=== PATIENT | female | born 1930 | race Caucasian/White ===

== ENCOUNTER 2016-06-15 14:28 | Emergency (ER) | payer MEDICARE, OTHER ==
[2016-06-15] MEDS ORDERED: HYDROcod/ACETAM 5/325 MG TABLET PO STA (14:43)
[2016-06-15] MEDS ORDERED: HYDROcod/ACETAM 5/325 MG TABLET ONE (15:03)
== END 2016-06-15 16:25 | disposition home or self-care (01) ==
DX: M23.91 Unspecified internal derangement of right knee (principal); Z86.718 Personal history of other venous thrombosis and embolism; I48.91 Unspecified atrial fibrillation; Z79.01 Long term (current) use of anticoagulants; I10 Essential (primary) hypertension
CPT/HCPCS: 73564; 99283; 99284; A9270

== ENCOUNTER 2016-06-16 | Outpatient (CLI) | payer MEDICARE, OTHER | END 2016-06-16 22:03 | disposition critical access hospital (66) | DX: R06.00 Dyspnea, unspecified (principal) | CPT/HCPCS: A0425; A0429 ==

== ENCOUNTER 2016-06-16 22:18 | Emergency (ER) | payer MEDICARE, OTHER ==
[2016-06-17] MEDS ORDERED: FUROSEMIDE 40 MG/4 ML VIAL IVP STA (00:42)
[2016-06-17] MEDS ORDERED: FUROSEMIDE 40 MG/4 ML VIAL ONE (00:49)
[2016-06-17] MEDS ORDERED: ALBUTEROL NEB 2.5 MG/3 ML INH STA (02:13)
[2016-06-17] MEDS ORDERED: ALBUTEROL NEB 2.5 MG/3 ML INH ONE (02:42)
[2016-06-17] MEDS ORDERED: ALBUTEROL 8 GM INHALER INH STA (03:32)
[2016-06-17] MEDS ORDERED: ALBUTEROL 8 GM INHALER INH ONE (03:42)
== END 2016-06-17 04:06 | disposition home or self-care (01) ==
DX: R06.00 Dyspnea, unspecified (principal); J43.9 Emphysema, unspecified; R91.1 Solitary pulmonary nodule; D64.9 Anemia, unspecified; I48.91 Unspecified atrial fibrillation; Z86.718 Personal history of other venous thrombosis and embolism; Z79.01 Long term (current) use of anticoagulants; I10 Essential (primary) hypertension; K21.9 Gastro-esophageal reflux disease without esophagitis; K44.9 Diaphragmatic hernia without obstruction or gangrene
CPT/HCPCS: 36415; 71010; 71250; 80048; 83540; 83880; 84466; 84484; 85025; 85379; 85610; 93005; 93010; 93971; 94640; 94664; 96374; 99284; A9270; J7613

== ENCOUNTER 2016-06-18 21:55 | Emergency (ER) | payer MEDICARE, OTHER ==
[2016-06-18] MEDS ORDERED: IPRATROPIUM/ALBUTEROL 3 ML NEB INH STA (22:30)
[2016-06-18] MEDS ORDERED: DEXAMETHASONE 10 MG/ML VIAL PO STA (22:30)
[2016-06-18] MEDS ORDERED: CEPHALEXIN 250 MG CAPSULE PO STA (22:32)
[2016-06-18] MEDS ORDERED: DEXAMETHASONE 10 MG/ML VIAL ONE (22:33)
[2016-06-18] MEDS ORDERED: CHERRY SYRUP 10 ML UDC PO ONE (22:33)
[2016-06-18] MEDS ORDERED: CEPHALEXIN 250 MG CAPSULE PO ONE (22:37)
[2016-06-18] MEDS ORDERED: IPRATROPIUM/ALBUTEROL 3 ML NEB INH ONE (23:07)
== END 2016-06-19 00:40 | disposition home or self-care (01) ==
DX: J44.9 Chronic obstructive pulmonary disease, unspecified (principal); I10 Essential (primary) hypertension; I48.91 Unspecified atrial fibrillation; Z86.718 Personal history of other venous thrombosis and embolism; Z79.01 Long term (current) use of anticoagulants
CPT/HCPCS: 36415; 84484; 85610; 93005; 94640; 99283; 99284; A9270; J7620

== ENCOUNTER 2016-07-01 11:38 | Outpatient (CLI) | payer MEDICARE, OTHER ==
[2016-07-01 12:14] LABS: BASOPHILS # (AUTO) 0.1 10^3/uL (0.0-0.1); BASOPHILS % (AUTO) 1.6 %; EOSINOPHILS % (AUTO) 0.7 %; HCT - HEMATOCRIT 35.4 % (37.0-47.0); HGB - HEMOGLOBIN 11.8 g/dL (12.0-16.0); LYMPHOCYTES % (AUTO) 15.7 %; MEAN CORPUSCULAR HEMOGLOBIN 28.6 pg (27.0-31.0); MEAN CORPUSCULAR HGB CONC 33.4 g/dL (32.0-36.0); MEAN CORPUSCULAR VOLUME 85.6 fL (81.0-99.0); MEAN PLATELET VOLUME 8.3 fL (7.9-10.8); MONOCYTES # (AUTO) 0.3 10^3/uL (0.0-1.0); MONOCYTES % (AUTO) 4.4 %; NEUTROPHILS # (AUTO) 4.9 10^3/uL (1.5-6.6); NEUTROPHILS % (AUTO) 77.6 %; RED BLOOD COUNT 4.14 10^6/uL (4.20-5.40); RED CELL DISTRIBUTION WIDTH 21.8 % (12.0-15.0); UNCORRECTED WHITE BLOOD COUNT 6.8 x10^3/uL; WHITE BLOOD COUNT 6.4 x10^3/uL (4.8-10.8)
[2016-07-01 12:36] LABS: CALCIUM 9.1 mg/dL (8.5-10.3); CREATININE 0.7 mg/dL (0.4-1.0); POTASSIUM 3.9 mmol/L (3.5-5.0)
[2016-07-01 12:47] LABS: PLATELET ESTIMATE, MANUAL NORMAL (130-450,000) (NORMAL); PLATELET MORPHOLOGY PLATELET CLUMPING (NORMAL)
[2016-07-01 12:48] LABS: WBC MORPHOLOGY (MULTIPLE) 1+ VACUOLATION (NORMAL)
[2016-07-01 13:02] LABS: THYROID STIMULATING HORMONE 1.33 uIU/mL (0.34-5.60)
== END 2016-07-01 11:39 | disposition home or self-care (01) ==
LOC: LAB 11:38
PROVIDERS: ATTEND Internal Medicine Cardiovascular Disease
DX: I48.91 Unspecified atrial fibrillation (principal)
CPT/HCPCS: 36415; 80048; 83540; 84439; 84443; 84466; 85025

== ENCOUNTER 2016-07-05 14:21 | Outpatient (CLI) | payer MEDICARE, OTHER | END 2016-07-05 14:22 | disposition home or self-care (01) | DX: I48.91 Unspecified atrial fibrillation (principal) ==

== ENCOUNTER 2016-07-09 08:29 | Emergency (ER) | payer MEDICARE, OTHER ==
[2016-07-09] MEDS ORDERED: MIDAZOLAM 2 MG/2 ML VIAL IVP STA (10:28)
[2016-07-09] MEDS ORDERED: PROPOFOL 200 MG/20 ML VIAL IVP STA (10:28)
[2016-07-09] MEDS ORDERED: MIDAZOLAM 2 MG/2 ML VIAL ONE (10:43)
[2016-07-09] MEDS ORDERED: PROPOFOL 200 MG/20 ML VIAL IVP ONE (10:43)
== END 2016-07-09 12:05 | disposition home or self-care (01) ==
DX: I48.91 Unspecified atrial fibrillation (principal); Z79.01 Long term (current) use of anticoagulants; I10 Essential (primary) hypertension; I25.2 Old myocardial infarction; Z86.718 Personal history of other venous thrombosis and embolism

== ENCOUNTER 2016-07-12 08:53 | Emergency (ER) | payer MEDICARE, OTHER ==
[2016-07-12] MEDS ORDERED: SODIUM CHLORIDE 0.9% 500 ML IV ONE (09:25)
[2016-07-12] MEDS ORDERED: METOPROLOL 5 MG/5 ML VIAL IVP STA ×2 (09:25→10:58)
[2016-07-12] MEDS ORDERED: METOPROLOL 5 MG/5 ML VIAL IVP ONE ×2 (09:32→11:06)
[2016-07-12] MEDS ORDERED: ENOXAPARIN 80 MG/0.8 ML SYRINGE SUBQ STA (10:58)
[2016-07-12] MEDS ORDERED: DIGOXIN 125 MCG TABLET PO STA (10:58)
[2016-07-12] MEDS ORDERED: NITROFURANTOIN MACRO 100 MG CAPSULE PO STA (11:02)
[2016-07-12] MEDS ORDERED: ENOXAPARIN 80 MG/0.8 ML SYRINGE SUBQ ONE (11:04)
[2016-07-12] MEDS ORDERED: NITROFURANTOIN MACRO 100 MG CAPSULE PO ONE (11:05)
[2016-07-12] MEDS ORDERED: METOCLOPRAMIDE 10 MG/2 ML VIAL IVP ONE (11:05)
== END 2016-07-12 12:41 | disposition home or self-care (01) ==
DX: I48.0 Paroxysmal atrial fibrillation (principal); Z79.01 Long term (current) use of anticoagulants; D68.8 Other specified coagulation defects; R94.31 Abnormal electrocardiogram [ECG] [EKG]; I10 Essential (primary) hypertension; E78.00 Pure hypercholesterolemia, unspecified; K21.9 Gastro-esophageal reflux disease without esophagitis; M19.90 Unspecified osteoarthritis, unspecified site; Z86.718 Personal history of other venous thrombosis and embolism; Z87.442 Personal history of urinary calculi; Z87.440 Personal history of urinary (tract) infections
CPT/HCPCS: 36415; 80048; 84484; 85025; 85610; 93005; 93010; 96361; 96372; 96374; 96376; 99284; A9270; J1650

== ENCOUNTER 2016-10-19 15:25 | Outpatient (CLI) | payer MEDICARE, OTHER ==
[2016-10-19 19:17] LABS: BASOPHILS % (AUTO) 0.8 %; EOSINOPHILS % (AUTO) 0.6 %; HCT - HEMATOCRIT 38.8 % (37.0-47.0); HGB - HEMOGLOBIN 12.9 g/dL (12.0-16.0); LYMPHOCYTES # (AUTO) 1.5 10^3/uL (1.5-3.5); LYMPHOCYTES % (AUTO) 23.8 %; MEAN CORPUSCULAR HEMOGLOBIN 30.4 pg (27.0-31.0); MEAN CORPUSCULAR HGB CONC 33.1 g/dL (32.0-36.0); MEAN CORPUSCULAR VOLUME 91.9 fL (81.0-99.0); MEAN PLATELET VOLUME 9.7 fL (7.9-10.8); MONOCYTES # (AUTO) 0.4 10^3/uL (0.0-1.0); MONOCYTES % (AUTO) 7.2 %; NEUTROPHILS # (AUTO) 4.1 10^3/uL (1.5-6.6); NEUTROPHILS % (AUTO) 67.6 %; RED BLOOD COUNT 4.23 10^6/uL (4.20-5.40); RED CELL DISTRIBUTION WIDTH 15.1 % (12.0-15.0); UNCORRECTED WHITE BLOOD COUNT 6.1 x10^3/uL; WHITE BLOOD COUNT 6.1 x10^3/uL (4.8-10.8)
[2016-10-19 19:46] LABS: ALBUMIN/GLOBULIN RATIO 1.2 (1.0-2.2); BILIRUBIN,TOTAL 0.7 mg/dL (0.2-1.0); CALCIUM 9.7 mg/dL (8.5-10.3); CREATININE 0.7 mg/dL (0.4-1.0); POTASSIUM 4.5 mmol/L (3.5-5.0); TOTAL PROTEIN 7.4 g/dL (6.7-8.2)
[2016-10-19 19:50] LABS: FERRITIN 11.8 ng/mL (11.0-306.8)
[2016-10-19 20:02] LABS: THYROID STIMULATING HORMONE 1.42 uIU/mL (0.34-5.60)
== END 2016-10-19 15:26 ==
LOC: LAB.WCP 15:25
PROVIDERS: ATTEND Family Medicine
DX: D64.9 Anemia, unspecified (principal); I48.91 Unspecified atrial fibrillation
CPT/HCPCS: 36415; 80053; 82607; 82728; 82746; 83010; 83540; 83615; 84443; 84466; 85025

== ENCOUNTER 2016-11-03 11:00 | Outpatient (CLI) | payer MEDICARE, OTHER | END 2016-11-03 11:01 | disposition home or self-care (01) | LOC: LAB.R 11:00 | PROVIDERS: ATTEND Physician Assistant Medical | DX: N39.0 Urinary tract infection, site not specified (principal) | CPT/HCPCS: 87086 ==

== ENCOUNTER 2016-11-07 09:14 | Emergency (ER) | payer MEDICARE, OTHER ==
[2016-11-07] MEDS ORDERED: SODIUM CHLORIDE 0.9% 1,000 ML IV ONE (09:29)
[2016-11-07] MEDS ORDERED: METOPROLOL 5 MG/5 ML VIAL IVP STA ×2 (09:29→10:27)
[2016-11-07] MEDS ORDERED: METOPROLOL 5 MG/5 ML VIAL IVP ONE ×2 (09:31→10:33)
--- NOTE | 2016-11-07 09:33 | ED Physician Documentation ---
History of Present Illness - Stated complaint Stated Complaint: RAPID HEART RATE - Chief complaint Chief Complaint: Cardiac - Additonal information Additional information: hx from pt 85 female long hx a fib last seen by me in Jun - had just been cardioverted 2 days prior and had not help NSR, also was subtherapeutic , d/w cardio and rec not trying to cardiovert again, rec dc sotalol and flecainide since not working and start dig and inc coumadin pt states that since that time she has continued to have a fib problems dig did not control her rate either, then she was on atenolol and not rate controlled and 2 weeks ago changed to metoprolol no other med changes does not know her last INR the rapid palpitations have been going on for months, also chest pressure for months - but last night were more symptomatic and she could sleep and she felt very cold no SOA no fever cough NVD no new leg swelling Review of Systems Constitutional: reports: Sweats. 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 : Chronic bladder infection, Kidney stones HEENT: None Psych: None Musculoskeletal: Osteoarthritis Derm: Herpes zoster - Past Surgical History Past Surgical History: Yes Ortho: Hip replacement /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: Dilation and currettage HEENT: Tracheostomy - Present Medications Home Medications: Ambulatory Orders Medication Instructions Recorded Confirmed Warfarin [Coumadin] 5 mg PO DAILY 10/13/12 11/07/16 Vitamin B Complex 1 each PO DAILY 04/28/16 11/07/16 Ferrous Sulfate [Iron] 325 mg PO DAILY 05/12/16 11/07/16 Ascorbic Acid [Vitamin C] 1,000 mg PO DAILY 07/09/16 11/07/16 raNITIdine [Zantac] 75 mg PO DAILY 07/09/16 11/07/16 Amoxicillin 500 mg PO DAILY 11/07/16 11/07/16 Metoprolol Succinate 50 mg PO DAILY #14 tab.er.24h 11/07/16 Metoprolol Succinate 100 mg PO DAILY 11/07/16 11/07/16 - Allergies Allergies/Adverse Reactions: Allergies Allergy/AdvReac Type Severity Reaction Status Date / Time BISHOP Inhibitors Allergy Unknown Unknown Verified 11/07/16 09:22 atropine Allergy Unknown Unknown Verified 11/07/16 09:22 clopidogrel bisulfate * Allergy Unknown Unknown Verified 11/07/16 09:22 [From Plavix] NSAIDS (Non-Steroidal Allergy Unknown Unknown Verified 11/07/16 09:22 Anti-Inflamma ciprofloxacin AdvReac Unknown Unknown Verified 11/07/16 09:22 esomeprazole magnesium * AdvReac Unknown Cramps Verified 11/07/16 09:22 [From Nexium] omeprazole [From Prilosec] AdvReac Unknown Cramps Verified 11/07/16 09:22 omeprazole magnesium * AdvReac Unknown Cramps Verified 11/07/16 09:22 [From Prilosec] Sulfa (Sulfonamide AdvReac Unknown Itching Verified 11/07/16 09:22 Antibiotics) - Social History Does the pt smoke?: No Smoking Status: Never smoker Does the pt drink ETOH?: No Does the pt have substance abuse?: No - Immunizations Immunizations are current?: Yes - POLST Patient has POLST: No PD ED PE NORMAL - Vitals Vital signs reviewed: Yes - Cardiac Cardiac: RRR - Respiratory Respiratory: No respiratory distress, Clear bilaterally - Abdomen Abdomen: Soft, Non tender - Derm Derm: Normal color - Extremities Extremities: Normal ROM s pain, No edema, No calf tenderness / cord - Neuro Neuro: Alert and oriented X 3 Results - Vitals Vitals: Vital Signs - 24 hr 11/07/16 11/07/16 11/07/16 09:18 09:36 09:37 Temperature 36.2 C L Heart Rate 127 H 104 H Respiratory 18 18 Rate Blood Pressure 151/118 H 132/88 H O2 Saturation 97 97 11/07/16 11/07/16 11/07/16 09:52 10:30 10:41 Temperature Heart Rate 106 H 107 H 109 H Respiratory 16 22 23 Rate Blood Pressure 123/81 H 109/84 H 119/88 H O2 Saturation 94 96 96 Oxygen O2 Source Room air - EKG (time done) 0932 Rate: Rate (enter#) Rhythm: Atrial fibrillation Ischemia: Non specific changes - Labs Labs: Laboratory Tests 11/07/16 11/07/16 11/07/16 09:32 09:32 09:32 WBC 4.9 RBC 4.13 L Hgb 12.8 Hct 37.6 MCV 91.0 MCH 30.9 MCHC 34.0 RDW 15.6 H Plt Count 200 MPV 9.0 Neut # 3.5 Lymph # 1.[address] # 0.3 Eos # 0.0 Baso # 0.1 Absolute Nucleated RBC 0.00 Nucleated RBCs 0.0 PT INR Sodium 140 Potassium 4.0 Chloride 106 Carbon Dioxide 25 Anion Gap 9.0 BUN 25 H Creatinine 0.6 Estimated GFR (MDRD) 95 Glucose 111 H Calcium 9.5 Troponin I < 0.04 11/07/16 09:32 WBC RBC Hgb Hct MCV MCH MCHC RDW Plt Count MPV Neut # Lymph # [place] # Eos # Baso # Absolute Nucleated RBC Nucleated RBCs PT 29.0 H INR 2.6 H Sodium Potassium Chloride Carbon Dioxide Anion Gap BUN Creatinine Estimated GFR (MDRD) Glucose Calcium Troponin I - Rads (name of study) CXR Radiology: See rad report (COPD borderline cardiomegaly, NACPD) PD MEDICAL DECISION MAKING - ED course ED course: rate controlled with IV lopressor EKG no acute ischemia trop neg and sx are subacute to chronic per pt doubt PE causing rapid a fib when pt is therapeutic on coumadin will inc BB dose and dc to fup cardio HR down, gave extra 25 succinate PO to follow her usual 100 succinate PO she takes every AM and will dc to inc daily dose to 150 with close fup Departure - Departure Disposition: 01 Home, Self Care Clinical Impression: Atrial fibrillation and flutter Condition: Good Instructions: Atrial Fibrillation Dc Follow-Up: Allyson Nolan MD [Emergency Provider] - Prescriptions: Metoprolol Succinate 50 mg PO DAILY #14 tab.er.24h Comments: Your EKG showed atrial fibrillation but not signs of a heart attack The blood tests were fine. Your INR is 2.6 Your are not anemic Your electrolytes were fine Your heart rate came down with IV metoprolol in the ER Try increasing your daily metoprolol from 100 mg daily to 150 mg daily (I wrote for 50 mg doses for you to take in addition to your 100s) Please follow up with your PMD Tuesday or Sabrina to get your heart rate and blood pressure rechecked
[2016-11-07 09:43] LABS: EOSINOPHILS % (AUTO) 0.9 %; MONOCYTES # (AUTO) 0.3 10^3/uL (0.0-1.0)
[2016-11-07 09:47] LABS: BASOPHILS # (AUTO) 0.1 10^3/uL (0.0-0.1); BASOPHILS % (AUTO) 1.1 %; HCT - HEMATOCRIT 37.6 % (37.0-47.0); HGB - HEMOGLOBIN 12.8 g/dL (12.0-16.0); LYMPHOCYTES % (AUTO) 21.4 %; MEAN CORPUSCULAR HEMOGLOBIN 30.9 pg (27.0-31.0); MONOCYTES % (AUTO) 5.7 %; NEUTROPHILS # (AUTO) 3.5 10^3/uL (1.5-6.6); NEUTROPHILS % (AUTO) 70.9 %; RED BLOOD COUNT 4.13 10^6/uL (4.20-5.40); RED CELL DISTRIBUTION WIDTH 15.6 % (12.0-15.0); UNCORRECTED WHITE BLOOD COUNT 4.9 x10^3/uL; WHITE BLOOD COUNT 4.9 x10^3/uL (4.8-10.8)
[2016-11-07 10:11] LABS: INR 2.6 (0.8-1.2)
[2016-11-07 10:17] LABS: CALCIUM 9.5 mg/dL (8.5-10.3); CREATININE 0.6 mg/dL (0.4-1.0)
--- NOTE | 2016-11-07 10:48 | XRAY Preliminary Report ---
Exam: XR Chest 1 View IMPRESSION: COPD, borderline to mild cardiomegaly; negative for acute cardiopulmonary process. [facility] SITE ID: [id number]
[2016-11-07 10:54] VITALS: BP 117/90
[2016-11-07] MEDS ORDERED: METOPROLOL SUCCINATE 25 MG TABLET PO STA (10:54)
--- NOTE | 2016-11-07 11:02 | XRAY Report ---
EXAM: CHEST RADIOGRAPHY EXAM DATE: 11/07/2016 09:50 AM. CLINICAL HISTORY: Chest pain. COMPARISON: 06/16/2016. TECHNIQUE: 1 view. FINDINGS: Lungs/Pleura: Bilateral mild to moderate emphysematous lungs without new focal opacities evident. No pleural effusion. No pneumothorax. Mediastinum: Mild cardiomegaly and small to moderate-sized hiatal hernia again noted, similar to the prior exam. Other: Degenerative changes in bilateral shoulders, greater on the right again noted. IMPRESSION: COPD, borderline to mild cardiomegaly; negative for acute cardiopulmonary process. [facility] Referring Provider Line: [phone] SITE ID: [id number]
== END 2016-11-07 11:10 | disposition home or self-care (01) ==
LOC: ED 09:14
DX: I48.91 Unspecified atrial fibrillation (principal); I48.92 Unspecified atrial flutter; I10 Essential (primary) hypertension; Z86.718 Personal history of other venous thrombosis and embolism; Z79.01 Long term (current) use of anticoagulants
CPT/HCPCS: 36415; 71010; 80048; 84484; 85025; 85610; 93005; 96374; 96376; 99284; A9270

== ENCOUNTER 2016-11-10 14:25 | Outpatient (CLI) | payer MEDICARE, OTHER ==
--- NOTE | 2016-11-11 08:32 | Ultrasound Report ---
BILATERAL CAROTID ARTERY ULTRASOUND: 11/10/2016 CLINICAL HISTORY: Dizziness. TECHNIQUE: Real-time sonographic vascular imaging was performed by the beauty operator apprentice through the carotid arteries utilizing both color-flow and Doppler spectral analysis. Multiple bilingual inside sales representative static images were saved for review. Vessel PSV cm/sec 2D Plaque Estimate % ICA/CCA PSV EDV cm/sec % Stenosis RCCA Prox 81 -- RCCA Dist 53 18 RECA 59 -- RT BULB 18 -- 0.33 5 TIP Prox 45 -- 0.84 19 TIP Mid 40 -- 0.75 17 TIP Dist 59 -- 1.11 14 RVA 38 RVA flow direction: Antegrade. Vessel PSV cm/sec 2D Plaque Estimate % ICA/CCA PSV EDV cm/sec % Stenosis LCCA Prox 47 -- LCCA Dist 52 13 LECA 75 -- LFT BULB 57 -- 1.09 15 LICA Prox 48 -- 0.92 16 LICA Mid 26 -- 0.50 10 LICA Dist 55 -- 1.05 24 LVA 38 LVA flow direction: Antegrade. Velocity criteria are extrapolated from diameter data as defined by the Society of Radiologists in Ultrasound Consensus Conference Radiology 2003; 229; 340-346. Degree of Stenosis % ICA PSV cm/sec Plaque Estimate % ICA/CCA RSV Ratio ICA EDV cm/sec Normal < 125 None < 2.0 < 40 <50 < 125 < 50 < 2.0 < 40 50-69 125 - 130 >/= 50 2.0 - 4.0 40 - 100 >/= 70 but less than near occlusion > 230 >/= 50 > 4.0 > 100 Near occlusion High, low, or undetectable Visible lumen Variable Variable Total occlusion Undetectable No detectable lumen Not applicable Not applicable FINDINGS: Right carotid artery demonstrates no significant plaque. Doppler values indicate no hemodynamically significant stenosis. Left carotid artery demonstrates only minor plaque at the left carotid artery bifurcation. Visually, there is no significant stenosis. Also by color Doppler examination, there is no hemodynamically significant stenosis. Both vertebral arteries are patent and of equal size. They show antegrade flow. IMPRESSION: 1. RIGHT CAROTID ARTERY DEMONSTRATES NO SIGNIFICANT PLAQUE. NO HEMODYNAMICALLY SIGNIFICANT STENOSIS IS NOTED. 2. LEFT CAROTID ARTERY DEMONSTRATES SOME MINOR PLAQUE. NO HEMODYNAMICALLY SIGNIFICANT STENOSIS IS NOTED. 3. VERTEBRAL ARTERIES BILATERALLY ARE OF EQUAL SIZE AND SHOW NORMAL ANTEGRADE FLOW. 4. PATIENT HAS AN IRREGULAR HEARTBEAT. THIS MAY BE A RESULT OF RESPIRATORY VARIATION OR OCCASIONAL ECTOPIC BEATS. RECOMMEND CLINICAL CORRELATION. [facility]
== END 2016-11-10 14:26 | disposition home or self-care (01) ==
LOC: DI 14:25
PROVIDERS: ATTEND Physician Assistant Medical
DX: R42 Dizziness and giddiness (principal); I49.9 Cardiac arrhythmia, unspecified
CPT/HCPCS: 93880

== ENCOUNTER 2016-11-16 10:08 | Outpatient (CLI) | payer MEDICARE, OTHER | END 2016-11-16 10:09 | disposition critical access hospital (66) | LOC: EMS 10:08 | PROVIDERS: ATTEND Surgery | DX: R07.9 Chest pain, unspecified (principal); R06.02 Shortness of breath; R42 Dizziness and giddiness | CPT/HCPCS: A0425; A0427 ==

== ENCOUNTER 2016-11-16 10:25 | Emergency (ER) | payer MEDICARE, OTHER ==
[2016-11-16] MEDS ORDERED: diltiaZEM INJ 5 MG/ML VIAL IVP STA (10:33)
[2016-11-16] MEDS ORDERED: diltiaZEM INJ 5 MG/ML VIAL ONE (10:42)
[2016-11-16 10:49] LABS: BASOPHILS % (AUTO) 1.1 %; EOSINOPHILS % (AUTO) 0.6 %; HCT - HEMATOCRIT 38.3 % (37.0-47.0); HGB - HEMOGLOBIN 13.1 g/dL (12.0-16.0); LYMPHOCYTES # (AUTO) 1.1 10^3/uL (1.5-3.5); LYMPHOCYTES % (AUTO) 24.7 %; MEAN CORPUSCULAR HEMOGLOBIN 31.2 pg (27.0-31.0); MEAN CORPUSCULAR HGB CONC 34.1 g/dL (32.0-36.0); MEAN CORPUSCULAR VOLUME 91.4 fL (81.0-99.0); MEAN PLATELET VOLUME 8.6 fL (7.9-10.8); MONOCYTES # (AUTO) 0.2 10^3/uL (0.0-1.0); MONOCYTES % (AUTO) 5.5 %; NEUTROPHILS % (AUTO) 68.1 %; NUCLEATED RED BLOOD CELLS AUTO 0.1 /100WBC; RED BLOOD COUNT 4.19 10^6/uL (4.20-5.40); RED CELL DISTRIBUTION WIDTH 15.2 % (12.0-15.0); UNCORRECTED WHITE BLOOD COUNT 4.5 x10^3/uL; WHITE BLOOD COUNT 4.5 x10^3/uL (4.8-10.8)
[2016-11-16 10:55] LABS: INR 3.4 (0.8-1.2); PT - PROTHROMBIN TIME 38.7 secs (9.9-12.6)
[2016-11-16 11:02] LABS: ALBUMIN/GLOBULIN RATIO 1.3 (1.0-2.2); CALCIUM 9.3 mg/dL (8.5-10.3); CREATININE 0.7 mg/dL (0.4-1.0); POTASSIUM 4.1 mmol/L (3.5-5.0); TOTAL PROTEIN 7.2 g/dL (6.7-8.2)
--- NOTE | 2016-11-16 11:59 | XRAY Preliminary Report ---
Exam: XR Chest 2 View PA/LAT IMPRESSION: Hiatal hernia and other chronic findings. No definite acute disease. [facility] SITE ID: [id number]
--- NOTE | 2016-11-16 12:01 | XRAY Report ---
EXAM: CHEST RADIOGRAPHY EXAM DATE: 11/16/2016 11:38 AM. CLINICAL HISTORY: Chest pain . COMPARISON: 06/16/2016. TECHNIQUE: 2 views. FINDINGS: Lungs/Pleura: Hyperexpanded with coarse lung markings typical of COPD. No definite localized infiltra te, consolidation, effusion, or pneumothorax. Mediastinum: Mild cardiomegaly, unchanged. Upper lobe vessels not distended. Small to moderate hiatal hernia. Other: Last year, degenerative changes, and other chronic findings. IMPRESSION: Hiatal hernia and other chronic findings. No definite acute disease. [facility] Referring Provider Line: [phone] SITE ID: [id number]
--- NOTE | 2016-11-16 12:29 | ED Physician Documentation ---
PD HPI CHEST PAIN - Stated complaint Stated Complaint: CP - Chief complaint Chief Complaint: Cardiac - History obtained from History obtained from: Patient, Family, EMS - History of Present Illness Timing - onset: Today Timing - onset during: Rest Timing - duration: Minutes Timing - details: Abrupt onset, Now resolved Quality: Pressure Location: Left chest Radiation: No: Jaw, Neck, Back, Abdominal, Left upper extremity, Right upper extremity Improved by: Rest Associated symptoms: No: Shortness of air, Diaphoresis, Nausea, Vomiting, Feeling faint / dizzy, General Weakness, Palpitations, Cough Similar symptoms before: Has not had sx before Recently seen: Clinic - Additional information Additional information: 85-year-old female on Coumadin with a history of atrial fibrillation has developed left anterior chest pain today that is resolved in the ambulance on the way to the hospital. She was noted to be in atrial fibrillation with a rate of 130 and her blood pressure was mildly elevated. She has been on amoxicillin for suppression of urinary tract infection as she does get frequent infections and she does not feel that she has symptoms today. Review of Systems Constitutional: denies: Fever Eyes: denies: Decreased vision Ears: denies: Ear pain Nose: denies: Congestion Throat: denies: Sore throat Cardiac: reports: Chest pain / pressure. 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 : Chronic bladder infection, Kidney stones HEENT: None Psych: None Musculoskeletal: Osteoarthritis Derm: Herpes zoster - Past Surgical History Past Surgical History: Yes Ortho: Hip replacement /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: Dilation and currettage HEENT: Tracheostomy - Present Medications Home Medications: Ambulatory Orders Medication Instructions Recorded Confirmed Warfarin [Coumadin] 5 mg PO DAILY 10/13/12 11/16/16 Vitamin B Complex 1 each PO DAILY 04/28/16 11/16/16 Ferrous Sulfate [Iron] 325 mg PO DAILY 05/12/16 11/16/16 Ascorbic Acid [Vitamin C] 1,000 mg PO DAILY 07/09/16 11/16/16 raNITIdine [Zantac] 75 mg PO DAILY 07/09/16 11/16/16 Amoxicillin 500 mg PO DAILY 11/07/16 11/16/16 Metoprolol Succinate 50 mg PO DAILY #14 tab.er.24h 11/07/16 11/16/16 Metoprolol Succinate 100 mg PO DAILY 11/07/16 11/16/16 Nitrofurantoin Monohyd/M-Cryst 11/16/16 [Macrobid 100 mg Capsule] - Allergies Allergies/Adverse Reactions: Allergies Allergy/AdvReac Type Severity Reaction Status Date / Time BISHOP Inhibitors Allergy Unknown Unknown Verified 11/07/16 09:22 atropine Allergy Unknown Unknown Verified 11/07/16 09:22 clopidogrel bisulfate * Allergy Unknown Unknown Verified 11/07/16 09:22 [From Plavix] NSAIDS (Non-Steroidal Allergy Unknown Unknown Verified 11/07/16 09:22 Anti-Inflamma ciprofloxacin AdvReac Unknown Unknown Verified 11/07/16 09:22 esomeprazole magnesium * AdvReac Unknown Cramps Verified 11/07/16 09:22 [From Nexium] omeprazole [From Prilosec] AdvReac Unknown Cramps Verified 11/07/16 09:22 omeprazole magnesium * AdvReac Unknown Cramps Verified 11/07/16 09:22 [From Prilosec] Sulfa (Sulfonamide AdvReac Unknown Itching Verified 11/07/16 09:22 Antibiotics) - Social History Does the pt smoke?: No Smoking Status: Never smoker Does the pt drink ETOH?: No Does the pt have substance abuse?: No - Immunizations Immunizations are current?: Yes - POLST Patient has POLST: No PD ED PE NORMAL - Vitals Vital signs reviewed: Yes (Tachycardic and hypertensive) - General General: Alert and oriented X 3, No acute distress, Well developed/nourished - HEENT HEENT: Atraumatic, PERRL, EOMI - Neck Neck: Supple, no meningeal sign - Cardiac Cardiac: No murmur, Other (There is a irregularly irregular and rapid) - Respiratory Respiratory: No respiratory distress, Clear bilaterally - Abdomen Abdomen: Soft, Non tender - Back Back: No CVA TTP, No spinal TTP - Derm Derm: Normal color, Warm and dry, No rash - Extremities Extremities: No deformity, No edema - Neuro Neuro: No motor deficit, No sensory deficit, Normal speech - Psych Psych: Normal mood, Normal affect Results - Vitals Vitals: Vital Signs - 24 hr 11/16/16 11/16/16 11/16/16 10:34 10:52 10:58 Temperature 36.1 C L Heart Rate 106 H 109 H 79 Respiratory 15 22 Rate Blood Pressure 153/101 H 136/91 H 114/53 L O2 Saturation 96 94 93 11/16/16 11/16/16 11/16/16 11:13 12:33 13:25 Temperature Heart Rate 63 68 87 Respiratory 23 20 Rate Blood Pressure 98/63 112/63 122/52 L O2 Saturation 92 93 96 Oxygen O2 Source Room air - EKG (time done) 1035 Rate: Rate (enter#) (116) Rhythm: Atrial fibrillation [place]: LAD Other comments: Other comments (Flat T's lateral) Compare to prior EKG: Unchanged from prior EKG (11-07-16) Computer interpretation: Agree with computer - Labs Labs: Laboratory Tests 11/16/16 11/16/16 11/16/16 10:40 10:40 10:40 WBC 4.5 L RBC 4.19 L Hgb 13.1 Hct 38.3 MCV 91.4 MCH 31.2 H MCHC 34.1 RDW 15.2 H Plt Count 183 MPV 8.6 Neut # 3.0 Lymph # 1.1 L [place] # 0.2 Eos # 0.0 Baso # 0.0 Absolute Nucleated RBC 0.00 Nucleated RBCs 0.1 PT 38.7 H INR 3.4 H Sodium 140 Potassium 4.1 Chloride 107 Carbon Dioxide 25 Anion Gap 8.0 BUN 18 Creatinine 0.7 Estimated GFR (MDRD) 80 L Glucose 147 H Calcium 9.3 Total Bilirubin 1.0 AST 26 ALT 24 Alkaline Phosphatase 44 Troponin I Total Protein 7.2 Albumin 4.0 Globulin 3.2 Albumin/Globulin Ratio 1.3 Lipase 16 L Urine Color Urine Clarity Urine pH Ur Specific [place] Urine Protein Urine Glucose (UA) Urine Ketones Urine Occult Blood Urine Nitrite Urine Bilirubin Urine Urobilinogen Ur Leukocyte Esterase Urine RBC Urine WBC Ur Squamous Epith Cells Urine Bacteria Ur Microscopic Review Urine Culture Comments 11/16/16 11/16/16 10:40 11:40 WBC RBC Hgb Hct MCV MCH MCHC RDW Plt Count MPV Neut # Lymph # [place] # Eos # Baso # Absolute Nucleated RBC Nucleated RBCs PT INR Sodium Potassium Chloride Carbon Dioxide Anion Gap BUN Creatinine Estimated GFR (MDRD) Glucose Calcium Total Bilirubin AST ALT Alkaline Phosphatase Troponin I < 0.04 Total Protein Albumin Globulin Albumin/Globulin Ratio Lipase Urine Color YELLOW Urine Clarity CLEAR Urine pH 7.0 Ur Specific [place] 1.010 Urine Protein NEGATIVE Urine Glucose (UA) NEGATIVE Urine Ketones NEGATIVE Urine Occult Blood NEGATIVE Urine Nitrite NEGATIVE Urine Bilirubin NEGATIVE Urine Urobilinogen 0.2 (NORMAL) Ur Leukocyte Esterase SMALL H Urine RBC 0-5 Urine WBC 4-5 Ur Squamous Epith Cells MOD Squamous H Urine Bacteria Few Ur Microscopic Review INDICATED Urine Culture Comments NOT INDICATED - Rads (name of study) 2 view chest Radiology: Prelim report reviewed (Impression: Hiatal hernia and other chronic findings. No definite acute disease.), EMP read indepedently, See rad report PD MEDICAL DECISION MAKING - ED course Complexity details: reviewed old records, reviewed results, re-evaluated patient , considered differential, d/w patient, d/w family ED course: 85-year-old female with history of atrial fibrillation arrives with rapid ventricular response at 130 with hypertension. She has resolved her chest pain and here in the emergency department she is administered 20 mg of diltiazem intravenously with a prompt reduction in her heart rate into the 70s.Remainder of her workup is unremarkable. Departure - Departure Disposition: 01 Home, Self Care Clinical Impression: Atypical chest pain, Atrial fibrillation with rapid ventricular response Condition: Stable Instructions: ED Afib Follow-Up: Jerry Lyle DO [Primary Care Provider] - Discharge Date/Time: 11/16/16 13:39
[2016-11-16 13:02] LABS: BILIRUBIN,URINE NEGATIVE (NEGATIVE)
[2016-11-16 13:06] LABS: UA w/ MICROSCOPIC CHARGE YES
[2016-11-16 13:11] LABS: UR CULTURE IF IND NOT INDICATED
[2016-11-16 13:26] VITALS: BP 122/52
== END 2016-11-16 13:39 | disposition home or self-care (01) ==
LOC: EDUNIT# → ED 10:25
DX: R07.89 Other chest pain (principal); I48.91 Unspecified atrial fibrillation; I10 Essential (primary) hypertension; K21.9 Gastro-esophageal reflux disease without esophagitis; Z79.01 Long term (current) use of anticoagulants; Z86.718 Personal history of other venous thrombosis and embolism
CPT/HCPCS: 36415; 71020; 80053; 81001; 81003; 83690; 84484; 85025; 85610; 87086; 93005; 96374; 99284; 99285

== ENCOUNTER 2016-11-22 20:14 | Emergency (ER) | payer MEDICARE, OTHER ==
[2016-11-22 21:08] LABS: BASOPHILS # (AUTO) 0.1 10^3/uL (0.0-0.1); BASOPHILS % (AUTO) 0.9 %; EOSINOPHILS % (AUTO) 0.9 %; HCT - HEMATOCRIT 36.8 % (37.0-47.0); HGB - HEMOGLOBIN 12.4 g/dL (12.0-16.0); LYMPHOCYTES # (AUTO) 1.2 10^3/uL (1.5-3.5); LYMPHOCYTES % (AUTO) 21.1 %; MEAN CORPUSCULAR HEMOGLOBIN 30.8 pg (27.0-31.0); MEAN CORPUSCULAR HGB CONC 33.8 g/dL (32.0-36.0); MEAN CORPUSCULAR VOLUME 91.2 fL (81.0-99.0); MEAN PLATELET VOLUME 8.8 fL (7.9-10.8); MONOCYTES # (AUTO) 0.4 10^3/uL (0.0-1.0); MONOCYTES % (AUTO) 6.7 %; NEUTROPHILS # (AUTO) 3.9 10^3/uL (1.5-6.6); NEUTROPHILS % (AUTO) 70.4 %; RED BLOOD COUNT 4.04 10^6/uL (4.20-5.40); RED CELL DISTRIBUTION WIDTH 15.2 % (12.0-15.0); UNCORRECTED WHITE BLOOD COUNT 5.6 x10^3/uL; WHITE BLOOD COUNT 5.6 x10^3/uL (4.8-10.8)
[2016-11-22 21:14] LABS: INR 1.2 (0.8-1.2); PT - PROTHROMBIN TIME 13.1 secs (9.9-12.6)
[2016-11-22 21:21] LABS: ALBUMIN/GLOBULIN RATIO 1.4 (1.0-2.2); BILIRUBIN,TOTAL 0.6 mg/dL (0.2-1.0); CREATININE 0.7 mg/dL (0.4-1.0); POTASSIUM 4.2 mmol/L (3.5-5.0); TOTAL PROTEIN 7.1 g/dL (6.7-8.2)
[2016-11-22 21:33] LABS: PARTIAL THROMBOPLASTIN TIME 23.5 secs (24.9-33.3)
--- NOTE | 2016-11-22 22:14 | ED Physician Documentation ---
PD HPI CHEST PAIN - Stated complaint Stated Complaint: CHEST PAIN - Chief complaint Chief Complaint: Cardiac - History obtained from History obtained from: Patient - History of Present Illness Timing - onset: Enter time (19:30), Today Timing - onset during: Rest (watching TV) Timing - duration: Minutes (45) Timing - details: Abrupt onset Pain level now: 0 Quality: Pain Location: Substernal Radiation: Left upper extremity, Right upper extremity Improved by: Nothing Worsened by: Other (no exacerbating factors) Associated symptoms: No: Shortness of air, Diaphoresis, Nausea, Vomiting, Feeling faint / dizzy, General Weakness, Palpitations Similar symptoms before: Has not had sx before Recently seen: Not recently seen Review of Systems Constitutional: denies: Fever, Chills, Sweats Cardiac: reports: Chest pain / pressure. 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 : Chronic bladder infection, Kidney stones HEENT: None Psych: None Musculoskeletal: Osteoarthritis Derm: Herpes zoster - Past Surgical History Past Surgical History: Yes Ortho: Hip replacement /[employer]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 [employer] 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: Dilation and currettage HEENT: Tracheostomy - Present Medications Home Medications: Ambulatory Orders Medication Instructions Recorded Confirmed Warfarin [Coumadin] 5 mg PO DAILY 10/13/12 11/22/16 Vitamin B Complex 1 each PO DAILY 04/28/16 11/22/16 Ferrous Sulfate [Iron] 325 mg PO DAILY 05/12/16 11/22/16 Ascorbic Acid [Vitamin C] 1,000 mg PO DAILY 07/09/16 11/22/16 Amoxicillin 500 mg PO DAILY 11/07/16 11/22/16 Metoprolol Succinate 50 mg PO TID 11/22/16 11/22/16 - Allergies Allergies/Adverse Reactions: Allergies Allergy/AdvReac Type Severity Reaction Status Date / Time BISHOP Inhibitors Allergy Unknown Unknown Verified 11/22/16 20:22 atropine Allergy Unknown Unknown Verified 11/22/16 20:22 clopidogrel bisulfate * Allergy Unknown Unknown Verified 11/22/16 20:22 [From Plavix] NSAIDS (Non-Steroidal Allergy Unknown Unknown Verified 11/22/16 20:22 Anti-Inflamma ciprofloxacin AdvReac Unknown Unknown Verified 11/22/16 20:22 esomeprazole magnesium * AdvReac Unknown Cramps Verified 11/22/16 20:22 [From Nexium] omeprazole [From Prilosec] AdvReac Unknown Cramps Verified 11/22/16 20:22 omeprazole magnesium * AdvReac Unknown Cramps Verified 11/22/16 20:22 [From Prilosec] Sulfa (Sulfonamide AdvReac Unknown Itching Verified 11/22/16 20:22 Antibiotics) aspirin AdvReac Unknown Verified 11/22/16 20:36 - Social History Does the pt smoke?: No Smoking Status: Never smoker Does the pt drink ETOH?: No Does the pt have substance abuse?: No - Immunizations Immunizations are current?: Yes - POLST Patient has POLST: No PD ED PE NORMAL - Vitals Vital signs reviewed: Yes - General General: Alert and oriented X 3, No acute distress, Well developed/nourished - Cardiac Cardiac: No murmur - Respiratory Respiratory: No respiratory distress, Clear bilaterally - Abdomen Abdomen: Soft, Non tender - Derm Derm: Normal color, Warm and dry - Extremities Extremities: No edema PD ED PE EXPANDED - Cardiac Cardiac: Irregularly irregular Results - Vitals Vitals: Vital Signs - 24 hr 11/22/16 11/22/16 11/22/16 20:15 20:44 21:07 Temperature 36.7 C Heart Rate 110 H 72 Respiratory 18 20 Rate Blood Pressure 151/108 H 150/72 H Blood Pressure 150/97 H [Left] O2 Saturation 99 100 11/22/16 11/22/16 11/22/16 23:05 23:06 23:10 Temperature Heart Rate 96 102 H 96 Respiratory 20 16 20 Rate Blood Pressure 131/89 H 127/79 118/85 H Blood Pressure [Left] O2 Saturation 98 97 99 Oxygen O2 Source Room air - EKG (time done) No standard instances Rate: Rate (enter#) (114), Tachy Rhythm: Atrial fibrillation [place]: LAD QRS: Normal Ischemia: Normal ST segments - Labs Labs: Laboratory Tests 11/22/16 11/22/16 11/22/16 20:44 20:44 20:44 WBC 5.6 RBC 4.04 L Hgb 12.4 Hct 36.8 L MCV 91.2 MCH 30.8 MCHC 33.8 RDW 15.2 H Plt Count 199 MPV 8.8 Neut # 3.9 Lymph # 1.2 L [place] # 0.4 Eos # 0.0 Baso # 0.1 Absolute Nucleated RBC 0.00 Nucleated RBCs 0.0 PT 13.1 H INR 1.2 APTT 23.5 L Sodium 139 Potassium 4.2 Chloride 107 Carbon Dioxide 25 Anion Gap 7.0 BUN 30 H Creatinine 0.7 Estimated GFR (MDRD) 80 L Glucose 131 H Calcium 10.0 Total Bilirubin 0.6 AST 44 H ALT 42 Alkaline Phosphatase 43 Troponin I Total Protein 7.1 Albumin 4.2 Globulin 2.9 Albumin/Globulin Ratio 1.4 Lipase 19 L 11/22/16 20:44 WBC RBC Hgb Hct MCV MCH MCHC RDW Plt Count MPV Neut # Lymph # O'Brien # Eos # Baso # Absolute Nucleated RBC Nucleated RBCs PT INR APTT Sodium Potassium Chloride Carbon Dioxide Anion Gap BUN Creatinine Estimated GFR (MDRD) Glucose Calcium Total Bilirubin AST ALT Alkaline Phosphatase Troponin I < 0.04 Total Protein Albumin Globulin Albumin/Globulin Ratio Lipase PD MEDICAL DECISION MAKING - ED course Complexity details: reviewed results, re-evaluated patient, considered differential, d/w patient ED course: atrial fibrillation is chronic. Patient was told to stop her coumadin last week due to high INR (in the 4 - 5 range). I instructed patient to resume her coumadin, as her level is too low tonight. Given 5mg lopressor IV with good rate control. Departure - Departure Disposition: 01 Home, Self Care Clinical Impression: Chest pain Atrial fibrillation Qualifiers: Atrial fibrillation type: chronic Qualified Code(s): I48.2 - Chronic atrial fibrillation Condition: Good Instructions: ED Afib, ED Chest Pain Atypical Unkn Cause Follow-Up: Jerry Lyle DO [Primary Care Provider] - (Call your doctor to arrange for next available appointment) Discharge Date/Time: 11/22/16 23:34
[2016-11-22] MEDS ORDERED: METOPROLOL 5 MG/5 ML VIAL IVP STA (22:47)
[2016-11-22] MEDS ORDERED: METOPROLOL 5 MG/5 ML VIAL IVP ONE (22:57)
[2016-11-22 23:15] VITALS: BP 118/85
== END 2016-11-22 23:34 | disposition home or self-care (01) ==
LOC: ED 20:14
DX: I48.2 Chronic atrial fibrillation (principal); R07.9 Chest pain, unspecified; Z79.01 Long term (current) use of anticoagulants; R94.31 Abnormal electrocardiogram [ECG] [EKG]; I10 Essential (primary) hypertension; E78.00 Pure hypercholesterolemia, unspecified; K21.9 Gastro-esophageal reflux disease without esophagitis; M19.90 Unspecified osteoarthritis, unspecified site; Z86.718 Personal history of other venous thrombosis and embolism; Z87.442 Personal history of urinary calculi
CPT/HCPCS: 36415; 80053; 83690; 84484; 85025; 85610; 85730; 93005; 96374; 99284

== ENCOUNTER 2016-12-19 05:50 | Outpatient (CLI) | payer MEDICARE, OTHER | END 2016-12-19 05:51 | disposition critical access hospital (66) | LOC: EMS 05:50 | PROVIDERS: ATTEND Surgery | DX: R20.2 Paresthesia of skin (principal); W18.30XA Fall on same level, unspecified, initial encounter; Y92.009 Unspecified place in unspecified non-institutional (private) residence as the place of occurrence of the external cause | CPT/HCPCS: A0425; A0429 ==

== ENCOUNTER 2016-12-19 06:07 | Emergency (ER) | payer MEDICARE, OTHER ==
--- NOTE | 2016-12-19 06:28 | ED Physician Documentation ---
PD HPI Fall - Stated complaint Stated Complaint: GLF - Chief complaint Chief Complaint: Neuro - History obtained from History obtained from: Patient - History of Present Illness Mechanism of injury: Slipped Fall distance: Standing position Where injury occurred: Home Timing - onset: How many minutes ago (30) Injury(ies) location: Right Upper Extremity Quality of pain: Other (tingling) Associated symptoms: Paresthesias. No: LOC, AMS, Amnesia, Seizures, Nasal drainage, Neck pain, Weakness, Dyspnea, Nausea / vomiting, Hematemesis Contributing factors: Anticoagulated Similar symptoms before: Has not had sx before Recently seen: Not recently seen - Additional information Additional information: Patient is an 86 year old female who is presenting to the emergency department for tingling in her arm after falling. patient states that she was getting out of bed when she tripped and fell forward landing on all fours on a carpeted floors. patient states that she developed tingling in her arm and 4th and 5th digits in her right arm. patient denied hitting her head and denied headache, dizziness, shortness of breath or any pain. Review of Systems Constitutional: denies: Fever, Myalgias Eyes: denies: Loss of vision, Decreased vision, Photophobia Ears: denies: Ear pain, Drainage/discharge Nose: denies: Epistaxis Cardiac: denies: Chest pain / pressure, Palpitations, Calf pain Respiratory: denies: Cough GI: denies: Nausea, Vomiting : denies: Dysuria, Frequency Musculoskeletal: denies: Neck pain, Back pain, Extremity pain, Joint pain Neurologic: reports: Numbness. denies: Syncope, Seizure, Confused, Altered mental status, Headache, Head injury Psychiatric: denies: Depressed, Suicidal Immunocompromised: denies: Immunocompromised PD PAST MEDICAL HISTORY - Past Medical History Cardiovascular: Hypertension, High cholesterol, Deep vein thrombosis, Atrial fibrillation Respiratory: Pneumonia Neuro: None Endocrine/Autoimmune: None GI: GERD, Hiatal hernia [employer] F[employer] SANDER: None : Chronic bladder infection, Kidney stones HEENT: None Psych: None Musculoskeletal: Osteoarthritis Derm: Herpes zoster - Past Surgical History Past Surgical History: Yes Ortho: Hip replacement /H[employer] FLOOR SANDER: Dilation and currettage HEENT: Tracheostomy - Present Medications Home Medications: Ambulatory Orders Medication Instructions Recorded Confirmed Warfarin [Coumadin] 5 mg PO DAILY 10/13/12 12/19/16 Vitamin B Complex 1 each PO DAILY 04/28/16 12/19/16 Ferrous Sulfate [Iron] 325 mg PO DAILY 05/12/16 12/19/16 Ascorbic Acid [Vitamin C] 1,000 mg PO DAILY 07/09/16 12/19/16 Amoxicillin 500 mg PO DAILY 11/07/16 12/19/16 Metoprolol Succinate 50 mg PO TID 11/22/16 12/19/16 - Allergies Allergies/Adverse Reactions: Allergies Allergy/AdvReac Type Severity Reaction Status Date / Time BISHOP Inhibitors Allergy Unknown Unknown Verified 12/19/16 06:13 atropine Allergy Unknown Unknown Verified 12/19/16 06:13 clopidogrel bisulfate * Allergy Unknown Unknown Verified 12/19/16 06:13 [From Plavix] NSAIDS (Non-Steroidal Allergy Unknown Unknown Verified 12/19/16 06:13 Anti-Inflamma ciprofloxacin AdvReac Unknown Unknown Verified 12/19/16 06:13 esomeprazole magnesium * AdvReac Unknown Cramps Verified 12/19/16 06:13 [From Nexium] omeprazole [From Prilosec] AdvReac Unknown Cramps Verified 12/19/16 06:13 omeprazole magnesium * AdvReac Unknown Cramps Verified 12/19/16 06:13 [From Prilosec] Sulfa (Sulfonamide AdvReac Unknown Itching Verified 12/19/16 06:13 Antibiotics) aspirin AdvReac Unknown Verified 12/19/16 06:13 - Social History Does the pt smoke?: No Smoking Status: Never smoker Does the pt drink ETOH?: No Does the pt have substance abuse?: No - Immunizations Immunizations are current?: Yes - POLST Patient has POLST: No PD ED PE NORMAL - Vitals Vital signs reviewed: Yes - General General: Alert and oriented X 3, No acute distress, Well developed/nourished - HEENT HEENT: Atraumatic, PERRL, Moist mucous membranes - Neck Neck: Supple, no meningeal sign - Cardiac Cardiac: RRR, No murmur, No rub - Respiratory Respiratory: No respiratory distress - Abdomen Abdomen: Soft, Non tender, Non distended - Derm Derm: Normal color, Warm and dry, Other (no ecchymosis, no lacerations no abrasions) - Extremities Extremities: No deformity, No tenderness to palpate, Normal ROM s pain, No calf tenderness / cord - Neuro Neuro: Alert and oriented X 3, No motor deficit, No sensory deficit, Other ( full muscle strength in flexion, extension and figure model) - Psych Psych: Normal mood, Normal affect Results - Vitals Vitals: Vital Signs - 24 hr 12/19/16 06:08 Temperature 36.8 C Heart Rate 61 Respiratory 15 Rate Blood Pressure 139/103 H O2 Saturation 96 Oxygen O2 Source Room air - Rads (name of study) shoulder x-ray Radiology: Final report received (no acute fracture or dislocation, degenerative changes present) PD MEDICAL DECISION MAKING - ED course Complexity details: reviewed old records, reviewed results, re-evaluated patient , considered differential, d/w patient, d/w family ED course: Patient was seen and examined at bedside. Patient had no external signs of head trauma or altered mental status. imaging was ordered of the right shoulder. when patient returned from imaging the results were reviewed. there was no acute fracture or dislocation. Patient required no further work up and was stable for discharge with outpatient follow up. Departure - Departure Disposition: 01 Home, Self Care Clinical Impression: Arm paresthesia, right Condition: Good Instructions: ED Paraesthesias Follow-Up: Jerry Lyle DO [Primary Care Provider] - Comments: Your diagnostics today were within normal limits. there was no fracture or dislocation. you can tylenol if needed for pain as well as ice. you should return to the emergency department for headaches, change in vision, nausea, vomiting, new worse or uncontrollable symptoms.
--- NOTE | 2016-12-19 07:00 | XRAY Preliminary Report ---
Exam: XR Shoulder 2 View RT IMPRESSION: 1. Osteopenia with possible fracture deformity of uncertain age in the proximal humerus. 2. Degenerative joint disease in the glenohumeral joint and acromioclavicular joint. [facility] SITE ID: [id number]
--- NOTE | 2016-12-19 07:03 | XRAY Report ---
EXAM: RIGHT SHOULDER RADIOGRAPHY EXAM DATE: 12/19/2016 06:47 AM. CLINICAL HISTORY: Fall, tingling in shoulder. COMPARISON: None. TECHNIQUE: 3 views. FINDINGS: Bones: Osteopenia. Possible fracture deformity of uncertain age in the proximal humerus. Joints: No dislocation seen. Degenerative changes in the glenohumeral joint and acromioclavicular sissy nt. Soft tissues: Interstitial prominence in the visualized portions of the right lung. IMPRESSION: 1. Osteopenia with possible fracture deformity of uncertain age in the proximal humerus. 2. Degenerative joint disease in the glenohumeral joint and acromioclavicular joint. [facility] Referring Provider Line: [phone] SITE ID: [id number]
--- NOTE | 2016-12-19 07:47 | ED Physician Documentation ---
ED Addendum - Addendum Addendum: 12/19/16 07:45 INR 3.8. Will skip next dose of warfarin. Otherwise asymptomatic at time of d/ c.
[2016-12-19 08:15] VITALS: BP 122/60
== END 2016-12-19 07:50 | disposition home or self-care (01) ==
LOC: EDBD → EDUNIT# → ED 06:07
DX: R20.9 Unspecified disturbances of skin sensation (principal); I10 Essential (primary) hypertension; I48.91 Unspecified atrial fibrillation; Z86.718 Personal history of other venous thrombosis and embolism; Z79.01 Long term (current) use of anticoagulants
CPT/HCPCS: 85610; 99283

== ENCOUNTER 2016-12-24 09:58 | Emergency (ER) | payer MEDICARE, OTHER ==
--- NOTE | 2016-12-24 11:01 | ED Physician Documentation ---
History of Present Illness - Stated complaint Stated Complaint: AFIB - Chief complaint Chief Complaint: General - History obtained from History obtained from: Patient, Family - History of Present Illness Timing: Prior to arrival - Additonal information Additional information: Patient is a 86-year-old female with history of atrial fibrillation on metoprolol extended release 50 mg a day she is also on Coumadin. She also is on chronic antibiotic prophylaxis for UTIs. She presents with a complaint of lightheadedness and palpitations for her. She says she is normally in atrial fibrillation but occasionally gets [id number] meaning the rate increases. When she has these episodes she feels heavy and weak all over her body. She complains of feeling lightheaded today and almost passing out. She denies any chest pain or chest pressure. There is no shortness of breath. She does not have any nausea, vomiting, constipation diarrhea or lower urinary symptoms. She has been compliant with her medications. Review of systems: For pertinent positive and negatives in the review of systems please see the history of present illness, otherwise all other systems have been reviewed and are negative. Dragon disclaimer: Parts of this medical record were created using voice recognition technology. Because of the inherent limitations of this system, occasional same sounding word substitutions do occur and persist despite proofreading. Please read the document for context. Review of Systems Ten Systems: 10 systems reviewed and negative Constitutional: denies: Fever, Chills, Myalgias Ears: denies: Loss of hearing Cardiac: reports: Palpitations. denies: Chest pain / pressure, Pedal edema, Calf pain Respiratory: denies: Dyspnea, Cough, Wheezing GI: denies: Abdominal Pain, Abdominal Swelling, Nausea, Vomiting : denies: Dysuria Neurologic: reports: Generalized weakness. 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 : Chronic bladder infection, Kidney stones HEENT: None Psych: None Musculoskeletal: Osteoarthritis Derm: Herpes zoster - Past Surgical History Past Surgical History: Yes Ortho: Hip replacement /SULKY DRIVER: Dilation and currettage HEENT: Tracheostomy - Present Medications Home Medications: Ambulatory Orders Medication Instructions Recorded Confirmed Warfarin [Coumadin] 5 mg PO DAILY 10/13/12 12/24/16 Vitamin B Complex 1 each PO DAILY 04/28/16 12/24/16 Ferrous Sulfate [Iron] 325 mg PO DAILY 05/12/16 12/24/16 Ascorbic Acid [Vitamin C] 1,000 mg PO DAILY 07/09/16 12/24/16 Amoxicillin 500 mg PO DAILY 11/07/16 12/24/16 Metoprolol Succinate 50 mg PO TID 11/22/16 12/24/16 - Allergies Allergies/Adverse Reactions: Allergies Allergy/AdvReac Type Severity Reaction Status Date / Time BISHOP Inhibitors Allergy Unknown Unknown Verified 12/19/16 06:13 atropine Allergy Unknown Unknown Verified 12/19/16 06:13 clopidogrel bisulfate * Allergy Unknown Unknown Verified 12/19/16 06:13 [From Plavix] NSAIDS (Non-Steroidal Allergy Unknown Unknown Verified 12/19/16 06:13 Anti-Inflamma ciprofloxacin AdvReac Unknown Unknown Verified 12/19/16 06:13 esomeprazole magnesium * AdvReac Unknown Cramps Verified 12/19/16 06:13 [From Nexium] omeprazole [From Prilosec] AdvReac Unknown Cramps Verified 12/19/16 06:13 omeprazole magnesium * AdvReac Unknown Cramps Verified 12/19/16 06:13 [From Prilosec] Sulfa (Sulfonamide AdvReac Unknown Itching Verified 12/19/16 06:13 Antibiotics) aspirin AdvReac Unknown Verified 12/19/16 06:13 - Social History Does the pt smoke?: No Smoking Status: Never smoker Does the pt drink ETOH?: No Does the pt have substance abuse?: No - Immunizations Immunizations are current?: Yes - POLST Patient has POLST: No PD ED PE NORMAL - Vitals Vital signs reviewed: Yes - General General: Alert and oriented X 3, No acute distress, Well developed/nourished - HEENT HEENT: Atraumatic, PERRL, EOMI - Neck Neck: No bony TTP - Cardiac Cardiac: Other (Irregularly irregular rhythm) - Back Back: No CVA TTP - Derm Derm: Normal color, Warm and dry - Extremities Extremities: No deformity, No tenderness to palpate, Normal ROM s pain, No edema - Neuro Neuro: Alert and oriented X 3, savings counselor 2-12 intact, No motor deficit, No sensory deficit - Psych Psych: Normal mood, Normal affect Results - Vitals Vitals: Vital Signs - 24 hr 12/24/16 12/24/16 10:01 13:25 Temperature 36.4 C L Heart Rate 124 H 106 H Respiratory 20 20 Rate Blood Pressure 123/87 H 135/60 H O2 Saturation 96 95 Oxygen O2 Source Room air - Labs Labs: Laboratory Tests 12/24/16 12/24/16 12/24/16 10:05 10:05 10:05 WBC 4.8 RBC 4.55 Hgb 13.9 Hct 41.6 MCV 91.5 MCH 30.5 MCHC 33.4 RDW 15.5 H Plt Count 203 MPV 9.2 Neut # 3.6 Lymph # 1.0 L [place] # 0.2 Eos # 0.0 Baso # 0.0 Absolute Nucleated RBC 0.00 Nucleated RBCs 0.1 PT 15.8 H INR 1.4 H Sodium 136 Potassium 4.0 Chloride 103 Carbon Dioxide 24 Anion Gap 9.0 BUN 18 Creatinine 0.8 Estimated GFR (MDRD) 68 L Glucose 206 H Calcium 9.5 Total Bilirubin 1.3 H AST 21 ALT 18 Alkaline Phosphatase 45 B-Natriuretic Peptide Total Protein 7.3 Albumin 3.9 Globulin 3.4 Albumin/Globulin Ratio 1.1 Lipase 20 L 12/24/16 10:05 WBC RBC Hgb Hct MCV MCH MCHC RDW Plt Count MPV Neut # Lymph # [place] # Eos # Baso # Absolute Nucleated RBC Nucleated RBCs PT INR Sodium Potassium Chloride Carbon Dioxide Anion Gap BUN Creatinine Estimated GFR (MDRD) Glucose Calcium Total Bilirubin AST ALT Alkaline Phosphatase B-Natriuretic Peptide 295 H Total Protein Albumin Globulin Albumin/Globulin Ratio Lipase PD MEDICAL DECISION MAKING - ED course Complexity details: reviewed old records, reviewed results, re-evaluated patient , considered differential, d/w patient ED course: Is a pleasant 86-year-old female with a history of paroxysmal atrial fibrillation. She is rate controlled on metoprolol and is on Coumadin. The patient presents with palpitations and a complaint of atrial fibrillation with rapid ventricular response. She is mildly elevated here in emergency department but has reached the maximal level of 124. During her stay in emergency department her pulse rate would vary between 80 and 110 for the most part. EKG on this patient demonstrates atrial fibrillation with a rate of 117 bpm the MO is not obtainable the QRS is 90 the QT is 360. There is no obvious ST-T wave changes. Chest x-ray shows cardiomegaly and there is a comment about possible pulmonary vascular congestion which I do not appreciate clinically and is not supported by significantly evidently BNP. Other routine labs are fine. The patient's INR was low at 1.4 and she was given a copy of this. She was high recently and is been on a Coumadin holiday and will restart her Coumadin. This patient is here fairly often for recurrent episodes of atrial fibrillation. For some reason they seem to bother her and perhaps make her anxious. She never anginal equivalent type symptoms. At this point in time she feels better and is ambulatory. She will be discharged home in improved condition at this time. Disposition: To home Clinical impression: 1. Atrial fibrillation rapid ventricular response resolved Departure - Departure Disposition: 01 Home, Self Care Clinical Impression: Atrial fibrillation by electrocardiogram, Atrial fibrillation and flutter Condition: Good Instructions: ED Paroxysmal Atrial Flutter Follow-Up: Jerry Lyle DO [Primary Care Provider] -
[2016-12-24 11:05] LABS: BASOPHILS % (AUTO) 0.7 %; EOSINOPHILS % (AUTO) 0.6 %; HCT - HEMATOCRIT 41.6 % (37.0-47.0); HGB - HEMOGLOBIN 13.9 g/dL (12.0-16.0); LYMPHOCYTES % (AUTO) 20.7 %; MEAN CORPUSCULAR HEMOGLOBIN 30.5 pg (27.0-31.0); MEAN CORPUSCULAR HGB CONC 33.4 g/dL (32.0-36.0); MEAN CORPUSCULAR VOLUME 91.5 fL (81.0-99.0); MEAN PLATELET VOLUME 9.2 fL (7.9-10.8); MONOCYTES # (AUTO) 0.2 10^3/uL (0.0-1.0); MONOCYTES % (AUTO) 3.8 %; NEUTROPHILS # (AUTO) 3.6 10^3/uL (1.5-6.6); NEUTROPHILS % (AUTO) 74.2 %; NUCLEATED RED BLOOD CELLS AUTO 0.1 /100WBC; RED BLOOD COUNT 4.55 10^6/uL (4.20-5.40); RED CELL DISTRIBUTION WIDTH 15.5 % (12.0-15.0); UNCORRECTED WHITE BLOOD COUNT 4.8 x10^3/uL; WHITE BLOOD COUNT 4.8 x10^3/uL (4.8-10.8)
[2016-12-24 11:12] LABS: INR 1.4 (0.8-1.2); PT - PROTHROMBIN TIME 15.8 secs (9.9-12.6)
[2016-12-24 11:19] LABS: ALBUMIN/GLOBULIN RATIO 1.1 (1.0-2.2); BILIRUBIN,TOTAL 1.3 mg/dL (0.2-1.0); CALCIUM 9.5 mg/dL (8.5-10.3); CREATININE 0.8 mg/dL (0.4-1.0); TOTAL PROTEIN 7.3 g/dL (6.7-8.2)
--- NOTE | 2016-12-24 11:46 | XRAY Preliminary Report ---
Exam: XR Chest 1 View IMPRESSION: 1. Cardiomegaly. 2. New vascular congestion. [facility] SITE ID: [id number]
--- NOTE | 2016-12-24 11:49 | XRAY Report ---
EXAM: CHEST RADIOGRAPHY EXAM DATE: 12/24/2016 11:23 AM. CLINICAL HISTORY: Weakness. Atrial fibrillation. COMPARISON: 11/16/2016. 06/17/2016. TECHNIQUE: 1 view. FINDINGS: Lungs/Pleura: There is new mild vascular congestion. No consolidation. No pneumothorax. Mediastinum: Cardiomegaly. Mild aortic tortuosity. Other: None. IMPRESSION: 1. Cardiomegaly. 2. New vascular congestion. [facility] Referring Provider Line: [phone] SITE ID: [id number]
[2016-12-24 14:27] VITALS: BP 126/78
[2016-12-24 14:35] LABS: BILIRUBIN,URINE NEGATIVE (NEGATIVE)
[2016-12-24 14:46] LABS: UA w/ MICROSCOPIC CHARGE YES
[2016-12-24 14:52] LABS: UR CULTURE IF IND NOT INDICATED; WBC,URINE 0-3 /HPF (0-5)
== END 2016-12-24 14:26 | disposition home or self-care (01) ==
LOC: ED 09:58
DX: I48.91 Unspecified atrial fibrillation (principal); I45.81 Long QT syndrome; I10 Essential (primary) hypertension; Z79.01 Long term (current) use of anticoagulants; Z86.718 Personal history of other venous thrombosis and embolism; Z96.649 Presence of unspecified artificial hip joint; Z93.0 Tracheostomy status; Z79.2 Long term (current) use of antibiotics
CPT/HCPCS: 36415; 71010; 80053; 81001; 81003; 83690; 83880; 85025; 85610; 87086; 93005; 99283; 99285

== ENCOUNTER 2017-01-13 09:57 | Emergency (ER) | payer MEDICARE, OTHER ==
[2017-01-13] MEDS ORDERED: diltiaZEM INJ 5 MG/ML VIAL IVP STA (10:33)
--- NOTE | 2017-01-13 10:36 | ED Physician Documentation ---
History of Present Illness - Stated complaint Stated Complaint: AFIB - Chief complaint Chief Complaint: Neuro - History obtained from History obtained from: Patient, Family - History of Present Illness Timing: Last night - Additonal information Additional information: 86-year-old female with a history of chronic atrial fibrillation with rate control issues has developed a rapid irregular heart rate and dyspnea. She has had this numerous times previously and has been on some metoprolol for rate control. She has been cutting her dose of the metoprolol as she believes it makes her feel quite ill. She has not been into see the [facility] and has an appointment in the middle of January.Last night she developed a headache she is on Coumadin and headache kept her up most of the night. This morning on awakening she did have some dyspnea and dizziness and she subsequently developed some right-sided numbness and weakness in both the upper and lower extremity and some word searching. This occurred approximately 1 hour prior to coming to the emergency department and is now resolved. Review of Systems Constitutional: reports: Fatigue. denies: Fever, Chills Eyes: denies: Decreased vision Ears: denies: Ear pain Nose: denies: Rhinorrhea / runny nose, Congestion Throat: denies: Sore throat Cardiac: reports: Palpitations. denies: Chest pain / pressure Respiratory: reports: Dyspnea. denies: Cough GI: denies: Abdominal Pain, Nausea, Vomiting : denies: Dysuria, Frequency Skin: denies: Rash Musculoskeletal: denies: Neck pain, Back pain, Extremity pain Neurologic: reports: Focal weakness, Numbness, Headache. denies: Generalized weakness, Head injury, LOC PD PAST MEDICAL HISTORY - Past Medical History Past Medical History: Yes Cardiovascular: Hypertension, High cholesterol, Deep vein thrombosis, Atrial fibrillation Respiratory: Pneumonia Neuro: None Endocrine/Autoimmune: None GI: GERD, Hiatal hernia SENIOR SPECIALIST: None : Chronic bladder infection, Kidney stones HEENT: None Psych: None Musculoskeletal: Osteoarthritis Derm: Herpes zoster - Past Surgical History Past Surgical History: Yes Ortho: Hip replacement /SENIOR SPECIALIST: Dilation and currettage HEENT: Tracheostomy - Present Medications Home Medications: Ambulatory Orders Medication Instructions Recorded Confirmed Warfarin [Coumadin] 5 mg PO DAILY 10/13/12 12/24/16 Vitamin B Complex 1 each PO DAILY 04/28/16 12/24/16 Ferrous Sulfate [Iron] 325 mg PO DAILY 05/12/16 12/24/16 Ascorbic Acid [Vitamin C] 1,000 mg PO DAILY 07/09/16 12/24/16 Amoxicillin 500 mg PO DAILY 11/07/16 12/24/16 Metoprolol Succinate 50 mg PO TID 11/22/16 12/24/16 diltiaZEM CD [Cardizem Cd] 180 mg PO DAILY #20 capsule 01/13/17 - Allergies Allergies/Adverse Reactions: Allergies Allergy/AdvReac Type Severity Reaction Status Date / Time BISHOP Inhibitors Allergy Unknown Unknown Verified 12/19/16 06:13 atropine Allergy Unknown Unknown Verified 12/19/16 06:13 clopidogrel bisulfate * Allergy Unknown Unknown Verified 12/19/16 06:13 [From Plavix] NSAIDS (Non-Steroidal Allergy Unknown Unknown Verified 12/19/16 06:13 Anti-Inflamma ciprofloxacin AdvReac Unknown Unknown Verified 12/19/16 06:13 esomeprazole magnesium * AdvReac Unknown Cramps Verified 12/19/16 06:13 [From Nexium] omeprazole [From Prilosec] AdvReac Unknown Cramps Verified 12/19/16 06:13 omeprazole magnesium * AdvReac Unknown Cramps Verified 12/19/16 06:13 [From Prilosec] Sulfa (Sulfonamide AdvReac Unknown Itching Verified 12/19/16 06:13 Antibiotics) aspirin AdvReac Unknown Verified 12/19/16 06:13 - Social History Does the pt smoke?: No Smoking Status: Never smoker Does the pt drink ETOH?: No Does the pt have substance abuse?: No - Immunizations Immunizations are current?: Yes - POLST Patient has POLST: No PD ED PE NORMAL - Vitals Vital signs reviewed: Yes (Tachycardic and hypertensive) - General General: No acute distress, Well developed/nourished - HEENT HEENT: Atraumatic, PERRL, EOMI - Neck Neck: Supple, no meningeal sign, No bony TTP - Cardiac Cardiac: No murmur, Other (Irregularly irregular rate and rhythm) - Respiratory Respiratory: No respiratory distress, Clear bilaterally - Abdomen Abdomen: Soft, Non tender - Back Back: No CVA TTP, No spinal TTP - Derm Derm: Normal color, Warm and dry, No rash - Extremities Extremities: No deformity, No edema - Neuro Neuro: Alert and oriented X 3, No motor deficit, No sensory deficit, Normal speech - Psych Psych: Normal mood, Normal affect Results - Vitals Vitals: Vital Signs - 24 hr 01/13/17 01/13/17 01/13/17 10:00 10:44 10:54 Temperature 36.2 C L Heart Rate 122 H 120 H 79 Respiratory 20 Rate Blood Pressure 145/86 H 121/55 L 96/45 L O2 Saturation 97 01/13/17 01/13/17 01/13/17 10:57 13:23 13:56 Temperature 36.3 C L Heart Rate 84 100 96 Respiratory 20 21 20 Rate Blood Pressure 108/62 124/82 H O2 Saturation 95 95 95 Oxygen O2 Source Room air - EKG (time done) 1008 Rate: Rate (enter#) (127) Rhythm: Atrial fibrillation [place]: LAD Ischemia: Non specific changes Compare to prior EKG: Unchanged from prior EKG (12-24-16) Computer interpretation: Agree with computer - Labs Labs: Laboratory Tests 01/13/17 01/13/17 01/13/17 10:02 10:02 10:02 WBC 5.8 RBC 4.56 Hgb 14.0 Hct 41.4 MCV 90.8 MCH 30.7 MCHC 33.7 RDW 15.4 H Plt Count 191 MPV 8.8 Neut # 3.9 Lymph # 1.5 [place] # 0.3 Eos # 0.0 Baso # 0.0 Absolute Nucleated RBC 0.00 Nucleated RBCs 0.1 PT 44.4 H INR 3.9 H Sodium 140 Potassium 4.5 Chloride 106 Carbon Dioxide 24 Anion Gap 10.0 BUN 23 H Creatinine 0.7 Estimated GFR (MDRD) 79 L Glucose 139 H Calcium 9.8 Total Bilirubin 0.8 AST 23 ALT 20 Alkaline Phosphatase 40 L Troponin I B-Natriuretic Peptide Total Protein 7.5 Albumin 4.0 Globulin 3.5 Albumin/Globulin Ratio 1.1 Lipase 21 L Urine Color Urine Clarity Urine pH Ur Specific [place] Urine Protein Urine Glucose (UA) Urine Ketones Urine Occult Blood Urine Nitrite Urine Bilirubin Urine Urobilinogen Ur Leukocyte Esterase Urine RBC Urine WBC Ur Squamous Epith Cells Urine Bacteria Ur Microscopic Review Urine Culture Comments 01/13/17 01/13/17 01/13/17 10:02 10:02 11:45 WBC RBC Hgb Hct MCV MCH MCHC RDW Plt Count MPV Neut # Lymph # [place] # Eos # Baso # Absolute Nucleated RBC Nucleated RBCs PT INR Sodium Potassium Chloride Carbon Dioxide Anion Gap BUN Creatinine Estimated GFR (MDRD) Glucose Calcium Total Bilirubin AST ALT Alkaline Phosphatase Troponin I < 0.04 B-Natriuretic Peptide 355 H Total Protein Albumin Globulin Albumin/Globulin Ratio Lipase Urine Color YELLOW Urine Clarity CLEAR Urine pH 6.0 Ur Specific [place] 1.015 Urine Protein NEGATIVE Urine Glucose (UA) NEGATIVE Urine Ketones NEGATIVE Urine Occult Blood TRACE-LYSE Urine Nitrite NEGATIVE Urine Bilirubin NEGATIVE Urine Urobilinogen 0.2 (NORMAL) Ur Leukocyte Esterase SMALL H Urine RBC 0-5 Urine WBC 6-10 H Ur Squamous Epith Cells MOD Squamous H Urine Bacteria Rare Ur Microscopic Review INDICATED Urine Culture Comments NOT INDICATED 01/13/17 13:23 WBC RBC Hgb Hct MCV MCH MCHC RDW Plt Count MPV Neut # Lymph # [place] # Eos # Baso # Absolute Nucleated RBC Nucleated RBCs PT INR Sodium Potassium Chloride Carbon Dioxide Anion Gap BUN Creatinine Estimated GFR (MDRD) Glucose Calcium Total Bilirubin AST ALT Alkaline Phosphatase Troponin I B-Natriuretic Peptide Total Protein Albumin Globulin Albumin/Globulin Ratio Lipase Urine Color YELLOW Urine Clarity CLEAR Urine pH 6.0 Ur Specific [place] 1.010 Urine Protein NEGATIVE Urine Glucose (UA) NEGATIVE Urine Ketones NEGATIVE Urine Occult Blood NEGATIVE Urine Nitrite NEGATIVE Urine Bilirubin NEGATIVE Urine Urobilinogen 0.2 (NORMAL) Ur Leukocyte Esterase NEGATIVE Urine RBC Urine WBC Ur Squamous Epith Cells Urine Bacteria Ur Microscopic Review NOT INDICATED Urine Culture Comments NOT INDICATED - Rads (name of study) CT head without Radiology: Prelim report reviewed (Impression: Generalized age-related chronic changes without evidence of acute intracranial abnormality.), EMP read indepedently, See rad report PD MEDICAL DECISION MAKING - ED course Complexity details: reviewed old records, reviewed results, re-evaluated patient , considered differential, d/w patient, d/w family ED course: 86-year-old female with history of chronic atrial fibrillation and on rate control is failing rate control with use of metoprolol. She feels the metoprolol is stabbing her energy and she is attempting to cut the dose of this. She is now taking a half of a pill twice per day and despite this she is having rapid rate. Here in the emergency department she is mildly dehydrated and she is administered saline as well as 20 mg of Cardizem IV. This reduces the patient's rate and she feels much improved. Her blood counts are normal her electrolytes are normal with the exception of a mildly elevated BUN consistent with her dehydration and her INR is 3.9. I suspect that the numbness that she is having in her upper extremity which is described on her by her as being in the distribution of the fourth and fifth finger and I see she has a chart describing this previously as well I do not think this is related to embolic phenomena. We discussed admission to the hospital for the atrial fibrillation with rapid ventricular response and urinary tract infection and the patient had a what appeared to be a potentially contaminated specimen demonstrating infection and repeated the specimen demonstrating no evidence of infection and with shared decision making the patient would like to go home. I was able to call and talk to Dr. Lee at the [facility] regarding an alternative agent for rate control and he recommends Cardizem CD 180. He recommends we continue her on the metoprolol and titrate that in the next 2 weeks. Departure - Departure Disposition: 01 Home, Self Care Clinical Impression: Atrial fibrillation with rapid ventricular response, Dehydration Condition: Stable Instructions: ED Dehydration, ED Afib Follow-Up: Jerry Lyle DO [Primary Care Provider] - Prescriptions: diltiaZEM CD [Cardizem Cd] 180 mg PO DAILY #20 capsule Comments: Today it appears that the rapid ventricular response that you were having with your atrial fibrillation was responsive to the Cardizem given. Start the Cardizem CD by mouth and follow-up with Dr. Lyle in the next week for tapering of your metoprolol.
[2017-01-13 10:44] LABS: BASOPHILS % (AUTO) 0.9 %; EOSINOPHILS % (AUTO) 0.8 %; HCT - HEMATOCRIT 41.4 % (37.0-47.0); LYMPHOCYTES # (AUTO) 1.5 10^3/uL (1.5-3.5); LYMPHOCYTES % (AUTO) 25.7 %; MEAN CORPUSCULAR HEMOGLOBIN 30.7 pg (27.0-31.0); MEAN CORPUSCULAR HGB CONC 33.7 g/dL (32.0-36.0); MEAN CORPUSCULAR VOLUME 90.8 fL (81.0-99.0); MEAN PLATELET VOLUME 8.8 fL (7.9-10.8); MONOCYTES # (AUTO) 0.3 10^3/uL (0.0-1.0); MONOCYTES % (AUTO) 5.6 %; NEUTROPHILS # (AUTO) 3.9 10^3/uL (1.5-6.6); NUCLEATED RED BLOOD CELLS AUTO 0.1 /100WBC; RED BLOOD COUNT 4.56 10^6/uL (4.20-5.40); RED CELL DISTRIBUTION WIDTH 15.4 % (12.0-15.0); UNCORRECTED WHITE BLOOD COUNT 5.8 x10^3/uL; WHITE BLOOD COUNT 5.8 x10^3/uL (4.8-10.8)
[2017-01-13] MEDS ORDERED: diltiaZEM INJ 5 MG/ML VIAL ONE (10:49)
[2017-01-13 10:51] LABS: INR 3.9 (0.8-1.2); PT - PROTHROMBIN TIME 44.4 secs (9.9-12.6)
[2017-01-13 11:03] LABS: ALBUMIN/GLOBULIN RATIO 1.1 (1.0-2.2); BILIRUBIN,TOTAL 0.8 mg/dL (0.2-1.0); CALCIUM 9.8 mg/dL (8.5-10.3); CREATININE 0.7 mg/dL (0.4-1.0); POTASSIUM 4.5 mmol/L (3.5-5.0); TOTAL PROTEIN 7.5 g/dL (6.7-8.2)
[2017-01-13 11:53] LABS: BILIRUBIN,URINE NEGATIVE (NEGATIVE)
--- NOTE | 2017-01-13 11:54 | CT Preliminary Report ---
Exam: CT Head W/O IMPRESSION: Generalized age-related chronic changes without evidence of acute intracranial abnormalit y. [facility] SITE ID: [id number]
[2017-01-13 11:55] LABS: UA w/ MICROSCOPIC CHARGE YES
--- NOTE | 2017-01-13 11:57 | CT Report ---
EXAM: CT HEAD EXAM DATE: 01/13/2017 11:20 AM. CLINICAL HISTORY: Headache R sided weakness on coumadin. COMPARISON: 10/31/[address], MRI brain 04/21/2016. TECHNIQUE: Multiaxial CT images were obtained from the foramen magnum to the vertex. IV contrast: Non e. Reformats: Coronal. In accordance with CT protocol optimization, one or more of the following dose reduction techniques w ere utilized for this exam: automated exposure control, adjustment of mA and/or KV based on patient s ize, or use of iterative reconstructive technique. FINDINGS: Parenchyma: No intraparenchymal hemorrhage. No evidence of mass, midline shift, or CT findings of acu te infarction. [place]-white differentiation is distinct. Extraaxial Spaces: Normal for age. No subdural or epidural collections identified. Ventricles: The ventricles and cortical sulci are enlarged, consistent with age-related tissue loss. Sinuses: Imaged paranasal sinuses, orbits, and mastoids show no significant abnormality. Bones: No evidence of fracture or calvarial defect. Other: Diffuse chronic microangiopathic white matter changes are evident. IMPRESSION: Generalized age-related chronic changes without evidence of acute intracranial abnormalit y. [facility] Referring Provider Line: [phone] SITE ID: [id number]
[2017-01-13 12:11] LABS: UR CULTURE IF IND NOT INDICATED
[2017-01-13 13:52] LABS: BILIRUBIN,URINE NEGATIVE (NEGATIVE); UA CHARGE (STRIP ONLY) YES; UR CULTURE IF IND NOT INDICATED
[2017-01-13 14:31] VITALS: BP 125/73
== END 2017-01-13 14:37 | disposition home or self-care (01) ==
LOC: ED 09:57
DX: I48.2 Chronic atrial fibrillation (principal); E86.0 Dehydration; R51 Headache; R42 Dizziness and giddiness; I10 Essential (primary) hypertension; Z86.718 Personal history of other venous thrombosis and embolism; Z79.01 Long term (current) use of anticoagulants; Z93.0 Tracheostomy status; Z96.649 Presence of unspecified artificial hip joint
CPT/HCPCS: 36415; 51701; 70450; 80053; 81001; 81003; 83690; 83880; 84484; 85025; 85610; 87086; 93005; 96374; 99284

== ENCOUNTER 2017-01-15 12:12 | Outpatient (CLI) | payer MEDICARE, OTHER | END 2017-01-15 12:13 | disposition critical access hospital (66) | LOC: EMS 12:12 | PROVIDERS: ATTEND Surgery | DX: I48.91 Unspecified atrial fibrillation (principal) | CPT/HCPCS: A0425; A0429 ==

== ENCOUNTER 2017-01-15 12:33 | Emergency (ER) | payer MEDICARE, OTHER ==
--- NOTE | 2017-01-15 12:54 | ED Physician Documentation ---
History of Present Illness - Stated complaint Stated Complaint: AFIB - Chief complaint Chief Complaint: Cardiac - History obtained from History obtained from: Patient, EMS - History of Present Illness Timing: Chronic Pain level max: 0 Pain level now: 0 Improved by: nothing Worsened by: nothing - Additonal information Additional information: Patient is an 86-year-old female sent over from her primary care provider's office for atrial fibrillation with rapid ventricular response. Her heart rate went up to approximately 130 bpm while in the office. She also complained of some lightheadedness and dizziness during that time. The symptoms resolved en route to the emergency department. Currently denies any shortness of air, chest pain. She is being tapered off of metoprolol and is down to 25 mg daily. She was also started on diltiazem, 180 mg daily. Review of Systems Ten Systems: 10 systems reviewed and negative Constitutional: denies: Fever, Chills Ears: denies: Ear pain Nose: denies: Rhinorrhea / runny nose, Congestion Throat: denies: Sore throat Cardiac: denies: Chest pain / pressure, Palpitations Respiratory: denies: Cough, Hemoptysis, Wheezing GI: denies: Abdominal Pain, Nausea, Vomiting, Diarrhea Skin: denies: Rash Musculoskeletal: denies: Neck pain, Back pain Neurologic: denies: Headache PD PAST MEDICAL HISTORY - Past Medical History Past Medical History: Yes Cardiovascular: Hypertension, High cholesterol, Deep vein thrombosis, Atrial fibrillation Respiratory: Pneumonia Neuro: None Endocrine/Autoimmune: None GI: GERD, Hiatal hernia CAREER CENTER DIRECTOR: None : Chronic bladder infection, Kidney stones HEENT: None Psych: None Musculoskeletal: Osteoarthritis Derm: Herpes zoster - Past Surgical History Past Surgical History: Yes Ortho: Hip replacement /CAREER CENTER DIRECTOR: Dilation and currettage HEENT: Tracheostomy - Present Medications Home Medications: Ambulatory Orders Medication Instructions Recorded Confirmed Warfarin [Coumadin] 5 mg PO DAILY 10/13/12 01/15/17 Vitamin B Complex 1 each PO DAILY 04/28/16 01/15/17 Ferrous Sulfate [Iron] 325 mg PO DAILY 05/12/16 01/15/17 Ascorbic Acid [Vitamin C] 1,000 mg PO DAILY 07/09/16 01/15/17 Amoxicillin 500 mg PO DAILY 11/07/16 01/15/17 Metoprolol Succinate 50 mg PO TID 11/22/16 01/15/17 diltiaZEM CD [Cardizem Cd] 1 cap PO DAILY 01/15/17 01/15/17 - Allergies Allergies/Adverse Reactions: Allergies Allergy/AdvReac Type Severity Reaction Status Date / Time BISHOP Inhibitors Allergy Unknown Unknown Verified 01/15/17 12:41 atropine Allergy Unknown Unknown Verified 01/15/17 12:41 clopidogrel bisulfate * Allergy Unknown Unknown Verified 01/15/17 12:41 [From Plavix] NSAIDS (Non-Steroidal Allergy Unknown Unknown Verified 01/15/17 12:41 Anti-Inflamma ciprofloxacin AdvReac Unknown Unknown Verified 01/15/17 12:41 esomeprazole magnesium * AdvReac Unknown Cramps Verified 01/15/17 12:41 [From Nexium] omeprazole [From Prilosec] AdvReac Unknown Cramps Verified 01/15/17 12:41 omeprazole magnesium * AdvReac Unknown Cramps Verified 01/15/17 12:41 [From Prilosec] Sulfa (Sulfonamide AdvReac Unknown Itching Verified 01/15/17 12:41 Antibiotics) aspirin AdvReac Unknown Verified 01/15/17 12:41 - Social History Does the pt smoke?: No Smoking Status: Never smoker Does the pt drink ETOH?: No Does the pt have substance abuse?: No - Immunizations Immunizations are current?: Yes - POLST Patient has POLST: No PD ED PE NORMAL - Vitals Vital signs reviewed: Yes - General General: Alert and oriented X 3, No acute distress, Well developed/nourished - HEENT HEENT: Moist mucous membranes - Neck Neck: Supple, no meningeal sign - Cardiac Cardiac: RRR, Other (irregular) - Respiratory Respiratory: No respiratory distress, Clear bilaterally - Abdomen Abdomen: Soft, Non tender, Non distended - Derm Derm: Warm and dry - Extremities Extremities: No edema, No calf tenderness / cord - Neuro Neuro: Alert and oriented X 3 - Psych Psych: Normal mood, Normal affect Results - Vitals Vitals: Vital Signs - 24 hr 01/15/17 01/15/17 01/15/17 12:37 12:51 13:49 Temperature 36.5 C Heart Rate 109 H 94 95 Respiratory 16 21 22 Rate Blood Pressure 154/101 H 146/83 H 119/81 H O2 Saturation 96 97 96 Oxygen O2 Source Room air - EKG (time done) 1239 Rate: Rate (enter#) (109) Rhythm: Atrial fibrillation [place]: Normal QRS: Normal Ischemia: Non specific changes Compare to prior EKG: Unchanged from prior EKG - Labs Labs: Laboratory Tests 01/15/17 01/15/17 01/15/17 13:02 13:02 13:02 WBC 4.8 RBC 4.20 Hgb 12.7 Hct 38.1 MCV 90.7 MCH 30.3 MCHC 33.4 RDW 16.0 H Plt Count 181 MPV 8.4 Neut # 3.2 Lymph # 1.2 L [place] # 0.3 Eos # 0.0 Baso # 0.1 Absolute Nucleated RBC 0.00 Nucleated RBCs 0.0 PT 26.9 H INR 2.4 H Sodium 140 Potassium 4.1 Chloride 107 Carbon Dioxide 26 Anion Gap 7.0 BUN 23 H Creatinine 0.6 Estimated GFR (MDRD) 95 Glucose 99 Calcium 9.7 Phosphorus 3.0 Magnesium 2.0 Total Bilirubin 0.9 AST 20 ALT 21 Alkaline Phosphatase 40 L Total Protein 7.3 Albumin 4.2 Globulin 3.1 Albumin/Globulin Ratio 1.4 Lipase 22 PD MEDICAL DECISION MAKING - ED course Complexity details: reviewed old records, reviewed results, re-evaluated patient , considered differential, d/w patient, d/w PMD (Dr. De Guzman (PCP)) ED course: Patient is an 86-year-old female who was sent from the primary care provider's office today for atrial fibrillation with rapid ventricular response and mild dizziness. Symptoms had all resolved spontaneously prior to arrival. Was initially mildly tachycardic in the emergency department and this resolved as well. She is asymptomatic. No acute laboratory findings. We will continue her current medications and have her contact her doctor on Tuesday for medication adjustment. Patient counseled regarding signs and symptoms for which I believe and urgent re-evaluation would be necessary. Patient with good understanding of and agreement to plan and is comfortable going home at this time This document was made in part using voice recognition software. While efforts are made to proofread this document, sound alike and grammatical errors may occur. Departure - Departure Disposition: Home, Self Care Clinical Impression: Atrial fibrillation and flutter Condition: Good Instructions: ED Afib Follow-Up: Jerry Lyle DO [Primary Care Provider] - Within 1 week Comments: continue your medications at home as prescribed by your doctor. Discharge Date/Time: 01/15/17 14:00
[2017-01-15 13:11] LABS: BASOPHILS # (AUTO) 0.1 10^3/uL (0.0-0.1); BASOPHILS % (AUTO) 1.1 %; EOSINOPHILS % (AUTO) 0.7 %; HCT - HEMATOCRIT 38.1 % (37.0-47.0); HGB - HEMOGLOBIN 12.7 g/dL (12.0-16.0); LYMPHOCYTES # (AUTO) 1.2 10^3/uL (1.5-3.5); LYMPHOCYTES % (AUTO) 24.5 %; MEAN CORPUSCULAR HEMOGLOBIN 30.3 pg (27.0-31.0); MEAN CORPUSCULAR HGB CONC 33.4 g/dL (32.0-36.0); MEAN CORPUSCULAR VOLUME 90.7 fL (81.0-99.0); MEAN PLATELET VOLUME 8.4 fL (7.9-10.8); MONOCYTES # (AUTO) 0.3 10^3/uL (0.0-1.0); NEUTROPHILS # (AUTO) 3.2 10^3/uL (1.5-6.6); NEUTROPHILS % (AUTO) 66.7 %; UNCORRECTED WHITE BLOOD COUNT 4.8 x10^3/uL; WHITE BLOOD COUNT 4.8 x10^3/uL (4.8-10.8)
[2017-01-15 13:23] LABS: ALBUMIN/GLOBULIN RATIO 1.4 (1.0-2.2); BILIRUBIN,TOTAL 0.9 mg/dL (0.2-1.0); CALCIUM 9.7 mg/dL (8.5-10.3); CREATININE 0.6 mg/dL (0.4-1.0); POTASSIUM 4.1 mmol/L (3.5-5.0); TOTAL PROTEIN 7.3 g/dL (6.7-8.2)
[2017-01-15 13:34] LABS: INR 2.4 (0.8-1.2); PT - PROTHROMBIN TIME 26.9 secs (9.9-12.6)
[2017-01-15 13:49] VITALS: BP 119/81
== END 2017-01-15 14:00 | disposition home or self-care (01) ==
LOC: EDUNIT# → ED 12:33
DX: I48.91 Unspecified atrial fibrillation (principal); I48.92 Unspecified atrial flutter; Z79.01 Long term (current) use of anticoagulants; I10 Essential (primary) hypertension; E78.00 Pure hypercholesterolemia, unspecified; Z86.718 Personal history of other venous thrombosis and embolism; K21.9 Gastro-esophageal reflux disease without esophagitis; M19.90 Unspecified osteoarthritis, unspecified site; Z87.442 Personal history of urinary calculi
CPT/HCPCS: 36415; 80053; 83690; 83735; 84100; 85025; 85610; 93005; 99283; 99284

== ENCOUNTER 2017-01-17 08:07 | Emergency (ER) | payer MEDICARE, OTHER ==
[2017-01-17] MEDS ORDERED: SODIUM CHLORIDE FLUSH 0.9% 10 ML SYRINGE IVP ONE ×2 (08:19→09:50)
--- NOTE | 2017-01-17 08:58 | ED Physician Documentation ---
History of Present Illness - Stated complaint Stated Complaint: RAPID HR - Chief complaint Chief Complaint: Cardiac - History obtained from History obtained from: Patient - History of Present Illness Timing: Enter time (729), Today - Additonal information Additional information: rapid heart rate dizziness 86-year-old female with history of persistent atrial fibrillation has been having an issue with rate control and she does not like metoprolol. She feels it makes her feel washed out and she is refusing to take it. She has been on a much higher dose she is taught titrated her dose down over the past month and she is stopped taking it altogether 3 days ago. She has been seen in the emergency department for atrial fibrillation with rapid ventricular response she responds well to Cardizem for rate control and she has been started on Cardizem 180 ER. She has taken her medicine this morning but she admits she did not take this yesterday. She has not felt that she is having symptoms from the Cardizem. This morning she awoke at 4:00 in the morning to get up to go to the bathroom at that time she felt well with some mild dizziness at 7:30 AM she began to experience the typical symptoms she has with rapid heart rate with feeling faint dizzy and dyspneic. Review of Systems Constitutional: denies: Fever Eyes: denies: Decreased vision Ears: denies: Ear pain Nose: denies: Congestion Throat: denies: Sore throat Cardiac: reports: Palpitations. denies: Chest pain / pressure Respiratory: reports: Dyspnea. denies: Cough GI: denies: Abdominal Pain, Nausea, Vomiting : denies: Dysuria, Frequency PD PAST MEDICAL HISTORY - Past Medical History Past Medical History: Yes Cardiovascular: Hypertension, High cholesterol, Deep vein thrombosis, Atrial fibrillation Respiratory: Pneumonia Neuro: None Endocrine/Autoimmune: None GI: GERD, Hiatal hernia FEDERAL AGENT: None : Chronic bladder infection, Kidney stones HEENT: None Psych: None Musculoskeletal: Osteoarthritis Derm: Herpes zoster - Past Surgical History Past Surgical History: Yes Ortho: Hip replacement /FEDERAL AGENT: Dilation and currettage HEENT: Tracheostomy - Present Medications Home Medications: Ambulatory Orders Medication Instructions Recorded Confirmed Warfarin [Coumadin] 5 mg PO DAILY 10/13/12 01/15/17 Vitamin B Complex 1 each PO DAILY 04/28/16 01/15/17 Ferrous Sulfate [Iron] 325 mg PO DAILY 05/12/16 01/15/17 Ascorbic Acid [Vitamin C] 1,000 mg PO DAILY 07/09/16 01/15/17 Amoxicillin 500 mg PO DAILY 11/07/16 01/15/17 Metoprolol Succinate 50 mg PO TID 11/22/16 01/15/17 diltiaZEM CD [Cardizem Cd] 1 cap PO DAILY 01/15/17 01/15/17 - Allergies Allergies/Adverse Reactions: Allergies Allergy/AdvReac Type Severity Reaction Status Date / Time BISHOP Inhibitors Allergy Unknown Unknown Verified 01/17/17 08:16 atropine Allergy Unknown Unknown Verified 01/17/17 08:16 clopidogrel bisulfate * Allergy Unknown Unknown Verified 01/17/17 08:16 [From Plavix] NSAIDS (Non-Steroidal Allergy Unknown Unknown Verified 01/17/17 08:16 Anti-Inflamma ciprofloxacin AdvReac Unknown Unknown Verified 01/17/17 08:16 esomeprazole magnesium * AdvReac Unknown Cramps Verified 01/17/17 08:16 [From Nexium] omeprazole [From Prilosec] AdvReac Unknown Cramps Verified 01/17/17 08:16 omeprazole magnesium * AdvReac Unknown Cramps Verified 01/17/17 08:16 [From Prilosec] Sulfa (Sulfonamide AdvReac Unknown Itching Verified 01/17/17 08:16 Antibiotics) aspirin AdvReac Unknown Verified 01/17/17 08:16 - Social History Does the pt smoke?: No Smoking Status: Never smoker Does the pt drink ETOH?: No Does the pt have substance abuse?: No - Immunizations Immunizations are current?: Yes - POLST Patient has POLST: No PD ED PE NORMAL - Vitals Vital signs reviewed: Yes (Tachycardic and hypertensive) - General General: No acute distress, Well developed/nourished - HEENT HEENT: Atraumatic, PERRL, EOMI - Neck Neck: Supple, no meningeal sign, No bony TTP - Cardiac Cardiac: Other (Irregularly irregular rate at 140 With 2 out of 6 holosystolic murmur at left sternal border.) - Respiratory Respiratory: No respiratory distress, Clear bilaterally - Abdomen Abdomen: Soft, Non tender - Back Back: No CVA TTP, No spinal TTP - Derm Derm: Normal color, Warm and dry, No rash - Extremities Extremities: No deformity, No edema - Neuro Neuro: No motor deficit, No sensory deficit - Psych Psych: Normal mood, Normal affect Results - Vitals Vitals: Vital Signs - 24 hr 01/17/17 01/17/17 01/17/17 08:13 09:44 09:54 Temperature 36.0 C L Heart Rate 146 H 130 H 106 H Respiratory 20 Rate Blood Pressure 158/102 H 158/79 H 98/54 L O2 Saturation 97 01/17/17 01/17/17 01/17/17 10:01 10:11 10:26 Temperature Heart Rate 79 85 81 Respiratory 18 Rate Blood Pressure 107/55 L 101/66 108/63 O2 Saturation 95 Oxygen O2 Source Room air - EKG (time done) 0814 Rate: Rate (enter#) (120) Rhythm: Atrial flutter, Atrial fibrillation [place]: LAD Intervals: Prolonged QT Ischemia: Non specific changes Compare to prior EKG: Changed from prior EKG (SPT 01-15-17 rate has increased ) Computer interpretation: Agree with computer - Labs Labs: Laboratory Tests 01/17/17 01/17/17 01/17/17 09:24 09:24 09:24 WBC 4.8 RBC 4.51 Hgb 13.7 Hct 40.5 MCV 89.7 MCH 30.3 MCHC 33.8 RDW 15.6 H Plt Count 196 MPV 8.3 Neut # 3.2 Lymph # 1.1 L [place] # 0.3 Eos # 0.0 Baso # 0.0 Absolute Nucleated RBC 0.00 Nucleated RBCs 0.0 PT 22.7 H INR 2.0 H Sodium 139 Potassium 4.0 Chloride 106 Carbon Dioxide 25 Anion Gap 8.0 BUN 18 Creatinine 0.6 Estimated GFR (MDRD) 95 Glucose 116 H Calcium 9.4 Total Bilirubin 0.9 AST 21 ALT 20 Alkaline Phosphatase 39 L Troponin I Total Protein 7.1 Albumin 3.9 Globulin 3.2 Albumin/Globulin Ratio 1.2 Lipase 22 01/17/17 09:24 WBC RBC Hgb Hct MCV MCH MCHC RDW Plt Count MPV Neut # Lymph # [place] # Eos # Baso # Absolute Nucleated RBC Nucleated RBCs PT INR Sodium Potassium Chloride Carbon Dioxide Anion Gap BUN Creatinine Estimated GFR (MDRD) Glucose Calcium Total Bilirubin AST ALT Alkaline Phosphatase Troponin I < 0.04 Total Protein Albumin Globulin Albumin/Globulin Ratio Lipase - Rads (name of study) 2 view chest Radiology: Prelim report reviewed (Impression: No consolidation evident.), EMP read indepedently, See rad report PD MEDICAL DECISION MAKING - ED course Complexity details: reviewed old records, reviewed results, re-evaluated patient , considered differential, d/w patient, d/w family ED course: 86-year-old female with history of atrial fibrillation with rapid ventricular response has been having issues with her metoprolol. She does not want to take metoprolol and she is refusing to take her metoprolol. She has tapered herself off of this medication and she did not take her diltiazem yesterday. She did take this today but here in the emergency department this is still not been effective. Here in the emergency department she was given a 20 mg dose of intravenous diltiazem with prompt reduction in her rate she maintained good blood pressure and she will be discharged home with instructions to take the diltiazem daily. She will follow-up with Dr. Villagomez as planned. Departure - Departure Disposition: 01 Home, Self Care Clinical Impression: Atrial fibrillation with rapid ventricular response Condition: Stable Instructions: ED Afib Follow-Up: Jerry Lyle DO [Primary Care Provider] - Comments: Today it appears your diltiazem was not yet effective and it is important to take this medicine every day. Do not take your metoprolol. Follow-up with Dr. Villagomez as planned.
--- NOTE | 2017-01-17 09:13 | XRAY Preliminary Report ---
Exam: XR Chest 2 View PA/LAT IMPRESSION: No consolidation evident. [id number]
--- NOTE | 2017-01-17 09:16 | XRAY Report ---
EXAM: CHEST RADIOGRAPHY EXAM DATE: 01/17/2017 09:00 AM. CLINICAL HISTORY: Dyspnea. Rapid heart rate. COMPARISON: 11/16/2016. TECHNIQUE: 2 views. FINDINGS: Lungs/Pleura: No focal opacities evident. No pleural effusion. No pneumothorax. Normal volumes. Mediastinum: Cardiomegaly. Other: Diffuse osteopenia. Bilateral shoulder degenerative changes. Hiatal hernia. IMPRESSION: No consolidation evident. [facility] Referring Provider Line: [phone] SITE ID: [id number]
[2017-01-17] MEDS ORDERED: diltiaZEM INJ 5 MG/ML VIAL IVP STA (09:29)
[2017-01-17 09:31] LABS: EOSINOPHILS % (AUTO) 0.7 %; HCT - HEMATOCRIT 40.5 % (37.0-47.0); HGB - HEMOGLOBIN 13.7 g/dL (12.0-16.0); LYMPHOCYTES # (AUTO) 1.1 10^3/uL (1.5-3.5); LYMPHOCYTES % (AUTO) 23.4 %; MEAN CORPUSCULAR HEMOGLOBIN 30.3 pg (27.0-31.0); MEAN CORPUSCULAR HGB CONC 33.8 g/dL (32.0-36.0); MEAN CORPUSCULAR VOLUME 89.7 fL (81.0-99.0); MEAN PLATELET VOLUME 8.3 fL (7.9-10.8); MONOCYTES # (AUTO) 0.3 10^3/uL (0.0-1.0); MONOCYTES % (AUTO) 7.2 %; NEUTROPHILS # (AUTO) 3.2 10^3/uL (1.5-6.6); NEUTROPHILS % (AUTO) 67.7 %; RED BLOOD COUNT 4.51 10^6/uL (4.20-5.40); RED CELL DISTRIBUTION WIDTH 15.6 % (12.0-15.0); UNCORRECTED WHITE BLOOD COUNT 4.8 x10^3/uL; WHITE BLOOD COUNT 4.8 x10^3/uL (4.8-10.8)
[2017-01-17 09:40] LABS: PT - PROTHROMBIN TIME 22.7 secs (9.9-12.6)
[2017-01-17 09:44] LABS: ALBUMIN/GLOBULIN RATIO 1.2 (1.0-2.2); BILIRUBIN,TOTAL 0.9 mg/dL (0.2-1.0); CALCIUM 9.4 mg/dL (8.5-10.3); CREATININE 0.6 mg/dL (0.4-1.0); TOTAL PROTEIN 7.1 g/dL (6.7-8.2)
[2017-01-17] MEDS ORDERED: diltiaZEM INJ 5 MG/ML VIAL ONE (09:48)
[2017-01-17 11:03] VITALS: BP 109/74
== END 2017-01-17 11:03 | disposition home or self-care (01) ==
LOC: ED 08:07
DX: I48.91 Unspecified atrial fibrillation (principal); R94.31 Abnormal electrocardiogram [ECG] [EKG]; T44.7X6A Underdosing of beta-adrenoreceptor antagonists, initial encounter; Z91.128 Patient's intentional underdosing of medication regimen for other reason; Y92.019 Unspecified place in single-family (private) house as the place of occurrence of the external cause; I10 Essential (primary) hypertension; E78.00 Pure hypercholesterolemia, unspecified; K21.9 Gastro-esophageal reflux disease without esophagitis; M19.90 Unspecified osteoarthritis, unspecified site; Z86.718 Personal history of other venous thrombosis and embolism; Z87.442 Personal history of urinary calculi; Z87.440 Personal history of urinary (tract) infections
CPT/HCPCS: 36415; 71020; 80053; 83690; 84484; 85025; 85610; 93005; 96374; 99284

== ENCOUNTER 2017-01-31 08:24 | Observation (INO) | payer MEDICARE, OTHER ==
[2017-01-31] MEDS ORDERED: SODIUM CHLORIDE FLUSH 0.9% 10 ML SYRINGE IVP ONE (08:37)
[2017-01-31] MEDS ORDERED: diltiaZEM CD 120 MG CAPSULE PO STA (08:56)
--- NOTE | 2017-01-31 09:01 | ED Physician Documentation ---
PD HPI FOCAL NEURO - Stated complaint Stated Complaint: RIGHT SIDE NUMBNESS/RAPID HEART - Chief complaint Chief Complaint: General - History obtained from History obtained from: Patient - History of Present Illness Timing - onset: Enter time (0600), Today Timing - duration: Hours (3) Timing - details: Abrupt onset, Still present Severity of deficit: Moderate Weakness: No: Face, Arm, Hand, Leg, Foot, Right, Left Numbness: Face, Arm, Hand, Leg, Foot, Right Associated symptoms: Headache. No: Nausea / vomiting Contributing factors: positive: Anticoagulated Baseline status: positive: A&OX3, ambulatory, indep Similar symptoms before: No diagnosis (has had symptoms trasiently) Recently seen: Emergency Dept (Seen in the ED for afib with RVR this past month several times.) - Additional information Additional information: 86-year-old female with history of chronic atrial fibrillation is anti- coagulated with warfarin and this morning on awakening at 06 100 she noted some numbness to the right side of her face arm and leg. She felt she was a bit discoordinated when she got up to walk. She has had these similar symptoms last up to 30 minutes. She has not been worked up for TIA. She does note that these symptoms have persisted now for 3 hours. The headache she awoke with is somewhat better. She has recently stopped taking metoprolol and has started Cardizem. She is having better rate control with the Cardizem. Review of Systems Constitutional: denies: Fever Eyes: denies: Decreased vision Ears: denies: Ear pain Nose: denies: Rhinorrhea / runny nose, Congestion Throat: denies: Sore throat Cardiac: reports: Palpitations. denies: Chest pain / pressure Respiratory: denies: Dyspnea, Cough GI: denies: Abdominal Pain, Nausea, Vomiting : denies: Dysuria, Frequency Skin: denies: Rash Musculoskeletal: denies: Neck pain, Back pain, Extremity pain, Extremity swelling Neurologic: reports: Numbness, Headache. 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 : Chronic bladder infection, Kidney stones HEENT: None Psych: None Musculoskeletal: Osteoarthritis Derm: Herpes zoster - Past Surgical History Past Surgical History: Yes Ortho: Hip replacement /PROBATION SUPERVISOR: Dilation and currettage HEENT: Tracheostomy - Present Medications Home Medications: Ambulatory Orders Medication Instructions Recorded Confirmed Warfarin [Coumadin] 5 mg PO SUMOWEFR@1400 10/13/12 01/31/17 Vitamin B Complex 1 each PO DAILY 04/28/16 01/31/17 Ferrous Sulfate [Iron] 325 mg PO DAILY 05/12/16 01/31/17 Ascorbic Acid [Vitamin C] 1,000 mg PO DAILY 07/09/16 01/31/17 diltiaZEM CD [Cardizem Cd] 180 cap PO DAILY 01/15/17 01/31/17 Metoprolol Succinate [Toprol Xl] 50 mg PO BID 01/31/17 01/31/17 Nitrofurantoin [Macrobid] 100 mg PO BID 01/31/17 01/31/17 Sertraline HCl 25 mg PO DAILY 01/31/17 01/31/17 Warfarin [Coumadin] 2.5 mg PO TUTHSA@1400 01/31/17 01/31/17 - Allergies Allergies/Adverse Reactions: Allergies Allergy/AdvReac Type Severity Reaction Status Date / Time BISHOP Inhibitors Allergy Unknown Unknown Verified 01/17/17 08:16 atropine Allergy Unknown Unknown Verified 01/17/17 08:16 clopidogrel bisulfate * Allergy Unknown Unknown Verified 01/17/17 08:16 [From Plavix] NSAIDS (Non-Steroidal Allergy Unknown Unknown Verified 01/17/17 08:16 Anti-Inflamma ciprofloxacin AdvReac Unknown Unknown Verified 01/17/17 08:16 esomeprazole magnesium * AdvReac Unknown Cramps Verified 01/17/17 08:16 [From Nexium] omeprazole [From Prilosec] AdvReac Unknown Cramps Verified 01/17/17 08:16 omeprazole magnesium * AdvReac Unknown Cramps Verified 01/17/17 08:16 [From Prilosec] Sulfa (Sulfonamide AdvReac Unknown Itching Verified 01/17/17 08:16 Antibiotics) aspirin AdvReac Unknown Verified 01/17/17 08:16 - Social History Does the pt smoke?: No Smoking Status: Never smoker Does the pt drink ETOH?: No Does the pt have substance abuse?: No - Immunizations Immunizations are current?: Yes - POLST Patient has POLST: No PD ED PE NORMAL - Vitals Vital signs reviewed: Yes (tachy and hypertensive ) - General General: No acute distress, Well developed/nourished - HEENT HEENT: Atraumatic, PERRL, EOMI - Neck Neck: Supple, no meningeal sign, No bony TTP - Cardiac Cardiac: Other (irregularly irregular) - Respiratory Respiratory: No respiratory distress, Clear bilaterally - Abdomen Abdomen: Soft, Non tender - Back Back: No CVA TTP, No spinal TTP - Derm Derm: Normal color, Warm and dry, No rash - Extremities Extremities: No deformity, No edema - Neuro Neuro: Alert and oriented X 3, animal trapper 2-12 intact, No motor deficit, Normal speech , Other (There is a subjective numbness to the right side including the face arm abdomen and leg. ) - Psych Psych: Normal mood, Normal affect NIHSS - Time Time: 08:14 - Level of Consciousness Level of consciousness: (0) Alert, Keenly responsive LOC Questions: (0) Answers both Q's correct LOC Commands: (0) Performs both correctly - Gaze Best Gaze: (0) Normal - Visual Visual: (0) No loss - Facial Palsy Facial Palsy: (0) Normal, symmetrical movement - Motor Arms (both separate) Motor Arm (right): (0) No drift Motor Arm (left): (0) No drift - Motor Legs (both separate) Motor Leg (right): (0) No drift Motor Leg (left): (0) No drift - Limb Ataxia Limb Ataxia: (0) Absent - Sensory Sensory: (1) Efdu-ux-garwthyv loss - Best Language Best Language: (0) No aphasia - Dysarthria Dysarthria: (0) Normal - Extinction and Inattention (formally neg Extinction and inattention: (0) No abnormality - Total Score/Results Total Score/Result: 1 Results - Vitals Vitals: Vital Signs - 24 hr 01/31/17 01/31/17 08:28 09:12 Temperature 36.4 C L Heart Rate 126 H 101 H Respiratory 18 17 Rate Blood Pressure 166/101 H 139/87 H O2 Saturation 97 96 Oxygen O2 Source Room air - EKG (time done) 0841 Rate: Rate (enter#) (101) Rhythm: Atrial fibrillation [place]: LAD Ischemia: Non specific changes Compare to prior EKG: Changed from prior EKG (SPT 01-17-17 rate has decreased and QT interval has normalized. ) Computer interpretation: Agree with computer - Labs Labs: Laboratory Tests 01/31/17 01/31/17 01/31/17 08:40 08:40 09:55 WBC 5.7 RBC 4.65 Hgb 14.1 Hct 42.0 MCV 90.2 MCH 30.2 MCHC 33.5 RDW 15.4 H Plt Count 213 MPV 8.8 Neut # 3.7 Lymph # 1.6 [place] # 0.4 Eos # 0.1 Baso # 0.0 Absolute Nucleated RBC 0.00 Nucleated RBCs 0.1 PT INR Sodium Potassium Chloride Carbon Dioxide Anion Gap BUN Creatinine Estimated GFR (MDRD) Glucose Calcium Total Bilirubin AST ALT Alkaline Phosphatase Troponin I < 0.04 Total Protein Albumin Globulin Albumin/Globulin Ratio Lipase Urine Color YELLOW Urine Clarity CLEAR Urine pH 6.5 Ur Specific [place] <=1.005 Urine Protein NEGATIVE Urine Glucose (UA) NEGATIVE Urine Ketones NEGATIVE Urine Occult Blood NEGATIVE Urine Nitrite NEGATIVE Urine Bilirubin NEGATIVE Urine Urobilinogen 0.2 (NORMAL) Ur Leukocyte Esterase NEGATIVE Ur Microscopic Review NOT INDICATED Urine Culture Comments NOT INDICATED 01/31/17 01/31/17 10:11 10:11 WBC RBC Hgb Hct MCV MCH MCHC RDW Plt Count MPV Neut # Lymph # [place] # Eos # Baso # Absolute Nucleated RBC Nucleated RBCs PT 28.5 H INR 2.5 H Sodium 137 Potassium 3.9 Chloride 104 Carbon Dioxide 24 Anion Gap 9.0 BUN 22 H Creatinine 0.7 Estimated GFR (MDRD) 79 L Glucose 116 H Calcium 9.6 Total Bilirubin 0.7 AST 26 ALT 18 Alkaline Phosphatase 45 Troponin I Total Protein 7.8 Albumin 4.4 Globulin 3.4 Albumin/Globulin Ratio 1.3 Lipase 20 L Urine Color Urine Clarity Urine pH Ur Specific [place] Urine Protein Urine Glucose (UA) Urine Ketones Urine Occult Blood Urine Nitrite Urine Bilirubin Urine Urobilinogen Ur Leukocyte Esterase Ur Microscopic Review Urine Culture Comments - Rads (name of study) CT head Radiology: Prelim report reviewed (Impression: Stable head CT. No acute intracranial process. No mass, CVA or hemorrhage. Mild atrophy and mild chronic white matter microvascular ischemic changes, similar to earlier study.) , EMP read indepedently, See rad report Procedures - IVC sono (time) 0818 Bedside IVC sono: IVC measures (cm) (1.56), [place] PD MEDICAL DECISION MAKING - ED course Complexity details: reviewed old records, reviewed results, re-evaluated patient , considered differential, d/w patient, d/w family ED course: 86 y/o female on coumadin with afib comes to the ED today with right sided numbness that has persisted 3 hours. She has subjective numbness expressed on the right and this does appear to be both upper and lower as well as face and trunk. She has no motor or cognative component. Her CT is negative for bleed and her volume status is normal. Her rate appears adequately controlled. Dr. Pink has graciously agreed to admit the patient for work up of TIA. Departure - Departure Disposition: 66 [facility] DC/Xfer Clinical Impression: CVA (cerebral vascular accident) Qualifiers: CVA mechanism: unspecified Qualified Code(s): I63.9 - Cerebral infarction, unspecified Discharge Date/Time: 01/31/17 12:01
[2017-01-31 09:02] LABS: BASOPHILS % (AUTO) 0.2 %; EOSINOPHILS # (AUTO) 0.1 10^3/uL (0.0-0.7); HGB - HEMOGLOBIN 14.1 g/dL (12.0-16.0); LYMPHOCYTES # (AUTO) 1.6 10^3/uL (1.5-3.5); LYMPHOCYTES % (AUTO) 27.3 %; MEAN CORPUSCULAR HEMOGLOBIN 30.2 pg (27.0-31.0); MEAN CORPUSCULAR HGB CONC 33.5 g/dL (32.0-36.0); MEAN CORPUSCULAR VOLUME 90.2 fL (81.0-99.0); MEAN PLATELET VOLUME 8.8 fL (7.9-10.8); MONOCYTES # (AUTO) 0.4 10^3/uL (0.0-1.0); MONOCYTES % (AUTO) 6.3 %; NEUTROPHILS # (AUTO) 3.7 10^3/uL (1.5-6.6); NEUTROPHILS % (AUTO) 65.2 %; NUCLEATED RED BLOOD CELLS AUTO 0.1 /100WBC; RED BLOOD COUNT 4.65 10^6/uL (4.20-5.40); RED CELL DISTRIBUTION WIDTH 15.4 % (12.0-15.0); UNCORRECTED WHITE BLOOD COUNT 5.7 x10^3/uL; WHITE BLOOD COUNT 5.7 x10^3/uL (4.8-10.8)
[2017-01-31] MEDS ORDERED: diltiaZEM CD 180 MG CAPSULE PO STA (09:04)
[2017-01-31 09:12] LABS: ALBUMIN/GLOBULIN RATIO 1.3 (1.0-2.2); BILIRUBIN,TOTAL 0.7 mg/dL (0.2-1.0); CALCIUM 9.6 mg/dL (8.5-10.3); CREATININE 0.7 mg/dL (0.4-1.0); POTASSIUM 3.9 mmol/L (3.5-5.0); TOTAL PROTEIN 7.8 g/dL (6.7-8.2)
--- NOTE | 2017-01-31 09:50 | CT Preliminary Report ---
Exam: CT Head W/O IMPRESSION: Stable head CT. No acute intracranial process. No mass, CVA or hemorrhage. Mild atrophy and mild chronic white matter microvascular ischemic changes, similar to earlier study. [facility] SITE ID: [id number]
--- NOTE | 2017-01-31 09:53 | CT Report ---
EXAM: CT HEAD WITHOUT CONTRAST EXAM DATE: 01/31/2017 09:40 AM. CLINICAL HISTORY: Headache and right sided numbness in an 86-year-old female. COMPARISON: Recent similar study 01/13/2017 and previous. TECHNIQUE: Multiaxial CT images were obtained from the foramen magnum to the vertex. IV contrast: Non e. Reformats: Coronal. In accordance with CT protocol optimization, one or more of the following dose reduction techniques w ere utilized for this exam: automated exposure control, adjustment of mA and/or KV based on patient s ize, or use of iterative reconstructive technique. FINDINGS: Parenchyma: Mild generalized age-appropriate cerebral and cerebellar atrophy. No intraparenchymal hem orrhage. No evidence of mass, midline shift, or CT findings of acute infarction. Carrion-white different iation is distinct. Extraaxial Spaces: Normal for age. No subdural or epidural collections identified. Ventricles: The ventricles and cortical sulci are enlarged, consistent with age-related tissue loss. Sinuses: Imaged paranasal sinuses, orbits, and mastoids show no significant abnormality. Bones: No evidence of fracture or calvarial defect. Other: Diffuse mild chronic microangiopathic white matter changes are evident. IMPRESSION: Stable head CT. No acute intracranial process. No mass, CVA or hemorrhage. Mild atrophy and mild chronic white matter microvascular ischemic changes, similar to earlier study. [facility] Referring Provider Line: [phone] SITE ID: [id number]
[2017-01-31] MEDS ORDERED: SODIUM CHLORIDE FLUSH 0.9% 10 ML SYRINGE IVP PRN (10:19)
[2017-01-31] MEDS ORDERED: ONDANSETRON 4 MG/2 ML VIAL IVP PRN (10:19)
[2017-01-31] MEDS ORDERED: PROCHLORPERAZINE 10 MG/2 ML VIAL IVP PRN (10:19)
[2017-01-31] MEDS ORDERED: ACETAMINOPHEN 325 MG TABLET PO PRN (10:19)
[2017-01-31] MEDS ORDERED: HYDROcod/ACETAM 5/325 MG TABLET PO PRN (10:19)
[2017-01-31 10:27] LABS: INR 2.5 (0.8-1.2); PT - PROTHROMBIN TIME 28.5 secs (9.9-12.6)
[2017-01-31] MEDS ORDERED: diltiaZEM CD 180 MG CAPSULE PO SCH (11:00)
[2017-01-31 11:02] LABS: BILIRUBIN,URINE NEGATIVE (NEGATIVE); PH,URINE 6.5 PH (5.0-7.5)
[2017-01-31 11:04] LABS: UA CHARGE (STRIP ONLY) YES; UR CULTURE IF IND NOT INDICATED
--- NOTE | 2017-01-31 12:18 | MRI Preliminary Report ---
Exam: MRI Brain W/O IMPRESSION: 1. No acute intracranial abnormality. No acute infarct, mass, or hemorrhage. 2. Senescent change. Age-related atrophy. 3. Mild white matter T2 and FLAIR bright signal in the cerebral hemispheres and brainstem. This has p rogressed compared to prior MRI. Findings are nonspecific but typically secondary to small vessel isc hemic change. [facility] SITE ID: [id number]
--- NOTE | 2017-01-31 12:21 | MRI Report ---
EXAM: MRI BRAIN WITHOUT CONTRAST EXAM DATE: 01/31/2017 11:35 AM. CLINICAL HISTORY: Right sided numbness. History of chronic atrial fibrillation, on Coumadin. COMPARISON: CT scan of the head 01/31/2017, 01/13/2017. MRI of the brain 04/21/2016. TECHNIQUE: Multiplanar, multisequence T1-weighted and fluid-sensitive MR sequences of the brain were performed. Sequences optimized for routine evaluation. Other: None. IV Contrast: None. FINDINGS: Brain Volume: Age-related atrophy is present. Parenchyma/Dura: No masses, infarcts, or hemorrhage. Mild confluent periventricular was scattered pun ctate deep and subcortical white matter T2 and FLAIR bright signal is seen throughout the cerebral he mispheres and brainstem. This has progressed compared to prior MRI. No cortical signal abnormality. Ventricles/Cisterns: No hydrocephalus. No abnormal extra-axial fluid collection or hemorrhage. Orbits: The globes, optic nerve sheath complex, extraocular muscles, and orbital fat are unremarkable . Sella turcica: The pituitary gland, cavernous sinuses, suprasellar cistern, and optic chiasm are unre markable. IAC: The internal auditory canals and cerebellopontine angle cisterns are symmetric and unremarkable. Vasculature: Normal signal flow void is seen in the major arterial structures at the skull base. Prom inent P-comm are noted bilaterally. Sinuses: No sinusitis evident. Partial opacification is seen involving inferior right mastoid air angelina ls. Bones: The skull is intact. 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 Note is made of an oval 2 0 mm focus of T1 hypointense signal in the right frontal bone. Mild T2 hyperintense signal is present . This is unchanged suggesting benign process such as hemangioma. Other: None. IMPRESSION: 1. No acute intracranial abnormality. No acute infarct, mass, or hemorrhage. 2. Senescent change. Age-related atrophy. 3. Mild white matter T2 and FLAIR bright signal in the cerebral hemispheres and brainstem. This has p rogressed compared to prior MRI. Findings are nonspecific but typically secondary to small vessel isc hemic change. [facility] Referring Provider Line: [phone] SITE ID: [id number]
--- NOTE | 2017-01-31 13:15 | CT Report ---
EXAM: CT ANGIOGRAM HEAD AND NECK EXAM DATE: 01/31/2017 12:33 PM. CLINICAL HISTORY: Right sided numbness. COMPARISON: CT head 01/31/2017, MRI brain 01/31/2017 TECHNIQUE: Routine helical CTA imaging was performed through the head. IV Contrast: Yes. 100 cc Isovu e-300 Reconstructions: Routine multiplanar 3D MIP reconstructions. NASCET Criteria are used for steno sis measurements. In accordance with CT protocol optimization, one or more of the following dose reduction techniques w ere utilized for this exam: automated exposure control, adjustment of mA and/or KV based on patient s ize, or use of iterative reconstructive technique. FINDINGS: Noncontrast CT head: Performed and dictated separately. Postcontrast CT head: No abnormal enhancement. CTA head and neck: The origins of the right brachiocephalic artery and left common carotid artery are excluded from the imaged region. Right Carotid: Mild atherosclerosis right carotid bifurcation with no hemodynamically significant zachary nosis. Mild atherosclerosis distal right cervical internal carotid artery with no hemodynamically sig nificant stenosis. The common carotid, internal carotid, and external carotid arteries are patent. No evidence of dissection Left Carotid: Mild atherosclerosis left carotid bifurcation, with no hemodynamically significant sten osis The common carotid, internal carotid, and external carotid arteries are patent. No evidence of d issection Vertebrals: The vertebral arteries are codominant. The vertebrobasilar system shows no stenosis, diss ection, aneurysm, or significant atherosclerotic disease. Intracranial Circulation: Mild atherosclerosis right carotid siphon, with no hemodynamically signific ant stenosis. Mild atherosclerosis left carotid siphon, with no hemodynamically significant stenosis. . Right MCA is unremarkable. The left MCA is unremarkable. The ACAs bilaterally are unremarkable. Pro minent and patent posterior communicating arteries bilaterally are supplying the jukebox checker. The P1 segment s of the jukebox checker bilaterally are hypoplastic. Patent dural venous sinuses. Other: There is an 8 mm hypodense lesion in the posterior right thyroid lobe. Given subcentimeter siz e, no further follow-up is recommended. Moderate multilevel degenerative spondylosis, with no evidenc e of acute fracture or malalignment. Biapical pleural parenchymal scarring. Visualized lung apices ar e otherwise clear. IMPRESSION: 1. Noncontrast CT head has been performed and dictated separately. No abnormal enhancement on the pos tcontrast CT head. 2. No hemodynamically significant stenosis, dissection, occlusion, aneurysm, or vascular malformation within the intracranial or extracranial arteries. Evaluation of carotid stenosis is by NASCET criter ia . 3.. The origins of the right brachiocephalic artery and left common carotid artery are excluded from the imaged region. 4. Mild atherosclerosis right carotid bifurcation with no hemodynamically significant stenosis. Mild atherosclerosis distal right cervical internal carotid artery with no hemodynamically significant zachary nosis. 5. Mild atherosclerosis left carotid bifurcation, with no hemodynamically significant stenosis 6. The vertebral arteries are codominant. 7. Mild atherosclerosis right carotid siphon, with no hemodynamically significant stenosis. 8. Mild atherosclerosis left carotid siphon, with no hemodynamically significant stenosis.. 9. Near origin of the jukebox checker bilaterally. 10. Patent dural venous sinuses. [facility] Referring Provider Line: [phone] SITE ID: [id number]
--- NOTE | 2017-01-31 13:15 | CT Report ---
EXAM: CT ANGIOGRAM HEAD AND NECK EXAM DATE: 01/31/2017 12:33 PM. CLINICAL HISTORY: Right sided numbness. COMPARISON: CT head 01/31/2017, MRI brain 01/31/2017 TECHNIQUE: Routine helical CTA imaging was performed through the head. IV Contrast: Yes. 100 cc Isovu e-300 Reconstructions: Routine multiplanar 3D MIP reconstructions. NASCET Criteria are used for steno sis measurements. In accordance with CT protocol optimization, one or more of the following dose reduction techniques w ere utilized for this exam: automated exposure control, adjustment of mA and/or KV based on patient s ize, or use of iterative reconstructive technique. FINDINGS: Noncontrast CT head: Performed and dictated separately. Postcontrast CT head: No abnormal enhancement. CTA head and neck: The origins of the right brachiocephalic artery and left common carotid artery are excluded from the imaged region. Right Carotid: Mild atherosclerosis right carotid bifurcation with no hemodynamically significant zachary nosis. Mild atherosclerosis distal right cervical internal carotid artery with no hemodynamically sig nificant stenosis. The common carotid, internal carotid, and external carotid arteries are patent. No evidence of dissection Left Carotid: Mild atherosclerosis left carotid bifurcation, with no hemodynamically significant sten osis The common carotid, internal carotid, and external carotid arteries are patent. No evidence of d issection Vertebrals: The vertebral arteries are codominant. The vertebrobasilar system shows no stenosis, diss ection, aneurysm, or significant atherosclerotic disease. Intracranial Circulation: Mild atherosclerosis right carotid siphon, with no hemodynamically signific ant stenosis. Mild atherosclerosis left carotid siphon, with no hemodynamically significant stenosis. . Right MCA is unremarkable. The left MCA is unremarkable. The ACAs bilaterally are unremarkable. Pro minent and patent posterior communicating arteries bilaterally are supplying the shipping specialist. The P1 segment s of the shipping specialist bilaterally are hypoplastic. Patent dural venous sinuses. Other: There is an 8 mm hypodense lesion in the posterior right thyroid lobe. Given subcentimeter siz e, no further follow-up is recommended. Moderate multilevel degenerative spondylosis, with no evidenc e of acute fracture or malalignment. Biapical pleural parenchymal scarring. Visualized lung apices ar e otherwise clear. IMPRESSION: 1. Noncontrast CT head has been performed and dictated separately. No abnormal enhancement on the pos tcontrast CT head. 2. No hemodynamically significant stenosis, dissection, occlusion, aneurysm, or vascular malformation within the intracranial or extracranial arteries. Evaluation of carotid stenosis is by NASCET criter ia . 3.. The origins of the right brachiocephalic artery and left common carotid artery are excluded from the imaged region. 4. Mild atherosclerosis right carotid bifurcation with no hemodynamically significant stenosis. Mild atherosclerosis distal right cervical internal carotid artery with no hemodynamically significant zachary nosis. 5. Mild atherosclerosis left carotid bifurcation, with no hemodynamically significant stenosis 6. The vertebral arteries are codominant. 7. Mild atherosclerosis right carotid siphon, with no hemodynamically significant stenosis. 8. Mild atherosclerosis left carotid siphon, with no hemodynamically significant stenosis.. 9. Near origin of the shipping specialist bilaterally. 10. Patent dural venous sinuses. [facility] Referring Provider Line: [phone] SITE ID: [id number]
--- NOTE | 2017-01-31 13:53 | HISTORY & PHYSICAL EXAMINATION ---
Chief Complaint - Chief Complaint Chief Complaint: Numbness of the right side History of Present Illness - Admitted From Admitted From:: Emergency Department - History Obtained From Records Reviewed: Yes History obtained from: Patient Exam Limitations: None - History of Present Illness HPI Comment/Other: Patient is a 86-year-old female with a past medical history significant for atrial fibrillation on Coumadin, osteoarthritis status post hip replacement, hypertension, hypothyroidism not currently on medication, depression and history of malformed kidney who presented to the emergency department with a chief complaint of right sided numbness. She states that she has been having symptoms of right sided numbness since April but usually she has short-lived episodes that last for no more than minutes. She states that today she woke up at around 4 AM and at that time she states that she was having the sweats and felt very cold. She states that around 6 AM she began to notice that she was numb on the right side. She states the numbness was from the top of her head down to the bottom of her toes. She states that she waited for it to resolve however it continued for over an hour and she decided to come into the emergency department. The patient denies having any weakness but she states that she is favoring the right side. The patient denies any facial droop, slurred speech, neck stiffness, fevers or chills. The patient states that she has been having some word finding difficulties that have been going on since April. She states that she did not notice any expressive aphasia during this episode. The patient states that she continues to have this numbness of the face arm and leg as we speak however the intensity is decreasing. The patient otherwise denies any headache, blurred vision, runny nose, sore throat, nasal congestion, cough, shortness of air, orthopnea, PND, chest pain, abdominal pain, nausea, vomiting, diarrhea, constipation, urinary urgency, frequency or dysuria, increased lower extremity swelling, changes in appetite, recent unintentional weight loss, muscle aches, joint pains, joint swelling, polydipsia or any other focal neurologic deficits. The patient states that since April she is noticed that she has been in atrial fibrillation more frequently and states that she feels it as she states that she feels fatigued when she is in A. fib especially when her rate has increased. She also states that she has been under considerably more stress the last 6 months and had seen her primary care physician who had prescribed her medication for anxiety but she has not been taking it because she does not believe that this right-sided numbness is due to the anxiety. On presentation to the emergency department the patient was afebrile she was in A. fib with RVR and was quite hypertensive otherwise she was not in any respiratory distress. The patient had initial routine lab work which revealed an INR of 2.5 but was otherwise unremarkable, her urine analysis was negative and troponin was negative. The patient's EKG showed atrial fibrillation with no ST elevations or ischemic changes. The patient underwent a CT of her head which showed us no acute intracranial process. No mass, CVA or hemorrhage. Given the persistent numbness the patient was placed in observation for rule out of CVA. Review of Systems - Other Findings Other Findings: A comprehensive of review of systems was performed the pertinent positives and negatives are stated above in the HPI the remainder of the review of systems is negative. History - Past Medical History Cardiovascular: reports: Hypertension, High cholesterol, Deep vein thrombosis, Atrial fibrillation Respiratory: reports: Pneumonia Neuro: reports: None Endocrine/Autoimmune: reports: HyPOthyroidism (Not on meds) GI: reports: GERD, Hiatal hernia VARIETY LATHE OPERATOR: reports: None : reports: Chronic bladder infection, Kidney stones, Other (Malformed kidney) HEENT: reports: None Psych: reports: None Musculoskeletal: reports: Osteoarthritis Derm: reports: Herpes zoster MRSA Hx?: No - Past Surgical History Ortho: reports: Hip replacement (Bilateral) /VARIETY LATHE OPERATOR: reports: Dilation and currettage HEENT: reports: Tracheostomy (For pneumonia) - Family & Social History Family History: Mother: (Dad of pneumonia), CVA/TIA (Maternal grandmother had stroke at 45), Father: , Alcoholism, Other family: CVA/ TIA Living arrangement: At home Living Situation: With spouse/s.o. Social History Notes: The patient lives with her and [place]. Her son, son's girlfriend and grandson also live in the house with them. She states that she is under a lot of stress from having them in the house and she does not have her normal freedom or space to just get away. She has 2 children both sons who are adopted. She was 3 times but did not have any deliveries. She does not smoke she drinks very rarely and denies any illicit drug use. - Substance History Use: Uses substance without health or social issues: NONE Abuse: Recurrent use of substance despite neg consequences: NONE Dependence: Experiences withdrawal or developed tolerances: NONE - POLST Patient has POLST: No POLST Status: Full Code Meds/Allgy - Home Medications Home Medications: Ambulatory Orders Medication Instructions Recorded Confirmed Warfarin [Coumadin] 5 mg PO SUMOWEFR@1400 10/13/12 01/31/17 Vitamin B Complex 1 each PO DAILY 04/28/16 01/31/17 Ferrous Sulfate [Iron] 325 mg PO DAILY 05/12/16 01/31/17 Ascorbic Acid [Vitamin C] 1,000 mg PO DAILY 07/09/16 01/31/17 diltiaZEM CD [Cardizem Cd] 180 cap PO BID 01/15/17 01/31/17 Metoprolol Succinate [Toprol Xl] 50 mg PO BID 01/31/17 01/31/17 Nitrofurantoin [Macrobid] 100 mg PO BID 01/31/17 01/31/17 Sertraline HCl 25 mg PO DAILY 01/31/17 01/31/17 Warfarin [Coumadin] 2.5 mg PO TUTHSA@1400 01/31/17 01/31/17 - Allergies Allergies/Adverse Reactions: Allergies Allergy/AdvReac Type Severity Reaction Status Date / Time BISHOP Inhibitors Allergy Unknown Unknown Verified 01/17/17 08:16 atropine Allergy Unknown Unknown Verified 01/17/17 08:16 clopidogrel bisulfate * Allergy Unknown Unknown Verified 01/17/17 08:16 [From Plavix] NSAIDS (Non-Steroidal Allergy Unknown Unknown Verified 01/17/17 08:16 Anti-Inflamma ciprofloxacin AdvReac Unknown Unknown Verified 01/17/17 08:16 esomeprazole magnesium * AdvReac Unknown Cramps Verified 01/17/17 08:16 [From Nexium] omeprazole [From Prilosec] AdvReac Unknown Cramps Verified 01/17/17 08:16 omeprazole magnesium * AdvReac Unknown Cramps Verified 01/17/17 08:16 [From Prilosec] Sulfa (Sulfonamide AdvReac Unknown Itching Verified 01/17/17 08:16 Antibiotics) aspirin AdvReac Unknown Verified 01/17/17 08:16 Exam - Vital Signs Reviewed Vital Signs: Yes Vital Signs: Vital Signs x48h Pulse Resp BP Pulse Ox 01/31/17 12:14 83 16 119/66 96 - Physical Exam General Appearance: positive: No acute distress, Alert Eyes Bilateral: positive: Normal inspection, PERRL, EOMI, No lid inflammation, Conjunctivae nml, No scleral icterus ENT: positive: ENT inspection nml, Pharynx nml, No signs of dehydration. negative: Purulent nasal drainage, Pharyngeal erythema, Oral lesions Neck: positive: Nml inspection, Thyroid nml, No JVD, Trachea midline. negative : Thyromegaly, Lymphadenopathy (R), Lymphadenopathy (L), Carotid bruit, Tracheal deviation Respiratory: positive: Chest non-tender, No respiratory distress, Breath sounds nml. negative: Wheezes, Rales, Rhonchi Cardiovascular: positive: No murmur, No gallop, Irregularly irregular Peripheral Pulses: positive: 2+ Abdomen: positive: Non-tender, No organomegaly, Nml bowel sounds, No distention. negative: Guarding, Rebound, Hepatomegaly Back: positive: Nml inspection. negative: CVA tenderness (R), CVA tenderness (L ) Skin: positive: Color nml, No rash, Warm. negative: Cyanosis, Pallor Extremities: positive: Non-tender, Full ROM, Nml appearance, No pedal edema Neurologic/Psychiatric: positive: Oriented x3, CN's nml (2-12), Motor nml, Sensation nml, Mood/affect nml Conclusion/Plan - Problem List (1) Numbness Conclusion/Plan: Patient has had right sided numbness off and on since April but usually her episodes only last for a few minutes Today she states the numbness was not improving She did not have any other focal deficits but does state she has had some word finding difficulties over this same period of time She had a normal exam She has a history of a fib and hypertension and is therapeutic on coumadin It is possible that she is having small TIAs due to her a fib This could also be a symptom of her stress or possibly from her a fib rvr although even with improvement in a fib rvr the symptoms persisted Given the persistence of symptoms it was felt she should get a full work up for CVA CT head was negative Plan: MRI brain CTA head and neck Tele monitoring Echo Neruo checks ASA Lipitor Lipid profile hbA1C (2) Atrial fibrillation with rapid ventricular response Conclusion/Plan: Patient presented with a fib rvr with rate in the 130s She improved with IVF and her home dose of dilt Patient states that she has frequently had episodes over the last 10 months She is therapeutic with INR on coumadin Plan: Echo tele Continue coumadin Monitor HR and titrate home dose of diltiazem as it appears current dose may not be adequate (3) Hypertension Conclusion/Plan: BP elevated on presentation but improved with diltiazem Monitor BP Titrate BP meds if needed Qualifiers: Hypertension type: essential hypertension Qualified Code(s): I10 - Essential (primary) hypertension (4) Hypothyroidism Conclusion/Plan: Patient has history of hypothyroidism She has not been on meds for years Will check TSH, T3, T4 Patient does have vague symptoms of fatigue and low energy which could be secondary to hypothyroidism (5) Depression Conclusion/Plan: Patient under a lot of stress with home situation Will continue home dose of zoloft Stable Qualifiers: Depression Type: major depressive disorder - Lab Results Lab results reviewed: Yes Fish Bones: 01/31/17 08:40 01/31/17 10:11 Other Lab Results: Laboratory Results WBC 5.7 x10^3/uL (4.8-10.8) 01/31/17 08:40 RBC 4.65 10^6/uL (4.20-5.40) 01/31/17 08:40 Hgb 14.1 g/dL (12.0-16.0) 01/31/17 08:40 Hct 42.0 % (37.0-47.0) 01/31/17 08:40 MCV 90.2 fL (81.0-99.0) 01/31/17 08:40 MCH 30.2 pg (27.0-31.0) 01/31/17 08:40 MCHC 33.5 g/dL (32.0-36.0) 01/31/17 08:40 RDW 15.4 % (12.0-15.0) H 01/31/17 08:40 Plt Count 213 10^3/uL (130-450) 01/31/17 08:40 MPV 8.8 fL (7.9-10.8) 01/31/17 08:40 Neut # 3.7 10^3/uL (1.5-6.6) 01/31/17 08:40 Lymph # 1.6 10^3/uL (1.5-3.5) 01/31/17 08:40 [place] # 0.4 10^3/uL (0.0-1.0) 01/31/17 08:40 Eos # 0.1 10^3/uL (0.0-0.7) 01/31/17 08:40 Baso # 0.0 10^3/uL (0.0-0.1) 01/31/17 08:40 Absolute Nucleated RBC 0.00 x10^3/uL 01/31/17 08:40 Nucleated RBCs 0.1 /100WBC 01/31/17 08:40 PT 28.5 secs (9.9-12.6) H 01/31/17 10:11 INR 2.5 (0.8-1.2) H 01/31/17 10:11 Sodium 137 mmol/L (135-145) 01/31/17 10:11 Potassium 3.9 mmol/L (3.5-5.0) 01/31/17 10:11 Chloride 104 mmol/L (101-111) 01/31/17 10:11 Carbon Dioxide 24 mmol/L (21-32) 01/31/17 10:11 Anion Gap 9.0 (6-13) 01/31/17 10:11 BUN 22 mg/dL (6-20) H 01/31/17 10:11 Creatinine 0.7 mg/dL (0.4-1.0) 01/31/17 10:11 Estimated GFR (MDRD) 79 (>89) L 01/31/17 10:11 Glucose 116 mg/dL (70-100) H 01/31/17 10:11 Calcium 9.6 mg/dL (8.5-10.3) 01/31/17 10:11 Total Bilirubin 0.7 mg/dL (0.2-1.0) 01/31/17 10:11 AST 26 IU/L (10-42) 01/31/17 10:11 ALT 18 IU/L (10-60) 01/31/17 10:11 Alkaline Phosphatase 45 IU/L (42-121) 01/31/17 10:11 Troponin I < 0.04 ng/mL (<0.49) 01/31/17 08:40 Total Protein 7.8 g/dL (6.7-8.2) 01/31/17 10:11 Albumin 4.4 g/dL (3.2-5.5) 01/31/17 10:11 Globulin 3.4 g/dL (2.1-4.2) 01/31/17 10:11 Albumin/Globulin Ratio 1.3 (1.0-2.2) 01/31/17 10:11 Lipase 20 U/L (22-51) L 01/31/17 10:11 Urine Color YELLOW 01/31/17 09:55 Urine Clarity CLEAR (CLEAR) 01/31/17 09:55 Urine pH 6.5 PH (5.0-7.5) 01/31/17 09:55 Ur Specific Mccl[place] <=1.005 (1.002-1.030) 01/31/17 09:55 Urine Protein NEGATIVE mg/dL (NEGATIVE) 01/31/17 09:55 Urine Glucose (UA) NEGATIVE mg/dL (NEGATIVE) 01/31/17 09:55 Urine Ketones NEGATIVE mg/dL (NEGATIVE) 01/31/17 09:55 Urine Occult Blood NEGATIVE (NEGATIVE) 01/31/17 09:55 Urine Nitrite NEGATIVE (NEGATIVE) 01/31/17 09:55 Urine Bilirubin NEGATIVE (NEGATIVE) 01/31/17 09:55 Urine Urobilinogen 0.2 (NORMAL) E.U./dL (NORMAL) 01/31/17 09:55 Ur Leukocyte Esterase NEGATIVE (NEGATIVE) 01/31/17 09:55 Ur Microscopic Review NOT INDICATED 01/31/17 09:55 Urine Culture Comments NOT INDICATED 01/31/17 09:55 - Diagnostic Imaging Results Diagnostic Imaging Results: positive: Final report reviewed Diagnostic Imaging Results Comments: CT head Impression: Stable CT head. No acute intracranial process. No mass, CVA or hemorrhage. Mild atrophy and mild chronic white matter microvascular ischemic changes, similar to earlier study - EKG Results EKG Interpreted Independently: Yes EKG Findings: Atrial fibrillation. No acute ischemic changes Issues/Core Measures - Anticipated LOS Anticipated Stay Length: Less than 2 midnights - DVT/VTE - Prophylaxis VTE/DVT Device ordered at admit?: Yes
[2017-01-31] MEDS: ASPIRIN EC 81 MG TABLET PO SCH (14:19)
[2017-01-31] MEDS: WARFARIN 5 MG TABLET PO SCH (14:19)
[2017-01-31] MEDS: SERTRALINE 25 MG TABLET PO SCH (14:19)
[2017-01-31] MEDS: FERROUS SULFATE 325 MG TABLET PO SCH (14:20)
[2017-01-31] MEDS: SODIUM CHLORIDE 0.9% 1,000 ML IV SCH ×2 (14:22→23:40)
[2017-01-31] MEDS: SODIUM CHLORIDE FLUSH 0.9% 10 ML SYRINGE IVP SCH ×2 (14:22→20:04)
[2017-01-31] MEDS ORDERED: ATORVASTATIN 40 MG TABLET PO SCH (21:00)
[2017-02-01] MEDS: SODIUM CHLORIDE FLUSH 0.9% 10 ML SYRINGE IVP SCH (04:12)
[2017-02-01 06:17] LABS: BASOPHILS # (AUTO) 0.1 10^3/uL (0.0-0.1); EOSINOPHILS # (AUTO) 0.1 10^3/uL (0.0-0.7); EOSINOPHILS % (AUTO) 1.4 %; HCT - HEMATOCRIT 37.9 % (37.0-47.0); LYMPHOCYTES # (AUTO) 1.2 10^3/uL (1.5-3.5); LYMPHOCYTES % (AUTO) 23.9 %; MEAN CORPUSCULAR HGB CONC 34.4 g/dL (32.0-36.0); MEAN CORPUSCULAR VOLUME 90.2 fL (81.0-99.0); MEAN PLATELET VOLUME 8.6 fL (7.9-10.8); MONOCYTES # (AUTO) 0.4 10^3/uL (0.0-1.0); NEUTROPHILS # (AUTO) 3.2 10^3/uL (1.5-6.6); NEUTROPHILS % (AUTO) 65.7 %; RED CELL DISTRIBUTION WIDTH 15.3 % (12.0-15.0); UNCORRECTED WHITE BLOOD COUNT 4.8 x10^3/uL; WHITE BLOOD COUNT 4.8 x10^3/uL (4.8-10.8)
[2017-02-01 06:24] LABS: INR 2.7 (0.8-1.2); PT - PROTHROMBIN TIME 30.3 secs (9.9-12.6)
[2017-02-01 06:30] LABS: ALBUMIN/GLOBULIN RATIO 1.3 (1.0-2.2); BILIRUBIN,TOTAL 0.7 mg/dL (0.2-1.0); CALCIUM 8.8 mg/dL (8.5-10.3); CREATININE 0.6 mg/dL (0.4-1.0); POTASSIUM 3.8 mmol/L (3.5-5.0); TOTAL PROTEIN 6.6 g/dL (6.7-8.2)
[2017-02-01 07:19] LABS: HEMOGLOBIN A1C 0.59 g/dL
[2017-02-01 07:24] LABS: CHOL/HDL RATIO 3.3 (<4.4); CHOLESTEROL 174 mg/dL; HDL CHOLESTEROL 53 mg/dL; LDL/HDL RATIO 1.9 (<4.4); TRIGLYCERIDES 98 mg/dL; VLDL CHOLESTEROL 20 mg/dL
[2017-02-01 07:50] LABS: THYROID STIMULATING HORMONE 1.45 uIU/mL (0.34-5.60)
[2017-02-01] MEDS: ASPIRIN EC 81 MG TABLET PO SCH (08:39)
[2017-02-01] MEDS: FERROUS SULFATE 325 MG TABLET PO SCH (08:39)
[2017-02-01] MEDS: WARFARIN 5 MG TABLET PO SCH (08:40)
[2017-02-01] MEDS: SERTRALINE 25 MG TABLET PO SCH ×2 (08:41→08:49)
--- NOTE | 2017-02-01 08:57 | Discharge Plan ---
Discharge Plan Disposition: 01 Home, Self Care Condition: Fair Prescriptions: diltiaZEM CD [Cardizem Cd] 240 mg PO BID #60 capsule Atorvastatin [Lipitor] 40 mg PO QPM #30 tablet Diet: Low Sodium Activity Restrictions: Activity as Tolerated Shower Restrictions: No Driving Restrictions: No Instruction Topics: Atorvastatin tablets, Diltiazem extended-release capsules or tablets No Smoking: If you smoke, Please STOP! Call for help. Follow-up with: Jerry Lyle DO [Primary Care Provider] -
[2017-02-01] MEDS ORDERED: diltiaZEM CD 180 MG CAPSULE PO SCH (09:00)
[2017-02-01] MEDS ORDERED: POLYETHYLENE GLYCOL 3350 17 GM PACKET PO SCH (09:00)
[2017-02-01] MEDS ORDERED: FAMOTIDINE 20 MG TABLET PO SCH (09:00)
[2017-02-01] MEDS: SODIUM CHLORIDE 0.9% 1,000 ML IV SCH (11:32)
[2017-02-01 11:46] VITALS: BP 130/78
--- NOTE | 2017-02-01 13:56 | DISCHARGE SUMMARY ---
DATE OF ADMISSION: 01/31/2017 DATE OF DISCHARGE: 02/01/2017 HISTORY OF PRESENT ILLNESS: This is an 86-year-old white female with a history of paroxysmal and now chronic atrial fibrillation, osteoarthritis with prior hip replacement, hypertension, hypothyroidism, depression. The patient presented with intermittent right-sided body numbness that had increased to lasting for hours and hours, which was not typical for her, and she was placed in Observation for workup of a possible cerebrovascular accident. HOSPITAL COURSE WITH DISCHARGE DIAGNOSES: 1. Right-sided body weakness. The head CT and brain MRI did not show evidence of any acute findings of ischemia, stroke or hemorrhage. She also had imaging of the vascular system of her neck and brain, which showed mild diffuse atherosclerosis. She had an echo done that showed a preserved LVEF, no cardiac clot, dilated left atrium and mild aortic regurgitation and tricuspid regurgitation and a calculated PA pressure of 38 mmHg. The patient's right- sided numbness was felt to be due to "stress" as it was not related to rate control and her AFib and did not fit with a neurologic distribution for a stroke. The patient was kept on her Coumadin for stroke prophylaxis given her permanent atrial fibrillation. The patient was started on new Lipitor 40 mg p.o. at bedtime, at the time of discharge for a cholesterol result, which showed an LDL of greater than 100. 2. Atrial fibrillation. This is now chronic. There were episodes of rapid ventricular rate up to heart rates of 140 with any activity of just going to the bathroom or ambulation for short distances. The patient initially stated that she was on both metoprolol and Cardizem at the time of admission, but the following day, she remembered that her Toprol XL had been discontinued because of some type of "reaction" (she thinks she was too tired on Toprol). For this reason, the Cardizem CD dose was increased from 180 mg p.o. b.i.d. to 240 mg p.o. b.i.d. 3. Hypertension. The patient was hypertensive on admission, but this resolved with bed rest and continuation of her preadmission medications. The patient should be on a low salt diet. 4. Depression. The patient was maintained on her preadmission sertraline, and there were no complaints regarding this diagnosis. 5. Hypothyroidism. The patient had stable findings of TSH and T4 despite not being on a thyroid replacement according to her admission medication list. CONDITION AT DISCHARGE: Fair. RECOMMENDATIONS FOR FOLLOWUP: The patient was advised to see her PCP for further management of the right-sided numbness, especially to be seen by an outpatient neurologist (the patient had previously been scheduled to see one, which she has not yet had an appointment with and tells me that that neurologist has now retired). She will need to have an appointment made with a new neurologist, which she agrees to see. JOB #: [id number] EXT JOB #:[id number] MTDD
== END 2017-02-01 13:10 | disposition home or self-care (01) ==
LOC: ED 08:24 → OBS 10:19
PROVIDERS: ADMIT Internal Medicine; ATTEND Internal Medicine
DX: R20.0 Anesthesia of skin (principal); R53.1 Weakness; I48.2 Chronic atrial fibrillation; I10 Essential (primary) hypertension; F32.9 Major depressive disorder, single episode, unspecified; E03.9 Hypothyroidism, unspecified; I67.2 Cerebral atherosclerosis; E78.00 Pure hypercholesterolemia, unspecified; K21.9 Gastro-esophageal reflux disease without esophagitis; F41.9 Anxiety disorder, unspecified; Z96.649 Presence of unspecified artificial hip joint; Z86.718 Personal history of other venous thrombosis and embolism; Z79.01 Long term (current) use of anticoagulants; Q63.9 Congenital malformation of kidney, unspecified; Z87.442 Personal history of urinary calculi; Z63.79 Other stressful life events affecting family and household
CPT/HCPCS: 36415; 70450; 70496; 70498; 70551; 80053; 80061; 81003; 83036; 83690; 84436; 84439; 84443; 84480; 84481; 84484; 85025; 85610; 93005; 99284; 99285; A9270; C8929; G0378; 81001; 87086; 93306

== ENCOUNTER 2017-02-13 20:13 | Emergency (ER) | payer MEDICARE, OTHER ==
--- NOTE | 2017-02-13 20:58 | ED Physician Documentation ---
PD HPI ABD PAIN - Stated complaint Stated Complaint: STOMACH PX - Chief complaint Chief Complaint: Abd Pain - History obtained from History obtained from: Patient - History of Present Illness Timing - onset: How many days ago (few) Timing - duration: Days (few) Timing - details: Gradual onset, Still present, Waxing and waning Quality: Cramping, Aching, Pain. No: Fullness/distended Location: All over / everywhere, Periumbilical Radiation: No: Left flank, Right flank Improved by: BM (though has had only small hard stools for several days) Worsened by: Eating Associated symptoms: Constipation. No: Nausea, Vomiting, Diarrhea, Melena, Hematochezia Similar symptoms before: Has not had sx before Recently seen: Emergency Dept (has had anemia and was started on iron supplement about a week ago.) Review of Systems Constitutional: denies: Fever, Chills Nose: denies: Rhinorrhea / runny nose, Congestion Throat: denies: Sore throat Cardiac: denies: Chest pain / pressure Respiratory: denies: Cough GI: reports: Abdominal Pain, Constipation. 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 : Chronic bladder infection, Kidney stones HEENT: None Psych: None Musculoskeletal: Osteoarthritis Derm: Herpes zoster - Past Surgical History Past Surgical History: Yes Ortho: Hip replacement /DIRECTOR RELIGIOUS EDUCATION: Dilation and currettage HEENT: Tracheostomy - Present Medications Home Medications: Ambulatory Orders Medication Instructions Recorded Confirmed Warfarin [Coumadin] 5 mg PO SUMOWEFR@1400 10/13/12 01/31/17 Vitamin B Complex 1 each PO DAILY 04/28/16 01/31/17 Ferrous Sulfate [Iron] 325 mg PO DAILY 05/12/16 01/31/17 Ascorbic Acid [Vitamin C] 1,000 mg PO DAILY 07/09/16 01/31/17 Nitrofurantoin [Macrobid] 100 mg PO BID 01/31/17 01/31/17 Sertraline HCl 25 mg PO DAILY 01/31/17 01/31/17 Warfarin [Coumadin] 2.5 mg PO TUTHSA@1400 01/31/17 01/31/17 Atorvastatin [Lipitor] 40 mg PO QPM #30 tablet 02/01/17 diltiaZEM CD [Cardizem Cd] 240 mg PO BID #60 capsule 02/01/17 Docusate Sodium 100 mg PO DAILY #30 capsule 02/13/17 - Allergies Allergies/Adverse Reactions: Allergies Allergy/AdvReac Type Severity Reaction Status Date / Time BISHOP Inhibitors Allergy Unknown Unknown Verified 02/13/17 20:21 atropine Allergy Unknown Unknown Verified 02/13/17 20:21 clopidogrel bisulfate * Allergy Unknown Unknown Verified 02/13/17 20:21 [From Plavix] NSAIDS (Non-Steroidal Allergy Unknown Unknown Verified 02/13/17 20:21 Anti-Inflamma ciprofloxacin AdvReac Unknown Unknown Verified 02/13/17 20:21 esomeprazole magnesium * AdvReac Unknown Cramps Verified 02/13/17 20:21 [From Nexium] omeprazole [From Prilosec] AdvReac Unknown Cramps Verified 02/13/17 20:21 omeprazole magnesium * AdvReac Unknown Cramps Verified 02/13/17 20:21 [From Prilosec] Sulfa (Sulfonamide AdvReac Unknown Itching Verified 02/13/17 20:21 Antibiotics) aspirin AdvReac Unknown Verified 02/13/17 20:21 - Social History Does the pt smoke?: No Smoking Status: Never smoker Does the pt drink ETOH?: No Does the pt have substance abuse?: No - Immunizations Immunizations are current?: Yes - POLST Patient has POLST: No POLST Status: Full Code PD ED PE NORMAL - Vitals Vital signs reviewed: Yes - General General: Alert and oriented X 3, No acute distress, Well developed/nourished - HEENT HEENT: Moist mucous membranes, Pharynx benign - Neck Neck: Supple, no meningeal sign, No adenopathy - Cardiac Cardiac: No murmur. No: RRR (slightly irregular and mild tachycardic. ) - Respiratory Respiratory: Clear bilaterally - Abdomen Abdomen: Soft, Non distended, Other (mild diffuse tenderness lower/mid abdomen and left abdomen.) - Female Female : Deferred - Rectal Rectal: Other (soft stool in vault, guiac negative, no hemorrhoids. ) - Back Back: No CVA TTP - Derm Derm: Normal color, Warm and dry - Extremities Extremities: Normal ROM s pain, No edema, No calf tenderness / cord Results - Vitals Vitals: Oxygen O2 Source Room air - Labs Labs: Laboratory Tests 02/13/17 02/13/17 02/13/17 21:30 21:30 21:44 WBC 6.5 RBC 4.60 Hgb 14.1 Hct 41.5 MCV 90.2 MCH 30.5 MCHC 33.9 RDW 15.6 H Plt Count 198 MPV 8.6 Neut # 5.1 Lymph # 0.9 L [place] # 0.4 Eos # 0.0 Baso # 0.0 Absolute Nucleated RBC 0.01 Nucleated RBCs 0.1 PT 25.7 H INR 2.3 H Sodium 135 Potassium 3.7 Chloride 102 Carbon Dioxide 24 Anion Gap 9.0 BUN 18 Creatinine 0.6 Estimated GFR (MDRD) 95 Glucose 117 H Calcium 9.2 Total Bilirubin 1.2 H AST 20 ALT 20 Alkaline Phosphatase 46 Total Protein 7.2 Albumin 4.2 Globulin 3.0 Albumin/Globulin Ratio 1.4 Lipase 15 L - Rads (name of study) abd CT Radiology: Prelim report reviewed PD MEDICAL DECISION MAKING - ED course Complexity details: reviewed results, re-evaluated patient (feels all better with large BM after enema. Consider whether new iron supplement the past week is causing the constipation and hold that for now. ), considered differential, d /w patient Departure - Departure Disposition: 01 Home, Self Care Clinical Impression: Abdominal pain Qualifiers: Abdominal location: lower abdomen, unspecified Qualified Code(s): R10.30 - Lower abdominal pain, unspecified Constipation Qualifiers: Constipation type: slow transit constipation Qualified Code(s): K59.01 - Slow transit constipation Condition: Stable Record reviewed to determine appropriate education?: Yes Instructions: ED Constipation, ED Abdominal Pain Unkn Cause Follow-Up: Jerry Lyle DO [Primary Care Provider] - Prescriptions: Docusate Sodium 100 mg PO DAILY #30 capsule Comments: Stay well hydrated. Hold the iron supplement for a week. Start Docusate stool softener daily. Recheck if recurrent abdominal pains or problems. Continue other usual medications. Discharge Date/Time: 02/14/17 00:01
[2017-02-13] MEDS ORDERED: ACETAMINOPHEN 325 MG TABLET PO STA (21:17)
[2017-02-13] MEDS ORDERED: MAGNESIUM CITRATE 296 ML BOTTLE PO STA (21:17)
[2017-02-13] MEDS ORDERED: MINERAL OIL ENEMA 133 ML BOTTLE RC STA (21:17)
[2017-02-13] MEDS ORDERED: MAGNESIUM CITRATE 296 ML BOTTLE ONE (21:26)
[2017-02-13] MEDS ORDERED: ACETAMINOPHEN 325 MG TABLET PO ONE (21:26)
[2017-02-13 21:44] LABS: INR 2.3 (0.8-1.2); PT - PROTHROMBIN TIME 25.7 secs (9.9-12.6)
[2017-02-13 21:49] LABS: BASOPHILS % (AUTO) 0.8 %; EOSINOPHILS % (AUTO) 0.2 %; HCT - HEMATOCRIT 41.5 % (37.0-47.0); HGB - HEMOGLOBIN 14.1 g/dL (12.0-16.0); LYMPHOCYTES # (AUTO) 0.9 10^3/uL (1.5-3.5); LYMPHOCYTES % (AUTO) 13.8 %; MEAN CORPUSCULAR HEMOGLOBIN 30.5 pg (27.0-31.0); MEAN CORPUSCULAR HGB CONC 33.9 g/dL (32.0-36.0); MEAN CORPUSCULAR VOLUME 90.2 fL (81.0-99.0); MEAN PLATELET VOLUME 8.6 fL (7.9-10.8); MONOCYTES # (AUTO) 0.4 10^3/uL (0.0-1.0); MONOCYTES % (AUTO) 6.4 %; NEUTROPHILS # (AUTO) 5.1 10^3/uL (1.5-6.6); NEUTROPHILS % (AUTO) 78.8 %; NUCLEATED RED BLOOD CELLS AUTO 0.1 /100WBC; RED CELL DISTRIBUTION WIDTH 15.6 % (12.0-15.0); UNCORRECTED WHITE BLOOD COUNT 6.5 x10^3/uL; WHITE BLOOD COUNT 6.5 x10^3/uL (4.8-10.8)
[2017-02-13 21:54] LABS: ALBUMIN/GLOBULIN RATIO 1.4 (1.0-2.2); BILIRUBIN,TOTAL 1.2 mg/dL (0.2-1.0); CALCIUM 9.2 mg/dL (8.5-10.3); CREATININE 0.6 mg/dL (0.4-1.0); POTASSIUM 3.7 mmol/L (3.5-5.0); TOTAL PROTEIN 7.2 g/dL (6.7-8.2)
--- NOTE | 2017-02-13 23:01 | CT Preliminary Report ---
Exam: CT Abdomen/Pelvis W/O IMPRESSION: 1. Diverticulosis without diverticulitis or other acute bowel abnormality. 2. Large gallstone. 3. Moderate hiatal hernia. 4. Large anterior right renal cyst. 5. Degenerative disk disease at L2-L3. [facility] SITE ID: [id number]
--- NOTE | 2017-02-13 23:04 | CT Report ---
EXAM: CT ABDOMEN AND PELVIS EXAM DATE: 02/13/2017 10:37 PM. CLINICAL HISTORY: Abdomen bloating. Lower cramping pain. COMPARISONS: None. TECHNIQUE: Routine helical CT imaging was performed through the abdomen and pelvis. IV contrast: Amt/ type. Enteric contrast: No. Reconstructions: Coronal and sagittal. In accordance with CT protocol optimization, one or more of the following dose reduction techniques w ere utilized for this exam: automated exposure control, adjustment of mA and/or KV based on patient s ize, or use of iterative reconstructive technique. FINDINGS: Lung Bases: Moderate hiatal hernia, otherwise unremarkable. Liver: Normal. No masses. Gallbladder/Bile Ducts: Large stone. No dilated ducts. Spleen: Normal. Pancreas: Normal. Adrenal Glands: Normal. Kidneys: Stable large anterior right cyst, otherwise unremarkable. Peritoneal Cavity/Bowel: Mild diverticulosis. No free fluid, free air or adenopathy. No masses or acu te inflammatory process. The appendix is well visualized and normal. Pelvic Organs: Detail obscured by metal artifact from bilateral hip arthroplasties. No abnormality id entified. Vasculature: No aneurysms or other significant abnormality. Bones: Degenerative disk disease at L2-L3. Other: None. IMPRESSION: 1. Diverticulosis without diverticulitis or other acute bowel abnormality. 2. Large gallstone. 3. Moderate hiatal hernia. 4. Large anterior right renal cyst. 5. Degenerative disk disease at L2-L3. [facility] Referring Provider Line: [phone] SITE ID: [id number]
[2017-02-14 00:01] VITALS: BP 131/75
== END 2017-02-14 00:01 | disposition home or self-care (01) ==
LOC: ED 20:13
DX: R10.30 Lower abdominal pain, unspecified (principal); K59.01 Slow transit constipation; I10 Essential (primary) hypertension; E78.00 Pure hypercholesterolemia, unspecified; Z86.718 Personal history of other venous thrombosis and embolism; Z93.0 Tracheostomy status; Z96.649 Presence of unspecified artificial hip joint; Z79.01 Long term (current) use of anticoagulants
CPT/HCPCS: 36415; 74176; 80053; 83690; 85025; 85610; 99283; 99284; A9270

== ENCOUNTER 2017-02-17 12:33 | Emergency (ER) | payer MEDICARE, OTHER ==
--- NOTE | 2017-02-17 13:49 | ED Physician Documentation ---
PD HPI ABD PAIN - Stated complaint Stated Complaint: ABD PX - Chief complaint Chief Complaint: Abd Pain - History obtained from History obtained from: Patient - History of Present Illness Timing - onset: Other (She was seen here a few days ago for fecal impaction, she did well after an enema and was sent home on Colace but has not really had a bowel movement since and now has again excruciating rectal pain and fullness.) Review of Systems Constitutional: denies: Fever, Chills, Fatigue, Weight Loss Cardiac: denies: Chest pain / pressure, Palpitations Respiratory: denies: Dyspnea, Cough GI: denies: Abdominal Pain, Vomiting PD PAST MEDICAL HISTORY - Past Medical History Past Medical History: Yes Cardiovascular: Hypertension, High cholesterol, Deep vein thrombosis, Atrial fibrillation Respiratory: Pneumonia Neuro: None Endocrine/Autoimmune: None GI: GERD, Hiatal hernia 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 DAMAGE 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 : Chronic bladder infection, Kidney stones HEENT: None Psych: None Musculoskeletal: Osteoarthritis Derm: Herpes zoster - Past Surgical History Past Surgical History: Yes Ortho: Hip replacement /AUTO DAMAGE TRAINEE: Dilation and currettage HEENT: Tracheostomy - Present Medications Home Medications: Ambulatory Orders Medication Instructions Recorded Confirmed Warfarin [Coumadin] 5 mg PO SUMOWEFR@1400 10/13/12 01/31/17 Vitamin B Complex 1 each PO DAILY 04/28/16 01/31/17 Ferrous Sulfate [Iron] 325 mg PO DAILY 05/12/16 01/31/17 Ascorbic Acid [Vitamin C] 1,000 mg PO DAILY 07/09/16 01/31/17 Nitrofurantoin [Macrobid] 100 mg PO BID 01/31/17 01/31/17 Sertraline HCl 25 mg PO DAILY 01/31/17 01/31/17 Warfarin [Coumadin] 2.5 mg PO TUTHSA@1400 01/31/17 01/31/17 Atorvastatin [Lipitor] 40 mg PO QPM #30 tablet 02/01/17 diltiaZEM CD [Cardizem Cd] 240 mg PO BID #60 capsule 02/01/17 Docusate Sodium 100 mg PO DAILY #30 capsule 02/13/17 - Allergies Allergies/Adverse Reactions: Allergies Allergy/AdvReac Type Severity Reaction Status Date / Time BISHOP Inhibitors Allergy Unknown Unknown Verified 02/13/17 20:21 atropine Allergy Unknown Unknown Verified 02/13/17 20:21 clopidogrel bisulfate * Allergy Unknown Unknown Verified 02/13/17 20:21 [From Plavix] NSAIDS (Non-Steroidal Allergy Unknown Unknown Verified 02/13/17 20:21 Anti-Inflamma ciprofloxacin AdvReac Unknown Unknown Verified 02/13/17 20:21 esomeprazole magnesium * AdvReac Unknown Cramps Verified 02/13/17 20:21 [From Nexium] omeprazole [From Prilosec] AdvReac Unknown Cramps Verified 02/13/17 20:21 omeprazole magnesium * AdvReac Unknown Cramps Verified 02/13/17 20:21 [From Prilosec] Sulfa (Sulfonamide AdvReac Unknown Itching Verified 02/13/17 20:21 Antibiotics) aspirin AdvReac Unknown Verified 02/13/17 20:21 - Social History Does the pt smoke?: No Smoking Status: Never smoker Does the pt drink ETOH?: No Does the pt have substance abuse?: No - Immunizations Immunizations are current?: Yes - POLST Patient has POLST: No POLST Status: Full Code PD ED PE NORMAL - Vitals Vital signs reviewed: Yes - General General: Alert and oriented X 3, No acute distress - Abdomen Abdomen: Normal bowel sounds, Soft, Non tender - Rectal Rectal: Other (With Carolina Ritter RN, chaperoning. No obvious fecal impaction although pt said that was true last time as well and enema helped anyway, fleets given AR during exam.) - Neuro Neuro: Alert and oriented X 3, Normal speech - Psych Psych: Normal mood, Normal affect Results - Vitals Vitals: Vital Signs - 24 hr 02/17/17 02/17/17 12:36 13:53 Temperature 36 C L 36.5 C Heart Rate 103 H 81 Respiratory 18 15 Rate Blood Pressure 126/78 127/70 O2 Saturation 97 96 Oxygen O2 Source Room air PD MEDICAL DECISION MAKING - ED course ED course: After an enema she was left to sit for a little bit and then had a good BM with resolution of her symptoms. Departure - Departure Disposition: 01 Home, Self Care Clinical Impression: Fecal impaction Condition: Good Record reviewed to determine appropriate education?: Yes Instructions: ED Impaction Fecal Treated Comments: If you are having continued problems with constipation, [id number] you can buy magnesium citrate and take 1 a day until you have a stool. Call your doctor to arrange a follow-up appointment, make the next available appointment. In the interim, return anytime if worse or if new symptoms develop.
[2017-02-17 13:54] VITALS: BP 127/70
[2017-02-17] MEDS ORDERED: MAGNESIUM CITRATE 296 ML BOTTLE PO STA (14:08)
[2017-02-17] MEDS ORDERED: MAGNESIUM CITRATE 296 ML BOTTLE ONE (14:15)
== END 2017-02-17 14:51 | disposition home or self-care (01) ==
LOC: ED 12:33
DX: K56.41 Fecal impaction (principal); I10 Essential (primary) hypertension; Z86.718 Personal history of other venous thrombosis and embolism; E78.00 Pure hypercholesterolemia, unspecified; Z96.649 Presence of unspecified artificial hip joint; Z79.01 Long term (current) use of anticoagulants
CPT/HCPCS: 99283; A9270

== ENCOUNTER 2017-02-19 10:20 | Emergency (ER) | payer MEDICARE, OTHER ==
[2017-02-19] MEDS ORDERED: LORazepam 0.5 MG TABLET PO STA (10:49)
--- NOTE | 2017-02-19 10:52 | ED Physician Documentation ---
History of Present Illness - Stated complaint Stated Complaint: NUMBNESS - Chief complaint Chief Complaint: Neuro - History obtained from History obtained from: Patient, Family - History of Present Illness Timing: Today Pain level max: 0 Pain level now: 0 - Additonal information Additional information: Patient is an 86-year-old female who presents to the emergency department with intermittent numbness and tingling to the right upper extremity and right lower extremity for the past day. She states that sometimes it is on the foot, sometimes in the hand, sometimes on the whole arm, sometimes in the side of her face. Was admitted to the hospital approximately 2 weeks ago for similar symptoms. Negative MRI, MRA, cardiac echo at that time. [place] to be due to stress and anxiety. Review of Systems Constitutional: denies: Fever, Chills Nose: denies: Rhinorrhea / runny nose, Congestion Throat: denies: Sore throat Cardiac: denies: Chest pain / pressure Respiratory: denies: Cough GI: denies: Abdominal Pain, Nausea, Vomiting, Diarrhea Skin: denies: Rash Musculoskeletal: denies: Neck pain, Back pain Neurologic: denies: Focal weakness, Headache PD PAST MEDICAL HISTORY - Past Medical History Past Medical History: Yes Cardiovascular: Hypertension, High cholesterol, Deep vein thrombosis, Atrial fibrillation Respiratory: Pneumonia Neuro: None Endocrine/Autoimmune: None GI: GERD, Hiatal hernia 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 : Chronic bladder infection, Kidney stones HEENT: None Psych: None Musculoskeletal: Osteoarthritis Derm: Herpes zoster - Past Surgical History Past Surgical History: Yes Ortho: Hip replacement /WATCH ADJUSTER: Dilation and currettage HEENT: Tracheostomy - Present Medications Home Medications: Ambulatory Orders Medication Instructions Recorded Confirmed Warfarin [Coumadin] 5 mg PO SUMOWEFR@1400 10/13/12 02/19/17 Vitamin B Complex 1 each PO DAILY 04/28/16 02/19/17 Ferrous Sulfate [Iron] 325 mg PO DAILY 05/12/16 02/19/17 Ascorbic Acid [Vitamin C] 1,000 mg PO DAILY 07/09/16 02/19/17 Sertraline HCl 25 mg PO DAILY 01/31/17 02/19/17 Warfarin [Coumadin] 2.5 mg PO TUTHSA@1400 01/31/17 02/19/17 Atorvastatin [Lipitor] 40 mg PO QPM #30 tablet 02/01/17 02/19/17 diltiaZEM CD [Cardizem Cd] 240 mg PO BID #60 capsule 02/01/17 02/19/17 Docusate Sodium 100 mg PO DAILY #30 capsule 02/13/17 02/19/17 - Allergies Allergies/Adverse Reactions: Allergies Allergy/AdvReac Type Severity Reaction Status Date / Time BISHOP Inhibitors Allergy Unknown Unknown Verified 02/19/17 10:28 atropine Allergy Unknown Unknown Verified 02/19/17 10:28 clopidogrel bisulfate * Allergy Unknown Unknown Verified 02/19/17 10:28 [From Plavix] NSAIDS (Non-Steroidal Allergy Unknown Unknown Verified 02/19/17 10:28 Anti-Inflamma ciprofloxacin AdvReac Unknown Unknown Verified 02/19/17 10:28 esomeprazole magnesium * AdvReac Unknown Cramps Verified 02/19/17 10:28 [From Nexium] omeprazole [From Prilosec] AdvReac Unknown Cramps Verified 02/19/17 10:28 omeprazole magnesium * AdvReac Unknown Cramps Verified 02/19/17 10:28 [From Prilosec] Sulfa (Sulfonamide AdvReac Unknown Itching Verified 02/19/17 10:28 Antibiotics) aspirin AdvReac Unknown Verified 02/19/17 10:28 - Social History Does the pt smoke?: No Smoking Status: Never smoker Does the pt drink ETOH?: No Does the pt have substance abuse?: No - Immunizations Immunizations are current?: Yes - POLST Patient has POLST: No POLST Status: Full Code PD ED PE NORMAL - Vitals Vital signs reviewed: Yes - General General: Alert and oriented X 3, No acute distress, Well developed/nourished - HEENT HEENT: Atraumatic, PERRL, Ears normal, Moist mucous membranes - Neck Neck: Supple, no meningeal sign, No bony TTP - Cardiac Cardiac: RRR, Strong equal pulses - Respiratory Respiratory: No respiratory distress, Clear bilaterally - Abdomen Abdomen: Soft, Non tender, Non distended - Back Back: No spinal TTP - Derm Derm: Warm and dry - Extremities Extremities: No deformity, No tenderness to palpate, Normal ROM s pain - Neuro Neuro: Alert and oriented X 3, dairy associate 2-12 intact, No motor deficit, No sensory deficit, Normal speech, Other (NIHSS 0 @1040) - Psych Psych: Normal mood, Normal affect Results - Vitals Vitals: Vital Signs - 24 hr 02/19/17 02/19/17 10:23 11:34 Temperature 36.6 C Heart Rate 114 H 80 Respiratory 18 14 Rate Blood Pressure 133/85 H 104/66 O2 Saturation 95 96 Oxygen O2 Source Room air - Labs Labs: Laboratory Tests 02/19/17 02/19/17 02/19/17 11:00 11:00 11:00 WBC 4.4 L RBC 4.48 Hgb 13.7 Hct 40.0 MCV 89.3 MCH 30.6 MCHC 34.3 RDW 15.5 H Plt Count 192 MPV 8.1 Neut # 3.3 Lymph # 0.8 L [place] # 0.2 Eos # 0.0 Baso # 0.0 Absolute Nucleated RBC 0.00 Nucleated RBC % 0.1 PT 25.1 H INR 2.2 H Sodium 139 Potassium 3.9 Chloride 103 Carbon Dioxide 24 Anion Gap 12.0 BUN 15 Creatinine 0.9 Estimated GFR (MDRD) 59 L Glucose 160 H Calcium 9.5 Phosphorus 2.7 Magnesium 2.3 Total Bilirubin 0.9 AST 24 ALT 22 Alkaline Phosphatase 47 Total Protein 7.4 Albumin 4.1 Globulin 3.3 Albumin/Globulin Ratio 1.2 Lipase 22 PD MEDICAL DECISION MAKING - ED course Complexity details: reviewed results, re-evaluated patient, considered differential, d/w patient ED course: Patient is an 86-year-old female who presents to the emergency department with intermittent, moving paresthesias to the right upper extremity, right lower extremity and right side of the face. These do not follow any neurological pathways. She was given a dose of Ativan and symptoms resolved. Appears to be anxiety related. Has had multiple negative workups for this in the past. No acute laboratory abnormalities. Patient requests to go home at this time. Patient counseled regarding signs and symptoms for which I believe and urgent re -evaluation would be necessary. Patient with good understanding of and agreement to plan and is comfortable going home at this time This document was made in part using voice recognition software. While efforts are made to proofread this document, sound alike and grammatical errors may occur. Departure - Departure Disposition: 01 Home, Self Care Clinical Impression: Paresthesia Condition: Good Instructions: ED Paraesthesias Follow-Up: Jerry Lyle DO [Primary Care Provider] - Within 1 week Comments: The cause of your paresthesias is unclear. Follow-up with your doctor for further evaluation and care. Your recent MRI, MRA and cardiac echoes are normal. You do not have signs of stroke today Discharge Date/Time: 02/19/17 11:39
[2017-02-19] MEDS ORDERED: LORazepam 0.5 MG TABLET ONE (10:58)
[2017-02-19 11:08] LABS: BASOPHILS % (AUTO) 0.8 %; EOSINOPHILS % (AUTO) 0.4 %; HGB - HEMOGLOBIN 13.7 g/dL (12.0-16.0); LYMPHOCYTES # (AUTO) 0.8 10^3/uL (1.5-3.5); LYMPHOCYTES % (AUTO) 19.3 %; MEAN CORPUSCULAR HEMOGLOBIN 30.6 pg (27.0-31.0); MEAN CORPUSCULAR HGB CONC 34.3 g/dL (32.0-36.0); MEAN CORPUSCULAR VOLUME 89.3 fL (81.0-99.0); MEAN PLATELET VOLUME 8.1 fL (7.9-10.8); MONOCYTES # (AUTO) 0.2 10^3/uL (0.0-1.0); MONOCYTES % (AUTO) 5.4 %; NEUTROPHILS # (AUTO) 3.3 10^3/uL (1.5-6.6); NEUTROPHILS % (AUTO) 74.1 %; NUCLEATED RED BLOOD CELLS AUTO 0.1 /100WBC; RED BLOOD COUNT 4.48 10^6/uL (4.20-5.40); RED CELL DISTRIBUTION WIDTH 15.5 % (12.0-15.0); UNCORRECTED WHITE BLOOD COUNT 4.4 x10^3/uL; WHITE BLOOD COUNT 4.4 x10^3/uL (4.8-10.8)
[2017-02-19 11:26] LABS: ALBUMIN/GLOBULIN RATIO 1.2 (1.0-2.2); BILIRUBIN,TOTAL 0.9 mg/dL (0.2-1.0); CALCIUM 9.5 mg/dL (8.5-10.3); CREATININE 0.9 mg/dL (0.4-1.0); MAGNESIUM 2.3 mg/dL (1.7-2.8); PHOSPHORUS 2.7 mg/dL (2.5-4.6); POTASSIUM 3.9 mmol/L (3.5-5.0); TOTAL PROTEIN 7.4 g/dL (6.7-8.2)
[2017-02-19 11:32] LABS: INR 2.2 (0.8-1.2); PT - PROTHROMBIN TIME 25.1 secs (9.9-12.6)
[2017-02-19 11:39] VITALS: BP 104/66
== END 2017-02-19 11:39 | disposition home or self-care (01) ==
LOC: ED 10:20
DX: R20.0 Anesthesia of skin (principal); I10 Essential (primary) hypertension; I48.91 Unspecified atrial fibrillation; E78.00 Pure hypercholesterolemia, unspecified; Z86.718 Personal history of other venous thrombosis and embolism; Z79.01 Long term (current) use of anticoagulants; Z96.649 Presence of unspecified artificial hip joint
CPT/HCPCS: 36415; 80053; 83690; 83735; 84100; 85025; 85610; 99283; A9270

== ENCOUNTER 2017-03-08 14:41 | Outpatient (CLI) | payer MEDICARE, OTHER | END 2017-03-08 14:42 | disposition home or self-care (01) | LOC: SC 14:41 | PROVIDERS: ATTEND Internal Medicine Pulmonary Disease | DX: G47.10 Hypersomnia, unspecified (principal); G47.9 Sleep disorder, unspecified; R06.83 Snoring | CPT/HCPCS: 99203; G0463; 99212 ==

== ENCOUNTER 2017-03-10 13:02 | Emergency (ER) | payer MEDICARE, OTHER ==
[2017-03-10] MEDS ORDERED: SODIUM CHLORIDE FLUSH 0.9% 10 ML SYRINGE IVP ONE (13:21)
[2017-03-10 13:34] LABS: BASOPHILS # (AUTO) 0.1 10^3/uL (0.0-0.1); BASOPHILS % (AUTO) 1.2 %; EOSINOPHILS % (AUTO) 0.4 %; HCT - HEMATOCRIT 40.2 % (37.0-47.0); HGB - HEMOGLOBIN 13.6 g/dL (12.0-16.0); LYMPHOCYTES # (AUTO) 1.2 10^3/uL (1.5-3.5); LYMPHOCYTES % (AUTO) 18.9 %; MEAN CORPUSCULAR HEMOGLOBIN 30.6 pg (27.0-31.0); MEAN CORPUSCULAR HGB CONC 33.9 g/dL (32.0-36.0); MEAN CORPUSCULAR VOLUME 90.3 fL (81.0-99.0); MEAN PLATELET VOLUME 8.8 fL (7.9-10.8); MONOCYTES # (AUTO) 0.4 10^3/uL (0.0-1.0); MONOCYTES % (AUTO) 5.4 %; NEUTROPHILS # (AUTO) 4.8 10^3/uL (1.5-6.6); NEUTROPHILS % (AUTO) 74.1 %; NUCLEATED RED BLOOD CELLS AUTO 0.1 /100WBC; RED BLOOD COUNT 4.45 10^6/uL (4.20-5.40); RED CELL DISTRIBUTION WIDTH 16.1 % (12.0-15.0); UNCORRECTED WHITE BLOOD COUNT 6.5 x10^3/uL; WHITE BLOOD COUNT 6.5 x10^3/uL (4.8-10.8)
--- NOTE | 2017-03-10 14:01 | XRAY Preliminary Report ---
Exam: XR CHEST 1 VIEW IMPRESSION: 1. There is cardiomegaly. 2. No acute intrathoracic plain film abnormality. [facility] SITE ID: [id number]
--- NOTE | 2017-03-10 14:03 | XRAY Report ---
EXAM: CHEST RADIOGRAPHY EXAM DATE: 03/10/2017 01:51 PM. CLINICAL HISTORY: Chest pain. COMPARISON: None. TECHNIQUE: 1 view. FINDINGS: Lungs/Pleura: No focal opacities evident. No pleural effusion. No pneumothorax. Mediastinum: There is cardiomegaly. Other: None. IMPRESSION: 1. There is cardiomegaly. 2. No acute intrathoracic plain film abnormality. [facility] Referring Provider Line: [phone] SITE ID: [id number]
--- NOTE | 2017-03-10 14:09 | ED Physician Documentation ---
PD HPI CHEST PAIN - Stated complaint Stated Complaint: CHEST PX - Chief complaint Chief Complaint: Cardiac - History obtained from History obtained from: Patient - History of Present Illness Timing - onset: How many hours ago (2 05/24), Today Timing - onset during: Rest (she had just finished eating and felt onset of chest pressure/pain. Took her BP and was elevated, and heart rate noted to be 130s or so. Has history of atrial fib. Symptoms did not improve after couple of hours so headed to ED. She started feeling better on arrival here.) Timing - duration: Hours (2 2) Timing - details: Abrupt onset, Now resolved Quality: Pressure, Tightness Location: Substernal Radiation: Jaw, Neck, Back Improved by: No: Rest Worsened by: No: Inspiration, Movement, Palpation Associated symptoms: Shortness of air, Nausea, Feeling faint / dizzy, Palpitations Similar symptoms before: Diagnosis (atrial fib chronic, but with fast episodes at times. NO h/o OR) Recently seen: Not recently seen Review of Systems Constitutional: denies: Fever, Chills Nose: denies: Rhinorrhea / runny nose, Congestion Throat: denies: Sore throat Cardiac: reports: Chest pain / pressure, Palpitations. denies: Pedal edema, Calf pain Respiratory: reports: Dyspnea. denies: Cough, Wheezing GI: denies: Abdominal Pain, Nausea, Vomiting : denies: Dysuria, Frequency Skin: denies: Rash Musculoskeletal: denies: Neck pain, Back pain Neurologic: reports: Generalized weakness. 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 : Chronic bladder infection, Kidney stones HEENT: None Psych: None Musculoskeletal: Osteoarthritis Derm: Herpes zoster - Past Surgical History Past Surgical History: Yes Ortho: Hip replacement /GEOGRAPHIC INFORMATION SYSTEMS MANAGER: Dilation and currettage HEENT: Tracheostomy - Present Medications Home Medications: Ambulatory Orders Medication Instructions Recorded Confirmed Warfarin [Coumadin] 5 mg PO SUMOWEFR@1400 10/13/12 03/10/17 Vitamin B Complex 1 each PO DAILY 04/28/16 03/10/17 Ascorbic Acid [Vitamin C] 1,000 mg PO DAILY 07/09/16 03/10/17 Sertraline HCl 25 mg PO DAILY 01/31/17 03/10/17 Warfarin [Coumadin] 2.5 mg PO TUTHSA@1400 01/31/17 03/10/17 Atorvastatin [Lipitor] 40 mg PO QPM #30 tablet 02/01/17 03/10/17 diltiaZEM CD [Cardizem Cd] 240 mg PO BID #60 capsule 02/01/17 03/10/17 Docusate Sodium 100 mg PO DAILY #30 capsule 02/13/17 03/10/17 Levothyroxine [Synthroid] 75 mcg PO QDAC 03/10/17 03/10/17 - Allergies Allergies/Adverse Reactions: Allergies Allergy/AdvReac Type Severity Reaction Status Date / Time aspirin AdvReac Unknown Verified 02/19/17 10:28 - Social History Does the pt smoke?: No Smoking Status: Never smoker Does the pt drink ETOH?: No Does the pt have substance abuse?: No - Immunizations Immunizations are current?: Yes - POLST Patient has POLST: No POLST Status: Full Code PD ED PE NORMAL - Vitals Vital signs reviewed: Yes - General General: Alert and oriented X 3, No acute distress, Well developed/nourished - HEENT HEENT: Pharynx benign - Neck Neck: Supple, no meningeal sign, No adenopathy - Cardiac Cardiac: RRR, No murmur - Respiratory Respiratory: Clear bilaterally - Abdomen Abdomen: Normal bowel sounds, Soft - Female Female : Deferred - Rectal Rectal: Deferred - Back Back: No CVA TTP - Derm Derm: Normal color, Warm and dry - Extremities Extremities: No tenderness to palpate, Normal ROM s pain, No edema, No calf tenderness / cord - Neuro Neuro: Alert and oriented X 3, No motor deficit, Normal speech - Psych Psych: Normal mood Results - Vitals Vitals: Vital Signs - 24 hr 03/10/17 03/10/17 03/10/17 13:13 13:30 14:01 Temperature 36.8 C Heart Rate 96 92 Respiratory 16 22 Rate Blood Pressure 138/62 H 114/63 Blood Pressure 142/66 H [Left] Blood Pressure 139/64 H [Right] O2 Saturation 97 96 03/10/17 15:39 Temperature Heart Rate 92 Respiratory 16 Rate Blood Pressure 110/68 Blood Pressure [Left] Blood Pressure [Right] O2 Saturation 98 Oxygen O2 Source Room air - EKG (time done) 13:13 Rate: Rate (enter#) (104) Rhythm: Atrial fibrillation [place]: Normal QRS: Normal Ischemia: Normal ST segments. No: ST elevation c/w ischemia, ST depression - Labs Labs: Laboratory Tests 03/10/17 03/10/17 03/10/17 13:27 14:07 14:07 WBC 6.5 RBC 4.45 Hgb 13.6 Hct 40.2 MCV 90.3 MCH 30.6 MCHC 33.9 RDW 16.1 H Plt Count 211 MPV 8.8 Neut # 4.8 Lymph # 1.[address] [place] # 0.4 Eos # 0.0 Baso # 0.1 Absolute Nucleated RBC 0.00 Nucleated RBC % 0.1 PT INR Sodium 135 Potassium 4.0 Chloride 104 Carbon Dioxide 23 Anion Gap 8.0 BUN 23 H Creatinine 0.7 Estimated GFR (MDRD) 79 L Glucose 163 H Calcium 9.3 Total Bilirubin 1.0 AST 26 ALT 19 Alkaline Phosphatase 51 Troponin I < 0.04 Total Protein 6.9 Albumin 3.8 Globulin 3.1 Albumin/Globulin Ratio 1.2 Lipase 17 L 03/10/17 14:07 WBC RBC Hgb Hct MCV MCH MCHC RDW Plt Count MPV Neut # Lymph # [place] # Eos # Baso # Absolute Nucleated RBC Nucleated RBC % PT 36.0 H INR 3.2 H Sodium Potassium Chloride Carbon Dioxide Anion Gap BUN Creatinine Estimated GFR (MDRD) Glucose Calcium Total Bilirubin AST ALT Alkaline Phosphatase Troponin I Total Protein Albumin Globulin Albumin/Globulin Ratio Lipase PD MEDICAL DECISION MAKING - ED course Complexity details: considered differential (presume rate related symptoms with the fast atrial fib, which is slower here and she feels better. ), d/w patient Departure - Departure Disposition: Home, Self Care Clinical Impression: Chest pain, Atrial fibrillation by electrocardiogram, Anticoagulant long-term use Condition: Stable Record reviewed to determine appropriate education?: Yes Instructions: ED Chest Pain NonCardiac Follow-Up: Jerry Lyle DO [Primary Care Provider] - Comments: Hold your thyroid medicine for 5-6 days and see if you have any other similar symptoms. If not then resume the thyroid and see if it causes any problems. I think would be unlikely to have chest tightness symptoms from the thyroid supplement. However holding it for now and seen may be a way to correlate symptoms. Otherwise follow-up with recurring chest pain symptoms. At this point unclear the cause of it. Your INR today was 3.2. Discharge Date/Time: 03/10/17 15:41
[2017-03-10 14:57] LABS: ALBUMIN/GLOBULIN RATIO 1.2 (1.0-2.2); CALCIUM 9.3 mg/dL (8.5-10.3); CREATININE 0.7 mg/dL (0.4-1.0); TOTAL PROTEIN 6.9 g/dL (6.7-8.2)
[2017-03-10 15:04] LABS: INR 3.2 (0.8-1.2)
[2017-03-10 15:41] VITALS: BP 110/68
== END 2017-03-10 15:41 | disposition home or self-care (01) ==
LOC: ED 13:02
DX: R07.9 Chest pain, unspecified (principal); I48.91 Unspecified atrial fibrillation; I10 Essential (primary) hypertension; E78.00 Pure hypercholesterolemia, unspecified; Z86.718 Personal history of other venous thrombosis and embolism; Z96.649 Presence of unspecified artificial hip joint; Z93.0 Tracheostomy status; Z79.01 Long term (current) use of anticoagulants
CPT/HCPCS: 36415; 71010; 80053; 83690; 84484; 85025; 85610; 93005; 99283; 99284

== ENCOUNTER 2017-03-29 09:47 | Observation (INO) | payer MEDICARE, OTHER ==
--- NOTE | 2017-03-29 10:17 | ED Physician Documentation ---
History of Present Illness - Stated complaint Stated Complaint: EPSTEIN,BODY NUMNESS - Chief complaint Chief Complaint: Cardiac - Additonal information Additional information: hx from pt 86 female known a fib has been having int R sided numbness lasting 20 min to several hr at a time for several weeks most recently yesterday had an appt with neuro today but at 9 AM she developed palp and the numbness came back - R face arm and lower leg no weakness no hearing vision speech abn is on coumadin and her INR has been therapeutic recently she took first dose of her new rx for dig today after the sx started Review of Systems Constitutional: denies: Fever, Chills Eyes: denies: Loss of vision Ears: denies: Loss of hearing Cardiac: reports: Palpitations. denies: Chest pain / pressure Respiratory: denies: Dyspnea, Cough GI: denies: Abdominal Pain, Nausea, Vomiting Neurologic: reports: Numbness. 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 : Chronic bladder infection, Kidney stones HEENT: None Psych: None Musculoskeletal: Osteoarthritis Derm: Herpes zoster - Past Surgical History Past Surgical History: Yes Ortho: Hip replacement /GRID MAKER: Dilation and currettage HEENT: Tracheostomy - Present Medications Home Medications: Ambulatory Orders Medication Instructions Recorded Confirmed Warfarin [Coumadin] 5 mg PO SUMOWEFR@1400 10/13/12 03/29/17 Vitamin B Complex 1 each PO DAILY 04/28/16 03/29/17 Ascorbic Acid [Vitamin C] 1,000 mg PO DAILY 07/09/16 03/29/17 Sertraline HCl 25 mg PO DAILY 01/31/17 03/29/17 Warfarin [Coumadin] 2.5 mg PO TUTHSA@1400 01/31/17 03/29/17 Atorvastatin [Lipitor] 40 mg PO QPM #30 tablet 02/01/17 03/29/17 diltiaZEM CD [Cardizem Cd] 240 mg PO BID #60 capsule 02/01/17 03/29/17 Docusate Sodium 100 mg PO DAILY #30 capsule 02/13/17 03/29/17 Digoxin 125 mcg PO DAILY 03/29/17 03/29/17 raNITIdine [Zantac] 75 mg PO DAILY PRN 03/29/17 03/29/17 - Allergies Allergies/Adverse Reactions: Allergies Allergy/AdvReac Type Severity Reaction Status Date / Time aspirin AdvReac Unknown Verified 03/28/17 17:32 - Social History Does the pt smoke?: No Smoking Status: Never smoker Does the pt drink ETOH?: No Does the pt have substance abuse?: No - Immunizations Immunizations are current?: Yes - POLST Patient has POLST: No POLST Status: Full Code PD ED PE NORMAL - Vitals Vital signs reviewed: Yes - General General: Alert and oriented X 3 - HEENT HEENT: PERRL - Neck Neck: Supple, no meningeal sign - Cardiac Cardiac: RRR - Respiratory Respiratory: No respiratory distress, Clear bilaterally - Abdomen Abdomen: Soft, Non tender - Derm Derm: Normal color - Extremities Extremities: No deformity - Neuro Neuro: Alert and oriented X 3, jointer operator 2-12 intact, No motor deficit, Normal speech. No: No sensory deficit Results - Vitals Vitals: Vital Signs - 24 hr 03/29/17 03/29/17 09:56 10:59 Temperature 36.3 C L Heart Rate 118 H 98 Respiratory 19 16 Rate Blood Pressure 120/93 H 107/70 Blood Pressure 107/70 [Right] O2 Saturation 98 98 Oxygen O2 Source Room air - EKG (time done) 1005 Rate: Rate (enter#) (103) Rhythm: Atrial fibrillation [place]: Normal Intervals: Other (Q waves inf) Ischemia: Non specific changes - Labs Labs: Laboratory Tests 03/29/17 03/29/17 03/29/17 10:14 10:18 10:40 WBC 5.4 RBC 4.16 L Hgb 12.8 Hct 37.9 MCV 91.1 MCH 30.7 MCHC 33.7 RDW 16.2 H Plt Count 205 MPV 8.6 Neut # 4.3 Lymph # 0.7 L [place] # 0.3 Eos # 0.0 Baso # 0.1 Absolute Nucleated RBC 0.00 Nucleated RBC % 0.0 Whole Blood INR 2.1 H Sodium Potassium Chloride Carbon Dioxide Anion Gap BUN Creatinine Estimated GFR (MDRD) Glucose POC Whole Bld Glucose 151 H Calcium Troponin I 03/29/17 03/29/17 10:40 10:40 WBC RBC Hgb Hct MCV MCH MCHC RDW Plt Count MPV Neut # Lymph # [place] # Eos # Baso # Absolute Nucleated RBC Nucleated RBC % Whole Blood INR Sodium 138 Potassium 4.2 Chloride 102 Carbon Dioxide 24 Anion Gap 12.0 BUN 17 Creatinine 0.8 Estimated GFR (MDRD) 68 L Glucose 130 H POC Whole Bld Glucose Calcium 9.8 Troponin I < 0.04 - Rads (name of study) CTH Radiology: See rad report (no acute) PD MEDICAL DECISION MAKING - ED course ED course: INR 2.1 so not a TPA candidate sounds like recurrent TIAs ABCD score 4 so merits admit for carotid echo serial neuro exams etc sx subsided in the ER HR improved s intervention Departure - Departure Disposition: 66 [facility] DC/Xfer Clinical Impression: TIA (transient ischemic attack) Qualifiers: Transient cerebral ischemia type: unspecified Qualified Code(s): G45.9 - Transient cerebral ischemic attack, unspecified Atrial fibrillation Qualifiers: Atrial fibrillation type: unspecified Qualified Code(s): I48.91 - Unspecified atrial fibrillation Discharge Date/Time: 03/29/17 11:47 NIHSS - Time Time: 10:05 - Level of Consciousness Level of consciousness: (0) Alert, Keenly responsive LOC Questions: (0) Answers both Q's correct LOC Commands: (0) Performs both correctly - Gaze Best Gaze: (0) Normal - Visual Visual: (0) No loss - Facial Palsy Facial Palsy: (0) Normal, symmetrical movement - Motor Arms (both separate) Motor Arm (right): (0) No drift Motor Arm (left): (0) No drift - Motor Legs (both separate) Motor Leg (right): (0) No drift Motor Leg (left): (0) No drift - Limb Ataxia Limb Ataxia: (0) Absent - Sensory Sensory: (1) [id number] loss - Best Language Best Language: (0) No aphasia - Dysarthria Dysarthria: (0) Normal - Extinction and Inattention (formally neg Extinction and inattention: (0) No abnormality - Total Score/Results Total Score/Result: 1
--- NOTE | 2017-03-29 10:40 | CT Preliminary Report ---
Exam: CT HEAD W/O IMPRESSION: 1. No acute intracranial abnormality or significant interval change. 2. Stable pattern of presumed chronic microangiopathic changes within the cerebral white matter and t he carlos. [facility] SITE ID: [id number]
--- NOTE | 2017-03-29 10:43 | CT Report ---
EXAM: CT HEAD EXAM DATE: 03/29/2017 10:25 AM. CLINICAL HISTORY: R sided numbness. COMPARISON: Head CT 01/31/2017. TECHNIQUE: Multiaxial CT images were obtained from the foramen magnum to the vertex. IV contrast: Non e. Reformats: Coronal. In accordance with CT protocol optimization, one or more of the following dose reduction techniques w ere utilized for this exam: automated exposure control, adjustment of mA and/or KV based on patient s ize, or use of iterative reconstructive technique. FINDINGS: Parenchyma: No intraparenchymal hemorrhage. No evidence of mass, midline shift, or CT findings of acu te infarction. Carrion-white differentiation is distinct. Extraaxial Spaces: Normal for age. No subdural or epidural collections identified. Ventricles: The ventricles and cortical sulci are mildly enlarged, consistent with age-related tissue loss. Sinuses and orbits: Imaged paranasal sinuses, orbits, and mastoids show no significant abnormality. Bones: No evidence of fracture or calvarial defect. Other: Hypodense areas within the cerebral white matter and within the carlos are without bambi change and likely represent chronic microangiopathic white matter changes. IMPRESSION: 1. No acute intracranial abnormality or significant interval change. 2. Stable pattern of presumed chronic microangiopathic changes within the cerebral white matter and t he carlos. [facility] Referring Provider Line: [phone] SITE ID: [id number]
[2017-03-29 10:54] LABS: BASOPHILS # (AUTO) 0.1 10^3/uL (0.0-0.1); EOSINOPHILS % (AUTO) 0.6 %; HCT - HEMATOCRIT 37.9 % (37.0-47.0); HGB - HEMOGLOBIN 12.8 g/dL (12.0-16.0); LYMPHOCYTES # (AUTO) 0.7 10^3/uL (1.5-3.5); LYMPHOCYTES % (AUTO) 12.4 %; MEAN CORPUSCULAR HEMOGLOBIN 30.7 pg (27.0-31.0); MEAN CORPUSCULAR HGB CONC 33.7 g/dL (32.0-36.0); MEAN CORPUSCULAR VOLUME 91.1 fL (81.0-99.0); MEAN PLATELET VOLUME 8.6 fL (7.9-10.8); MONOCYTES # (AUTO) 0.3 10^3/uL (0.0-1.0); MONOCYTES % (AUTO) 5.5 %; NEUTROPHILS # (AUTO) 4.3 10^3/uL (1.5-6.6); NEUTROPHILS % (AUTO) 80.5 %; RED BLOOD COUNT 4.16 10^6/uL (4.20-5.40); RED CELL DISTRIBUTION WIDTH 16.2 % (12.0-15.0); UNCORRECTED WHITE BLOOD COUNT 5.4 x10^3/uL; WHITE BLOOD COUNT 5.4 x10^3/uL (4.8-10.8)
[2017-03-29] MEDS ORDERED: diltiaZEM INJ 5 MG/ML VIAL IVP STA (10:55)
[2017-03-29 10:58] LABS: CALCIUM 9.8 mg/dL (8.5-10.3); CREATININE 0.8 mg/dL (0.4-1.0); POTASSIUM 4.2 mmol/L (3.5-5.0)
[2017-03-29] MEDS ORDERED: SODIUM CHLORIDE FLUSH 0.9% 10 ML SYRINGE IVP PRN (11:16)
[2017-03-29] MEDS ORDERED: ACETAMINOPHEN 325 MG TABLET PO PRN (11:16)
[2017-03-29] MEDS ORDERED: ZOLPIDEM 5 MG TABLET PO PRN (11:16)
[2017-03-29] MEDS ORDERED: GADOBUTROL 7.5 MMOL/7.5 ML VIAL ONE (15:39)
[2017-03-29] MEDS ORDERED: SODIUM CHLORIDE FLUSH 0.9% 10 ML SYRINGE IVP ONE ×2 (15:52→20:59)
[2017-03-29] MEDS: SODIUM CHLORIDE FLUSH 0.9% 10 ML SYRINGE IVP SCH ×2 (16:06→21:10)
[2017-03-29] MEDS ORDERED: GADOBUTROL 7.5 MMOL/7.5 ML VIAL IVP ONE (16:49)
--- NOTE | 2017-03-29 17:39 | MRI Preliminary Report ---
Exam: MRI ANGIO BRAIN W/O (MRA) Impressions: 1. Study partly degraded by motion artifact. Patent major arteries of the brain, with normal anatomic al variability as described. No aneurysm, dissection, stenosis, AVM. [facility] SITE ID: [id number]
--- NOTE | 2017-03-29 17:42 | MRI Report ---
EXAM MRA BRAIN EXAM DATE: 03/29/2017 04:41 PM. CLINICAL HISTORY: TIAs. COMPARISON: Accompanying MR angiogram neck. Accompanying CT study had. Prior CT angiogram head 2016, prior MRI brain 01/31/2017. TECHNIQUE: Multiplanar, multisequence MRA sequences of the brain were performed. Other: None. Post-pr ocessing: Multiplanar 3D MIP reconstructions. IV Contrast: None. Findings: Relevant images are indicated (image number, series number). Left ICA: Patent. Patent MCA, BEL distribution. Right ICA: Patent. Patent MCA, BEL distribution. History circulation: Patent distal bilateral vertebral arteries, basilar artery, prominent bilateral posterior communicating arteries. Patent bilateral OIL FIELD LABORER distribution although somewhat poorly visualiz ed due to motion artifact. Impressions: 1. Study partly degraded by motion artifact. Patent major arteries of the brain, with normal anatomic al variability as described. No aneurysm, dissection, stenosis, AVM. [facility] Referring Provider Line: [phone] SITE ID: [id number]
--- NOTE | 2017-03-29 18:39 | HISTORY & PHYSICAL EXAMINATION ---
DATE OF ADMISSION: 03/29/2017 HISTORY OF PRESENT ILLNESS: This is an 86-year-old white female with a history of permanent atrial fibrillation on Coumadin, TIA admission 2 months ago, which showed FURNITURE SANDER small vessel atherosclerosis, but no other etiology was found. She was discharged at that time with plan for further management by a senior international tax manager then because of the new onset of atrial fibrillation and a neurologist for evaluation of intermittent right-sided numbness. The patient has seen her senior international tax manager, has had a Holter monitor, was told that her heart rate is overall fast and her Cardizem had the addition of digoxin begun approximately 1-2 weeks ago. She has not yet seen the neurologist. There is plan for stress testing to be done as an outpatient; however, this was done some time in the past, possibly at that last admission when she was placed under observation. The patient presents now with sudden onset of right fifth and fourth finger numbness which radiated up the ulnar aspect of her arm to the elbow and underneath her arm to her axilla, as well as numbness of the right lateral leg up the side. She states that over the last 2 months, she has had intermittent symptoms just like this that last possibly 5 minutes, but today they lasted 2 entire hours. During this time she took her vital signs with her portable cuff and noted that her heart rate was elevated in the 130s. Her blood pressure was normal and it normally is under control on her current combination. The patient overall "felt funny" and she cannot describe in detail what that means. Because of the combination of "feeling funny" and longer episode of numbness of the right side of the body, she presented to the emergency room. She already had no symptoms at that time. Heart rate was atrial fibrillation in the 100-110 range. She has been placed in observation for further evaluation of the atrial fibrillation and possible stuttering TIAs. MEDICATIONS AT HOME: 1. Ranitidine 75 mg p.o. daily. 2. Colace 100 mg p.o. daily. 3. Vitamin C 1000 mg p.o. daily. 4. Cardizem-CD 240 mg p.o. b.i.d.. 5. Warfarin 5 mg alternating with 2.5 mg daily. 6. Vitamin B daily. 7. Sertraline 25 mg p.o. daily. 8. Digoxin 125 mcg p.o. daily. 9. Lipitor 40 mg p.o. at bedtime. ALLERGIES: ASPIRIN, WHICH CAUSED UNKNOWN REACTION. FAMILY HISTORY: There is no history of early heart disease. No family history of diabetes or cancer. SOCIAL HISTORY: The patient is a nonsmoker, drinks no alcohol, lives with her . REVIEW OF SYSTEMS: The patient states that she has had constipation lately, finally this resolved yesterday. There has been no abdominal pain, nausea or vomiting. She denies anginal pain, dyspnea on exertion or leg edema ever. Her other organs had a review of systems done comprehensively and are negative except for the above. PHYSICAL EXAMINATION: GENERAL: Shows a white female in no distress, sitting in a chair eating dinner. VITAL SIGNS: Blood pressure 104/56, pulse is 101 in atrial fibrillation. She is afebrile. HEENT: Unremarkable with the mucosa being moist. NECK: Shows no JVD in a vertical position. No carotid bruits. CHEST: Clear. HEART: Sounds are irregular. There is no audible murmur. There is no heave or gallop. ABDOMEN: Soft. Positive bowel sounds. EXTREMITIES: No clubbing, cyanosis, or edema. NEUROLOGIC: Neurologically she currently has the symptom of numbness of the fourth and fifth fingers of her right hand and hypothenar eminence, but no other abnormality on neurologic exam grossly. LABS: Normal electrolytes, normal BUN and creatinine. INR 2.1. Normal CBC. Head CT showed no acute intracranial abnormality and no change from her 01/2017 CT of the head and stable pattern of chronic microangiopathic changes within the white matter and carlos. No chest x-ray was done. EKG: Atrial flutter with variable block mostly 4-1 block. Her average heart rate is 103. She has T-wave inversions in V6, otherwise no ST changes. IMPRESSION/DIAGNOSES: 1. Stuttering TIA symptoms with a neurology outpatient evaluation that is still pending. 2. History of permanent atrial fibrillation on Coumadin with a therapeutic dose. 3. Atherosclerosis by imaging of small vessels of the brain. PLAN: Place the patient in observation, on telemetry to follow the heart rate and rhythm. Continue with her current medications for rate control and continue her current anticoagulation. Obtain an echo, and a MARYAM would also be helpful to rule out clot in the left atrial appendage (we do not have MARYAM availability at this hospital). Recheck an MRI of the head for any progression of changes seen with this better imaging modality. Continue with her other management and if these are negative or unchanged, then plan for outpatient neurology evaluation and management, as planned. JOB #: [id number] EXT JOB #:[id number] MTDD
--- NOTE | 2017-03-29 19:10 | MRI Preliminary Report ---
Exam: MRI ANGIO NECK W/WO (MRA) Impressions: 1. Widely patent bilateral carotid, vertebral arteries as described. No aneurysm, dissection, stenosi s, or AVM. [facility] SITE ID: [id number]
--- NOTE | 2017-03-29 19:13 | MRI Report ---
EXAM: MR ANGIOGRAM NECK EXAM DATE: 03/29/2017 05:08 PM. CLINICAL HISTORY: TIAs. COMPARISON: Accompanying MR angiogram brain, CT head. Prior MR angiogram neck 04/21/2016. TECHNIQUE: Multiplanar, multisequence MRA sequences of the neck were performed. Other: None. Post-pro cessing: Multiplanar 3D MIP reconstructions. IV Contrast: 7.5 cc Gadavist. Evaluation of arterial st enosis is based on a NASCET method of measurement. Findings: Relevant images are indicated (image number, series number). Aortic arch is patent, normal configuration of the great vessels. Left carotid artery: Widely patent. Right carotid artery: Widely patent. Left vertebral artery: Proximal tortuosity, otherwise patent. Right vertebral artery: Patent. Impressions: 1. Widely patent bilateral carotid, vertebral arteries as described. No aneurysm, dissection, stenosi s, or AVM. [facility] Referring Provider Line: [phone] SITE ID: [id number]
[2017-03-29] MEDS: diltiaZEM CD 240 MG CAPSULE PO SCH (21:03)
[2017-03-29] MEDS ORDERED: ATORVASTATIN 40 MG TABLET PO SCH (22:00)
[2017-03-30] MEDS ORDERED: SODIUM CHLORIDE FLUSH 0.9% 10 ML SYRINGE IVP ONE ×2 (05:48→13:07)
[2017-03-30] MEDS: SODIUM CHLORIDE FLUSH 0.9% 10 ML SYRINGE IVP SCH ×2 (06:10→13:03)
[2017-03-30] MEDS: diltiaZEM CD 240 MG CAPSULE PO SCH (08:39)
[2017-03-30] MEDS ORDERED: SERTRALINE 25 MG TABLET PO SCH (09:00)
[2017-03-30] MEDS ORDERED: DIGOXIN 125 MCG TABLET PO SCH (09:00)
[2017-03-30] MEDS ORDERED: DOCUSATE SODIUM 100 MG CAPSULE PO SCH (09:00)
[2017-03-30] MEDS ORDERED: FAMOTIDINE 20 MG TABLET PO SCH ×2 (09:00)
[2017-03-30] MEDS ORDERED: POLYETHYLENE GLYCOL 3350 17 GM PACKET PO SCH ×2 (09:00)
[2017-03-30 12:18] VITALS: BP 99/70
--- NOTE | 2017-03-30 12:24 | MRI Preliminary Report ---
Exam: MRI BRAIN W/O IMPRESSION: 1.No acute intracranial abnormality. Specifically no acute infarct, intracranial hemorrhage, mass, hy drocephalus, or midline shift. 2. Moderate white matter changes that appear similar to 01/31/2017 and may represent sequela of chroni c small vessel ischemic disease. [facility] SITE ID: [id number]
--- NOTE | 2017-03-30 12:26 | MRI Report ---
EXAM: MRI BRAIN WITHOUT CONTRAST EXAM DATE: 03/30/2017 11:20 AM. CLINICAL HISTORY: TIAs. COMPARISON: MRA head and neck 03/29/2017; CT head 03/29/2017; MR brain 01/31/2017. TECHNIQUE: Multiplanar, multisequence T1-weighted and fluid-sensitive MR sequences of the brain were performed. Sequences optimized for routine evaluation. Other: None. IV Contrast: None. FINDINGS: Brain Volume: Normal for age. Parenchyma/Dura: No mass, acute infarct or hemorrhage. Moderate bilateral areas of T2/FLAIR signal hy perintensity seen appear similar to MR 01/31/2017. Patchy areas of FLAIR signal abnormality seen withi n the midbrain and carlos similar to prior studies. Ventricles/Cisterns: No hydrocephalus. No abnormal extra-axial fluid collection or hemorrhage. Orbits: Symmetric and unremarkable. Sella [place]: The pituitary gland, cavernous sinuses, suprasellar cistern and optic chiasm are unrem arkable. IAC: Symmetric and unremarkable. Vasculature: Normal signal flow void is seen in the major arterial structures at the skull base. Sinuses: No acute appearing sinus disease. Bones: No focal pathologic appearing marrow signal changes. Again demonstrated are changes of hyperos tosis frontalis internus. Again demonstrated is a mildly T2 hyperintense, T1 hypointense oval focus w ithin the right frontal bone similar to prior studies and may represent hemangioma. Other: None. IMPRESSION: 1.No acute intracranial abnormality. Specifically no acute infarct, intracranial hemorrhage, mass, hy drocephalus, or midline shift. 2. Moderate white matter changes that appear similar to 01/31/2017 and may represent sequela of chroni c small vessel ischemic disease. [facility] Referring Provider Line: [phone] SITE ID: [id number]
[2017-03-30] MEDS ORDERED: WARFARIN 5 MG TABLET PO SCH (14:00)
--- NOTE | 2017-03-30 14:44 | Discharge Plan ---
Discharge Plan Disposition: 01 Home, Self Care Condition: Fair Diet: Regular Shower Restrictions: No Driving Restrictions: No Additional Instructions or Follow Up instructions: See your Neurologist for further evaluation and management of the numbness symptoms No Smoking: If you smoke, Please STOP! Call for help. Follow-up with: Jerry Lyle DO [Primary Care Provider] -
[2017-03-31] MEDS ORDERED: WARFARIN 2.5 MG TABLET PO SCH (14:00)
--- NOTE | 2017-04-11 20:17 | DISCHARGE SUMMARY ---
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 The patient presented with neurologic symptoms that were similar to that of 2 months prior, and she was placed in observation to evaluate for possible stuttering TIAs. HOSPITAL COURSE AND DISCHARGE DIAGNOSES: 1. Possible transient ischemic attack. The patient's symptoms of sudden onset of right 5th and 4th finger numbness with radiation up to the ulnar aspect of her arm were similar complaints to 2 months previously. Since that time, she was to have seen a neurologist, but that appointment is still pending. The patient underwent an echo here, which showed a normal LVEF and no intracardiac clot, and also brain imaging that was similar to the previous scans of 2 months ago showing small-vessel atherosclerosis and no other findings such as stroke, mass, or hemorrhage. The patient was discharged on the same medications with advice to keep her neurologic evaluation appointment as an outpatient. 2. Permanent atrial fibrillation. 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 These were continued throughout this admission. Her heart rate was controlled, and there were no adjustments made in her medications for the AFib including her Coumadin. 3. Hyperlipidemia. The patient's medications were continued throughout this stay. LABORATORY AND IMAGING: Reviewed and as above. CONDITION AT DISCHARGE: Stable. PHYSICAL EXAMINATION: Showing. VITAL SIGNS: Blood pressure 112/70, pulse of 89 in AFib, afebrile, oxygen saturation 95% on room air. HEENT: Unremarkable. NECK: Without carotid bruits or JVD. CHEST: Clear. CARDIAC: Heart sounds without murmur. ABDOMEN: Soft. EXTREMITIES: No edema. NEUROLOGIC: Neurologically intact at the time of discharge. MEDICATIONS AT DISCHARGE: 1. Vitamin C. 2. Lipitor 40 mg q.p.m. 3. Digoxin 125 mcg daily. 4. Cardizem-CD 240 mg b.i.d. 5. Colace 100 mg p.o. daily. 6. Zantac 75 mg p.o. daily p.r.n. 7. Sertraline 25 mg p.o. daily. 8. Vitamin B complex. 9. Coumadin 2.5 mg alternating with 5 mg daily. ALLERGIES: ASPIRIN. WHICH CAUSED AN UNKNOWN REACTION. FOLLOWUP: PCP and school bus driver. Neurologist is still pending (keep this appointment). TIME REQUIRED TO COMPLETE THIS DISCHARGE: 30 minutes. JOB #: [id number] EXT JOB #:[id number] KISHOR
== END 2017-03-30 15:07 | disposition home or self-care (01) ==
LOC: ED 09:47 → OBS 11:16 → UNDOADMIN 11:16 → MS2 11:16
PROVIDERS: ADMIT Internal Medicine; ATTEND Internal Medicine
DX: R20.0 Anesthesia of skin (principal); I48.2 Chronic atrial fibrillation; I67.2 Cerebral atherosclerosis; I10 Essential (primary) hypertension; E78.5 Hyperlipidemia, unspecified; K21.9 Gastro-esophageal reflux disease without esophagitis; Z86.718 Personal history of other venous thrombosis and embolism; Z79.01 Long term (current) use of anticoagulants
CPT/HCPCS: 36415; 70450; 70544; 70549; 70551; 80048; 80162; 84484; 85025; 85610; 93005; 93306; 96372; 99284

== ENCOUNTER 2017-04-21 18:51 | Emergency (ER) | payer MEDICARE, OTHER ==
--- NOTE | 2017-04-21 19:37 | ED Physician Documentation ---
PD HPI CHEST PAIN - Stated complaint Stated Complaint: AFIB - Chief complaint Chief Complaint: Cardiac - History obtained from History obtained from: Patient - History of Present Illness Timing - onset: How many minutes ago (45) Timing - onset during: Rest Timing - duration: Minutes (she awoke from rest feeling heart rate going fast, took her BP and heart rate and it was 120-130 heart rate. BP okay. She has had atrial fib with intermittent rapid heart rate. Had felt okay earlier in the day. Heart rate was not improving after 30 minutes so called EMS. HR 120s enroute.) Timing - details: Abrupt onset Quality: Pressure. No: Tightness, Aching Location: Substernal Associated symptoms: Shortness of air, Palpitations. No: Nausea, Vomiting, Feeling faint / dizzy Similar symptoms before: Diagnosis (atrial fib/flutter persistent) Review of Systems Constitutional: denies: Fever, Chills Nose: denies: Rhinorrhea / runny nose, Congestion Throat: denies: Sore throat Cardiac: reports: Palpitations. denies: Chest pain / pressure, Pedal edema, Calf pain Respiratory: reports: Dyspnea. 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 : Chronic bladder infection, Kidney stones HEENT: None Psych: None Musculoskeletal: Osteoarthritis Derm: Herpes zoster - Past Surgical History Past Surgical History: Yes Ortho: Hip replacement /CRIBBING SETTER: Dilation and currettage HEENT: Tracheostomy - Present Medications Home Medications: Ambulatory Orders Medication Instructions Recorded Confirmed Warfarin [Coumadin] 5 mg PO SUMOWEFR@1400 10/13/12 04/21/17 Vitamin B Complex 1 each PO DAILY 04/28/16 04/21/17 Ascorbic Acid [Vitamin C] 1,000 mg PO DAILY 07/09/16 04/21/17 Sertraline HCl 25 mg PO DAILY 01/31/17 04/21/17 Warfarin [Coumadin] 2.5 mg PO TUTHSA@1400 01/31/17 04/21/17 Atorvastatin [Lipitor] 40 mg PO QPM #30 tablet 02/01/17 04/21/17 diltiaZEM CD [Cardizem Cd] 240 mg PO BID #60 capsule 02/01/17 04/21/17 Docusate Sodium 100 mg PO DAILY #30 capsule 02/13/17 04/21/17 Digoxin 125 mcg PO DAILY 03/29/17 04/21/17 raNITIdine [Zantac] 75 mg PO DAILY PRN 03/29/17 04/21/17 - Allergies Allergies/Adverse Reactions: Allergies Allergy/AdvReac Type Severity Reaction Status Date / Time aspirin AdvReac Unknown Verified 04/21/17 19:03 - Social History Does the pt smoke?: No Smoking Status: Never smoker Does the pt drink ETOH?: No Does the pt have substance abuse?: No - Family History Family history: reports: Non contributory - Immunizations Immunizations are current?: Yes - POLST Patient has POLST: No POLST Status: Full Code PD ED PE NORMAL - Vitals Vital signs reviewed: Yes (heart rate improving without medication to 8-90 here in ED) - General General: Alert and oriented X 3, Well developed/nourished - HEENT HEENT: Moist mucous membranes, Pharynx benign - Neck Neck: Supple, no meningeal sign, No adenopathy - Cardiac Cardiac: No murmur, No rub. No: RRR (irregular but rate okay after short time in ED, now 80-90. ) - Respiratory Respiratory: Clear bilaterally - Abdomen Abdomen: Soft, Non tender - Back Back: No CVA TTP - Derm Derm: Normal color, Warm and dry - Extremities Extremities: No deformity, No tenderness to palpate, Normal ROM s pain, No edema , No calf tenderness / cord - Neuro Neuro: Alert and oriented X 3, No motor deficit, Normal speech - Psych Psych: Normal mood, Normal affect Results - Vitals Vitals: Vital Signs - 24 hr 04/21/17 04/21/17 04/21/17 19:00 19:26 21:43 Temperature 36.7 C 35.8 C L Heart Rate 120 H 90 98 Respiratory 18 20 24 Rate Blood Pressure 120/73 108/68 115/70 O2 Saturation 96 100 97 04/21/17 21:48 Temperature Heart Rate 86 Respiratory 20 Rate Blood Pressure 115/70 O2 Saturation 99 Oxygen O2 Source Room air Oxygen Flow Rate 2 - EKG (time done) 19:11 Rate: Rate (enter#) (90) Rhythm: Atrial fibrillation [place]: Normal Ischemia: Normal ST segments. No: ST elevation c/w ischemia, ST depression Compare to prior EKG: Unchanged from prior EKG - Labs Labs: Laboratory Tests 04/21/17 04/21/17 04/21/17 19:31 19:31 19:31 WBC 6.0 RBC 4.15 L Hgb 12.8 Hct 38.4 MCV 92.7 MCH 30.8 MCHC 33.3 RDW 16.2 H Plt Count 212 MPV 9.2 Neut # 4.8 Lymph # 0.7 L [place] # 0.4 Eos # 0.1 Baso # 0.1 Absolute Nucleated RBC 0.01 Nucleated RBC % 0.1 PT 34.9 H INR 3.2 H Sodium 137 Potassium 3.7 Chloride 102 Carbon Dioxide 25 Anion Gap 10.0 BUN 24 H Creatinine 0.9 Estimated GFR (MDRD) 59 L Glucose 166 H Calcium 9.6 Magnesium 2.0 Total Bilirubin 0.9 AST 30 ALT 26 Alkaline Phosphatase 62 B-Natriuretic Peptide Total Protein 7.2 Albumin 3.8 Globulin 3.4 Albumin/Globulin Ratio 1.1 Lipase 20 L Last Dose Date Last Dose Time Digoxin 04/21/17 04/21/17 19:31 19:31 WBC RBC Hgb Hct MCV MCH MCHC RDW Plt Count MPV Neut # Lymph # [place] # Eos # Baso # Absolute Nucleated RBC Nucleated RBC % PT INR Sodium Potassium Chloride Carbon Dioxide Anion Gap BUN Creatinine Estimated GFR (MDRD) Glucose Calcium Magnesium Total Bilirubin AST ALT Alkaline Phosphatase B-Natriuretic Peptide 61 Total Protein Albumin Globulin Albumin/Globulin Ratio Lipase Last Dose Date UNKNOWN Last Dose Time UNKNOWN Digoxin 0.3 PD MEDICAL DECISION MAKING - ED course Complexity details: reviewed results, re-evaluated patient (feeling okay here and heart rate has stayed 80-90 here. She feels able to go home, feeling normal like her baseline. ), considered differential, d/w patient Departure - Departure Disposition: 01 Home, Self Care Clinical Impression: Atrial fibrillation with rapid ventricular response, Anticoagulant long-term use Condition: Stable Record reviewed to determine appropriate education?: Yes Instructions: ED Afib Follow-Up: Jerry Lyle DO [Primary Care Provider] - Comments: Continue your current medications. Drink lots of fluids. Your heart rate seems to be down to a normal range at this time. It is still atrial fibrillation which is typical for you. Follow-up with your primary care and financial operations consultant as needed. Discharge Date/Time: 04/21/17 21:52
[2017-04-21 20:19] LABS: BASOPHILS # (AUTO) 0.1 10^3/uL (0.0-0.1); EOSINOPHILS # (AUTO) 0.1 10^3/uL (0.0-0.7); HCT - HEMATOCRIT 38.4 % (37.0-47.0); HGB - HEMOGLOBIN 12.8 g/dL (12.0-16.0); LYMPHOCYTES # (AUTO) 0.7 10^3/uL (1.5-3.5); LYMPHOCYTES % (AUTO) 11.3 %; MEAN CORPUSCULAR HEMOGLOBIN 30.8 pg (27.0-31.0); MEAN CORPUSCULAR HGB CONC 33.3 g/dL (32.0-36.0); MEAN CORPUSCULAR VOLUME 92.7 fL (81.0-99.0); MEAN PLATELET VOLUME 9.2 fL (7.9-10.8); MONOCYTES # (AUTO) 0.4 10^3/uL (0.0-1.0); MONOCYTES % (AUTO) 7.2 %; NEUTROPHILS # (AUTO) 4.8 10^3/uL (1.5-6.6); NEUTROPHILS % (AUTO) 79.5 %; NUCLEATED RED BLOOD CELLS AUTO 0.1 /100WBC; RED BLOOD COUNT 4.15 10^6/uL (4.20-5.40); RED CELL DISTRIBUTION WIDTH 16.2 % (12.0-15.0)
[2017-04-21 20:25] LABS: INR 3.2 (0.8-1.2); PT - PROTHROMBIN TIME 34.9 secs (9.9-12.6)
[2017-04-21 20:32] LABS: ALBUMIN/GLOBULIN RATIO 1.1 (1.0-2.2); BILIRUBIN,TOTAL 0.9 mg/dL (0.2-1.0); CALCIUM 9.6 mg/dL (8.5-10.3); CREATININE 0.9 mg/dL (0.4-1.0); POTASSIUM 3.7 mmol/L (3.5-5.0); TOTAL PROTEIN 7.2 g/dL (6.7-8.2)
[2017-04-21 21:45] VITALS: BP 115/70
== END 2017-04-21 21:52 | disposition home or self-care (01) ==
LOC: ED 18:51
DX: I48.91 Unspecified atrial fibrillation (principal); Z79.01 Long term (current) use of anticoagulants; I10 Essential (primary) hypertension; E78.00 Pure hypercholesterolemia, unspecified; K21.9 Gastro-esophageal reflux disease without esophagitis; M19.90 Unspecified osteoarthritis, unspecified site; Z86.718 Personal history of other venous thrombosis and embolism; Z87.442 Personal history of urinary calculi; Z87.440 Personal history of urinary (tract) infections
CPT/HCPCS: 36415; 80053; 80162; 83690; 83735; 83880; 85025; 85610; 93005; 99284

== ENCOUNTER 2017-04-27 17:38 | Emergency (ER) | payer MEDICARE, OTHER ==
[2017-04-27 20:07] VITALS: BP 136/77
== END 2017-04-27 20:07 | disposition left against medical advice (07) ==
LOC: ED 17:38
DX: Z53.21 Procedure and treatment not carried out due to patient leaving prior to being seen by health care provider (principal)

== ENCOUNTER 2017-05-02 15:49 | Outpatient (CLI) | payer MEDICARE, OTHER | END 2017-05-02 15:50 | disposition critical access hospital (66) | LOC: EMS 15:49 | PROVIDERS: ATTEND Surgery | DX: R07.89 Other chest pain (principal) | CPT/HCPCS: A0425; A0427 ==

== ENCOUNTER 2017-05-02 16:05 | Emergency (ER) | payer MEDICARE, OTHER ==
--- NOTE | 2017-05-02 16:29 | ED Physician Documentation ---
History of Present Illness - Stated complaint Stated Complaint: CHEST PRESSURE - Chief complaint Chief Complaint: Cardiac - History obtained from History obtained from: Patient, Family, EMS - History of Present Illness Timing: Today Pain level max: 2 Pain level now: 1 - Additonal information Additional information: Patient is an 86-year-old female who presents to the emergency department with generalized weakness today. She also felt some chest tightness earlier today, this is not unusual for her. Also has numbness to the right arm for the past 7 months. Has canceled her last 3 neurology appointments because she has felt weak. Has a neurology appointment tomorrow. Denies any fevers, cough, congestion. Denies any dysuria. States she has been eating and drinking normally, but states that her lips have been dry and cracked. No changes to her medication. Weakness is better with rest, worse with walking. Chest pain doesn't change with anything. Review of Systems Ten Systems: 10 systems reviewed and negative Constitutional: denies: Fever, Chills Ears: denies: Ear pain Nose: denies: Rhinorrhea / runny nose, Congestion Throat: denies: Sore throat Cardiac: denies: Palpitations, Pedal edema, Calf pain Respiratory: denies: Cough, Hemoptysis, Wheezing GI: denies: Abdominal Pain, Nausea, Vomiting, Diarrhea : denies: Dysuria Skin: denies: Rash Musculoskeletal: denies: Neck pain, Back pain Neurologic: reports: Generalized weakness. denies: Focal weakness, Confused, Altered mental status, Headache PD PAST MEDICAL HISTORY - Past Medical History Past Medical History: Yes Cardiovascular: Hypertension, High cholesterol, Deep vein thrombosis, Atrial fibrillation Respiratory: Pneumonia Neuro: None Endocrine/Autoimmune: None GI: GERD, Hiatal hernia QUALITY HEAD: None : Chronic bladder infection, Kidney stones HEENT: None Psych: None Musculoskeletal: Osteoarthritis Derm: Herpes zoster - Past Surgical History Past Surgical History: Yes Ortho: Hip replacement /QUALITY HEAD: Dilation and currettage HEENT: Tracheostomy - Present Medications Home Medications: Ambulatory Orders Medication Instructions Recorded Confirmed Warfarin [Coumadin] 5 mg PO SUMOWEFR@1400 10/13/12 05/02/17 Vitamin B Complex 1 each PO DAILY 04/28/16 05/02/17 Ascorbic Acid [Vitamin C] 1,000 mg PO DAILY 07/09/16 05/02/17 Sertraline HCl 25 mg PO DAILY 01/31/17 05/02/17 Warfarin [Coumadin] 2.5 mg PO MEKHIHSA@1400 01/31/17 05/02/17 Atorvastatin [Lipitor] 40 mg PO QPM #30 tablet 02/01/17 05/02/17 diltiaZEM CD [Cardizem Cd] 240 mg PO BID #60 capsule 02/01/17 05/02/17 Docusate Sodium 100 mg PO DAILY #30 capsule 02/13/17 05/02/17 Digoxin 125 mcg PO DAILY 03/29/17 05/02/17 raNITIdine [Zantac] 75 mg PO DAILY PRN 03/29/17 05/02/17 - Allergies Allergies/Adverse Reactions: Allergies Allergy/AdvReac Type Severity Reaction Status Date / Time aspirin AdvReac Unknown Verified 04/27/17 17:51 - Social History Does the pt smoke?: No Smoking Status: Never smoker Does the pt drink ETOH?: No Does the pt have substance abuse?: No - Immunizations Immunizations are current?: Yes - POLST Patient has POLST: No POLST Status: Full Code PD ED PE NORMAL - Vitals Vital signs reviewed: Yes - General General: Alert and oriented X 3, No acute distress, Well developed/nourished - HEENT HEENT: PERRL, Moist mucous membranes - Neck Neck: Supple, no meningeal sign - Cardiac Cardiac: Strong equal pulses, Other (irregular) - Respiratory Respiratory: No respiratory distress, Clear bilaterally - Abdomen Abdomen: Soft, Non tender, Non distended - Derm Derm: Warm and dry - Extremities Extremities: No calf tenderness / cord - Neuro Neuro: Alert and oriented X 3, 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, No motor deficit, No sensory deficit Eye Opening: Spontaneous Motor: Obeys Commands Verbal: Oriented GCS Score: 15 - Psych Psych: Normal mood, Normal affect Results - Vitals Vitals: Vital Signs - 24 hr 05/02/17 05/02/17 05/02/17 16:04 17:15 18:54 Temperature 36.8 C 36.4 C L Heart Rate 82 91 78 Respiratory 17 26 H 16 Rate Blood Pressure 105/60 123/68 154/87 H O2 Saturation 100 100 97 Oxygen O2 Source Room air - EKG (time done) 1610 Rate: Rate (enter#) (103) Rhythm: Atrial fibrillation [place]: Normal QRS: Normal Ischemia: Normal ST segments - Labs Labs: Laboratory Tests 05/02/17 05/02/17 05/02/17 16:27 16:27 16:27 WBC 5.8 RBC 4.20 Hgb 13.2 Hct 38.7 MCV 92.1 MCH 31.3 H MCHC 34.0 RDW 16.1 H Plt Count 221 MPV 8.2 Neut # 4.5 Lymph # 0.9 L [place] # 0.4 Eos # 0.1 Baso # 0.0 Absolute Nucleated RBC 0.00 Nucleated RBC % 0.0 PT INR Sodium 139 Potassium 4.0 Chloride 104 Carbon Dioxide 24 Anion Gap 11.0 BUN 20 Creatinine 0.8 Estimated GFR (MDRD) 68 L Glucose 155 H Calcium 9.9 Total Bilirubin 0.6 AST 25 ALT 26 Alkaline Phosphatase 59 Troponin I < 0.04 Total Protein 7.2 Albumin 3.8 Globulin 3.4 Albumin/Globulin Ratio 1.1 Lipase 21 L Urine Color Urine Clarity Urine pH Ur Specific [place] Urine Protein Urine Glucose (UA) Urine Ketones Urine Occult Blood Urine Nitrite Urine Bilirubin Urine Urobilinogen Ur Leukocyte Esterase Urine RBC Urine WBC Ur Squamous Epith Cells Urine Bacteria Urine Casts Ur Microscopic Review Urine Culture Comments 05/02/17 05/02/17 16:27 18:10 WBC RBC Hgb Hct MCV MCH MCHC RDW Plt Count MPV Neut # Lymph # [place] # Eos # Baso # Absolute Nucleated RBC Nucleated RBC % PT 40.6 H INR 3.8 H Sodium Potassium Chloride Carbon Dioxide Anion Gap BUN Creatinine Estimated GFR (MDRD) Glucose Calcium Total Bilirubin AST ALT Alkaline Phosphatase Troponin I Total Protein Albumin Globulin Albumin/Globulin Ratio Lipase Urine Color YELLOW Urine Clarity CLOUDY Urine pH 6.0 Ur Specific [place] 1.010 Urine Protein NEGATIVE Urine Glucose (UA) NEGATIVE Urine Ketones NEGATIVE Urine Occult Blood NEGATIVE Urine Nitrite NEGATIVE Urine Bilirubin NEGATIVE Urine Urobilinogen 0.2 (NORMAL) Ur Leukocyte Esterase SMALL H Urine RBC None Seen Urine WBC 0-3 Ur Squamous Epith Cells MANY Squamous H Urine Bacteria Few Urine Casts 0-2 Hyaline Casts Ur Microscopic Review INDICATED Urine Culture Comments NOT INDICATED - Rads (name of study) cxr Radiology: Prelim report reviewed, EMP read contemporaneously, See rad report ( normal) PD MEDICAL DECISION MAKING - ED course Complexity details: reviewed old records, reviewed results, re-evaluated patient , considered differential (No ST elevation [place], no aortic dissection, no PE, no tension pneumothorax, no aortic aneurysm), d/w patient, d/w family ED course: Patient is an 86-year-old female who presents to the emergency department with weakness and chest tightness. These are not unusual complaints for her. She feels completely better after given IV fluids. Appeared dehydrated on initial exam. No evidence of acute coronary syndrome. She is ambulating up and down the hallways of the emergency department without any difficulty. No recurrent chest tightness. No weakness. Tolerating p.o. without difficulty. Patient and family counseled regarding signs and symptoms for which I believe and urgent re-evaluation would be necessary. Patient with good understanding of and agreement to plan and is comfortable going home at this time This document was made in part using voice recognition software. While efforts are made to proofread this document, sound alike and grammatical errors may occur. Departure - Departure Disposition: 01 Home, Self Care Clinical Impression: Dehydration, Chest pain Atrial fibrillation Qualifiers: Atrial fibrillation type: chronic Qualified Code(s): I48.2 - Chronic atrial fibrillation Condition: Good Instructions: ED Afib, ED Chest Pain Atypical Unkn Cause, ED Dehydration Follow-Up: Jerry Lyle DO [Primary Care Provider] - Within 1 week Comments: Follow-up with neurology tomorrow as scheduled. Return if you worsen. Discharge Date/Time: 05/02/17 18:58
[2017-05-02 16:34] LABS: BASOPHILS % (AUTO) 0.6 %; EOSINOPHILS # (AUTO) 0.1 10^3/uL (0.0-0.7); EOSINOPHILS % (AUTO) 0.9 %; HCT - HEMATOCRIT 38.7 % (37.0-47.0); HGB - HEMOGLOBIN 13.2 g/dL (12.0-16.0); LYMPHOCYTES # (AUTO) 0.9 10^3/uL (1.5-3.5); LYMPHOCYTES % (AUTO) 15.1 %; MEAN CORPUSCULAR HEMOGLOBIN 31.3 pg (27.0-31.0); MEAN CORPUSCULAR VOLUME 92.1 fL (81.0-99.0); MEAN PLATELET VOLUME 8.2 fL (7.9-10.8); MONOCYTES # (AUTO) 0.4 10^3/uL (0.0-1.0); MONOCYTES % (AUTO) 6.7 %; NEUTROPHILS # (AUTO) 4.5 10^3/uL (1.5-6.6); NEUTROPHILS % (AUTO) 76.7 %; RED CELL DISTRIBUTION WIDTH 16.1 % (12.0-15.0); UNCORRECTED WHITE BLOOD COUNT 5.8 x10^3/uL; WHITE BLOOD COUNT 5.8 x10^3/uL (4.8-10.8)
[2017-05-02 16:40] LABS: INR 3.8 (0.8-1.2); PT - PROTHROMBIN TIME 40.6 secs (9.9-12.6)
[2017-05-02 16:47] LABS: ALBUMIN/GLOBULIN RATIO 1.1 (1.0-2.2); BILIRUBIN,TOTAL 0.6 mg/dL (0.2-1.0); CALCIUM 9.9 mg/dL (8.5-10.3); CREATININE 0.8 mg/dL (0.4-1.0); TOTAL PROTEIN 7.2 g/dL (6.7-8.2)
[2017-05-02] MEDS ORDERED: SODIUM CHLORIDE 0.9% 1,000 ML IV ONE (16:48)
--- NOTE | 2017-05-02 16:49 | XRAY Preliminary Report ---
Exam: XR CHEST 1 VIEW IMPRESSION: Normal single view portable chest for age. [facility] SITE ID: [id number]
--- NOTE | 2017-05-02 16:51 | XRAY Report ---
EXAM: CHEST RADIOGRAPHY EXAM DATE: 05/02/2017 04:26 PM. CLINICAL HISTORY: Chest pain. COMPARISON: 01/17/2017. TECHNIQUE: 1 view. FINDINGS: Lungs/Pleura: No focal opacities evident. No pleural effusion. No pneumothorax. Mediastinum: Within exam limitations, the cardiomediastinal contour is normal for age. Other: Age-related degenerative changes, no acute bony normality. IMPRESSION: Normal single view portable chest for age. [facility] Referring Provider Line: [phone] SITE ID: [id number]
[2017-05-02 18:30] LABS: BILIRUBIN,URINE NEGATIVE (NEGATIVE)
[2017-05-02 18:32] LABS: UA w/ MICROSCOPIC CHARGE YES
[2017-05-02 18:43] LABS: WBC,URINE 0-3 /HPF (0-5)
[2017-05-02 18:44] LABS: UR CULTURE IF IND NOT INDICATED
[2017-05-02 18:55] VITALS: BP 154/87
== END 2017-05-02 18:58 | disposition home or self-care (01) ==
LOC: EDUNIT# → ED 16:05
DX: E86.0 Dehydration (principal); R07.9 Chest pain, unspecified; I48.2 Chronic atrial fibrillation; Z79.01 Long term (current) use of anticoagulants; I10 Essential (primary) hypertension; E78.00 Pure hypercholesterolemia, unspecified; K21.9 Gastro-esophageal reflux disease without esophagitis; M19.90 Unspecified osteoarthritis, unspecified site; Z86.718 Personal history of other venous thrombosis and embolism
CPT/HCPCS: 36415; 71010; 80053; 81001; 81003; 83690; 84484; 85025; 85610; 87086; 93005; 96360; 96361; 99284

== ENCOUNTER 2017-05-08 21:07 | Emergency (ER) | payer MEDICARE, OTHER ==
--- NOTE | 2017-05-08 21:19 | ED Physician Documentation ---
PD HPI ABD PAIN - Stated complaint Stated Complaint: ABD PX - Chief complaint Chief Complaint: Abd Pain - History obtained from History obtained from: Patient - History of Present Illness Timing - onset: How many months ago (episodic problem (constipation) for 1-2 months) Timing - details: Gradual onset, Waxing and waning Quality: Cramping, Pain Location: RUQ Radiation: Other (across upper abdomen and to periumbilical region) Improved by: Other (no ameliorating factors) Worsened by: Other (no exacerbating factors) Associated symptoms: Constipation. No: Fever, Nausea, Vomiting, Diarrhea, Dysuria, Chest pain Similar symptoms before: Diagnosis (constipation) Recently seen: Not recently seen - Additional information Additional information: has been using magnesium citrate and miralax without relief Review of Systems Constitutional: denies: Fever Cardiac: reports: Reviewed and negative Respiratory: reports: Reviewed and negative GI: reports: Abdominal Pain, Constipation. 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 : Chronic bladder infection, Kidney stones HEENT: None Psych: None Musculoskeletal: Osteoarthritis Derm: Herpes zoster - Past Surgical History Past Surgical History: Yes Ortho: Hip replacement /LIVESTOCK INSPECTOR: Dilation and currettage HEENT: Tracheostomy - Present Medications Home Medications: Ambulatory Orders Medication Instructions Recorded Confirmed Warfarin [Coumadin] 5 mg PO SUMOWEFR@1400 10/13/12 05/08/17 Vitamin B Complex 1 each PO DAILY 04/28/16 05/08/17 Ascorbic Acid [Vitamin C] 1,000 mg PO DAILY 07/09/16 05/08/17 Sertraline HCl 25 mg PO DAILY 01/31/17 05/08/17 Warfarin [Coumadin] 2.5 mg PO TUTHSA@1400 01/31/17 05/08/17 Atorvastatin [Lipitor] 40 mg PO QPM #30 tablet 02/01/17 05/08/17 diltiaZEM CD [Cardizem Cd] 240 mg PO BID #60 capsule 02/01/17 05/08/17 Docusate Sodium 100 mg PO DAILY #30 capsule 02/13/17 05/08/17 Digoxin 125 mcg PO DAILY 03/29/17 05/08/17 raNITIdine [Zantac] 75 mg PO DAILY PRN 03/29/17 05/08/17 - Allergies Allergies/Adverse Reactions: Allergies Allergy/AdvReac Type Severity Reaction Status Date / Time aspirin AdvReac Unknown Verified 05/08/17 21:14 - Social History Does the pt smoke?: No Smoking Status: Never smoker Does the pt drink ETOH?: No Does the pt have substance abuse?: No - Immunizations Immunizations are current?: Yes - POLST Patient has POLST: No POLST Status: Full Code PD ED PE NORMAL - Vitals Vital signs reviewed: Yes - General General: Alert and oriented X 3, No acute distress, Well developed/nourished - Cardiac Cardiac: RRR, No murmur - Respiratory Respiratory: No respiratory distress, Clear bilaterally - Abdomen Abdomen: Soft, Non distended, Other (mild RUQ and epigastric tenderness without rebound or guarding) - Derm Derm: Normal color, Warm and dry Results - Vitals Vitals: Vital Signs - 24 hr 05/08/17 05/09/17 21:11 00:23 Temperature 36.5 C Heart Rate 117 H 86 Respiratory 18 16 Rate Blood Pressure 152/80 H 147/82 H O2 Saturation 96 96 Oxygen O2 Source Room air - Labs Labs: Laboratory Tests 05/08/17 05/08/17 05/08/17 22:01 22:01 22:01 WBC 5.6 RBC 4.21 Hgb 13.0 Hct 38.9 MCV 92.3 MCH 30.8 MCHC 33.3 RDW 15.4 H Plt Count 210 MPV 8.4 Neut # 4.2 Lymph # 0.9 L [place] # 0.4 Eos # 0.1 Baso # 0.0 Absolute Nucleated RBC 0.00 Nucleated RBC % 0.0 PT 44.6 H INR 4.2 H Sodium 140 Potassium 3.6 Chloride 101 Carbon Dioxide 25 Anion Gap 14.0 H BUN 19 Creatinine 0.6 Estimated GFR (MDRD) 95 Glucose 116 H Calcium 9.7 Total Bilirubin 0.6 AST 23 ALT 23 Alkaline Phosphatase 59 Total Protein 7.4 Albumin 3.9 Globulin 3.5 Albumin/Globulin Ratio 1.1 Lipase 19 L - Rads (name of study) RUQ US Radiology: Prelim report reviewed, See rad report KUB Radiology: Prelim report reviewed, See rad report PD MEDICAL DECISION MAKING - ED course Complexity details: reviewed results, re-evaluated patient, considered differential, d/w patient ED course: patient had small BM after soap suds enema. I discussed other options with her, such as fleet's enema, MOM, or even rx for PEG bowel prep; she prefers to try again with the magnesium citrate and miralax and f/u with PMD (as scheduled ) Departure - Departure Disposition: 01 Home, Self Care Clinical Impression: Constipation Condition: Good Instructions: ED Constipation Follow-Up: Jerry Lyle DO [Primary Care Provider] - (This week as scheduled) Discharge Date/Time: 05/09/17 00:24
[2017-05-08] MEDS ORDERED: SOAP SUDS ENEMA 1 EACH RC STA (21:45)
[2017-05-08 22:08] LABS: BASOPHILS % (AUTO) 0.8 %; EOSINOPHILS # (AUTO) 0.1 10^3/uL (0.0-0.7); EOSINOPHILS % (AUTO) 1.2 %; HCT - HEMATOCRIT 38.9 % (37.0-47.0); LYMPHOCYTES # (AUTO) 0.9 10^3/uL (1.5-3.5); LYMPHOCYTES % (AUTO) 16.1 %; MEAN CORPUSCULAR HEMOGLOBIN 30.8 pg (27.0-31.0); MEAN CORPUSCULAR HGB CONC 33.3 g/dL (32.0-36.0); MEAN CORPUSCULAR VOLUME 92.3 fL (81.0-99.0); MEAN PLATELET VOLUME 8.4 fL (7.9-10.8); MONOCYTES # (AUTO) 0.4 10^3/uL (0.0-1.0); MONOCYTES % (AUTO) 7.6 %; NEUTROPHILS # (AUTO) 4.2 10^3/uL (1.5-6.6); NEUTROPHILS % (AUTO) 74.3 %; RED BLOOD COUNT 4.21 10^6/uL (4.20-5.40); RED CELL DISTRIBUTION WIDTH 15.4 % (12.0-15.0); UNCORRECTED WHITE BLOOD COUNT 5.6 x10^3/uL; WHITE BLOOD COUNT 5.6 x10^3/uL (4.8-10.8)
[2017-05-08 22:14] LABS: INR 4.2 (0.8-1.2); PT - PROTHROMBIN TIME 44.6 secs (9.9-12.6)
[2017-05-08 22:20] LABS: ALBUMIN/GLOBULIN RATIO 1.1 (1.0-2.2); BILIRUBIN,TOTAL 0.6 mg/dL (0.2-1.0); CALCIUM 9.7 mg/dL (8.5-10.3); CREATININE 0.6 mg/dL (0.4-1.0); POTASSIUM 3.6 mmol/L (3.5-5.0); TOTAL PROTEIN 7.4 g/dL (6.7-8.2)
--- NOTE | 2017-05-08 23:05 | Ultrasound Preliminary Report ---
Exam: US ABDOMEN LIMITED IMPRESSION: Large stone at the neck of the gallbladder with no wall thickening or dilated ducts. [facility] SITE ID: [id number]
--- NOTE | 2017-05-08 23:08 | Ultrasound Report ---
EXAM: ABDOMEN ULTRASOUND LIMITED, RUQ EXAM DATE: 05/08/2017 10:48 PM. CLINICAL HISTORY: RUQ tenderness. History of cholelithiasis. COMPARISON: 02/15/2006, and CT 02/13/2017. TECHNIQUE: Real-time scanning was performed with static images obtained. FINDINGS: Liver: Normal in size and echotexture. 16.1 cm. Main portal vein flow: Hepatopetal. Gallbladder: 1.2 cm stone at the neck. Otherwise no stones. No wall thickening. No point tenderness. Biliary System: CBD measures 8 mm. Normal for age. Other: Mild right pelvocaliectasis. Large renal cyst 7.2 x 5.6 x 7.1 cm. No free fluid. Prominent camacho creatic duct noted 6 mm in diameter. IMPRESSION: Large stone at the neck of the gallbladder with no wall thickening or dilated ducts. [facility] Referring Provider Line: [phone] SITE ID: [id number]
--- NOTE | 2017-05-08 23:48 | XRAY Preliminary Report ---
Exam: XR ABDOMEN 1 VIEW IMPRESSION: Prominent air and stool without bowel dilatation. [facility] SITE ID: [id number]
--- NOTE | 2017-05-08 23:51 | XRAY Report ---
EXAM: ABDOMEN RADIOGRAPHY EXAM DATE: 05/08/2017 11:35 PM. CLINICAL HISTORY: Lower abdomen pain, right greater than left. COMPARISON: 03/28/2017. TECHNIQUE: 1 view. FINDINGS: Bowel Gas Pattern: Within normal limits. No dilated loops. Moderate stool retention. Other: Bilateral hip arthroplasties noted. Degenerative changes noted in the lower lumbar spine. Gall stone noted. IMPRESSION: Prominent air and stool without bowel dilatation. [facility] Referring Provider Line: [phone] SITE ID: [id number]
[2017-05-09 00:24] VITALS: BP 147/82
== END 2017-05-09 00:24 | disposition home or self-care (01) ==
LOC: ED 21:07
DX: K59.00 Constipation, unspecified (principal); I10 Essential (primary) hypertension; E78.00 Pure hypercholesterolemia, unspecified; I48.91 Unspecified atrial fibrillation; Z86.718 Personal history of other venous thrombosis and embolism; Z79.01 Long term (current) use of anticoagulants; Z96.649 Presence of unspecified artificial hip joint; Z93.0 Tracheostomy status
CPT/HCPCS: 36415; 74000; 76705; 80053; 83690; 85025; 85610; 99283; A9270

== ENCOUNTER 2017-06-02 08:00 | Outpatient (CLI) | payer MEDICARE, OTHER | END 2017-06-02 23:59 | disposition home or self-care (01) | LOC: LAB.R 08:00 | PROVIDERS: ATTEND Surgery | DX: Z12.11 Encounter for screening for malignant neoplasm of colon (principal) | CPT/HCPCS: 82270 ==

== ENCOUNTER 2017-07-01 13:56 | Emergency (ER) | payer MEDICARE, OTHER ==
--- NOTE | 2017-07-01 14:34 | ED Physician Documentation ---
PD HPI FOCAL NEURO - Stated complaint Stated Complaint: SHAKY/HEADACHE - Chief complaint Chief Complaint: Neuro - History obtained from History obtained from: Patient - History of Present Illness Timing - onset: Other (86-year-old woman with history of atrial fibrillation on warfarin presents with symptoms of bilateral hand numbness, right greater than left that she noted when she got up this morning associated with bilateral hand tremor which is not new. She has had recurrent episodes of this and review of her chart shows that about every other month she has an emergency department visit for similar symptoms, in March of last year she had a thorough workup including MRI of the brain and MRA of the neck without acute findings and no stroke.) Review of Systems Constitutional: denies: Fever, Chills Nose: denies: Rhinorrhea / runny nose, Congestion Throat: denies: Dental pain / toothache, Sore throat Cardiac: denies: Chest pain / pressure, Palpitations Respiratory: denies: Dyspnea, Cough PD PAST MEDICAL HISTORY - Past Medical History Cardiovascular: Hypertension, High cholesterol, Deep vein thrombosis, Atrial fibrillation Respiratory: Pneumonia Neuro: None Endocrine/Autoimmune: None GI: GERD, Hiatal hernia R&D ENGINEER: None : Chronic bladder infection, Kidney stones HEENT: None Psych: None Musculoskeletal: Osteoarthritis Derm: Herpes zoster - Past Surgical History Past Surgical History: Yes Ortho: Hip replacement /R&D ENGINEER: Dilation and currettage HEENT: Tracheostomy - Present Medications Home Medications: Ambulatory Orders Medication Instructions Recorded Confirmed Warfarin [Coumadin] 5 mg PO SUMOWEFR@1400 10/13/12 05/08/17 Vitamin B Complex 1 each PO DAILY 04/28/16 05/08/17 Ascorbic Acid [Vitamin C] 1,000 mg PO DAILY 07/09/16 05/08/17 Sertraline HCl 25 mg PO DAILY 01/31/17 05/08/17 Warfarin [Coumadin] 2.5 mg PO TUTHSA@1400 01/31/17 05/08/17 Atorvastatin [Lipitor] 40 mg PO QPM #30 tablet 02/01/17 05/08/17 diltiaZEM CD [Cardizem Cd] 240 mg PO BID #60 capsule 02/01/17 05/08/17 Docusate Sodium 100 mg PO DAILY #30 capsule 02/13/17 05/08/17 Digoxin 125 mcg PO DAILY 03/29/17 05/08/17 raNITIdine [Zantac] 75 mg PO DAILY PRN 03/29/17 05/08/17 - Allergies Allergies/Adverse Reactions: Allergies Allergy/AdvReac Type Severity Reaction Status Date / Time aspirin AdvReac Unknown Verified 05/08/17 21:14 - Social History Does the pt smoke?: No Smoking Status: Never smoker Does the pt drink ETOH?: No Does the pt have substance abuse?: No - Immunizations Immunizations are current?: Yes - POLST Patient has POLST: No POLST Status: Full Code PD ED PE NORMAL - Vitals Vital signs reviewed: Yes - General General: Alert and oriented X 3, No acute distress - HEENT HEENT: PERRL, EOMI - Neck Neck: Supple, no meningeal sign, No bony TTP - Cardiac Cardiac: No murmur, Other (Irregularly irregular) - Respiratory Respiratory: No respiratory distress, Clear bilaterally - Abdomen Abdomen: Soft, Non tender - Derm Derm: Normal color, Warm and dry - Extremities Extremities: No edema, No calf tenderness / cord - Neuro Neuro: Alert and oriented X 3, Normal speech NIHSS - Time Time: 14:30 - Level of Consciousness Level of consciousness: (0) Alert, Keenly responsive LOC Questions: (0) Answers both Q's correct LOC Commands: (0) Performs both correctly - Gaze Best Gaze: (0) Normal - Visual Visual: (0) No loss - Facial Palsy Facial Palsy: (0) Normal, symmetrical movement - Motor Arms (both separate) Motor Arm (right): (0) No drift Motor Arm (left): (0) No drift - Motor Legs (both separate) Motor Leg (right): (0) No drift Motor Leg (left): (0) No drift - Limb Ataxia Limb Ataxia: (0) Absent - Sensory Sensory: (0) Normal - Best Language Best Language: (0) No aphasia - Dysarthria Dysarthria: (0) Normal - Extinction and Inattention (formally neg Extinction and inattention: (0) No abnormality - Total Score/Results Total Score/Result: 0 Results - Vitals Vitals: Vital Signs - 24 hr 07/01/17 07/01/17 13:58 14:38 Temperature 36.5 C Heart Rate 126 H 70 Respiratory 16 18 Rate Blood Pressure 117/55 L 108/60 O2 Saturation 96 99 Oxygen O2 Source Room air - EKG (time done) 1408 Rate: Rate (enter#) (83) Rhythm: Atrial fibrillation [place]: Normal Ischemia: Non specific changes (Flat diffuse T waves). No: ST elevation c/w ischemia Computer interpretation: Agree with computer - Labs Labs: Laboratory Tests 07/01/17 07/01/17 07/01/17 14:45 14:45 14:45 WBC 5.7 RBC 4.03 L Hgb 12.8 Hct 37.2 MCV 92.4 MCH 31.7 H MCHC 34.3 RDW 14.9 Plt Count 207 MPV 8.6 Neut # 4.4 Lymph # 0.8 L [place] # 0.3 Eos # 0.0 Baso # 0.1 Absolute Nucleated RBC 0.00 Nucleated RBC % 0.0 PT 25.5 H INR 2.3 H Sodium 138 Potassium 4.0 Chloride 101 Carbon Dioxide 22 Anion Gap 15.0 H BUN 17 Creatinine 0.7 Estimated GFR (MDRD) 79 L Glucose 181 H Calcium 9.2 Total Bilirubin 0.8 AST 29 ALT 21 Alkaline Phosphatase 55 Total Protein 7.1 Albumin 3.9 Globulin 3.2 Albumin/Globulin Ratio 1.2 Lipase < 10 L - Rads (name of study) CT Head Radiology: EMP read contemporaneously (atrophy NAD) PD MEDICAL DECISION MAKING - ED course ED course: 86-year-old woman with recurrent TIAs presents with symptoms that really are referrable to TIA because they cross the midline, regardless she is on maximal therapy to prevent vascular issues given her A. fib and she is adequately anticoagulated. Departure - Departure Disposition: 01 Home, Self Care Clinical Impression: Atrial fibrillation and flutter, Arm paresthesia, right, Anticoagulant long- term use Condition: Good Record reviewed to determine appropriate education?: Yes Comments: Call your doctor to arrange a follow-up appointment, make the next available appointment. In the interim, return anytime if worse or if new symptoms develop.
[2017-07-01 14:49] LABS: BASOPHILS # (AUTO) 0.1 10^3/uL (0.0-0.1); EOSINOPHILS % (AUTO) 0.6 %; HGB - HEMOGLOBIN 12.8 g/dL (12.0-16.0); LYMPHOCYTES # (AUTO) 0.8 10^3/uL (1.5-3.5); LYMPHOCYTES % (AUTO) 14.9 %; MEAN CORPUSCULAR HEMOGLOBIN 31.7 pg (27.0-31.0); MEAN CORPUSCULAR HGB CONC 34.3 g/dL (32.0-36.0); MEAN CORPUSCULAR VOLUME 92.4 fL (81.0-99.0); MEAN PLATELET VOLUME 8.6 fL (7.9-10.8); MONOCYTES # (AUTO) 0.3 10^3/uL (0.0-1.0); MONOCYTES % (AUTO) 5.7 %; NEUTROPHILS # (AUTO) 4.4 10^3/uL (1.5-6.6); NEUTROPHILS % (AUTO) 77.8 %; PLT - PLATELET COUNT 207 10^3/uL (130-450); RED BLOOD COUNT 4.03 10^6/uL (4.20-5.40); RED CELL DISTRIBUTION WIDTH 14.9 % (12.0-15.0); WHITE BLOOD COUNT 5.7 x10^3/uL (4.8-10.8)
[2017-07-01 14:59] LABS: INR 2.3 (0.8-1.2); PT - PROTHROMBIN TIME 25.5 secs (9.9-12.6)
[2017-07-01 15:18] LABS: ALBUMIN 3.9 g/dL (3.2-5.5); ALBUMIN/GLOBULIN RATIO 1.2 (1.0-2.2); ALKALINE PHOSPHATASE 55 IU/L (42-121); ALT ALANINE AMINOTRANSFERASE 21 IU/L (10-60); AST ASPARTATE AMINOTRANSFERASE 29 IU/L (10-42); BILIRUBIN,TOTAL 0.8 mg/dL (0.2-1.0); BUN - BLOOD UREA NITROGEN 17 mg/dL (6-20); CALCIUM 9.2 mg/dL (8.5-10.3); CARBON DIOXIDE - CO2 22 mmol/L (21-32); CHLORIDE 101 mmol/L (101-111); CREATININE 0.7 mg/dL (0.4-1.0); GFR - MDRD 79 (>89); GLUCOSE 181 mg/dL (70-100); SODIUM 138 mmol/L (135-145); TOTAL PROTEIN 7.1 g/dL (6.7-8.2)
[2017-07-01 15:26] LABS: LIPASE < 10 U/L (22-51)
--- NOTE | 2017-07-01 15:38 | CT Report ---
EXAM: CT HEAD EXAM DATE: 07/01/2017 03:06 PM. CLINICAL HISTORY: Increasing right sided numbness. COMPARISON: None. TECHNIQUE: Multiaxial CT images were obtained from the foramen magnum to the vertex. Reformats: Coron al. IV contrast: None. In accordance with CT protocol optimization, one or more of the following dose reduction techniques w ere utilized for this exam: automated exposure control, adjustment of mA and/or KV based on patient s ize, or use of iterative reconstructive technique. FINDINGS: Parenchyma: No intraparenchymal hemorrhage. No evidence of mass, midline shift, or CT findings of acu te infarction. Carrion-white differentiation is distinct. Mild chronic microangiopathic white matter [place] nges are evident. Extraaxial Spaces: Normal for age. No subdural or epidural collections identified. Ventricles: The ventricles and cortical sulci are prominent, consistent with age-related tissue loss. Sinuses and orbits: Imaged paranasal sinuses, orbits, and mastoids show no significant abnormality. Bones: No evidence of fracture or calvarial defect. Other: None. IMPRESSION: Generalized age-related cortical atrophic changes without evidence of acute intracranial abnormality. [facility] Referring Provider Line: [phone] SITE ID: [id number]
[2017-07-01 16:08] VITALS: BP 106/55
== END 2017-07-01 18:12 | disposition home or self-care (01) ==
LOC: ED 13:56
DX: I48.91 Unspecified atrial fibrillation (principal); I48.92 Unspecified atrial flutter; R20.2 Paresthesia of skin; I10 Essential (primary) hypertension; Z79.01 Long term (current) use of anticoagulants; Z86.718 Personal history of other venous thrombosis and embolism; Z93.0 Tracheostomy status
CPT/HCPCS: 36415; 70450; 80053; 83690; 85025; 85610; 93005; 99283; 99284

== ENCOUNTER 2017-09-04 09:42 | Emergency (ER) | payer MEDICARE, OTHER ==
[2017-09-04 09:56] VITALS: BP 158/97
--- NOTE | 2017-09-04 10:23 | ED Physician Documentation ---
PD HPI DYSPNEA - Stated complaint Stated Complaint: HIGH BP/RECENT PACEMAKER/HEADACHE - Chief complaint Chief Complaint: General - History obtained from History obtained from: Patient - History of Present Illness Timing - onset: Today Timing - onset during: Rest (she awoke with some frontal headache, felt geenrally shaky and weak, and then took BP and noted it to be 180s systolic. Recently had pacemaker 2 weeks ago so was concerned and called EMS for evaluation. Denies chest pain.) Timing - details: Abrupt onset, Now resolved Inciting event(s): No: Out of meds, URI Associated symptoms: Chest pain / discomfort, Bilateral edema (mild chronic). No: Fever, Cough, Wheezing, Palpitations Similar symptoms before: Has not had sx before Recently seen: Surgery (pacemaker placed just over 2 weeks ago) Review of Systems Constitutional: denies: Fever, Chills, Myalgias Nose: denies: Rhinorrhea / runny nose, Congestion Throat: denies: Sore throat Respiratory: denies: Cough GI: denies: Abdominal Pain, Vomiting, Diarrhea Musculoskeletal: denies: Neck pain, Back pain Neurologic: denies: Focal weakness, Numbness, Near syncope Endocrine: reports: Easy bruising / bleeding. 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 : Chronic bladder infection, Kidney stones HEENT: None Psych: None Musculoskeletal: Osteoarthritis Derm: Herpes zoster - Past Surgical History Past Surgical History: Yes Ortho: Hip replacement /CHUCKING MACHINE SET UP OPERATOR: Dilation and currettage Cardiovascular: Pacemaker HEENT: Tracheostomy - Present Medications Home Medications: Ambulatory Orders Medication Instructions Recorded Confirmed Warfarin [Coumadin] 5 mg PO SUMOWEFR@1400 10/13/12 05/08/17 Vitamin B Complex 1 each PO DAILY 04/28/16 05/08/17 Ascorbic Acid [Vitamin C] 1,000 mg PO DAILY 07/09/16 05/08/17 Sertraline HCl 25 mg PO DAILY 01/31/17 05/08/17 Warfarin [Coumadin] 2.5 mg PO TUTHSA@1400 01/31/17 05/08/17 Atorvastatin [Lipitor] 40 mg PO QPM #30 tablet 02/01/17 05/08/17 diltiaZEM CD [Cardizem Cd] 240 mg PO BID #60 capsule 02/01/17 05/08/17 Docusate Sodium 100 mg PO DAILY #30 capsule 02/13/17 05/08/17 Digoxin 125 mcg PO DAILY 03/29/17 05/08/17 raNITIdine [Zantac] 75 mg PO DAILY PRN 03/29/17 05/08/17 - Allergies Allergies/Adverse Reactions: Allergies Allergy/AdvReac Type Severity Reaction Status Date / Time aspirin AdvReac Unknown Verified 05/08/17 21:14 - Social History Does the pt smoke?: No Smoking Status: Never smoker Does the pt drink ETOH?: No Does the pt have substance abuse?: No - Immunizations Immunizations are current?: Yes - POLST Patient has POLST: No POLST Status: Full Code PD ED PE NORMAL - Vitals Vital signs reviewed: Yes - General General: Alert and oriented X 3, No acute distress, Well developed/nourished - HEENT HEENT: Pharynx benign - Neck Neck: Supple, no meningeal sign, No adenopathy - Cardiac Cardiac: RRR, No murmur - Respiratory Respiratory: Clear bilaterally, Other (left chest pacer pouch without signs of infection. ) - Abdomen Abdomen: Soft, Non tender - Derm Derm: Normal color, Warm and dry - Extremities Extremities: No deformity, No tenderness to palpate, Normal ROM s pain, No calf tenderness / cord, Other (1+ edema both legs without tenderness. ) - Neuro Neuro: Alert and oriented X 3, No motor deficit, Normal speech Results - Vitals Vitals: Vital Signs - 24 hr 09/04/17 09:53 Temperature 36.7 C Heart Rate 90 Respiratory 16 Rate Blood Pressure 158/97 H O2 Saturation 94 Oxygen O2 Source Room air - EKG (time done) 09:59 Rate: Rate (enter#) (90) Rhythm: Paced QRS: Normal Ischemia: Normal ST segments. No: ST elevation c/w ischemia, ST depression - Labs Labs: Laboratory Tests 09/04/17 10:54 Whole Blood INR 2.5 H PD MEDICAL DECISION MAKING - ED course Complexity details: considered differential (BP is improved here and was not that high at home (180s). Pacer pouch appears good. Heart rhythm shows pacer capture. ), d/w patient Departure - Departure Disposition: 01 Home, Self Care Clinical Impression: Anticoagulation goal of INR 2 to 3, Frontal headache, Transient hypertension Condition: Stable Record reviewed to determine appropriate education?: Yes Instructions: ED Cephalgia Unspecified Follow-Up: Jerry Lyle DO [Primary Care Provider] - Comments: Continue usual medications. Your Coumadin level/INR is 2.5 today. Tylenol if needed for headache. Recheck if recurrent symptoms or other problems develop. You look okay at this point and I do not get a sense of any significant process. Discharge Date/Time: 09/04/17 11:42
[2017-09-04] MEDS ORDERED: ACETAMINOPHEN 325 MG TABLET PO STA (10:40)
[2017-09-04] MEDS ORDERED: traMADol 50 MG TABLET PO STA (10:40)
== END 2017-09-04 11:42 | disposition home or self-care (01) ==
LOC: ED 09:42
DX: R51 Headache (principal); I10 Essential (primary) hypertension; Z95.0 Presence of cardiac pacemaker; E78.00 Pure hypercholesterolemia, unspecified; I48.91 Unspecified atrial fibrillation; Z79.01 Long term (current) use of anticoagulants; Z86.718 Personal history of other venous thrombosis and embolism; K21.9 Gastro-esophageal reflux disease without esophagitis; M19.90 Unspecified osteoarthritis, unspecified site; Z93.0 Tracheostomy status
CPT/HCPCS: 85610; 93005; 99282; 99283; A9270

== ENCOUNTER 2018-01-03 05:58 | Day surgery (SDC) | payer MEDICARE, OTHER ==
[2018-01-03] MEDS ORDERED: LACTATED RINGERS 1,000 ML IV ONE (06:48)
[2018-01-03 08:22] LABS: BASOPHILS # (AUTO) 0.1 10^3/uL (0.0-0.1); BASOPHILS % (AUTO) 1.7 %; EOSINOPHILS % (AUTO) 0.6 %; HGB - HEMOGLOBIN 13.3 g/dL (12.0-16.0); LYMPHOCYTES # (AUTO) 1.1 10^3/uL (1.5-3.5); LYMPHOCYTES % (AUTO) 27.3 %; MEAN CORPUSCULAR HEMOGLOBIN 30.5 pg (27.0-31.0); MEAN CORPUSCULAR HGB CONC 33.2 g/dL (32.0-36.0); MEAN CORPUSCULAR VOLUME 91.8 fL (81.0-99.0); MEAN PLATELET VOLUME 8.6 fL (7.9-10.8); MONOCYTES # (AUTO) 0.3 10^3/uL (0.0-1.0); MONOCYTES % (AUTO) 7.2 %; NEUTROPHILS # (AUTO) 2.6 10^3/uL (1.5-6.6); NEUTROPHILS % (AUTO) 63.2 %; PLT - PLATELET COUNT 156 10^3/uL (130-450); RED BLOOD COUNT 4.37 10^6/uL (4.20-5.40); RED CELL DISTRIBUTION WIDTH 16.2 % (12.0-15.0)
[2018-01-03 08:38] LABS: CALCIUM 9.8 mg/dL (8.5-10.3); CREATININE 0.6 mg/dL (0.4-1.0)
--- NOTE | 2018-01-03 08:46 | ANESTHESIA ---
Pre-Anesthesia VS, & Labs - Diagnosis change in bowel habits - Procedure colonoscopy Vital Signs: Temp Pulse Resp BP Pulse Ox 36.7 C 18 171/79 H 97 01/03/18 06:29 01/03/18 08:06 01/03/18 08:06 01/03/18 08:06 Height 5 ft 5 in Weight (kg) 79 kg Body Mass Index 28.1 - NPO >8 hours - Is Patient ?: No - Lab Results Fish Bones: 01/03/18 08:10 01/03/18 08:10 Home Medications and Allergies Home Medications: Ambulatory Orders Medication Instructions Recorded Confirmed Enoxaparin [Lovenox] 80 mg SUBQ Q12H 01/02/18 01/03/18 Allergies/Adverse Reactions: Allergies Allergy/AdvReac Type Severity Reaction Status Date / Time BISHOP Inhibitors Allergy Unknown Verified 01/02/18 12:12 atropine Allergy Unknown Verified 01/02/18 12:12 cefpodoxime Allergy Unknown Verified 01/02/18 12:12 ciprofloxacin [From Cipro] Allergy Unknown Verified 01/02/18 12:12 clopidogrel Allergy Unknown Verified 01/02/18 12:12 esomeprazole Allergy Unknown Verified 01/02/18 12:12 flecainide Allergy Unknown Verified 01/02/18 12:12 metoprolol Allergy Unknown Verified 01/02/18 12:12 niacin Allergy Unknown Verified 01/02/18 12:12 NSAIDS (Non-Steroidal Allergy Unknown Verified 01/02/18 12:12 Anti-Inflamma Oevkkpo-Xuf-Ybv Reductase Allergy Unknown Verified 01/02/18 12:12 Inhibitor Sulfa (Sulfonamide Allergy Unknown Verified 01/02/18 12:12 Antibiotics) aspirin AdvReac Unknown Verified 05/08/17 21:14 Anes History & Medical History - Anesthetic History Anesthesia Complications: reports: Other-see comment (stops breathing) Family history of Anesthesia Complications: Reports (members of family have under anesthesia) Family history of Malignant Hyperthermia: Denies - Medical History Cardiovascular: reports: Hypertension, High cholesterol, Deep vein thrombosis, Atrial fibrillation, Other Pulmonary: reports: Pneumonia Gastrointestinal: reports: GERD, Hiatal hernia, Colon polyps, Chronic constipation Urinary: reports: Chronic bladder infection, Kidney stones, Other Musculoskeletal: reports: Osteoarthritis, Fatigue, Other Endocrine/Autoimmune: reports: HyPOthyroidism Blood Disorders: reports: Anemia Skin: reports: Herpes zoster Smoking Status: Never smoker - Surgical History General: Colonoscopy, EGD Eyes Ears Nose Throat (EENT): Tonsil/Adenoidectomy, Tracheostomy, Other Cardiothoracic: Pacemaker, Other Gynecologic: Dilation and currettage Orthopedic: Hip replacement Exam General: Alert, No acute distress Dental: WNL Mouth Openin Fingerbreadth Mallampati classification: II Thyromental Distance: greater than 6 cm Respiratory: Lungs clear Cardiovascular: Regular rate, No murmurs Mental/Cognitive Status: Alert/Oriented X3 Plan Anesthesia Type: MAC Consent for Procedure(s) Verified and Reviewed: Yes Code Status: Attempt Resuscitation ASA classification: 3-Severe systemic disease Is this case an emergency?: No
[2018-01-03] MEDS ORDERED: PROPOFOL 200 MG/20 ML VIAL IVP ONE (09:43)
[2018-01-03 10:29] VITALS: BP 123/51
== END 2018-01-03 05:59 | disposition home or self-care (01) ==
LOC: SDS 05:58
PROVIDERS: ATTEND Surgery
PROC: 0DBK8ZZ Excision of Ascending Colon, Via Natural or Artificial Opening Endoscopic (ICD-10-PCS; principal; 2018-01-03 08:30)
DX: R19.4 Change in bowel habit (principal); I48.91 Unspecified atrial fibrillation; Z79.01 Long term (current) use of anticoagulants; I48.92 Unspecified atrial flutter; D12.2 Benign neoplasm of ascending colon; K57.30 Diverticulosis of large intestine without perforation or abscess without bleeding; K64.8 Other hemorrhoids; K21.9 Gastro-esophageal reflux disease without esophagitis; R42 Dizziness and giddiness; Z95.0 Presence of cardiac pacemaker
CPT/HCPCS: 36415; 45385; 80048; 84484; 85025; 93005; J7120

== ENCOUNTER 2018-01-04 14:52 | Emergency (ER) | payer MEDICARE, OTHER ==
--- NOTE | 2018-01-04 15:07 | ED Physician Documentation ---
PD HPI FOCAL NEURO - Stated complaint Stated Complaint: CANT TALK OR FORM WORDS - History obtained from History obtained from: Patient, Family - History of Present Illness Timing - onset: Today (87-year-old woman with history of atrial fibrillation on warfarin, status post pacemaker placement earlier this year. She was on a Lovenox bridge for colonoscopy that happened yesterday and restarted her warfarin today. [facility] [place] [facility] [employer] and had a 2-3 minute episode of word finding difficulty and confusion now better but complains of bilateral arm tingling. That is a recurrent complaint which she has been worked up many times before for. 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 : Chronic bladder infection, Kidney stones, Other HEENT: Chronic vision loss Psych: Depression, Anxiety Musculoskeletal: Osteoarthritis, Fatigue, Other Derm: Herpes zoster - Past Surgical History Past Surgical History: Yes General: Colonoscopy, EGD Ortho: Hip replacement /HEEL ATTACHER WOOD: Dilation and currettage Cardiovascular: Pacemaker, Other HEENT: Tonsil/Adenoidectomy, Tracheostomy, Other - Present Medications Home Medications: Ambulatory Orders Medication Instructions Recorded Confirmed Enoxaparin [Lovenox] 80 mg SUBQ Q12H 01/02/18 01/03/18 - Allergies Allergies/Adverse Reactions: Allergies Allergy/AdvReac Type Severity Reaction Status Date / Time BISHOP Inhibitors Allergy Unknown Verified 01/02/18 12:12 atropine Allergy Unknown Verified 01/02/18 12:12 cefpodoxime Allergy Unknown Verified 01/02/18 12:12 ciprofloxacin [From Cipro] Allergy Unknown Verified 01/02/18 12:12 clopidogrel Allergy Unknown Verified 01/02/18 12:12 esomeprazole Allergy Unknown Verified 01/02/18 12:12 flecainide Allergy Unknown Verified 01/02/18 12:12 metoprolol Allergy Unknown Verified 01/02/18 12:12 niacin Allergy Unknown Verified 01/02/18 12:12 NSAIDS (Non-Steroidal Allergy Unknown Verified 01/02/18 12:12 Anti-Inflamma Rlrbfrj-Hyu-Mns Reductase Allergy Unknown Verified 01/02/18 12:12 Inhibitor Sulfa (Sulfonamide Allergy Unknown Verified 01/02/18 12:12 Antibiotics) aspirin AdvReac Unknown Verified 05/08/17 21:14 - Social History Does the pt smoke?: No Smoking Status: Never smoker Does the pt drink ETOH?: No Does the pt have substance abuse?: No - Immunizations Immunizations are current?: Yes - POLST Patient has POLST: No POLST Status: Full Code PD ED PE NORMAL - Vitals Vital signs reviewed: Yes - General General: Alert and oriented X 3, No acute distress - HEENT HEENT: PERRL, EOMI - Neck Neck: Supple, no meningeal sign, No bony TTP - Cardiac Cardiac: RRR, No murmur - Respiratory Respiratory: No respiratory distress, Clear bilaterally - Abdomen Abdomen: Non tender - Derm Derm: Normal color, Warm and dry - Extremities Extremities: No edema, No calf tenderness / cord - Neuro Neuro: Alert and oriented X 3, Normal speech Eye Opening: Spontaneous Motor: Obeys Commands - Psych Psych: Normal mood NIHSS - Time Time: 14:55 - Level of Consciousness Level of consciousness: (0) Alert, Keenly responsive LOC Questions: (0) Answers both Q's correct LOC Commands: (0) Performs both correctly - Gaze Best Gaze: (0) Normal - Visual Visual: (0) No loss - Facial Palsy Facial Palsy: (0) Normal, symmetrical movement - Motor Arms (both separate) Motor Arm (right): (0) No drift Motor Arm (left): (0) No drift - Motor Legs (both separate) Motor Leg (right): (0) No drift Motor Leg (left): (0) No drift - Limb Ataxia Limb Ataxia: (0) Absent - Sensory Sensory: (0) Normal - Best Language Best Language: (0) No aphasia - Dysarthria Dysarthria: (0) Normal - Extinction and Inattention (formally neg Extinction and inattention: (0) No abnormality - Total Score/Results Total Score/Result: 0 Results - Vitals Vitals: Vital Signs - 24 hr 01/04/18 14:53 Temperature 36.6 C Heart Rate 70 Respiratory 18 Rate Blood Pressure 178/116 H O2 Saturation 96 Oxygen O2 Source Room air - EKG (time done) 1508 Rate: Rate (enter#) (56) Rhythm: Paced Computer interpretation: Agree with computer - Labs Labs: Laboratory Tests 01/04/18 01/04/18 01/04/18 15:13 15:13 15:13 WBC 5.1 RBC 4.12 L Hgb 12.8 Hct 36.8 L MCV 89.3 MCH 31.0 MCHC 34.8 RDW 16.0 H Plt Count 186 MPV 8.3 Neut # (Auto) 2.9 Lymph # (Auto) 1.7 [place] # (Auto) 0.4 Eos # (Auto) 0.0 Baso # (Auto) 0.0 Absolute Nucleated RBC 0.00 Nucleated RBC % 0.0 PT 12.7 H INR 1.1 Sodium 139 Potassium 4.2 Chloride 107 Carbon Dioxide 24 Anion Gap 8.0 BUN 20 Creatinine 0.5 Estimated GFR (MDRD) 117 Glucose 103 H Calcium 9.8 Total Bilirubin 1.0 AST 44 H ALT 48 Alkaline Phosphatase 52 Total Protein 7.4 Albumin 4.3 Globulin 3.1 Albumin/Globulin Ratio 1.4 Lipase 24 PD MEDICAL DECISION MAKING - ED course ED course: 87-year-old woman with atrial fibrillation on warfarin presents with a very short episode of was initially described as word finding difficulty, but per the it sounded more like she just forgot which she is looking forward and store. Neurologic exam is normal now. This could have been a TIA, and she is not currently anticoagulated because of colonoscopy yesterday. Prior to the colonoscopy she had been taking Lovenox and I called her primary care physician , Dr. Lyle to talk about putting her back on Lovenox until she was therapeutic again. Per her, the patient did not understand the instructions and was supposed to restart the Lovenox after the colonoscopy. She still has the Lovenox and the patient understands she should restart it. - Sepsis Event Vital Signs: Vital Signs - 24 hr 01/04/18 14:53 Temperature 36.6 C Heart Rate 70 Respiratory 18 Rate Blood Pressure 178/116 H O2 Saturation 96 Oxygen O2 Source Room air Departure - Departure Disposition: 01 Home, Self Care Clinical Impression: Atrial fibrillation and flutter, Anticoagulant long-term use TIA (transient ischemic attack) Qualifiers: Transient cerebral ischemia type: unspecified Qualified Code(s): G45.9 - Transient cerebral ischemic attack, unspecified Condition: Good Record reviewed to determine appropriate education?: Yes Comments: Restart the Lovenox shots today and follow-up with Dr. Lyle on Tuesday. Continue your warfarin and have an INR check on Tuesday.
[2018-01-04 15:19] LABS: BASOPHILS % (AUTO) 0.7 %; EOSINOPHILS % (AUTO) 0.8 %; HGB - HEMOGLOBIN 12.8 g/dL (12.0-16.0); LYMPHOCYTES # (AUTO) 1.7 10^3/uL (1.5-3.5); LYMPHOCYTES % (AUTO) 33.8 %; MEAN CORPUSCULAR HGB CONC 34.8 g/dL (32.0-36.0); MEAN CORPUSCULAR VOLUME 89.3 fL (81.0-99.0); MEAN PLATELET VOLUME 8.3 fL (7.9-10.8); MONOCYTES # (AUTO) 0.4 10^3/uL (0.0-1.0); MONOCYTES % (AUTO) 8.1 %; NEUTROPHILS # (AUTO) 2.9 10^3/uL (1.5-6.6); NEUTROPHILS % (AUTO) 56.6 %; PLT - PLATELET COUNT 186 10^3/uL (130-450); RED BLOOD COUNT 4.12 10^6/uL (4.20-5.40); WHITE BLOOD COUNT 5.1 x10^3/uL (4.8-10.8)
[2018-01-04 15:26] LABS: INR 1.1 (0.8-1.2); PT - PROTHROMBIN TIME 12.7 secs (9.9-12.6)
[2018-01-04 15:28] LABS: ALBUMIN 4.3 g/dL (3.2-5.5); ALBUMIN/GLOBULIN RATIO 1.4 (1.0-2.2); CALCIUM 9.8 mg/dL (8.5-10.3); CREATININE 0.5 mg/dL (0.4-1.0); TOTAL PROTEIN 7.4 g/dL (6.7-8.2)
--- NOTE | 2018-01-04 15:31 | CT Report ---
Procedure Date: 01/04/2018 Accession Number: [id number] / [id number] Procedure: CT - Head W/O CPT Code: FULL RESULT: EXAM: CT HEAD EXAM DATE: 01/04/2018 03:23 PM. CLINICAL HISTORY: Transient ischemic attack. COMPARISON: Head w/o contrast 07/01/2017. TECHNIQUE: Multiaxial CT images were obtained from the foramen magnum to the vertex. Reformats: Sagittal and coronal. IV contrast: None. In accordance with CT protocol optimization, one or more of the following dose reduction techniques were utilized for this exam: automated exposure control, adjustment of mA and/or KV based on patient size, or use of iterative reconstructive technique. FINDINGS: Parenchyma: No intraparenchymal hemorrhage. No evidence of mass, midline shift, or CT findings of infarction. Carrion-white differentiation is distinct. Extraaxial Spaces: Normal for age. No subdural or epidural collections identified. Ventricles: Normal in size and position. Sinuses and Orbits: Imaged paranasal sinuses, orbits, and mastoids show no significant abnormality. Bones: No evidence of fracture or calvarial defect. Other: None. IMPRESSION: No acute intracranial hemorrhage. [facility]
[2018-01-04 16:03] VITALS: BP 146/73
== END 2018-01-04 16:10 | disposition home or self-care (01) ==
LOC: ED 14:52
DX: I48.91 Unspecified atrial fibrillation (principal); I48.92 Unspecified atrial flutter; G45.9 Transient cerebral ischemic attack, unspecified; T45.516A Underdosing of anticoagulants, initial encounter; Z91.138 Patient's unintentional underdosing of medication regimen for other reason; I10 Essential (primary) hypertension; Z79.01 Long term (current) use of anticoagulants; Z95.0 Presence of cardiac pacemaker; Z86.718 Personal history of other venous thrombosis and embolism
CPT/HCPCS: 36415; 70450; 80053; 83690; 85025; 85610; 93005; 99283; 99284

== ENCOUNTER 2018-01-06 06:37 | Emergency (ER) | payer MEDICARE, OTHER ==
[2018-01-06 07:28] LABS: INR 1.3 (0.8-1.2); PT - PROTHROMBIN TIME 14.5 secs (9.9-12.6)
[2018-01-06 07:33] LABS: BASOPHILS % (AUTO) 0.9 %; EOSINOPHILS # (AUTO) 0.1 10^3/uL (0.0-0.7); EOSINOPHILS % (AUTO) 1.3 %; HGB - HEMOGLOBIN 12.1 g/dL (12.0-16.0); LYMPHOCYTES # (AUTO) 1.3 10^3/uL (1.5-3.5); LYMPHOCYTES % (AUTO) 29.4 %; MEAN CORPUSCULAR HEMOGLOBIN 30.8 pg (27.0-31.0); MEAN CORPUSCULAR HGB CONC 34.2 g/dL (32.0-36.0); MEAN PLATELET VOLUME 8.7 fL (7.9-10.8); MONOCYTES # (AUTO) 0.3 10^3/uL (0.0-1.0); MONOCYTES % (AUTO) 7.8 %; NEUTROPHILS # (AUTO) 2.6 10^3/uL (1.5-6.6); NEUTROPHILS % (AUTO) 60.6 %; PLT - PLATELET COUNT 180 10^3/uL (130-450); RED BLOOD COUNT 3.92 10^6/uL (4.20-5.40); RED CELL DISTRIBUTION WIDTH 15.9 % (12.0-15.0); WHITE BLOOD COUNT 4.3 x10^3/uL (4.8-10.8)
[2018-01-06 07:40] LABS: ALBUMIN 3.9 g/dL (3.2-5.5); ALBUMIN/GLOBULIN RATIO 1.3 (1.0-2.2); BILIRUBIN,TOTAL 0.8 mg/dL (0.2-1.0); CALCIUM 9.3 mg/dL (8.5-10.3); CREATININE 0.7 mg/dL (0.4-1.0)
[2018-01-06] MEDS ORDERED: SODIUM CHLORIDE 0.9% 1,000 ML IV ONE (08:45)
--- NOTE | 2018-01-06 08:51 | ED Physician Documentation ---
PD HPI GI BLEED - Stated complaint Stated Complaint: RECTAL BLEEDING - Chief complaint Chief Complaint: Abd Pain - History obtained from History obtained from: Patient, Family - History of Present Illness Timing - onset: Last night Timing - duration: Hours Timing - details: Abrupt onset, Still present Associated symptoms: BRBPR Contributing factors: Anticoagulated Improved by: Laying still Similar symptoms before: Has not had sx before Recently seen: Surgery - Additional information Additional information: 87-year-old female on coumadin for afib has had a recent colonoscopy with polyp removal 4 days ago. Her coumadin was stopped and 2 days ago she was seen in the ED for transient memory loss/TIA and bridging therapy with lovenox was started. Last night she had blood in the commode and this morning this is much improved. She has mild headache and is lightheaded. 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 : Chronic bladder infection, Kidney stones, Other HEENT: Chronic vision loss Psych: Depression, Anxiety Musculoskeletal: Osteoarthritis, Fatigue, Other Derm: Herpes zoster - Past Surgical History Past Surgical History: Yes General: Colonoscopy, EGD Ortho: Hip replacement /LAWYER REAL ESTATE: Dilation and currettage Cardiovascular: Pacemaker, Other HEENT: Tonsil/Adenoidectomy, Tracheostomy, Other - Present Medications Home Medications: Ambulatory Orders Medication Instructions Recorded Confirmed Enoxaparin [Lovenox] 80 mg SUBQ Q12H 01/02/18 01/03/18 - Allergies Allergies/Adverse Reactions: Allergies Allergy/AdvReac Type Severity Reaction Status Date / Time BISHOP Inhibitors Allergy Unknown Verified 01/06/18 06:46 atropine Allergy Unknown Verified 01/06/18 06:46 cefpodoxime Allergy Unknown Verified 01/06/18 06:46 ciprofloxacin [From Cipro] Allergy Unknown Verified 01/06/18 06:46 clopidogrel Allergy Unknown Verified 01/06/18 06:46 esomeprazole Allergy Unknown Verified 01/06/18 06:46 flecainide Allergy Unknown Verified 01/06/18 06:46 metoprolol Allergy Unknown Verified 01/06/18 06:46 niacin Allergy Unknown Verified 01/06/18 06:46 NSAIDS (Non-Steroidal Allergy Unknown Verified 01/06/18 06:46 Anti-Inflamma Gbhfual-Igl-Quv Reductase Allergy Unknown Verified 01/02/18 12:12 Inhibitor Sulfa (Sulfonamide Allergy Unknown Verified 01/02/18 12:12 Antibiotics) aspirin AdvReac Unknown Verified 05/08/17 21:14 - Social History Does the pt smoke?: No Smoking Status: Never smoker Does the pt drink ETOH?: No Does the pt have substance abuse?: No - Immunizations Immunizations are current?: Yes - POLST Patient has POLST: No POLST Status: Full Code PD ED PE NORMAL - Vitals Vital signs reviewed: Yes (hypertensiev ) - General General: No acute distress, Well developed/nourished, Other (does not recall exact day thought she was seen here yesterday but was seen by Heidi yesterday and here the day prior) - HEENT HEENT: Atraumatic, PERRL - Neck Neck: Supple, no meningeal sign, No bony TTP - Cardiac Cardiac: RRR, No murmur - Respiratory Respiratory: No respiratory distress, Clear bilaterally - Abdomen Abdomen: Soft, Non tender - Back Back: No CVA TTP, No spinal TTP - Derm Derm: Normal color, Warm and dry, No rash - Extremities Extremities: No deformity, No edema - Neuro 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: 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, No motor deficit, No sensory deficit, Normal speech Eye Opening: Spontaneous Motor: Obeys Commands Verbal: Oriented GCS Score: 15 - Psych Psych: Normal mood, Normal affect Results - Vitals Vitals: Vital Signs - 24 hr 01/06/18 01/06/18 06:46 10:47 Temperature 36.5 C 36.4 C L Heart Rate 53 L 54 L Respiratory 18 15 Rate Blood Pressure 170/88 H 170/74 H O2 Saturation 98 98 Oxygen O2 Source Room air - Labs Labs: Laboratory Tests 01/06/18 01/06/18 01/06/18 07:15 07:15 07:15 WBC 4.3 L RBC 3.92 L Hgb 12.1 Hct 35.3 L MCV 90.0 MCH 30.8 MCHC 34.2 RDW 15.9 H Plt Count 180 MPV 8.7 Neut # (Auto) 2.6 Lymph # (Auto) 1.3 L [place] # (Auto) 0.3 Eos # (Auto) 0.1 Baso # (Auto) 0.0 Absolute Nucleated RBC 0.00 Nucleated RBC % 0.0 PT 14.5 H INR 1.3 H APTT 30.3 Sodium 142 Potassium 4.4 Chloride 107 Carbon Dioxide 27 Anion Gap 8.0 BUN 25 H Creatinine 0.7 Estimated GFR (MDRD) 79 L Glucose 109 H Calcium 9.3 Total Bilirubin 0.8 AST 32 ALT 46 Alkaline Phosphatase 49 Total Protein 7.0 Albumin 3.9 Globulin 3.1 Albumin/Globulin Ratio 1.3 Lipase 26 01/06/18 11:16 WBC RBC Hgb 12.0 Hct 35.9 L MCV MCH MCHC RDW Plt Count MPV Neut # (Auto) Lymph # (Auto) [place] # (Auto) Eos # (Auto) Baso # (Auto) Absolute Nucleated RBC Nucleated RBC % PT INR APTT Sodium Potassium Chloride Carbon Dioxide Anion Gap BUN Creatinine Estimated GFR (MDRD) Glucose Calcium Total Bilirubin AST ALT Alkaline Phosphatase Total Protein Albumin Globulin Albumin/Globulin Ratio Lipase Procedures - IVC sono (time) 0845 Bedside IVC sono: IVC measures (cm) (1.35), IVC collapsed c insp (cm) (complete) , Dehydration (est 1 liter deficit) PD MEDICAL DECISION MAKING - ED course Complexity details: reviewed results, re-evaluated patient, considered differential, d/w patient, d/w family ED course: 87-year-old female with some scant rectal bleeding after having colonoscopy done 3 days ago has an improvement in her blood count even after hydration with a liter of saline. She has stable rectal bleeding and has no rectal output here. She will resume her anticoagulation as previously and she is using Lovenox for bridging therapy. - Sepsis Event Vital Signs: Vital Signs - 24 hr 01/06/18 01/06/18 06:46 10:47 Temperature 36.5 C 36.4 C L Heart Rate 53 L 54 L Respiratory 18 15 Rate Blood Pressure 170/88 H 170/74 H O2 Saturation 98 98 Oxygen O2 Source Room air Departure - Departure Disposition: 01 Home, Self Care Clinical Impression: Post-operative hemorrhage Qualifiers: Surgical complication system/body Area: digestive system Procedure type: digestive system Qualified Code(s): K91.840 - Postprocedural hemorrhage of a digestive system organ or structure following a digestive system procedure Instructions: ED Hematochezia Stable Follow-Up: Jerry Lyle DO [Primary Care Provider] -
[2018-01-06 12:11] VITALS: BP 154/75
== END 2018-01-06 12:27 | disposition home or self-care (01) ==
LOC: ED 06:37
DX: K91.840 Postprocedural hemorrhage of a digestive system organ or structure following a digestive system procedure (principal); E86.0 Dehydration; I10 Essential (primary) hypertension; Z79.01 Long term (current) use of anticoagulants
CPT/HCPCS: 36415; 80053; 83690; 85014; 85018; 85025; 85610; 85730; 96360; 96361; 99283

== ENCOUNTER 2018-02-01 14:50 | Outpatient (CLI) | payer MEDICARE, OTHER ==
[2018-02-01 20:27] LABS: BILIRUBIN,URINE NEGATIVE (NEGATIVE); GLUCOSE, URINE (UA) NEGATIVE (NEGATIVE); KETONES,URINE (UA) NEGATIVE (NEGATIVE); LEUKOCYTE ESTERASE, URINE MODERATE (NEGATIVE); NITRITE,URINE POSITIVE (NEGATIVE); OCCULT BLOOD,URINE NEGATIVE (NEGATIVE); PROTEIN,URINE NEGATIVE (NEGATIVE); UROBILINOGEN,URINE 0.2 (NORMAL) E.U./dL (NORMAL)
[2018-02-01 20:36] LABS: CLARITY,URINE HAZY (CLEAR)
[2018-02-01 20:50] LABS: BASOPHILS # (AUTO) 0.1 10^3/uL (0.0-0.1); BASOPHILS % (AUTO) 1.3 %; EOSINOPHILS # (AUTO) 0.1 10^3/uL (0.0-0.7); EOSINOPHILS % (AUTO) 0.9 %; HGB - HEMOGLOBIN 14.1 g/dL (12.0-16.0); LYMPHOCYTES # (AUTO) 1.8 10^3/uL (1.5-3.5); LYMPHOCYTES % (AUTO) 29.2 %; MEAN CORPUSCULAR HEMOGLOBIN 30.7 pg (27.0-31.0); MEAN CORPUSCULAR HGB CONC 33.8 g/dL (32.0-36.0); MEAN CORPUSCULAR VOLUME 90.6 fL (81.0-99.0); MEAN PLATELET VOLUME 9.6 fL (7.9-10.8); MONOCYTES # (AUTO) 0.4 10^3/uL (0.0-1.0); MONOCYTES % (AUTO) 6.8 %; NEUTROPHILS # (AUTO) 3.9 10^3/uL (1.5-6.6); NEUTROPHILS % (AUTO) 61.8 %; PLT - PLATELET COUNT 218 10^3/uL (130-450); RED CELL DISTRIBUTION WIDTH 17.1 % (12.0-15.0); WHITE BLOOD COUNT 6.2 x10^3/uL (4.8-10.8)
[2018-02-01 20:51] LABS: BACTERIA,URINE Many /HPF (None Seen); SQUAMOUS EPITHELIAL CELL,UR FEW Squamous (<= Few); WBC CLUMPS,URINE PRESENT
[2018-02-01 21:14] LABS: THYROID STIMULATING HORMONE 1.09 uIU/mL (0.34-5.60)
[2018-02-01 21:16] LABS: FREE T4 (FREE THYROXINE) 0.95 ng/dL (0.58-1.64)
[2018-02-01 21:20] LABS: ALBUMIN 4.3 g/dL (3.2-5.5); ALBUMIN/GLOBULIN RATIO 1.3 (1.0-2.2); ALKALINE PHOSPHATASE 53 IU/L (42-121); ALT ALANINE AMINOTRANSFERASE 21 IU/L (10-60); AST ASPARTATE AMINOTRANSFERASE 25 IU/L (10-42); BILIRUBIN,TOTAL 1.2 mg/dL (0.2-1.0); BUN - BLOOD UREA NITROGEN 17 mg/dL (6-20); CALCIUM 9.5 mg/dL (8.5-10.3); CARBON DIOXIDE - CO2 26 mmol/L (21-32); CHLORIDE 105 mmol/L (101-111); CREATININE 0.6 mg/dL (0.4-1.0); CRP - C-REACTIVE PROTEIN < 1.0 mg/dL (0-1.0); GFR - MDRD 95 (>89); GLUCOSE 105 mg/dL (70-100); SODIUM 139 mmol/L (135-145); TOTAL PROTEIN 7.6 g/dL (6.7-8.2)
[2018-02-01 22:02] LABS: PLATELET ESTIMATE, MANUAL NORMAL (130-450,000) (NORMAL); PLATELET MORPHOLOGY NORMAL APPEARANCE (NORMAL); RBC MORPHOLOGY (MULTIPLE) 1+ BURR CELLS (NORMAL)
== END 2018-02-01 14:51 | disposition home or self-care (01) ==
LOC: LAB.WCP 14:50
PROVIDERS: ATTEND Family Medicine
DX: R53.83 Other fatigue (principal); E03.9 Hypothyroidism, unspecified; M35.3 Polymyalgia rheumatica; N39.0 Urinary tract infection, site not specified
CPT/HCPCS: 36415; 80053; 81001; 84439; 84443; 84481; 85025; 85651; 86140; 87086; 87181

== ENCOUNTER 2018-02-08 16:39 | Emergency (ER) | payer MEDICARE, OTHER ==
[2018-02-08] MEDS ORDERED: SODIUM CHLORIDE 0.9% 1,000 ML IV ONE (17:25)
--- NOTE | 2018-02-08 17:49 | XRAY Report ---
Reason: CP Procedure Date: 02/08/2018 Accession Number: [id number] / [id number] Procedure: XR - Chest 2 View X-Ray CPT Code: 91878 FULL RESULT: EXAM: CHEST RADIOGRAPHY EXAM DATE: 02/08/2018 05:20 PM. CLINICAL HISTORY: Chest pain. COMPARISON: CHEST 1 VIEW 05/02/2017 4:19 PM ABDOMEN/PELVIS W/O 02/13/2017 10:26 PM. TECHNIQUE: 2 views. FINDINGS: Lungs/Pleura: No focal opacities evident. No pleural effusion. No pneumothorax. Normal volumes. Mediastinum: Heart and mediastinal contours are unremarkable. Other: Small hiatal hernia is suggested. Left sided cardiac implant is in place with lead projecting over right ventricular apex. IMPRESSION: No acute cardiopulmonary abnormality is demonstrated. RADIA
--- NOTE | 2018-02-08 17:53 | ED Physician Documentation ---
History of Present Illness - Stated complaint Stated Complaint: FEVER/CHILLS - Chief complaint Chief Complaint: General - History obtained from History obtained from: Patient - Additonal information Additional information: 87-year-old female presents the emergency department for evaluation of weakness. The patient was recently started on a course of Keflex for a urinary tract infection by her primary care. Today the patient felt very weak, typically the patient feels weak but today she felt weaker than normal. The weakness is described as generalized. The patient also reports feeling chilled and thought she may have had a fever. But, when the patient took her temperature at home it was normal. The patient denies headache, neck pain, cough, shortness of breath, chest pain or abdominal pain. Symptoms are described as moderate. No other associated symptoms. Review of Systems Constitutional: reports: Fever, Chills, Fatigue Eyes: denies: Discharge Ears: denies: Ear pain Nose: denies: Congestion Throat: denies: Sore throat Cardiac: denies: Chest pain / pressure Respiratory: denies: Dyspnea GI: denies: Abdominal Pain : denies: Dysuria Skin: denies: Rash Musculoskeletal: denies: Neck pain Neurologic: reports: Generalized weakness. 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 : Chronic bladder infection, Kidney stones, Other HEENT: Chronic vision loss Psych: Depression, Anxiety Musculoskeletal: Osteoarthritis, Fatigue, Other Derm: Herpes zoster - Past Surgical History Past Surgical History: Yes General: Colonoscopy, EGD Ortho: Hip replacement /DESIGN AND SALES CONSULTANT: Dilation and currettage Cardiovascular: Pacemaker, Other HEENT: Tonsil/Adenoidectomy, Tracheostomy, Other - Present Medications Home Medications: Ambulatory Orders Medication Instructions Recorded Confirmed Enoxaparin [Lovenox] 80 mg SUBQ Q12H 01/02/18 01/03/18 - Allergies Allergies/Adverse Reactions: Allergies Allergy/AdvReac Type Severity Reaction Status Date / Time BISHOP Inhibitors Allergy Unknown Verified 02/08/18 16:48 atropine Allergy Unknown Verified 02/08/18 16:48 cefpodoxime Allergy Unknown Verified 02/08/18 16:48 ciprofloxacin [From Cipro] Allergy Unknown Verified 02/08/18 16:48 clopidogrel Allergy Unknown Verified 02/08/18 16:48 esomeprazole Allergy Unknown Verified 02/08/18 16:48 flecainide Allergy Unknown Verified 02/08/18 16:48 metoprolol Allergy Unknown Verified 02/08/18 16:48 niacin Allergy Unknown Verified 02/08/18 16:48 NSAIDS (Non-Steroidal Allergy Unknown Verified 02/08/18 16:48 Anti-Inflamma Fgujjdy-Kdc-Qjy Reductase Allergy Unknown Verified 02/08/18 16:48 Inhibitor Sulfa (Sulfonamide Allergy Unknown Verified 02/08/18 16:48 Antibiotics) aspirin AdvReac Unknown Verified 02/08/18 16:48 - Social History Does the pt smoke?: No Smoking Status: Never smoker Does the pt drink ETOH?: No Does the pt have substance abuse?: No - Immunizations Immunizations are current?: Yes - POLST Patient has POLST: No POLST Status: Full Code PD ED PE NORMAL - General General: Alert and oriented X 3, No acute distress - HEENT HEENT: Atraumatic, PERRL, EOMI, Ears normal - Neck Neck: Supple, no meningeal sign - Cardiac Cardiac: Other (Irregular rhythm) - Respiratory Respiratory: No respiratory distress - Abdomen Abdomen: Soft, Non tender, Non distended - Derm Derm: Normal color - Extremities Extremities: No deformity, Normal ROM s pain - Neuro Neuro: Alert and oriented X 3, Normal speech - Psych Psych: Normal mood Results - Vitals Vitals: Vital Signs - 24 hr 02/08/18 02/08/18 02/08/18 16:44 19:03 20:31 Temperature 36.5 C 36.4 C L Heart Rate 55 L 52 L 60 Respiratory 18 22 24 Rate Blood Pressure 139/71 H 135/100 H 168/81 H O2 Saturation 95 95 96 Oxygen O2 Source Room air - EKG (time done) No standard instances Rate: Rate (enter#) (50 BPM) Rhythm: Atrial flutter Intervals: RBBB Ischemia: Non specific changes Compare to prior EKG: Unchanged from prior EKG - Labs Labs: Laboratory Tests 02/08/18 02/08/18 02/08/18 17:48 17:48 17:48 WBC 5.4 RBC 4.40 Hgb 13.5 Hct 39.3 MCV 89.4 MCH 30.7 MCHC 34.3 RDW 16.6 H Plt Count 203 MPV 8.3 Neut # (Auto) 3.8 Lymph # (Auto) 1.1 L [place] # (Auto) 0.4 Eos # (Auto) 0.1 Baso # (Auto) 0.1 Absolute Nucleated RBC 0.00 Nucleated RBC % 0.0 PT INR APTT Sodium 137 Potassium 4.3 Chloride 105 Carbon Dioxide 25 Anion Gap 7.0 BUN 22 H Creatinine 0.5 Estimated GFR (MDRD) 117 Glucose 99 Lactic Acid Calcium 9.4 Total Bilirubin 0.9 AST 20 ALT 19 Alkaline Phosphatase 52 Total Creatine Kinase 37 Troponin I < 0.04 Total Protein 7.0 Albumin 3.9 Globulin 3.1 Albumin/Globulin Ratio 1.3 Lipase 27 Urine Color Urine Clarity Urine pH Ur Specific [place] Urine Protein Urine Glucose (UA) Urine Ketones Urine Occult Blood Urine Nitrite Urine Bilirubin Urine Urobilinogen Ur Leukocyte Esterase Ur Microscopic Review Urine Culture Comments 02/08/18 02/08/18 02/08/18 17:48 17:48 18:26 WBC RBC Hgb Hct MCV MCH MCHC RDW Plt Count MPV Neut # (Auto) Lymph # (Auto) [place] # (Auto) Eos # (Auto) Baso # (Auto) Absolute Nucleated RBC Nucleated RBC % PT 42.7 H INR 4.0 H APTT 37.3 H Sodium Potassium Chloride Carbon Dioxide Anion Gap BUN Creatinine Estimated GFR (MDRD) Glucose Lactic Acid 0.9 Calcium Total Bilirubin AST ALT Alkaline Phosphatase Total Creatine Kinase Troponin I Total Protein Albumin Globulin Albumin/Globulin Ratio Lipase Urine Color YELLOW Urine Clarity CLEAR Urine pH 6.5 Ur Specific [place] 1.010 Urine Protein NEGATIVE Urine Glucose (UA) NEGATIVE Urine Ketones NEGATIVE Urine Occult Blood NEGATIVE Urine Nitrite NEGATIVE Urine Bilirubin NEGATIVE Urine Urobilinogen 0.2 (NORMAL) Ur Leukocyte Esterase NEGATIVE Ur Microscopic Review NOT INDICATED Urine Culture Comments NOT INDICATED - Rads (name of study) CXR Radiology: Final report received (IMPRESSION: No acute cardiopulmonary abnormality is demonstrated.) PD MEDICAL DECISION MAKING - ED course ED course: The patient's workup does not reveal any acute etiology that would necessitate admission to the hospital. The patient's INR is elevated and this is most likely secondary to her being on Keflex. I have advised that she not take her Coumadin for the next 2 nights and have her INR repeated on Tuesday. The patient understands and agrees. The patient on reevaluation is resting comfortably and appears appropriate for discharge and reevaluation as an outpatient. I discussed warning signs and recommended returning to the emergency department immediately for worsening or any concerns. The patient unfortunately did have some infiltration of her IV, there is a small area of infiltrate in her upper extremity. There is no evidence of compartment syndrome and the patient has a normal cap refill and normal radial pulse. - Sepsis Event Vital Signs: Vital Signs - 24 hr 02/08/18 02/08/18 02/08/18 16:44 19:03 20:31 Temperature 36.5 C 36.4 C L Heart Rate 55 L 52 L 60 Respiratory 18 22 24 Rate Blood Pressure 139/71 H 135/100 H 168/81 H O2 Saturation 95 95 96 Oxygen O2 Source Room air Departure - Departure Disposition: 01 Home, Self Care Clinical Impression: Weakness, Elevated INR Condition: Good Instructions: ED Weakness UKO Follow-Up: Jerry Lyle DO [Primary Care Provider] - Within 3 Days (Please don't take your Coumadin for the next 2 days. Please have your INR repeated on Tuesday) Comments: Please return to the emergency department for worsening symptoms or any concerns Discharge Date/Time: 02/08/18 21:32
[2018-02-08 17:58] LABS: BASOPHILS # (AUTO) 0.1 10^3/uL (0.0-0.1); BASOPHILS % (AUTO) 1.1 %; EOSINOPHILS # (AUTO) 0.1 10^3/uL (0.0-0.7); HGB - HEMOGLOBIN 13.5 g/dL (12.0-16.0); LYMPHOCYTES # (AUTO) 1.1 10^3/uL (1.5-3.5); LYMPHOCYTES % (AUTO) 20.6 %; MEAN CORPUSCULAR HEMOGLOBIN 30.7 pg (27.0-31.0); MEAN CORPUSCULAR HGB CONC 34.3 g/dL (32.0-36.0); MEAN CORPUSCULAR VOLUME 89.4 fL (81.0-99.0); MEAN PLATELET VOLUME 8.3 fL (7.9-10.8); MONOCYTES # (AUTO) 0.4 10^3/uL (0.0-1.0); NEUTROPHILS # (AUTO) 3.8 10^3/uL (1.5-6.6); NEUTROPHILS % (AUTO) 70.3 %; PLT - PLATELET COUNT 203 10^3/uL (130-450); RED CELL DISTRIBUTION WIDTH 16.6 % (12.0-15.0); WHITE BLOOD COUNT 5.4 x10^3/uL (4.8-10.8)
[2018-02-08 18:10] LABS: ALBUMIN 3.9 g/dL (3.2-5.5); ALBUMIN/GLOBULIN RATIO 1.3 (1.0-2.2); BILIRUBIN,TOTAL 0.9 mg/dL (0.2-1.0); CALCIUM 9.4 mg/dL (8.5-10.3); CREATININE 0.5 mg/dL (0.4-1.0)
[2018-02-08 18:44] LABS: PT - PROTHROMBIN TIME 42.7 secs (9.9-12.6)
[2018-02-08 19:14] LABS: BILIRUBIN,URINE NEGATIVE (NEGATIVE); GLUCOSE, URINE (UA) NEGATIVE (NEGATIVE); KETONES,URINE (UA) NEGATIVE (NEGATIVE); LEUKOCYTE ESTERASE, URINE NEGATIVE (NEGATIVE); NITRITE,URINE NEGATIVE (NEGATIVE); OCCULT BLOOD,URINE NEGATIVE (NEGATIVE); PH,URINE 6.5 PH (5.0-7.5); PROTEIN,URINE NEGATIVE (NEGATIVE); UROBILINOGEN,URINE 0.2 (NORMAL) E.U./dL (NORMAL)
[2018-02-08 19:22] LABS: CLARITY,URINE CLEAR (CLEAR)
[2018-02-08 20:31] VITALS: BP 168/81
== END 2018-02-08 21:32 | disposition home or self-care (01) ==
LOC: ED 16:39
DX: R53.1 Weakness (principal); R79.1 Abnormal coagulation profile; I10 Essential (primary) hypertension; I48.91 Unspecified atrial fibrillation; Z86.718 Personal history of other venous thrombosis and embolism; Z79.01 Long term (current) use of anticoagulants; Z95.0 Presence of cardiac pacemaker
CPT/HCPCS: 36415; 71046; 80053; 81001; 81003; 82550; 83605; 83690; 84484; 85025; 85610; 85730; 87040; 87086; 93005; 96360; 99283

== ENCOUNTER 2018-04-24 12:53 | Outpatient (CLI) | payer MEDICARE, OTHER | END 2018-04-24 12:54 | disposition home or self-care (01) | LOC: SC 12:53 | PROVIDERS: ATTEND Internal Medicine Pulmonary Disease | DX: G47.10 Hypersomnia, unspecified (principal); R41.89 Other symptoms and signs involving cognitive functions and awareness; G47.8 Other sleep disorders; R06.83 Snoring; E66.9 Obesity, unspecified; Z68.31 Body mass index [BMI] 31.0-31.9, adult | CPT/HCPCS: 99213; G0463; 99212 ==

== ENCOUNTER 2018-05-10 10:45 | Outpatient (CLI) | payer MEDICARE, OTHER | END 2018-05-10 10:46 | disposition home or self-care (01) | LOC: DI 10:45 | PROVIDERS: ATTEND Family Medicine | DX: I48.2 Chronic atrial fibrillation (principal); Z95.0 Presence of cardiac pacemaker; R53.83 Other fatigue; I08.1 Rheumatic disorders of both mitral and tricuspid valves | CPT/HCPCS: 93306 ==

== ENCOUNTER 2018-06-08 20:34 | Outpatient (CLI) | payer MEDICARE, OTHER | END 2018-06-08 20:35 | disposition home or self-care (01) | LOC: SC 20:34 | PROVIDERS: ATTEND Internal Medicine Pulmonary Disease | DX: G47.61 Periodic limb movement disorder (principal) | CPT/HCPCS: 95810 ==

== ENCOUNTER 2018-06-21 13:25 | Outpatient (CLI) | payer MEDICARE, OTHER | END 2018-06-21 13:26 | disposition home or self-care (01) | LOC: SC 13:25 | PROVIDERS: ATTEND Nurse Practitioner Family | DX: G47.10 Hypersomnia, unspecified (principal); R53.83 Other fatigue; I48.91 Unspecified atrial fibrillation; G47.61 Periodic limb movement disorder | CPT/HCPCS: 99214; G0463; 99212 ==

== ENCOUNTER 2018-06-27 15:36 | Outpatient (CLI) | payer MEDICARE, OTHER ==
[2018-06-27 18:55] LABS: BASOPHILS % (AUTO) 0.6 %; EOSINOPHILS % (AUTO) 0.5 %; HGB - HEMOGLOBIN 14.1 g/dL (12.0-16.0); LYMPHOCYTES # (AUTO) 1.8 10^3/uL (1.5-3.5); LYMPHOCYTES % (AUTO) 30.3 %; MEAN CORPUSCULAR HEMOGLOBIN 30.7 pg (27.0-31.0); MEAN CORPUSCULAR HGB CONC 32.9 g/dL (32.0-36.0); MEAN CORPUSCULAR VOLUME 93.2 fL (81.0-99.0); MEAN PLATELET VOLUME 9.1 fL (7.9-10.8); MONOCYTES # (AUTO) 0.4 10^3/uL (0.0-1.0); MONOCYTES % (AUTO) 7.1 %; NEUTROPHILS # (AUTO) 3.7 10^3/uL (1.5-6.6); NEUTROPHILS % (AUTO) 61.5 %; PLT - PLATELET COUNT 215 10^3/uL (130-450); RED CELL DISTRIBUTION WIDTH 15.9 % (12.0-15.0); WHITE BLOOD COUNT 5.9 x10^3/uL (4.8-10.8)
[2018-06-27 19:25] LABS: ALBUMIN 3.9 g/dL (3.2-5.5); ALBUMIN/GLOBULIN RATIO 1.1 (1.0-2.2); BILIRUBIN,TOTAL 1.1 mg/dL (0.2-1.0); CALCIUM 9.7 mg/dL (8.5-10.3); CREATININE 0.6 mg/dL (0.4-1.0); TOTAL PROTEIN 7.4 g/dL (6.7-8.2)
== END 2018-06-27 15:37 | disposition home or self-care (01) ==
LOC: LAB.WCP 15:36
PROVIDERS: ATTEND Family Medicine
DX: I48.91 Unspecified atrial fibrillation (principal); E03.9 Hypothyroidism, unspecified; R53.83 Other fatigue
CPT/HCPCS: 36415; 80053; 84443; 85025

== ENCOUNTER 2018-07-01 19:30 | Outpatient (CLI) | payer MEDICARE, OTHER | END 2018-07-01 19:31 | disposition home or self-care (01) | LOC: SC 19:30 | PROVIDERS: ATTEND Internal Medicine Pulmonary Disease | DX: G47.33 Obstructive sleep apnea (adult) (pediatric) (principal) | CPT/HCPCS: G0399 ×2; 95806 ==

== ENCOUNTER 2018-07-25 08:00 | Outpatient (CLI) | payer MEDICARE, OTHER | END 2018-07-25 23:59 | disposition home or self-care (01) | LOC: LAB.WCP 08:00 | PROVIDERS: ATTEND Family Medicine | DX: I48.2 Chronic atrial fibrillation (principal); Z79.01 Long term (current) use of anticoagulants ==

== ENCOUNTER 2018-08-07 08:00 | Outpatient (CLI) | payer MEDICARE, OTHER | END 2018-08-07 23:59 | disposition home or self-care (01) | LOC: LAB.WCP 08:00 | PROVIDERS: ATTEND Family Medicine | DX: I48.2 Chronic atrial fibrillation (principal); Z79.01 Long term (current) use of anticoagulants | CPT/HCPCS: 81025 ==

== ENCOUNTER 2018-08-14 15:15 | Outpatient (CLI) | payer MEDICARE, OTHER | END 2018-08-14 15:16 | disposition home or self-care (01) | LOC: SC 15:15 | PROVIDERS: ATTEND Nurse Practitioner Family | DX: G47.33 Obstructive sleep apnea (adult) (pediatric) (principal) | CPT/HCPCS: 99214; G0463; 99212 ==

== ENCOUNTER 2018-08-24 08:00 | Outpatient (CLI) | payer MEDICARE, OTHER | END 2018-08-24 23:59 | disposition home or self-care (01) | LOC: LAB.WCP 08:00 | PROVIDERS: ATTEND Physician Assistant Medical | DX: I48.2 Chronic atrial fibrillation (principal); Z79.01 Long term (current) use of anticoagulants | CPT/HCPCS: 81025 ==

== ENCOUNTER 2018-10-22 12:44 | Observation (INO) | payer MEDICARE, OTHER ==
--- NOTE | 2018-10-22 13:12 | ED Physician Documentation ---
PD HPI FOCAL NEURO - Stated complaint Stated Complaint: RT SIDE NUMBESS - Chief complaint Chief Complaint: Neuro - History obtained from History obtained from: Patient - History of Present Illness Timing - onset: How many hours ago (2) Timing - duration: Hours (2) Timing - details: Abrupt onset Severity of deficit: Moderate Weakness: No: Face, Arm, Hand, Leg, Foot, Right, Left Numbness: Face, Arm, Hand, Leg, Foot, Right Associated symptoms: No: Headache, Nausea / vomiting, Seizure, Syncope, Fall, Head injury, Chest pain, Neck pain, Back pain, Fever Contributing factors: positive: Atrial fibrillation Baseline status: positive: A&OX3, ambulatory, indep Recently seen: Not recently seen Review of Systems Ten Systems: 10 systems reviewed and negative Constitutional: denies: Fever, Chills Ears: denies: Ear pain Nose: denies: Rhinorrhea / runny nose, Congestion Throat: denies: Sore throat Cardiac: denies: Chest pain / pressure Skin: denies: Rash Musculoskeletal: denies: Neck pain, Back pain Neurologic: denies: Focal weakness, Confused, Altered mental status, Headache PD PAST MEDICAL HISTORY - Past Medical History Past Medical History: Yes Cardiovascular: Hypertension, High cholesterol, Deep vein thrombosis, Atrial fibrillation, Other Respiratory: Pneumonia Neuro: None Endocrine/Autoimmune: HyPOthyroidism GI: GERD, Hiatal hernia, Colon polyps, Chronic constipation 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 : Chronic bladder infection, Kidney stones, Other HEENT: Chronic vision loss Psych: Depression, Anxiety Musculoskeletal: Osteoarthritis, Fatigue, Other Derm: Herpes zoster - Past Surgical History Past Surgical History: Yes General: Colonoscopy, EGD Ortho: Hip replacement /ARTIFICIAL CHERRY MAKER: Dilation and currettage Cardiovascular: Pacemaker, Other HEENT: Tonsil/Adenoidectomy, Tracheostomy, Other - Present Medications Home Medications: Ambulatory Orders Medication Instructions Recorded Confirmed Amoxicillin 500 mg PO DAILY 10/22/18 10/22/18 Ascorbic Acid [Vitamin C] 1,000 mg PO DAILY 10/22/18 10/22/18 Atorvastatin Calcium 40 mg PO QPM 10/22/18 10/22/18 Cholecalciferol (Vitamin D3) 10,000 unit PO DAILY 10/22/18 10/22/18 [Vitamin D3] Sertraline [Zoloft] 50 mg PO DAILY 10/22/18 10/22/18 Warfarin [Coumadin] 2.5 mg PO TUTHSA 10/22/18 10/22/18 Warfarin [Coumadin] 5 mg PO SUMOWEFR 10/22/18 10/22/18 raNITIdine [Zantac] 75 mg PO DAILY 10/22/18 10/22/18 - Allergies Allergies/Adverse Reactions: Allergies Allergy/AdvReac Type Severity Reaction Status Date / Time BISHOP Inhibitors Allergy Unknown Verified 02/08/18 16:48 atropine Allergy Unknown Verified 02/08/18 16:48 cefpodoxime Allergy Unknown Verified 02/08/18 16:48 ciprofloxacin [From Cipro] Allergy Unknown Verified 02/08/18 16:48 clopidogrel Allergy Unknown Verified 02/08/18 16:48 esomeprazole Allergy Unknown Verified 02/08/18 16:48 flecainide Allergy Unknown Verified 02/08/18 16:48 metoprolol Allergy Unknown Verified 02/08/18 16:48 niacin Allergy Unknown Verified 02/08/18 16:48 NSAIDS (Non-Steroidal Allergy Unknown Verified 02/08/18 16:48 Anti-Inflamma Egsimnf-Fyk-Xzk Reductase Allergy Unknown Verified 02/08/18 16:48 Inhibitor Sulfa (Sulfonamide Allergy Unknown Verified 02/08/18 16:48 Antibiotics) aspirin AdvReac Unknown Verified 02/08/18 16:48 - Social History Does the pt smoke?: No Smoking Status: Never smoker Does the pt drink ETOH?: No Does the pt have substance abuse?: No - Immunizations Immunizations are current?: Yes - POLST Patient has POLST: No POLST Status: Full Code PD ED PE NORMAL - Vitals Vital signs reviewed: Yes - General General: Alert and oriented X 3, No acute distress - HEENT HEENT: Moist mucous membranes - Neck Neck: Supple, no meningeal sign - Cardiac Cardiac: RRR - Respiratory Respiratory: No respiratory distress, Clear bilaterally - Abdomen Abdomen: Soft, Non tender, Non distended - Back Back: No CVA TTP, No spinal TTP - Derm Derm: Warm and dry - Extremities Extremities: No edema, No calf tenderness / cord - Neuro Neuro: Alert and oriented X 3, senior internal auditor 2-12 intact, No motor deficit, Normal speech - Psych Psych: Normal mood, Normal affect NIHSS - Time Time: 13:06 - Level of Consciousness Level of consciousness: (0) Alert, Keenly responsive LOC Questions: (0) Answers both Q's correct LOC Commands: (0) Performs both correctly - Gaze Best Gaze: (0) Normal - Visual Visual: (0) No loss - Facial Palsy Facial Palsy: (0) Normal, symmetrical movement - Motor Arms (both separate) Motor Arm (right): (0) No drift Motor Arm (left): (0) No drift - Motor Legs (both separate) Motor Leg (right): (0) No drift Motor Leg (left): (0) No drift - Limb Ataxia Limb Ataxia: (0) Absent - Sensory Sensory: (1) Sqat-ls-izkvwxow loss - Best Language Best Language: (0) No aphasia - Dysarthria Dysarthria: (0) Normal - Extinction and Inattention (formally neg Extinction and inattention: (0) No abnormality - Total Score/Results Total Score/Result: 1 Results - Vitals Vitals: Vital Signs - 24 hr 10/22/18 10/22/18 10/22/18 12:50 13:41 14:32 Temperature 36.7 C Heart Rate 72 60 66 Respiratory 18 25 H 18 Rate Blood Pressure 145/82 H 126/65 124/65 O2 Saturation 97 93 97 Oxygen O2 Source Room air - EKG (time done) 1334 Rate: Rate (enter#) (67) Rhythm: Atrial fibrillation [place]: LAD Intervals: Wide QRS Ischemia: Non specific changes - Labs Labs: Laboratory Tests 10/22/18 10/22/18 10/22/18 13:30 13:35 13:35 WBC 5.8 RBC 4.47 Hgb 13.4 Hct 41.0 MCV 91.6 MCH 30.1 MCHC 32.8 RDW 15.5 H Plt Count 192 MPV 8.2 Neut # (Auto) 4.4 Lymph # (Auto) 0.9 L [place] # (Auto) 0.4 Eos # (Auto) 0.0 Baso # (Auto) 0.0 Absolute Nucleated RBC 0.00 Nucleated RBC % 0.0 PT 32.3 H INR 2.9 H Sodium 141 Potassium 3.9 Chloride 107 Carbon Dioxide 24 Anion Gap 10.0 BUN 21 H Creatinine 0.6 Estimated GFR (MDRD) 95 Glucose 100 Calcium 9.4 Total Bilirubin 1.0 AST 19 ALT 16 Alkaline Phosphatase 49 Total Protein 7.4 Albumin 3.8 Globulin 3.6 Albumin/Globulin Ratio 1.1 Lipase 27 - Rads (name of study) head CT Radiology: Prelim report reviewed, EMP read contemporaneously, See rad report (No acute intracranial abnormality) PD MEDICAL DECISION MAKING - ED course Complexity details: reviewed results, re-evaluated patient, considered differential, d/w patient, d/w science consultant ED course: Symptoms resolved in the emergency department. Concern for TIA. She does have a pacemaker, unclear if this is compatible with MRI or not. She is on warfarin for A. fib. INR is therapeutic. She refuses aspirin. CT angios of the head and neck were ordered after discussion with the hospitalist. Will place in observation for neuro checks and further assessment. Discussed the case with Dr. Garcia who accepts. This document was made in part using voice recognition software. While efforts are made to proofread this document, sound alike and grammatical errors may occur. Departure - Departure Disposition: ED Place in Observation Clinical Impression: TIA (transient ischemic attack), Numbness Condition: Stable Discharge Date/Time: 10/22/18 16:09
--- NOTE | 2018-10-22 13:40 | CT Report ---
Reason: R sided numbness x 2 hrs Procedure Date: 10/22/2018 Accession Number: [id number] / [id number] Procedure: CT - Head W/O Stroke Protocol CPT Code: FULL RESULT: EXAM: CT HEAD EXAM DATE: 10/22/2018 01:26 PM. CLINICAL HISTORY: R sided numbness x 2 hrs. COMPARISON: HEAD W/O 01/04/2018 3:17 PM. TECHNIQUE: Multiaxial CT images were obtained from the foramen magnum to the vertex. Reformats: Sagittal and coronal. IV contrast: None. In accordance with CT protocol optimization, one or more of the following dose reduction techniques were utilized for this exam: automated exposure control, adjustment of mA and/or KV based on patient size, or use of iterative reconstructive technique. FINDINGS: Parenchyma: Periventricular regions of low attenuation are again seen. No evidence of an acute vascular insult or acute parenchymal hemorrhage. No midline shift. No mass-effect. Extraaxial Spaces: Extra-axial spaces are mildly prominent. No subdural or epidural collections identified. Ventricles: Normal in size and position. Sinuses and Orbits: Imaged paranasal sinuses, orbits, and mastoids show no significant abnormality. Bones: No evidence of fracture or calvarial defect. Other: Changes are seen from bilateral lens surgery. Otherwise, globes and orbits are unremarkable. Vascular calcifications. IMPRESSION: 1. No acute intracranial abnormality is identified. 2. Mild chronic white matter changes. RADIA The critical test notification system was initiated by Dr. Alfred Marie at 01:33 PM on 10/22/2018. The above critical test findings were discussed with Doug Hall by Dr. Alfred Marie at 01:37 PM on 10/22/2018.
[2018-10-22 13:47] LABS: BASOPHILS % (AUTO) 0.7 %; EOSINOPHILS % (AUTO) 0.7 %; HGB - HEMOGLOBIN 13.4 g/dL (12.0-16.0); LYMPHOCYTES # (AUTO) 0.9 10^3/uL (1.5-3.5); MEAN CORPUSCULAR HEMOGLOBIN 30.1 pg (27.0-31.0); MEAN CORPUSCULAR HGB CONC 32.8 g/dL (32.0-36.0); MEAN CORPUSCULAR VOLUME 91.6 fL (81.0-99.0); MEAN PLATELET VOLUME 8.2 fL (7.9-10.8); MONOCYTES # (AUTO) 0.4 10^3/uL (0.0-1.0); MONOCYTES % (AUTO) 7.6 %; NEUTROPHILS # (AUTO) 4.4 10^3/uL (1.5-6.6); PLT - PLATELET COUNT 192 10^3/uL (130-450); RED BLOOD COUNT 4.47 10^6/uL (4.20-5.40); RED CELL DISTRIBUTION WIDTH 15.5 % (12.0-15.0); WHITE BLOOD COUNT 5.8 x10^3/uL (4.8-10.8)
[2018-10-22 14:02] LABS: ALBUMIN 3.8 g/dL (3.2-5.5); ALBUMIN/GLOBULIN RATIO 1.1 (1.0-2.2); CALCIUM 9.4 mg/dL (8.5-10.3); CREATININE 0.6 mg/dL (0.4-1.0); TOTAL PROTEIN 7.4 g/dL (6.7-8.2)
[2018-10-22] MEDS ORDERED: ASPIRIN CHEW 81 MG TABLET PO STA (14:03)
[2018-10-22 14:26] LABS: INR 2.9 (0.8-1.2); PT - PROTHROMBIN TIME 32.3 secs (9.9-12.6)
[2018-10-22] MEDS ORDERED: ZOLPIDEM 5 MG TABLET PO PRN (15:18)
[2018-10-22] MEDS ORDERED: ACETAMINOPHEN 325 MG TABLET PO PRN (15:18)
[2018-10-22] MEDS ORDERED: SODIUM CHLORIDE FLUSH 0.9% 10 ML SYRINGE IVP PRN (15:18)
[2018-10-22] MEDS ORDERED: ONDANSETRON 4 MG/2 ML VIAL IVP PRN (15:18)
[2018-10-22] MEDS ORDERED: IOVERSOL 320 100 ML VIAL IVP ONE ×3 (15:22→15:58)
--- NOTE | 2018-10-22 15:27 | HISTORY & PHYSICAL EXAMINATION ---
Chief Complaint - Chief Complaint Chief Complaint: right side nembness History of Present Illness - Admitted From Admitted From:: ER - History Obtained From Records Reviewed: [facility] - History of Present Illness HPI Comment/Other: Patient is a 86-year-old female with a past medical history significant for atrial fibrillation on Coumadin, hx of DVT, hx of dysesthesia on right side for multiple visits to ER and admission, status post pacemaker placement earlier this year, osteoarthritis status post hip replacement, hypertension, hypothyroidism not currently on medication, depression and history of malformed kidney who presented to the emergency department with a chief complaint of right sided tingling. Pt report she started to have right sided tingling including her right facial, right upper extremity and lower extremity after her breakfast at 1130 am. she report she never had such tingling like this before. Pt reports that it is now all resolved. She denies other focus neurological deficiency, denies unilateral weakness, or vision changing. Pt denies any confusion or slurred speech but reports mild right neck pain but now resolved as well. She denies fever, chill, cough, wheezing, shortness of breath, chest pain, headache. pt had multiple visits with similar complaint to his hospital before. CT is unremarkable. because of her pacemaker, she can not have MRI. Her lab test in ER is unremarkable. she is hemodynamic stable now. 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 [employer]IMMING: reports: None : reports: Chronic bladder infection, Kidney stones, Other HEENT: reports: Chronic vision loss Psych: reports: Depression, Anxiety Musculoskeletal: reports: Osteoarthritis, Fatigue, Other Derm: reports: Herpes zoster MRSA Hx?: No - Past Surgical History General: reports: Colonoscopy, EGD Ortho: reports: Hip replacement /SUPER[employer] HANGING [employer] TRIMMING: reports: Dilation and currettage Cardiovascular: reports: Pacemaker, Other HEENT: reports: Tonsil/Adenoidectomy, Tracheostomy, Other - Family & Social History Social History Notes: The patient lives with her and [place]. Her son, son's girlfriend and grandson also live in the house with them. She states that she is under a lot of stress from having them in the house and she does not have her normal freedom or space to just get away. She has 2 children both sons who are adopted. She was 3 times but did not have any deliveries. She does not smoke she drinks very rarely and denies any illicit drug use. - Substance History Use: Uses substance without health or social issues: NONE - POLST Patient has POLST: No POLST Status: Full Code Meds/Allgy - Home Medications Home Medications: Ambulatory Orders Medication Instructions Recorded Confirmed Amoxicillin 500 mg PO DAILY 10/22/18 10/22/18 Ascorbic Acid [Vitamin C] 1,000 mg PO DAILY 10/22/18 10/22/18 Atorvastatin Calcium 40 mg PO QPM 10/22/18 10/22/18 Cholecalciferol (Vitamin D3) 10,000 unit PO DAILY 10/22/18 10/22/18 [Vitamin D3] Sertraline [Zoloft] 50 mg PO DAILY 10/22/18 10/22/18 Warfarin [Coumadin] 2.5 mg PO TUTHSA 10/22/18 10/22/18 Warfarin [Coumadin] 5 mg PO SUMOWEFR 10/22/18 10/22/18 raNITIdine [Zantac] 75 mg PO DAILY 10/22/18 10/22/18 - Allergies Allergies/Adverse Reactions: Allergies Allergy/AdvReac Type Severity Reaction Status Date / Time BISHOP Inhibitors Allergy Unknown Verified 02/08/18 16:48 atropine Allergy Unknown Verified 02/08/18 16:48 cefpodoxime Allergy Unknown Verified 02/08/18 16:48 ciprofloxacin [From Cipro] Allergy Unknown Verified 02/08/18 16:48 clopidogrel Allergy Unknown Verified 02/08/18 16:48 esomeprazole Allergy Unknown Verified 02/08/18 16:48 flecainide Allergy Unknown Verified 02/08/18 16:48 metoprolol Allergy Unknown Verified 02/08/18 16:48 niacin Allergy Unknown Verified 02/08/18 16:48 NSAIDS (Non-Steroidal Allergy Unknown Verified 02/08/18 16:48 Anti-Inflamma Zlcrefh-Sos-Txv Reductase Allergy Unknown Verified 02/08/18 16:48 Inhibitor Sulfa (Sulfonamide Allergy Unknown Verified 02/08/18 16:48 Antibiotics) aspirin AdvReac Unknown Verified 02/08/18 16:48 Review of Systems - Constitutional Constitutional: denies: Fatigue, Fever, Chills, Malaise, Weakness, Poor appetite, Diaphoresis, Night sweats, Weight gain, Weight loss - Eyes Eyes: denies: Pain, Irritation, Amaurosis, Blurred vision, Spots in vision, Field loss, Vision loss, Dipolpia - Ears, Nose & Throat Ears, Nose & Throat: denies: Ear pain, Hearing loss, Hearing aids, Tinnitus, Vertigo, Nasal pain, Nasal discharge, Nosebleeds, Nasal obstruction, Nasal congestion, Postnasal drainage, Dentures, Sore throat, Hoarseness, Mouth lesions, Bleeding gums - Cardiovascular Cariovascular: denies: Irregular heart rate, Palpitations, Chest pain, Edema, Lightheadedness, Syncope, Exertional dyspnea, Decr. exercise tolerance - Respiratory Respiratory: denies: Cough, Sputum production, Wheezing, Snoring, Hemoptysis, Orthopnea, SOB at rest, SOB with exertion - Gastrointestinal Gastrointestinal: denies: Abdominal pain, Abdominal distention, Constipation, Diarrhea, Change in bowel habits, Rectal bleeding, Black stools, Bloody stools, Nausea, Vomiting, Bile emesis, Sunil blood emesis, Coffee grounds emesis, Reflux/heartburn - Genitourinary Genitourinary: denies: Dysuria, Frequency, Urgency, Hematuria, Incontinence, Flank pain, Nocturia, Urethral discharge - Musculoskeletal Musculoskeletal: denies: Muscle pain, Back pain, Muscle aches, Stiffness, Limited range of motion, Muscle weakness, Gout, Joint pain - Integumentary Integumentary: denies: Rash, Pruritis, Lesions, Dryness, Lumps, Acne, Pigment changes, Nail changes - Neurological Neurological: reports: Numbness (right side tingle at today morning, now resolved). denies: General weakness, Focal weakness, Headache, Dizziness, Memory problems, Pre-existing deficit, Abnormal gait, Seizures, Incoordination, Slurred speech - Psychiatric Psychiatric: denies: Depression, Anxiety, Suicidal, Delusions, Hallucinations, Homicidal - Endocrine Endocrine: denies: Polyuria, Polydypsia, Polyphagia, Intolerance to cold - Hematologic/Lymphatic Hematologic/Lymphatic: denies: Anemia, Bruising, Petechiae, Blood clots, Lymphadenopathy, Bleeding tendencies, Recurrent infections Exam - Vital Signs Vital Signs: Vital Signs x48h Temp Pulse Resp BP Pulse Ox 10/22/18 14:32 66 18 124/65 97 10/22/18 13:41 60 25 H 126/65 93 10/22/18 12:50 36.7 C 72 18 145/82 H 97 - Physical Exam General Appearance: positive: No acute distress, Alert. negative: Lethargic Eyes Bilateral: positive: Normal inspection, PERRL, No lid inflammation, Conjunctivae nml ENT: positive: ENT inspection nml, Pharynx nml, No signs of dehydration. negative: Purulent nasal drainage, Pharyngeal erythema, Oral lesions Neck: positive: Nml inspection, Thyroid nml, No JVD, Trachea midline. negative: Thyromegaly, Lymphadenopathy (R), Lymphadenopathy (L), Stiff neck, Swelling/bruising, Tracheal deviation Respiratory: positive: Chest non-tender, No respiratory distress, Breath sounds nml. negative: Wheezes, Rales, Rhonchi Cardiovascular: positive: Regular rate & rhythm, No murmur, No gallop. negative: Irregularly irregular, Extrasystoles, Tachycardia, Bradycardia, JVD present, Systolic murmur, Diastolic murmur Peripheral Pulses: positive: 2+ Abdomen: positive: Non-tender, No organomegaly, Nml bowel sounds, No distention. negative: Tenderness, Guarding, Rebound Back: positive: Nml inspection. negative: CVA tenderness (R), CVA tenderness (L) Skin: positive: Color nml, No rash, Warm, Dry. negative: Cyanosis, Diaphoresis, Pallor Extremities: positive: Non-tender, Full ROM, Nml appearance. negative: Calf tenderness, Joint swelling, Reginald's sign/cords Neurologic/Psychiatric: positive: Oriented x3, Motor nml, Mood/affect nml, Sensory loss (dysesthesia, right side tingle, now resolved). negative: Sensation nml, Weakness, Facial droop, Slurred/abnml speech, Depressed mood/affect Sepsis Event Note (H) - Evaluation Current Stage of Sepsis: Ruled out Conclusion/Plan - Problem List (1) Dysesthesia Conclusion/Plan: pt has hx of dysesthesia for multiple visits to ER and admission. today pt report right sided tingling, which was resolved by her own. pt took Coumadin at home INR 2.9 for her Afib and hx of DVT, it is unlikely pt has a ischemic stroke, but precaution to the hemorrhagic bleeding. However, CT of brain is unremarkable. It is unknown etiology to cause her dysesthesia as far. order CT angio of brain and neck, since pt has pacemaker, pt can not have MRI reconcile pt's home Coumadin, continue to check PT/INR. today INR is 2.9 order ECHO on tele and vital monitor (2) Atrial fibrillation Conclusion/Plan: controlled HR, and stable. pt denies chest pain, palpitation. pt is status post of pacemaker reconcile home Coumadin tele and vital monitor Qualifiers: Atrial fibrillation type: chronic Qualified Code(s): I48.2 - Chronic atrial fibrillation (3) GERD (gastroesophageal reflux disease) Conclusion/Plan: stable, now pt has pepcid (4) HLD (hyperlipidemia) Conclusion/Plan: order Lipid panel, reconcile home Lipitor (5) Depression Conclusion/Plan: stable, reconcile Zoloft Qualifiers: Depression Type: major depressive disorder (6) Hx of sick sinus syndrome Conclusion/Plan: pt is status post of pacemaker and stable HR tele monitor - Lab Results Fish Bones: 10/22/18 13:35 10/22/18 13:35 Core Measures - Anticipated LOS I expect patient to be DC'd or transferred within 96 hours.: Yes - DVT/VTE - Prophylaxis VTE/DVT Device ordered at admit?: Yes VTE/DVT Prophylaxis med ordered at admit?: Yes
[2018-10-22 15:50] LABS: BILIRUBIN,URINE NEGATIVE (NEGATIVE); GLUCOSE, URINE (UA) NEGATIVE (NEGATIVE); KETONES,URINE (UA) NEGATIVE (NEGATIVE); LEUKOCYTE ESTERASE, URINE SMALL (NEGATIVE); NITRITE,URINE POSITIVE (NEGATIVE); OCCULT BLOOD,URINE TRACE-INTA (NEGATIVE); PROTEIN,URINE NEGATIVE (NEGATIVE); UROBILINOGEN,URINE 0.2 (NORMAL) E.U./dL (NORMAL)
[2018-10-22 15:52] LABS: CLARITY,URINE HAZY (CLEAR)
[2018-10-22 16:02] LABS: BACTERIA,URINE Moderate /HPF (None Seen); RBC,URINE None Seen /HPF (0-5); SQUAMOUS EPITHELIAL CELL,UR MOD Squamous (<= Few)
[2018-10-22] MEDS: IOVERSOL 320 100 ML VIAL IVP ONE (16:32)
[2018-10-22] MEDS: SODIUM CHLORIDE FLUSH 0.9% 10 ML SYRINGE IVP SCH (17:50)
[2018-10-22] MEDS ORDERED: WARFARIN 5 MG TABLET PO SCH (18:00)
--- NOTE | 2018-10-22 18:30 | CT Report ---
Reason: R sided numbness Procedure Date: 10/22/2018 Accession Number: [id number] / [id number] Procedure: CT - ANGIO HEAD W CPT Code: FULL RESULT: EXAM: CT ANGIOGRAM HEAD AND NECK. CT SCAN HEAD WITH CONTRAST. EXAM DATE: 10/22/2018 03:42 PM. CLINICAL HISTORY: 87-year-old presenting with right-sided numbness. Evaluate for intracranial pathology or vascular pathology. COMPARISON: Noncontrast CT head 10/22/2018; CT head 01/04/2018; CTA head and neck 01/31/2017. TECHNIQUE: Routine axial helical CTA imaging was performed from the aortic arch through the [place] of [place]. Routine axial CT imaging of the head was performed following contrast administration. Reconstructions: Routine multiplanar 3D MIP reconstructions. IV contrast: 80 cc Optiray 320. NASCET Criteria are used for stenosis measurements. In accordance with CT protocol optimization, one or more of the following dose reduction techniques were utilized for this exam: automated exposure control, adjustment of mA and/or KV based on patient size, or use of iterative reconstructive technique. FINDINGS: CT SCAN HEAD: Parenchyma: No acute parenchymal hemorrhage, mass, or midline shift. Mild to moderate bilateral areas of white matter hypoattenuation seen that appears similar to noncontrast CT head 10/22/[address] head 01/04/2018. There is no convincing CT evidence of acute infarct. Mild to moderate cortical volume loss. No abnormal postcontrast enhancement. Extra-axial Spaces: Sulci and cisterns appear prominent but appropriate for the extent of volume loss. No subdural or epidural collections identified. Ventricles: Normal in size and position. Sinuses and Orbits: Imaged paranasal sinuses, orbits, and mastoids show no significant abnormality. Bones: No evidence of fracture or calvarial defect. Changes of hyperostosis frontalis internus. Other: Vascular calcifications of the cavernous ICA segments. CT ANGIOGRAM HEAD AND NECK: Arthroscopic plaque involving the aortic arch. There is normal three-vessel takeoff of the great vessels. Visualized left subclavian artery appears patent. There is arthroscopic plaque involving the origin of the right subclavian artery with no high-grade stenosis seen. RIGHT: Common Carotid Artery: Patent without significant stenosis. Carotid Bulb: There is mild atherosclerotic plaque at the bifurcation and siphon. Stenosis at the bifurcation by NASCET criteria: No significant stenosis. Internal Carotid Artery: Tortuosity of the cervical ICA with atherosclerotic plaque of the cervical ICA near the skull base with no high-grade stenosis or dissection seen. Arthroscopic plaque involving the cavernous ICA segments with no high-grade stenosis. No evidence of aneurysm along the intracranial ICA. External Carotid Artery: Unremarkable. Vertebral Artery: Patent without significant stenosis. No evidence of dissection. No aneurysm. Anterior Cerebral Artery: Patent without significant stenosis, aneurysm, or vascular malformation. Middle Cerebral Artery: Patent without significant stenosis, aneurysm, or vascular malformation. Posterior Cerebral Artery: MATERIAL CUTTER. No aneurysm. Posterior Communicating Artery: Patent. No aneurysm. LEFT: Common Carotid Artery: Patent without significant stenosis. Carotid Bulb: There is mild atherosclerotic plaque at the bifurcation and siphon. Stenosis at the bifurcation by NASCET criteria: No significant stenosis. Internal Carotid Artery: Tortuosity of the cervical ICA with no high-grade stenosis or dissection seen. Arthroscopic plaque involving the cavernous ICA segments with no high-grade stenosis. No evidence of aneurysm along the intracranial ICA. External Carotid Artery: Unremarkable. Vertebral Artery: Patent without significant stenosis. No evidence of dissection. No aneurysm. Anterior Cerebral Artery: Patent without significant stenosis, aneurysm, or vascular malformation. Middle Cerebral Artery: Patent without significant stenosis, aneurysm, or vascular malformation. Posterior Cerebral Artery: MATERIAL CUTTER. Posterior Communicating Artery: Patent. No aneurysm. CENTRAL: Anterior Communicating Artery: Patent. No aneurysm. 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 Bilateral SCAs are seen to arise from the basilar tip and are patent. No aneurysm. DURAL VENOUS SINUSES AND MAJOR CENTRAL VEINS: Patent. OTHER: The visualized pharynx and larynx appear normal. Major salivary glands appear normal. Thyroid gland appears normal. No cervical lymphadenopathy or necrotic lymph nodes seen. Soft tissues of the neck appear normal. Parenchymal scarring of the visualized lung apices. Dependent atelectatic changes. No acute fracture or traumatic subluxation of the cervical spine. Multilevel degenerative changes. No suspicious osseous lesion. A left chest wall AICD is seen. IMPRESSION: CT SCAN HEAD: 1. No definite acute infarct seen. If there is clinical concern for acute stroke or symptoms persist an MR brain could be considered to evaluate for small or subtle pathology. ASPECTS: 10 right/10 left. 2. No acute intracranial hemorrhage, mass, hydrocephalus, or midline shift. No abnormal post contrast enhancement. 3. Mild white matter changes seen that appear similar to CT head 10/22/2018 and may represent sequela of chronic small vessel ischemic disease. CT ANGIOGRAM NECK: 1. The vasculature of the neck appears patent with no high-grade stenosis or definite dissection seen. CT ANGIOGRAM HEAD: 1. No large vessel occlusion. 2. No aneurysm. No significant stenosis. RADIA
--- NOTE | 2018-10-22 18:30 | CT Report ---
Reason: R sided numbness Procedure Date: 10/22/2018 Accession Number: [id number] / [id number] Procedure: CT - ANGIO NECK W/WO CPT Code: FULL RESULT: EXAM: CT ANGIOGRAM HEAD AND NECK. CT SCAN HEAD WITH CONTRAST. EXAM DATE: 10/22/2018 03:42 PM. CLINICAL HISTORY: 87-year-old presenting with right-sided numbness. Evaluate for intracranial pathology or vascular pathology. COMPARISON: Noncontrast CT head 10/22/2018; CT head 01/04/2018; CTA head and neck 01/31/2017. TECHNIQUE: Routine axial helical CTA imaging was performed from the aortic arch through the [place] of [place]. Routine axial CT imaging of the head was performed following contrast administration. Reconstructions: Routine multiplanar 3D MIP reconstructions. IV contrast: 80 cc Optiray 320. NASCET Criteria are used for stenosis measurements. In accordance with CT protocol optimization, one or more of the following dose reduction techniques were utilized for this exam: automated exposure control, adjustment of mA and/or KV based on patient size, or use of iterative reconstructive technique. FINDINGS: CT SCAN HEAD: Parenchyma: No acute parenchymal hemorrhage, mass, or midline shift. Mild to moderate bilateral areas of white matter hypoattenuation seen that appears similar to noncontrast CT head 10/22/[address] head 01/04/2018. There is no convincing CT evidence of acute infarct. Mild to moderate cortical volume loss. No abnormal postcontrast enhancement. Extra-axial Spaces: Sulci and cisterns appear prominent but appropriate for the extent of volume loss. No subdural or epidural collections identified. Ventricles: Normal in size and position. Sinuses and Orbits: Imaged paranasal sinuses, orbits, and mastoids show no significant abnormality. Bones: No evidence of fracture or calvarial defect. Changes of hyperostosis frontalis internus. Other: Vascular calcifications of the cavernous ICA segments. CT ANGIOGRAM HEAD AND NECK: Arthroscopic plaque involving the aortic arch. There is normal three-vessel takeoff of the great vessels. Visualized left subclavian artery appears patent. There is arthroscopic plaque involving the origin of the right subclavian artery with no high-grade stenosis seen. RIGHT: Common Carotid Artery: Patent without significant stenosis. Carotid Bulb: There is mild atherosclerotic plaque at the bifurcation and siphon. Stenosis at the bifurcation by NASCET criteria: No significant stenosis. Internal Carotid Artery: Tortuosity of the cervical ICA with atherosclerotic plaque of the cervical ICA near the skull base with no high-grade stenosis or dissection seen. Arthroscopic plaque involving the cavernous ICA segments with no high-grade stenosis. No evidence of aneurysm along the intracranial ICA. External Carotid Artery: Unremarkable. Vertebral Artery: Patent without significant stenosis. No evidence of dissection. No aneurysm. Anterior Cerebral Artery: Patent without significant stenosis, aneurysm, or vascular malformation. Middle Cerebral Artery: Patent without significant stenosis, aneurysm, or vascular malformation. Posterior Cerebral Artery: SLIPPER MAKER. No aneurysm. Posterior Communicating Artery: Patent. No aneurysm. LEFT: Common Carotid Artery: Patent without significant stenosis. Carotid Bulb: There is mild atherosclerotic plaque at the bifurcation and siphon. Stenosis at the bifurcation by NASCET criteria: No significant stenosis. Internal Carotid Artery: Tortuosity of the cervical ICA with no high-grade stenosis or dissection seen. Arthroscopic plaque involving the cavernous ICA segments with no high-grade stenosis. No evidence of aneurysm along the intracranial ICA. External Carotid Artery: Unremarkable. Vertebral Artery: Patent without significant stenosis. No evidence of dissection. No aneurysm. Anterior Cerebral Artery: Patent without significant stenosis, aneurysm, or vascular malformation. Middle Cerebral Artery: Patent without significant stenosis, aneurysm, or vascular malformation. Posterior Cerebral Artery: SLIPPER MAKER. Posterior Communicating Artery: Patent. No aneurysm. CENTRAL: Anterior Communicating Artery: Patent. No aneurysm. Basilar Artery: Hypoplastic likely due to the fact of bilateral business support. Bilateral SCAs are seen to arise from the basilar tip and are patent. No aneurysm. DURAL VENOUS SINUSES AND MAJOR CENTRAL VEINS: Patent. OTHER: The visualized pharynx and larynx appear normal. Major salivary glands appear normal. Thyroid gland appears normal. No cervical lymphadenopathy or necrotic lymph nodes seen. Soft tissues of the neck appear normal. Parenchymal scarring of the visualized lung apices. Dependent atelectatic changes. No acute fracture or traumatic subluxation of the cervical spine. Multilevel degenerative changes. No suspicious osseous lesion. A left chest wall AICD is seen. IMPRESSION: CT SCAN HEAD: 1. No definite acute infarct seen. If there is clinical concern for acute stroke or symptoms persist an MR brain could be considered to evaluate for small or subtle pathology. ASPECTS: 10 right/10 left. 2. No acute intracranial hemorrhage, mass, hydrocephalus, or midline shift. No abnormal post contrast enhancement. 3. Mild white matter changes seen that appear similar to CT head 10/22/2018 and may represent sequela of chronic small vessel ischemic disease. CT ANGIOGRAM NECK: 1. The vasculature of the neck appears patent with no high-grade stenosis or definite dissection seen. CT ANGIOGRAM HEAD: 1. No large vessel occlusion. 2. No aneurysm. No significant stenosis. RADIA
[2018-10-22] MEDS: FAMOTIDINE 20 MG TABLET PO SCH (20:43)
[2018-10-22] MEDS ORDERED: ATORVASTATIN 40 MG TABLET PO SCH (21:00)
[2018-10-23] MEDS: SODIUM CHLORIDE FLUSH 0.9% 10 ML SYRINGE IVP SCH ×2 (00:56→08:45)
[2018-10-23 05:54] LABS: BASOPHILS # (AUTO) 0.1 10^3/uL (0.0-0.1); BASOPHILS % (AUTO) 1.2 %; EOSINOPHILS # (AUTO) 0.1 10^3/uL (0.0-0.7); EOSINOPHILS % (AUTO) 1.3 %; LYMPHOCYTES # (AUTO) 1.2 10^3/uL (1.5-3.5); LYMPHOCYTES % (AUTO) 26.7 %; MEAN CORPUSCULAR HEMOGLOBIN 30.3 pg (27.0-31.0); MEAN CORPUSCULAR HGB CONC 33.2 g/dL (32.0-36.0); MEAN CORPUSCULAR VOLUME 91.3 fL (81.0-99.0); MEAN PLATELET VOLUME 8.8 fL (7.9-10.8); MONOCYTES # (AUTO) 0.3 10^3/uL (0.0-1.0); MONOCYTES % (AUTO) 7.6 %; NEUTROPHILS # (AUTO) 2.7 10^3/uL (1.5-6.6); NEUTROPHILS % (AUTO) 63.2 %; PLT - PLATELET COUNT 181 10^3/uL (130-450); RED BLOOD COUNT 4.27 10^6/uL (4.20-5.40); RED CELL DISTRIBUTION WIDTH 15.4 % (12.0-15.0); WHITE BLOOD COUNT 4.3 x10^3/uL (4.8-10.8)
[2018-10-23 05:59] LABS: CREATININE 0.6 mg/dL (0.4-1.0); INR 2.7 (0.8-1.2); PT - PROTHROMBIN TIME 29.9 secs (9.9-12.6)
[2018-10-23 06:08] LABS: CHOL/HDL RATIO 2.4 (<4.4); CHOLESTEROL 126 mg/dL; HDL CHOLESTEROL 53 mg/dL; LDL CHOLESTEROL,CALCULATED 57 mg/dL; LDL/HDL RATIO 1.1 (<4.4); VLDL CHOLESTEROL 16 mg/dL
[2018-10-23 08:21] VITALS: BP 129/74
[2018-10-23] MEDS: FAMOTIDINE 20 MG TABLET PO SCH (08:41)
[2018-10-23] MEDS ORDERED: POLYETHYLENE GLYCOL 3350 17 GM PACKET PO SCH (09:00)
[2018-10-23] MEDS ORDERED: ATORVASTATIN 10 MG TABLET PO SCH (09:00)
[2018-10-23] MEDS ORDERED: ASCORBIC ACID CHEW 500 MG TABLET PO SCH (09:00)
[2018-10-23] MEDS ORDERED: CHOLECALCIFEROL 5,000 UNIT CAPSULE PO SCH (09:00)
[2018-10-23] MEDS ORDERED: WARFARIN 5 MG TABLET PO SCH (09:00)
[2018-10-23] MEDS ORDERED: SERTRALINE 50 MG TABLET PO SCH (09:00)
[2018-10-23 09:01] LABS: BILIRUBIN,URINE NEGATIVE (NEGATIVE); GLUCOSE, URINE (UA) NEGATIVE (NEGATIVE); KETONES,URINE (UA) NEGATIVE (NEGATIVE); LEUKOCYTE ESTERASE, URINE SMALL (NEGATIVE); NITRITE,URINE POSITIVE (NEGATIVE); OCCULT BLOOD,URINE TRACE-INTA (NEGATIVE); PROTEIN,URINE NEGATIVE (NEGATIVE); UROBILINOGEN,URINE 0.2 (NORMAL) E.U./dL (NORMAL)
[2018-10-23 09:03] LABS: CLARITY,URINE HAZY (CLEAR)
[2018-10-23 09:09] LABS: BACTERIA,URINE Many /HPF (None Seen); RBC,URINE 0-5 /HPF (0-5); SQUAMOUS EPITHELIAL CELL,UR MOD Squamous (<= Few)
--- NOTE | 2018-10-23 10:24 | Discharge Plan ---
Discharge Plan Disposition: 01 Home, Self Care Condition: Poor Diet: Regular Activity Restrictions: Activity as Tolerated Shower Restrictions: No (fall precaution, caregiver closely monitor pt) Instruction Topics: TIA Additional Instructions or Follow Up instructions: you may followup your PCP in one week. ALL your image studies all are unremarkable. Your tingling sensation is waning off, you normally walked with staff. Should your symptoms return or worsen, you may present ER, call 911 or your PCP for help. No Smoking: If you smoke, Please STOP! Call for help.
--- NOTE | 2018-10-23 10:33 | DISCHARGE SUMMARY ---
Discharge Summary Discharge Date: 10/23/18 Discharging Provider: WRIGHT Condition at Discharge: Poor Discharge Disposition: 01 Home, Self Care Discharge Facility Name: home - DIAGNOSES Admission Diagnoses: (1) Dysesthesia (2) Atrial fibrillation (3) GERD (gastroesophageal reflux disease) (4) HLD (hyperlipidemia) (5) Depression (6) Hx of sick sinus syndrome Discharge Diagnoses with Status of Each Condition: (1) Dysesthesia (2) Atrial fibrillation (3) GERD (gastroesophageal reflux disease) (4) HLD (hyperlipidemia) (5) Depression (6) Hx of sick sinus syndrome - HPI History of Present Illness: Patient is a 86-year-old female with a past medical history significant for atrial fibrillation on Coumadin, hx of DVT, hx of dysesthesia on right side for multiple visits to ER and admission, status post pacemaker placement earlier this year, osteoarthritis status post hip replacement, hypertension, hypothyroidism not currently on medication, depression and history of malformed kidney who presented to the emergency department with a chief complaint of right sided tingling. Pt report she started to have right sided tingling including her right facial, right upper extremity and lower extremity after her breakfast at 1130 am. she report she never had such tingling like this before. Pt reports that it is now all resolved. She denies other focus neurological deficiency, denies unilateral weakness, or vision changing. Pt denies any confusion or slurred speech but reports mild right neck pain but now resolved as well. She denies fever, chill, cough, wheezing, shortness of breath, chest pain, headache. pt had multiple visits with similar complaint to his hospital before. CT is unremarkable. because of her pacemaker, she can not have MRI. Her lab test in ER is unremarkable. she is hemodynamic stable now. pt is admitted in observation for TIA workup - HOSPITAL COURSE Hospital Course: (1) Dysesthesia resolved. pt's CTA of neck, head, ECHO are unremarkable. I discussed with pt all test result and answered all her questions. Because Pt had pacemaker so pt can not have MRI. pt walked with nurse without limitation. pt has no other focus neurological deficit. (2) Atrial fibrillation stable and chronic, continue Coumadin as her home meds, followup PCP (3) GERD (gastroesophageal reflux disease) stable, continue home meds regimen (4) HLD (hyperlipidemia) stable, continue home meds (5) Depression stable (6) Hx of sick sinus syndrome stable, pt had a pacemaker. - ALLERGIES Allergies/Adverse Reactions: Allergies Allergy/AdvReac Type Severity Reaction Status Date / Time BISHOP Inhibitors Allergy Unknown Verified 02/08/18 16:48 atropine Allergy Unknown Verified 02/08/18 16:48 cefpodoxime Allergy Unknown Verified 02/08/18 16:48 ciprofloxacin [From Cipro] Allergy Unknown Verified 02/08/18 16:48 clopidogrel Allergy Unknown Verified 02/08/18 16:48 esomeprazole Allergy Unknown Verified 02/08/18 16:48 flecainide Allergy Unknown Verified 02/08/18 16:48 metoprolol Allergy Unknown Verified 02/08/18 16:48 niacin Allergy Unknown Verified 02/08/18 16:48 NSAIDS (Non-Steroidal Allergy Unknown Verified 02/08/18 16:48 Anti-Inflamma Fbitubp-Bha-Evr Reductase Allergy Unknown Verified 02/08/18 16:48 Inhibitor Sulfa (Sulfonamide Allergy Unknown Verified 02/08/18 16:48 Antibiotics) aspirin AdvReac Unknown Verified 02/08/18 16:48 - MEDICATIONS Home Medications: Ambulatory Orders Medication Instructions Recorded Confirmed Amoxicillin 500 mg PO DAILY 10/22/18 10/22/18 Ascorbic Acid [Vitamin C] 1,000 mg PO DAILY 10/22/18 10/22/18 Atorvastatin Calcium 40 mg PO QPM 10/22/18 10/22/18 Cholecalciferol (Vitamin D3) 10,000 unit PO DAILY 10/22/18 10/22/18 [Vitamin D3] Sertraline [Zoloft] 50 mg PO DAILY 10/22/18 10/22/18 Warfarin [Coumadin] 2.5 mg PO TUTHSA 10/22/18 10/22/18 Warfarin [Coumadin] 5 mg PO SUMOWEFR 10/22/18 10/22/18 raNITIdine [Zantac] 75 mg PO DAILY 10/22/18 10/22/18 - PHYSICAL EXAM AT DISCHARGE General Appearance: positive: No acute distress, Alert. negative: Lethargic Eyes Bilateral: positive: Normal inspection, PERRL, No lid inflammation, Conjunctivae nml, No scleral icterus ENT: positive: ENT inspection nml, Pharynx nml, No signs of dehydration. negative: Purulent nasal drainage, Pharyngeal erythema, Oral lesions Neck: positive: Nml inspection, Thyroid nml, No JVD, Trachea midline. negative: Thyromegaly, Lymphadenopathy (R), Lymphadenopathy (L), Stiff neck, Swelling/bruising, Tracheal deviation Respiratory: positive: Chest non-tender, No respiratory distress, Breath sounds nml. negative: Wheezes, Rales, Rhonchi Cardiovascular: positive: Regular rate & rhythm, No murmur, No gallop. negative: Irregularly irregular, Extrasystoles, Tachycardia, Bradycardia, JVD present, Systolic murmur, Diastolic murmur Peripheral Pulses: positive: 2+ Abdomen: positive: Non-tender, No organomegaly, Nml bowel sounds, No distention. negative: Tenderness, Guarding, Rebound Back: positive: Nml inspection. negative: CVA tenderness (R), CVA tenderness (L) Skin: positive: Color nml, No rash, Warm, Dry. negative: Cyanosis, Diaphoresis, Pallor Extremities: positive: Non-tender, Full ROM, Nml appearance. negative: Calf tenderness, Joint swelling, Reginald's sign/cords Neurologic/Psychiatric: positive: Oriented x3, Motor nml, Sensation nml, Mood/affect nml. negative: Weakness, Sensory loss, Facial droop, Slurred/abnml speech, Depressed mood/affect - LABS Result Diagrams: 10/23/18 05:10 10/23/18 05:10 - SEPSIS Current Stage of Sepsis: Ruled out - FOLLOW UP Follow Up: you may followup your PCP in one week. ALL your image studies all are unremarkable. Your tingling sensation was resolved, you normally walked with staff. Should your symptoms return or worsen, you may present ER, call 911 or your PCP for help. - TIME SPENT Time Spent in Discharge (Minutes): 50
[2018-10-24] MEDS ORDERED: WARFARIN 2.5 MG TABLET PO SCH (14:00)
== END 2018-10-23 12:00 | disposition home or self-care (01) ==
LOC: ED 12:44 → MS2 15:18
PROVIDERS: ADMIT Nurse Practitioner Gerontology; ATTEND Nurse Practitioner Gerontology
DX: R20.2 Paresthesia of skin (principal); R20.0 Anesthesia of skin; I48.2 Chronic atrial fibrillation; I10 Essential (primary) hypertension; E03.9 Hypothyroidism, unspecified; K21.9 Gastro-esophageal reflux disease without esophagitis; F32.9 Major depressive disorder, single episode, unspecified; F41.9 Anxiety disorder, unspecified; E78.5 Hyperlipidemia, unspecified; I49.5 Sick sinus syndrome; N30.20 Other chronic cystitis without hematuria; Z95.0 Presence of cardiac pacemaker; Z79.01 Long term (current) use of anticoagulants; Z86.718 Personal history of other venous thrombosis and embolism; Z63.79 Other stressful life events affecting family and household; Z79.2 Long term (current) use of antibiotics; Z87.442 Personal history of urinary calculi; Z79.899 Other long term (current) drug therapy
CPT/HCPCS: 36415; 70450; 70496; 70498; 80048; 80053; 80061; 81001; 83690; 85025; 85610; 93005; 93306; 99284; A9270; G0378; Q9967; 81003; 83721; 87086

== ENCOUNTER 2018-11-01 08:00 | Outpatient (CLI) | payer MEDICARE, OTHER ==
[2018-11-01 19:04] LABS: ALBUMIN/GLOBULIN RATIO 1.2 (1.0-2.2); BILIRUBIN,TOTAL 1.2 mg/dL (0.2-1.0); CALCIUM 9.5 mg/dL (8.5-10.3); CREATININE 0.8 mg/dL (0.4-1.0); TOTAL PROTEIN 7.4 g/dL (6.7-8.2)
[2018-11-01 19:12] LABS: BASOPHILS # (AUTO) 0.1 10^3/uL (0.0-0.1); BASOPHILS % (AUTO) 1.1 %; EOSINOPHILS % (AUTO) 0.4 %; HGB - HEMOGLOBIN 13.8 g/dL (12.0-16.0); LYMPHOCYTES # (AUTO) 1.1 10^3/uL (1.5-3.5); LYMPHOCYTES % (AUTO) 22.8 %; MEAN CORPUSCULAR HEMOGLOBIN 30.3 pg (27.0-31.0); MEAN CORPUSCULAR VOLUME 91.8 fL (81.0-99.0); MONOCYTES # (AUTO) 0.3 10^3/uL (0.0-1.0); MONOCYTES % (AUTO) 5.5 %; NEUTROPHILS # (AUTO) 3.4 10^3/uL (1.5-6.6); NEUTROPHILS % (AUTO) 70.2 %; PLT - PLATELET COUNT 205 10^3/uL (130-450); RED BLOOD COUNT 4.55 10^6/uL (4.20-5.40); RED CELL DISTRIBUTION WIDTH 15.9 % (12.0-15.0); WHITE BLOOD COUNT 4.8 x10^3/uL (4.8-10.8)
[2018-11-01 19:19] LABS: THYROID STIMULATING HORMONE 0.78 uIU/mL (0.34-5.60)
== END 2018-11-01 08:01 | disposition home or self-care (01) ==
LOC: LAB.WCP 08:00
PROVIDERS: ATTEND Family Medicine
DX: E03.9 Hypothyroidism, unspecified (principal); R41.3 Other amnesia; Z86.73 Personal history of transient ischemic attack (TIA), and cerebral infarction without residual deficits; R53.83 Other fatigue; R40.0 Somnolence
CPT/HCPCS: 36415; 80053; 81599; 82607; 82746; 82747; 84443; 85025; 86592

== ENCOUNTER 2018-11-10 08:00 | Outpatient (CLI) | payer MEDICARE, OTHER | END 2018-11-10 23:59 | disposition home or self-care (01) | LOC: LAB.R 08:00 | PROVIDERS: ATTEND Family Medicine | DX: N39.0 Urinary tract infection, site not specified (principal) | CPT/HCPCS: 87086; 87181 ==

== ENCOUNTER 2018-11-10 14:33 | Outpatient (CLI) | payer MEDICARE, OTHER ==
--- NOTE | 2018-11-10 15:20 | XRAY Report ---
Reason: CONSTIPATION Procedure Date: 11/10/2018 Accession Number: [id number] / [id number] Procedure: WCP - Abdomen 1 View X-Ray CPT Code: 69579 FULL RESULT: EXAM: ABDOMEN RADIOGRAPHY EXAM DATE: 11/10/2018 02:48 PM. CLINICAL HISTORY: Constipation. COMPARISON: ABDOMEN 1 VIEW 05/08/2017 11:21 PM. TECHNIQUE: 1 view. FINDINGS: Bowel Gas Pattern: Within normal limits. No dilated loops. Visualized stool burden within the colon is moderate, somewhat lower than the 2017 study. Other: The patient is status post bilateral total hip arthroplasty. IMPRESSION: Moderate stool burden. RADIA
== END 2018-11-10 14:34 | disposition home or self-care (01) ==
LOC: DI.WCP 14:33
PROVIDERS: ATTEND Family Medicine
DX: K59.00 Constipation, unspecified (principal)
CPT/HCPCS: 74018

== ENCOUNTER 2018-11-10 15:56 | Outpatient (CLI) | payer MEDICARE, OTHER ==
[2018-11-10] MEDS ORDERED: IOVERSOL 320 50 ML VIAL ONE (16:15)
[2018-11-10] MEDS ORDERED: IOVERSOL 320 100 ML VIAL IVP ONE (16:16)
--- NOTE | 2018-11-10 17:32 | CT Report ---
Reason: RLQ PAIN, PATIENT HAS IODINE ALLERGY Procedure Date: 11/10/2018 Accession Number: [id number] / [id number] Procedure: CT - Abdomen/Pelvis WO CPT Code: FULL RESULT: EXAM: CT ABDOMEN AND PELVIS (CT KUB) EXAM DATE: 11/10/2018 04:54 PM. CLINICAL HISTORY: Right lower quadrant pain. Iodine allergy. COMPARISONS: CT ABDOMEN/PELVIS W/O 02/13/2017. TECHNIQUE: Routine axial helical CT imaging was performed through the abdomen and pelvis without IV contrast. Reconstructions: Coronal and sagittal. In accordance with CT protocol optimization, one or more of the following dose reduction techniques were utilized for this exam: automated exposure control, adjustment of mA and/or KV based on patient size, or use of iterative reconstructive technique. FINDINGS: Lung bases: Pacemaker. Moderate hiatal hernia. Mild bibasilar scarring suspected. Liver: Unremarkable. Gallbladder: Large gallstone. Bile Ducts: Unremarkable. Pancreas: Prominent pancreatic duct again noted. Spleen: Unremarkable. Adrenals: Unremarkable. Right anterior renal cyst, measures 5.5 cm. No renal calculi. No hydronephrosis. Bowel: Normal appendix. Mild to moderate descending and sigmoid colon diverticulosis without evidence for acute diverticulitis. No acute bowel findings are seen. No free fluid or free air. Pelvis: Metal artifact limits visualization. No definite abnormality seen. Bones: Bilateral total hip arthroplasties. No acute bone findings are seen. Vasculature: No acute findings. IMPRESSION: 1. Cholelithiasis. 2. Moderate hiatal hernia. 3. Left-sided colonic diverticulosis. 4. Normal appendix. No acute bowel findings are seen. 5. See above. RADIA The call report notification system was initiated by Dr. Niru Nicole at 05:23 PM on 11/10/2018. The above call report findings were discussed with Tammy De Guzman by Dr. Niru Nicole at 05:28 PM on 11/10/2018.
== END 2018-11-10 15:57 | disposition home or self-care (01) ==
LOC: DI 15:56
PROVIDERS: ATTEND Family Medicine
DX: R10.31 Right lower quadrant pain (principal); K80.20 Calculus of gallbladder without cholecystitis without obstruction; K44.9 Diaphragmatic hernia without obstruction or gangrene; K57.30 Diverticulosis of large intestine without perforation or abscess without bleeding; N39.0 Urinary tract infection, site not specified
CPT/HCPCS: 74018; 74176; 87086; 87181

== ENCOUNTER 2018-11-17 12:23 | Outpatient (CLI) | payer MEDICARE, OTHER ==
[2018-11-17 13:51] LABS: BASOPHILS % (AUTO) 0.7 %; EOSINOPHILS % (AUTO) 0.7 %; HGB - HEMOGLOBIN 14.4 g/dL (12.0-16.0); LYMPHOCYTES # (AUTO) 1.2 10^3/uL (1.5-3.5); LYMPHOCYTES % (AUTO) 25.6 %; MEAN CORPUSCULAR HEMOGLOBIN 30.6 pg (27.0-31.0); MEAN CORPUSCULAR HGB CONC 32.3 g/dL (32.0-36.0); MEAN CORPUSCULAR VOLUME 94.9 fL (81.0-99.0); MEAN PLATELET VOLUME 10.7 fL (7.9-10.8); MONOCYTES # (AUTO) 0.3 10^3/uL (0.0-1.0); MONOCYTES % (AUTO) 6.6 %; NEUTROPHILS % (AUTO) 66.2 %; PLT - PLATELET COUNT 198 10^3/uL (130-450); WHITE BLOOD COUNT 4.5 x10^3/uL (4.8-10.8)
[2018-11-17 14:03] LABS: ALBUMIN 4.4 g/dL (3.2-5.5); ALBUMIN/GLOBULIN RATIO 1.3 (1.0-2.2); CALCIUM 9.4 mg/dL (8.5-10.3); TOTAL PROTEIN 7.7 g/dL (6.7-8.2)
[2018-11-17 14:10] LABS: BILIRUBIN,TOTAL 1.5 mg/dL (0.2-1.0); CREATININE 0.6 mg/dL (0.4-1.0)
[2018-11-17 15:35] LABS: BILIRUBIN,URINE NEGATIVE (NEGATIVE); GLUCOSE, URINE (UA) NEGATIVE (NEGATIVE); KETONES,URINE (UA) NEGATIVE (NEGATIVE); LEUKOCYTE ESTERASE, URINE NEGATIVE (NEGATIVE); NITRITE,URINE POSITIVE (NEGATIVE); OCCULT BLOOD,URINE NEGATIVE (NEGATIVE); PH,URINE 5.5 PH (5.0-7.5); PROTEIN,URINE NEGATIVE (NEGATIVE); UROBILINOGEN,URINE 0.2 (NORMAL) E.U./dL (NORMAL)
[2018-11-17 15:43] LABS: CLARITY,URINE CLEAR (CLEAR)
[2018-11-17 15:46] LABS: BACTERIA,URINE Moderate /HPF (None Seen); RBC,URINE None Seen /HPF (0-5); SQUAMOUS EPITHELIAL CELL,UR MOD Squamous (<= Few)
--- NOTE | 2018-11-17 15:55 | XRAY Report ---
Reason: ABDOMINAL PAIN,RIGHT LOWER QUADRANT Procedure Date: 11/17/2018 Accession Number: [id number] / [id number] Procedure: XR - Abdomen Acute CPT Code: FULL RESULT: EXAM: ABDOMINAL SERIES AND PA CHEST EXAM DATE: 11/17/2018 01:00 PM. CLINICAL HISTORY: ABDOMINAL Pain, right LOWER QUADRANT. COMPARISON: ABDOMEN 1 VIEW 11/10/2018 2:30 PM CHEST 2 VIEW 02/08/2018 5:20 PM ABDOMEN/PELVIS W/O 11/10/2018 4:49 PM. TECHNIQUE: 2 views abdomen and 1 view chest. FINDINGS: CHEST: Lungs/Pleura: Mildly hyperexpanded, but clear. No effusion or pneumothorax. Mediastinum: Mild cardiomegaly, probably unchanged. Small hiatal hernia. Upper lobe vessels not distended. Permanent pacemaker on the left with intact leads. ABDOMEN: Bowel Gas Pattern: Scattered collections of large and small bowel gas throughout the abdomen with no focal dilation. Moderate amount of stool. Free Air: None. Other: Calcified gallstones and right upper quadrant. Degenerative changes. Bilateral total hip prostheses. IMPRESSION: 1. Nonspecific bowel gas pattern with moderate amount of stool. 2. Cholelithiasis and other chronic or incidental findings. RADIA
== END 2018-11-17 12:24 | disposition home or self-care (01) ==
LOC: DI 12:23
PROVIDERS: ATTEND Family Medicine
DX: R10.31 Right lower quadrant pain (principal); K80.20 Calculus of gallbladder without cholecystitis without obstruction
CPT/HCPCS: 36415; 74022; 80053; 81001; 82150; 83690; 85025

== ENCOUNTER 2018-11-22 08:00 | Outpatient (CLI) | payer MEDICARE, OTHER | END 2018-11-22 23:59 | disposition home or self-care (01) | LOC: LAB.WCP 08:00 | PROVIDERS: ATTEND Physician Assistant | DX: I48.2 Chronic atrial fibrillation (principal); Z79.01 Long term (current) use of anticoagulants ==

== ENCOUNTER 2018-11-28 08:00 | Outpatient (CLI) | payer MEDICARE, OTHER | END 2018-11-28 08:01 | disposition home or self-care (01) | LOC: LAB.WCP 08:00 | PROVIDERS: ATTEND Family Medicine | DX: I48.2 Chronic atrial fibrillation (principal); Z79.01 Long term (current) use of anticoagulants ==

== ENCOUNTER 2018-11-29 08:00 | Outpatient (CLI) | payer MEDICARE, OTHER ==
[2018-11-29 18:39] LABS: BILIRUBIN,URINE NEGATIVE (NEGATIVE); GLUCOSE, URINE (UA) NEGATIVE (NEGATIVE); KETONES,URINE (UA) NEGATIVE (NEGATIVE); LEUKOCYTE ESTERASE, URINE NEGATIVE (NEGATIVE); NITRITE,URINE NEGATIVE (NEGATIVE); OCCULT BLOOD,URINE NEGATIVE (NEGATIVE); PH,URINE 6.5 PH (5.0-7.5); PROTEIN,URINE NEGATIVE (NEGATIVE); UROBILINOGEN,URINE 0.2 (NORMAL) E.U./dL (NORMAL)
[2018-11-29 18:40] LABS: CLARITY,URINE CLEAR (CLEAR)
== END 2018-11-29 23:59 | disposition home or self-care (01) ==
LOC: LAB.WCP 08:00
PROVIDERS: ATTEND Family Medicine
DX: N39.0 Urinary tract infection, site not specified (principal)
CPT/HCPCS: 81001; 81003; 87086

== ENCOUNTER 2018-12-10 12:07 | Emergency (ER) | payer MEDICARE, OTHER ==
[2018-12-10 12:43] LABS: BASOPHILS % (AUTO) 0.9 %; EOSINOPHILS % (AUTO) 0.7 %; HGB - HEMOGLOBIN 14.2 g/dL (12.0-16.0); LYMPHOCYTES # (AUTO) 1.3 10^3/uL (1.5-3.5); LYMPHOCYTES % (AUTO) 28.3 %; MEAN CORPUSCULAR HEMOGLOBIN 30.9 pg (27.0-31.0); MEAN CORPUSCULAR HGB CONC 33.3 g/dL (32.0-36.0); MEAN PLATELET VOLUME 10.4 fL (7.9-10.8); MONOCYTES # (AUTO) 0.3 10^3/uL (0.0-1.0); NEUTROPHILS # (AUTO) 2.8 10^3/uL (1.5-6.6); NEUTROPHILS % (AUTO) 62.9 %; PLT - PLATELET COUNT 187 10^3/uL (130-450); RED BLOOD COUNT 4.59 10^6/uL (4.20-5.40); WHITE BLOOD COUNT 4.5 x10^3/uL (4.8-10.8)
[2018-12-10 12:57] LABS: CREATININE 0.7 mg/dL (0.4-1.0)
[2018-12-10 12:58] LABS: ALBUMIN/GLOBULIN RATIO 1.1 (1.0-2.2); BILIRUBIN,TOTAL 1.4 mg/dL (0.2-1.0); CALCIUM 9.6 mg/dL (8.5-10.3); TOTAL PROTEIN 7.6 g/dL (6.7-8.2)
[2018-12-10 13:13] LABS: BILIRUBIN,URINE NEGATIVE (NEGATIVE); GLUCOSE, URINE (UA) NEGATIVE (NEGATIVE); KETONES,URINE (UA) NEGATIVE (NEGATIVE); LEUKOCYTE ESTERASE, URINE SMALL (NEGATIVE); NITRITE,URINE POSITIVE (NEGATIVE); OCCULT BLOOD,URINE NEGATIVE (NEGATIVE); PH,URINE 7.5 PH (5.0-7.5); PROTEIN,URINE NEGATIVE (NEGATIVE); UROBILINOGEN,URINE 0.2 (NORMAL) E.U./dL (NORMAL)
--- NOTE | 2018-12-10 13:15 | ED Physician Documentation ---
History of Present Illness - Stated complaint Stated Complaint: ABD PX - Chief complaint Chief Complaint: Abd Pain - History obtained from History obtained from: Patient - Additonal information Additional information: Patient is an 88-year-old female presenting with several weeks of generally not feeling well and generalized weakness without particular pain, paralysis, paresthesia or other complaint. Patient denies fever, chills, chest discomfort, difficulty breathing, productive cough, nausea, vomiting, urinary changes, stool changes. Patient has been treated recently for UTI by her primary care physician and reports that the symptoms have all resolved. No other improving or worsening factors noted. Review of Systems Constitutional: denies: Fever Cardiac: denies: Chest pain / pressure Respiratory: denies: Dyspnea, Cough GI: denies: Abdominal Pain, Nausea, Vomiting, Diarrhea : denies: Dysuria Neurologic: reports: Generalized weakness. denies: Focal weakness, Numbness PD PAST MEDICAL HISTORY - Past Medical History Past Medical History: No Cardiovascular: Hypertension, High cholesterol, Deep vein thrombosis, Atrial fibrillation, Other Respiratory: Pneumonia Neuro: None Endocrine/Autoimmune: HyPOthyroidism GI: GERD, Hiatal hernia, Colon polyps, Chronic constipation TIRE CHANGER: None : Chronic bladder infection, Kidney stones, Other HEENT: Chronic vision loss Psych: Depression, Anxiety Musculoskeletal: Osteoarthritis, Fatigue, Other Derm: Herpes zoster - Past Surgical History Past Surgical History: Yes General: Colonoscopy, EGD Ortho: Hip replacement /TIRE CHANGER: Dilation and currettage Cardiovascular: Pacemaker, Other HEENT: Tonsil/Adenoidectomy, Tracheostomy, Other - Present Medications Home Medications: Ambulatory Orders Medication Instructions Recorded Confirmed Amoxicillin 500 mg PO DAILY 10/22/18 10/22/18 Ascorbic Acid [Vitamin C] 1,000 mg PO DAILY 10/22/18 10/22/18 Atorvastatin Calcium 40 mg PO QPM 10/22/18 10/22/18 Cholecalciferol (Vitamin D3) 10,000 unit PO DAILY 10/22/18 10/22/18 [Vitamin D3] Sertraline [Zoloft] 50 mg PO DAILY 10/22/18 10/22/18 Warfarin [Coumadin] 2.5 mg PO TUTHSA 10/22/18 10/22/18 Warfarin [Coumadin] 5 mg PO SUMOWEFR 10/22/18 10/22/18 raNITIdine [Zantac] 75 mg PO DAILY 10/22/18 10/22/18 Nitrofurantoin Monohyd/M-Cryst 100 mg PO BID 7 Days capsule 12/10/18 [Macrobid 100 mg Capsule] - Allergies Allergies/Adverse Reactions: Allergies Allergy/AdvReac Type Severity Reaction Status Date / Time BISHOP Inhibitors Allergy Unknown Verified 12/10/18 12:14 atropine Allergy Unknown Verified 12/10/18 12:14 cefpodoxime Allergy Unknown Verified 12/10/18 12:14 ciprofloxacin [From Cipro] Allergy Unknown Verified 12/10/18 12:14 clopidogrel Allergy Unknown Verified 12/10/18 12:14 esomeprazole Allergy Unknown Verified 12/10/18 12:14 flecainide Allergy Unknown Verified 12/10/18 12:14 metoprolol Allergy Unknown Verified 12/10/18 12:14 niacin Allergy Unknown Verified 12/10/18 12:14 NSAIDS (Non-Steroidal Allergy Unknown Verified 12/10/18 12:14 Anti-Inflamma Ifmaakd-Cxl-Ill Reductase Allergy Unknown Verified 12/10/18 12:14 Inhibitor Sulfa (Sulfonamide Allergy Unknown Verified 12/10/18 12:14 Antibiotics) aspirin AdvReac Unknown Verified 12/10/18 12:14 - Social History Does the pt smoke?: No Smoking Status: Never smoker Does the pt drink ETOH?: No Does the pt have substance abuse?: No - Immunizations Immunizations are current?: Yes - POLST Patient has POLST: No POLST Status: Full Code PD ED PE NORMAL - Vitals Vital signs reviewed: Yes - General General: Alert and oriented X 3, No acute distress, Well developed/nourished - HEENT HEENT: Atraumatic, Moist mucous membranes, Dentition benign - Neck Neck: Supple, no meningeal sign - Cardiac Cardiac: RRR, No murmur - Respiratory Respiratory: No respiratory distress, Clear bilaterally - Abdomen Abdomen: Normal bowel sounds, Soft, Non tender, Non distended - Derm Derm: Normal color, Warm and dry, No rash - Extremities Extremities: No deformity, No tenderness to palpate - Neuro Neuro: Alert and oriented X 3, No motor deficit, No sensory deficit - Psych Psych: Normal mood, Normal affect Results - Vitals Vitals: Vital Signs - 24 hr 12/10/18 12/10/18 12:11 14:14 Temperature 36.7 C 36.7 C Heart Rate 113 H 82 Respiratory 18 18 Rate Blood Pressure 177/88 H 152/96 H O2 Saturation 96 97 Oxygen O2 Source Room air - EKG (time done) 1403 Rate: Rate (enter#) (63) Rhythm: NSR Intervals: Prolonged QT Ischemia: Non specific changes Other comments: Other comments (Some artifact present) - Labs Labs: Laboratory Tests 12/10/18 12/10/18 12/10/18 12:30 12:35 12:35 WBC 4.5 L RBC 4.59 Hgb 14.2 Hct 42.7 MCV 93.0 MCH 30.9 MCHC 33.3 RDW 15.0 Plt Count 187 MPV 10.4 Neut # (Auto) 2.8 Lymph # (Auto) 1.3 L Dewitt # (Auto) 0.3 Eos # (Auto) 0.0 Baso # (Auto) 0.0 Absolute Nucleated RBC 0.00 Nucleated RBC % 0.0 Sodium 142 Potassium 4.5 Chloride 106 Carbon Dioxide 24 Anion Gap 12.0 BUN 18 Creatinine 0.7 Estimated GFR (MDRD) 79 L Glucose 111 H Lactic Acid Calcium 9.6 Total Bilirubin 1.4 H AST 21 ALT 19 Alkaline Phosphatase 47 Troponin I Troponin I High Sens Total Protein 7.6 Albumin 4.0 Globulin 3.6 Albumin/Globulin Ratio 1.1 Lipase 22 TSH Urine Color YELLOW Urine Clarity SL. CLOUDY Urine pH 7.5 Ur Specific Spelter 1.010 Urine Protein NEGATIVE Urine Glucose (UA) NEGATIVE Urine Ketones NEGATIVE Urine Occult Blood NEGATIVE Urine Nitrite POSITIVE H Urine Bilirubin NEGATIVE Urine Urobilinogen 0.2 (NORMAL) Ur Leukocyte Esterase SMALL H Urine RBC 0-5 Urine WBC 11-25 H Ur Squamous Epith Cells MOD Squamous H Urine Bacteria Moderate H Urine Casts 0-2 Hyaline Casts Ur Microscopic Review INDICATED Urine Culture Comments NOT INDICATED Influenza A (Rapid) Influenza B (Rapid) 12/10/18 12/10/18 12/10/18 12:35 12:35 13:45 WBC RBC Hgb Hct MCV MCH MCHC RDW Plt Count MPV Neut # (Auto) Lymph # (Auto) Dewitt # (Auto) Eos # (Auto) Baso # (Auto) Absolute Nucleated RBC Nucleated RBC % Sodium Potassium Chloride Carbon Dioxide Anion Gap BUN Creatinine Estimated GFR (MDRD) Glucose Lactic Acid 1.1 Calcium Total Bilirubin AST ALT Alkaline Phosphatase Troponin I < 0.04 Troponin I High Sens 5.8 Total Protein Albumin Globulin Albumin/Globulin Ratio Lipase TSH 1.08 Urine Color Urine Clarity Urine pH Ur Specific Spelter Urine Protein Urine Glucose (UA) Urine Ketones Urine Occult Blood Urine Nitrite Urine Bilirubin Urine Urobilinogen Ur Leukocyte Esterase Urine RBC Urine WBC Ur Squamous Epith Cells Urine Bacteria Urine Casts Ur Microscopic Review Urine Culture Comments Influenza A (Rapid) Influenza B (Rapid) 12/10/18 14:40 WBC RBC Hgb Hct MCV MCH MCHC RDW Plt Count MPV Neut # (Auto) Lymph # (Auto) Dewitt # (Auto) Eos # (Auto) Baso # (Auto) Absolute Nucleated RBC Nucleated RBC % Sodium Potassium Chloride Carbon Dioxide Anion Gap BUN Creatinine Estimated GFR (MDRD) Glucose Lactic Acid Calcium Total Bilirubin AST ALT Alkaline Phosphatase Troponin I Troponin I High Sens Total Protein Albumin Globulin Albumin/Globulin Ratio Lipase TSH Urine Color Urine Clarity Urine pH Ur Specific Spelter Urine Protein Urine Glucose (UA) Urine Ketones Urine Occult Blood Urine Nitrite Urine Bilirubin Urine Urobilinogen Ur Leukocyte Esterase Urine RBC Urine WBC Ur Squamous Epith Cells Urine Bacteria Urine Casts Ur Microscopic Review Urine Culture Comments Influenza A (Rapid) Negative Influenza B (Rapid) Negative PD MEDICAL DECISION MAKING - ED course Complexity details: reviewed old records, reviewed results, re-evaluated patient, considered differential, d/w patient, d/w family ED course: Patient presenting with generalized fatigue and unwell feeling for the past several weeks. Patient has been previously treated for UTI, but is unaware of what antibiotics were used. Upon chart review, last culture reflects near camacho sensitivity except for some resistance including Bactrim. If patient returns t narciso with persistent UTI, will likely use Macrobid, particularly given normal creatinine levels. Patient's symptoms are not consistent with intracranial injury or stroke, ACS, CT, unstable angina, dissection, aneurysm, PE, pneumonia, but considered. Did obtain chest x-ray which returned rather unremarkable. EKG and cardiac markers did not reflect ischemia. Patient denied abdominal complaints. She has had extensive abdominal work-up including imaging over the past several months which did not find evidence of significant pathology. Do not feel patient requires repeat imaging today. Remainder screening lab work returned relatively unremarkable Including no significant leukocytosis, electrolyte disturbance, acute kidney injury. TSH and lactic acid within normal limits. UTI reflecting infection again. Influenza testing negative.Patient advised of results and recommendations including starting oral antibiotics for UTI, other supportive cares, return precautions, appropriate follow-up. Departure - Departure Disposition: 01 Home, Self Care Clinical Impression: Urinary tract infection Qualifiers: Urinary tract infection type: site unspecified Hematuria presence: without hematuria Qualified Code(s): N39.0 - Urinary tract infection, site not specified Condition: Good Instructions: ED UTI Cystitis Female Follow-Up: Tammy De Guzman MD [Primary Care Provider] - Within 3 Days Prescriptions: Nitrofurantoin Monohyd/M-Cryst [Macrobid 100 mg Capsule] 100 mg PO BID 7 Days capsule Comments: Please continue home Medications as instructed. Please start antibiotics later today to treat recurrence of bladder or urinary tract infection. Recommend hydration, healthy diet, and follow-up with primary care physician in next 2 to 3 days. Return to ED sooner if experience worsening symptoms or have other concerns.
[2018-12-10 13:20] LABS: CLARITY,URINE SL. CLOUDY (CLEAR)
[2018-12-10 13:24] LABS: BACTERIA,URINE Moderate /HPF (None Seen); CASTS, URINE 0-2 Hyaline Casts /LPF; RBC,URINE 0-5 /HPF (0-5); SQUAMOUS EPITHELIAL CELL,UR MOD Squamous (<= Few)
[2018-12-10] MEDS ORDERED: SODIUM CHLORIDE 0.9% 1,000 ML IV ONE (13:24)
--- NOTE | 2018-12-10 13:44 | XRAY Report ---
Reason: chest pain Procedure Date: 12/10/2018 Accession Number: [id number] / [id number] Procedure: XR - Chest 1 View X-Ray CPT Code: 14822 FULL RESULT: EXAM: CHEST RADIOGRAPHY EXAM DATE: 12/10/2018 01:34 PM. CLINICAL HISTORY: Chest pain. COMPARISON: ABDOMEN ACUTE 11/17/2018 12:47 PM. TECHNIQUE: 1 view. FINDINGS: Lungs/Pleura: No focal opacities evident. No pleural effusion. No pneumothorax. Mediastinum: Stable cardiomediastinal silhouette. Other: Left sided pacemaker with lead in stable position. IMPRESSION: No evidence for acute cardiothoracic process. RADIA
[2018-12-10 13:55] LABS: TROPONIN I < 0.04 ng/mL (<0.49)
[2018-12-10 14:25] VITALS: BP 152/96
== END 2018-12-10 15:18 | disposition home or self-care (01) ==
LOC: ED 12:07
DX: N39.0 Urinary tract infection, site not specified (principal); I10 Essential (primary) hypertension
CPT/HCPCS: 36415; 71045; 80053; 81001; 81003; 83605; 83690; 84443; 84484; 85025; 87040; 87086; 87275; 87276; 93005; 99283; 99284

== ENCOUNTER 2018-12-13 10:00 | Outpatient (CLI) | payer MEDICARE, OTHER | END 2018-12-13 23:59 | disposition home or self-care (01) | LOC: LAB.R 10:00 | PROVIDERS: ATTEND Physician Assistant Medical | DX: R10.31 Right lower quadrant pain (principal) | CPT/HCPCS: 87086 ==

== ENCOUNTER 2018-12-19 11:47 | Outpatient (CLI) | payer MEDICARE, OTHER | END 2018-12-19 23:59 | disposition home or self-care (01) | LOC: LAB.R 11:47 | PROVIDERS: ATTEND Family Medicine | DX: N39.0 Urinary tract infection, site not specified (principal) | CPT/HCPCS: 87086; 87181 ==

== ENCOUNTER 2018-12-20 | Emergency (ER) | payer MEDICARE, OTHER | END 2018-12-20 14:25 | disposition home or self-care (01) | DX: N30.90 Cystitis, unspecified without hematuria (principal); I10 Essential (primary) hypertension; Z79.01 Long term (current) use of anticoagulants | CPT/HCPCS: 81001; 85610; 87086; 87181; 99283; 99284; A9270; 81003 ==

== ENCOUNTER 2018-12-25 | Outpatient (CLI) | payer MEDICARE, OTHER | END 2018-12-25 23:59 | disposition home or self-care (01) | DX: N39.0 Urinary tract infection, site not specified (principal) ==

== ENCOUNTER 2019-01-03 08:00 | Outpatient (CLI) | payer MEDICARE, OTHER | END 2019-01-03 23:59 | disposition home or self-care (01) | LOC: LAB.WCP 08:00 | PROVIDERS: ATTEND Family Medicine | DX: I48.91 Unspecified atrial fibrillation (principal); Z79.01 Long term (current) use of anticoagulants ==

== ENCOUNTER 2019-01-09 13:40 | Outpatient (CLI) | payer MEDICARE, OTHER ==
--- NOTE | 2019-01-11 11:55 | Ultrasound Report ---
Reason: ABDOMINAL PAIN, RLQ Procedure Date: 01/09/2019 Accession Number: [id number] / [id number] Procedure: US - Pelvic w/Transvaginal CPT Code: FULL RESULT: EXAM: PELVIC ULTRASOUND EXAM DATE: 01/09/2019 03:39 PM. CLINICAL HISTORY: RLQ/pelvic pain. COMPARISON: Pelvic ultrasound 09/06/2006. CT abdomen and pelvis 11/10/2018. TECHNIQUE: Realtime transabdominal pelvic scan performed to identify the uterus and adnexa and as an overview of other pelvic structures, followed by transvaginal scan to provide greater detail of the uterus and adnexa, with static image documentation. FINDINGS: Uterus: Retroverted 5.6 x 4.3 x 5.6 cm on transvaginal scan, volume 70 cc. Arcuate configuration. Mildly heterogeneous endometrial complex up to 14 mm thick. Somewhat imprecise detailed evaluation of endometrial thickness due to obliquity of the sagittal images. There is subtle endometrial color Doppler flow. No intracavitary fluid or focal polyp identified. No discrete fibroid. Cervix: Somewhat heterogeneous endocervical canal up to 5 mm thick, with no apparent vascularity. Otherwise unremarkable. Few small nabothian cysts. Right Ovary: 3.1 x 1.6 x 2.4 cm, volume 6.5 cc. A small simple cyst measures 2.7 x 1.5 x 2.1 cm, previously 1.4 x 0.8 x 0.8 cm. Otherwise unremarkable. Left Ovary: 2.3 x 1.2 x 2.6 cm, volume 3.6 cc. Unremarkable. Free Fluid: None. Other: No adnexal mass. IMPRESSION: 1. A 2.7 cm (previously 1.4 cm) simple left ovarian cyst. Otherwise unremarkable bilateral ovaries. 2. No free fluid or adnexal lesion identified. 3. Retroverted arcuate uterus. 4. Abnormally thickened mildly heterogeneous postmenopausal endometrial complex with subtle vascularity approximately 14 mm thick. Consider tissue sampling and follow-up. No endometrial polyp identified. 5. Cannot exclude a small cervical polyp. No focal fibroid. RADIA
== END 2019-01-09 13:41 | disposition home or self-care (01) ==
LOC: DI 13:40
PROVIDERS: ATTEND Family Medicine
DX: N83.292 Other ovarian cyst, left side (principal); N85.4 Malposition of uterus; R93.89 Abnormal findings on diagnostic imaging of other specified body structures
CPT/HCPCS: 76830; 76856

== ENCOUNTER 2019-02-07 08:00 | Outpatient (CLI) | payer MEDICARE, OTHER | END 2019-02-07 23:59 | disposition home or self-care (01) | LOC: LAB.WCP 08:00 | PROVIDERS: ATTEND Physician Assistant Medical | DX: Z79.01 Long term (current) use of anticoagulants (principal); I48.2 Chronic atrial fibrillation ==

== ENCOUNTER 2019-03-07 08:00 | Outpatient (CLI) | payer MEDICARE, OTHER | END 2019-03-07 23:59 | disposition home or self-care (01) | LOC: LAB.WCP 08:00 | PROVIDERS: ATTEND Physician Assistant Medical | DX: Z79.01 Long term (current) use of anticoagulants (principal); I48.91 Unspecified atrial fibrillation ==

== ENCOUNTER 2019-03-14 11:29 | Outpatient (CLI) | payer MEDICARE, OTHER | END 2019-03-14 11:30 | disposition critical access hospital (66) | LOC: EMS 11:29 | PROVIDERS: ATTEND Surgery | DX: R53.1 Weakness (principal); R53.83 Other fatigue; R20.0 Anesthesia of skin | CPT/HCPCS: A0425; A0429 ==

== ENCOUNTER 2019-03-14 11:45 | Emergency (ER) | payer MEDICARE, OTHER ==
--- NOTE | 2019-03-14 12:38 | ED Physician Documentation ---
PD HPI FOCAL NEURO - Stated complaint Stated Complaint: WEAKNESS - Chief complaint Chief Complaint: General - History obtained from History obtained from: Patient - History of Present Illness Timing - onset: Other (88-year-old woman with history of atrial fibrillation on warfarin, chronic UTIs. She says that ever since she had a colonoscopy in November she has had on and off numbness of the right side. It happens at least daily but it does not last all day. Is not associated with weakness. That said over the last 10 days and acutely more over the last 2 to 3 days she is been profoundly fatigued and just does not have any energy. She denies any pain. No specific urinary complaints. She is had some mild headaches but nothing serious. No shortness of breath or pedal edema.) Review of Systems Ten Systems: 10 systems reviewed and negative Constitutional: reports: Chills, Fatigue. denies: Fever Ears: denies: Ear pain Nose: denies: Rhinorrhea / runny nose, Congestion Cardiac: denies: Chest pain / pressure, Palpitations Respiratory: denies: Dyspnea, Cough PD PAST MEDICAL HISTORY - Past Medical History Past Medical History: Yes Cardiovascular: Hypertension, High cholesterol, Deep vein thrombosis, Atrial fibrillation, Other Respiratory: Pneumonia Neuro: None Endocrine/Autoimmune: HyPOthyroidism GI: GERD, Hiatal hernia, Colon polyps, Chronic constipation STRAIGHTENING ROLL OPERATOR: None : Chronic bladder infection, Kidney stones, Other HEENT: Chronic vision loss Psych: Depression, Anxiety Musculoskeletal: Osteoarthritis, Fatigue, Other Derm: Herpes zoster - Past Surgical History Past Surgical History: Yes General: Colonoscopy, EGD Ortho: Hip replacement /STRAIGHTENING ROLL OPERATOR: Dilation and currettage Cardiovascular: Pacemaker, Other HEENT: Tonsil/Adenoidectomy, Tracheostomy, Other - Present Medications Home Medications: Ambulatory Orders Medication Instructions Recorded Confirmed Amoxicillin 500 mg PO DAILY 10/22/18 10/22/18 Ascorbic Acid [Vitamin C] 1,000 mg PO DAILY 10/22/18 10/22/18 Atorvastatin Calcium 40 mg PO QPM 10/22/18 10/22/18 Cholecalciferol (Vitamin D3) 10,000 unit PO DAILY 10/22/18 10/22/18 [Vitamin D3] Sertraline [Zoloft] 50 mg PO DAILY 10/22/18 10/22/18 Warfarin [Coumadin] 2.5 mg PO TUTHSA 10/22/18 10/22/18 Warfarin [Coumadin] 5 mg PO SUMOWEFR 10/22/18 10/22/18 raNITIdine [Zantac] 75 mg PO DAILY 10/22/18 10/22/18 Nitrofurantoin Monohyd/M-Cryst 100 mg PO BID 7 Days capsule 12/10/18 [Macrobid 100 mg Capsule] Nitrofurantoin Monohyd/M-Cryst 100 mg PO BID #20 capsule 12/20/18 [Macrobid 100 mg Capsule] Phenazopyridine HCl [Pyridium] 200 mg PO TID PRN #6 tablet 12/20/18 Nitrofurantoin Monohyd/M-Cryst 100 mg PO BID #20 capsule 03/14/19 [Macrobid 100 mg Capsule] - Allergies Allergies/Adverse Reactions: Allergies Allergy/AdvReac Type Severity Reaction Status Date / Time BISHOP Inhibitors Allergy Unknown Verified 03/14/19 11:51 atropine Allergy Unknown Verified 03/14/19 11:51 cefpodoxime Allergy Unknown Verified 03/14/19 11:51 ciprofloxacin [From Cipro] Allergy Unknown Verified 03/14/19 11:51 clopidogrel Allergy Unknown Verified 03/14/19 11:51 esomeprazole Allergy Unknown Verified 03/14/19 11:51 flecainide Allergy Unknown Verified 03/14/19 11:51 metoprolol Allergy Unknown Verified 03/14/19 11:51 niacin Allergy Unknown Verified 03/14/19 11:51 NSAIDS (Non-Steroidal Allergy Unknown Verified 03/14/19 11:51 Anti-Inflamma Hpfmgnq-Icl-Nww Reductase Allergy Unknown Verified 03/14/19 11:51 Inhibitor Sulfa (Sulfonamide Allergy Unknown Verified 03/14/19 11:51 Antibiotics) aspirin AdvReac Unknown Verified 03/14/19 11:51 - Social History Does the pt smoke?: No Smoking Status: Never smoker Does the pt drink ETOH?: No Does the pt have substance abuse?: No - Family History Family history: reports: Non contributory - Immunizations Immunizations are current?: Yes - POLST Patient has POLST: No POLST Status: Full Code PD ED PE NORMAL - Vitals Vital signs reviewed: Yes - General General: Alert and oriented X 3, No acute distress - HEENT HEENT: PERRL, EOMI - Neck Neck: Supple, no meningeal sign, No bony TTP - Cardiac Cardiac: RRR, No murmur - Respiratory Respiratory: No respiratory distress, Clear bilaterally - Abdomen Abdomen: Normal bowel sounds, Soft, Non tender - Back Back: No CVA TTP, No spinal TTP - Derm Derm: Normal color, Warm and dry - Extremities Extremities: No edema, No calf tenderness / cord - Neuro Neuro: Alert and oriented X 3, No motor deficit, Normal speech, Other (mild R face numbness/RLE numbness, spares the RUE) Eye Opening: Spontaneous Motor: Obeys Commands Verbal: Oriented GCS Score: 15 - Psych Psych: Normal mood, Normal affect Results - Vitals Vitals: Vital Signs - 24 hr 03/14/19 11:46 Temperature 37.1 C Heart Rate 72 Respiratory 16 Rate Blood Pressure 147/77 H O2 Saturation 95 Oxygen O2 Source Room air - Labs Labs: Laboratory Tests 03/14/19 03/14/19 03/14/19 12:30 12:30 12:30 WBC 4.3 L RBC 4.21 Hgb 13.3 Hct 39.9 MCV 94.8 MCH 31.6 H MCHC 33.3 RDW 14.8 Plt Count 191 MPV 10.3 Neut # (Auto) 2.9 Lymph # (Auto) 1.0 L Bland # (Auto) 0.3 Eos # (Auto) 0.0 Baso # (Auto) 0.0 Absolute Nucleated RBC 0.00 Nucleated RBC % 0.0 PT 41.5 H INR 3.9 H Sodium 142 Potassium 3.7 Chloride 109 Carbon Dioxide 26 Anion Gap 7.0 BUN 21 H Creatinine 0.6 Estimated GFR (MDRD) 94 Glucose 113 H Calcium 9.0 Total Bilirubin 1.4 H AST 17 ALT 15 Alkaline Phosphatase 48 Total Protein 6.8 Albumin 3.7 Globulin 3.1 Albumin/Globulin Ratio 1.2 Lipase 24 Urine Color Urine Clarity Urine pH Ur Specific [place] Urine Protein Urine Glucose (UA) Urine Ketones Urine Occult Blood Urine Nitrite Urine Bilirubin Urine Urobilinogen Ur Leukocyte Esterase Ur Microscopic Review Urine Culture Comments 03/14/19 14:00 WBC RBC Hgb Hct MCV MCH MCHC RDW Plt Count MPV Neut # (Auto) Lymph # (Auto) Bland # (Auto) Eos # (Auto) Baso # (Auto) Absolute Nucleated RBC Nucleated RBC % PT INR Sodium Potassium Chloride Carbon Dioxide Anion Gap BUN Creatinine Estimated GFR (MDRD) Glucose Calcium Total Bilirubin AST ALT Alkaline Phosphatase Total Protein Albumin Globulin Albumin/Globulin Ratio Lipase Urine Color YELLOW Urine Clarity CLOUDY Urine pH 6.5 Ur Specific [place] 1.010 Urine Protein NEGATIVE Urine Glucose (UA) NEGATIVE Urine Ketones NEGATIVE Urine Occult Blood NEGATIVE Urine Nitrite POSITIVE H Urine Bilirubin NEGATIVE Urine Urobilinogen 0.2 (NORMAL) Ur Leukocyte Esterase MODERATE H Ur Microscopic Review INDICATED Urine Culture Comments Not Reportable - Rads (name of study) CT Head Radiology: EMP read contemporaneously (White matter dz, Otherwise no acute disease.) PD MEDICAL DECISION MAKING - ED course ED course: 88-year-old woman presents with ongoing subacute weakness and even longer of several months intermittent numbness. Work-up was negative except for UTI. Macrobid chosen based on prior cultures. Departure - Departure Disposition: Home, Self Care Clinical Impression: Weakness Urinary tract infection Qualifiers: Urinary tract infection type: acute cystitis Hematuria presence: without hematuria Qualified Code(s): N30.00 - Acute cystitis without hematuria Condition: Good Record reviewed to determine appropriate education?: Yes Instructions: ED UTI Cystitis Female Prescriptions: Nitrofurantoin Monohyd/M-Cryst [Macrobid 100 mg Capsule] 100 mg PO BID #20 capsule Comments: Your INR is a little high today at 3.8. Skip the next dose of warfarin, tomorrow take a half dose of warfarin. Have it rechecked Tuesday or Tuesday. Follow-up with your doctor on Tuesday. Return for new worsening symptoms.
[2019-03-14 12:43] LABS: BASOPHILS % (AUTO) 0.7 %; EOSINOPHILS % (AUTO) 0.7 %; HGB - HEMOGLOBIN 13.3 g/dL (12.0-16.0); LYMPHOCYTES % (AUTO) 23.7 %; MEAN CORPUSCULAR HEMOGLOBIN 31.6 pg (27.0-31.0); MEAN CORPUSCULAR HGB CONC 33.3 g/dL (32.0-36.0); MEAN CORPUSCULAR VOLUME 94.8 fL (81.0-99.0); MEAN PLATELET VOLUME 10.3 fL (7.9-10.8); MONOCYTES # (AUTO) 0.3 10^3/uL (0.0-1.0); MONOCYTES % (AUTO) 6.3 %; NEUTROPHILS # (AUTO) 2.9 10^3/uL (1.5-6.6); NEUTROPHILS % (AUTO) 68.4 %; PLT - PLATELET COUNT 191 10^3/uL (130-450); RED BLOOD COUNT 4.21 10^6/uL (4.20-5.40); RED CELL DISTRIBUTION WIDTH 14.8 % (12.0-15.0); WHITE BLOOD COUNT 4.3 x10^3/uL (4.8-10.8)
[2019-03-14 12:49] LABS: INR 3.9 (0.8-1.2); PT - PROTHROMBIN TIME 41.5 secs (9.9-12.6)
[2019-03-14 12:50] LABS: ALBUMIN 3.7 g/dL (3.2-5.5); ALBUMIN/GLOBULIN RATIO 1.2 (1.0-2.2); BILIRUBIN,TOTAL 1.4 mg/dL (0.2-1.0); CREATININE 0.6 mg/dL (0.4-1.0); TOTAL PROTEIN 6.8 g/dL (6.7-8.2)
--- NOTE | 2019-03-14 13:39 | CT Report ---
Reason: R numbness Procedure Date: 03/14/2019 Accession Number: [id number] / [id number] Procedure: CT - HEAD WO CPT Code: FULL RESULT: EXAM: CT HEAD EXAM DATE: 03/14/2019 12:59 PM. CLINICAL HISTORY: R numbness. COMPARISON: 10/22/2018. TECHNIQUE: Multiaxial CT images were obtained from the foramen magnum to the vertex. Reformats: Sagittal and coronal. IV contrast: None. In accordance with CT protocol optimization, one or more of the following dose reduction techniques were utilized for this exam: automated exposure control, adjustment of mA and/or KV based on patient size, or use of iterative reconstructive technique. FINDINGS: Parenchyma: There is mild bilateral symmetric periventricular white matter hypodensity. Negative for acute hemorrhage. No mass-effect or midline shift. No localizing edema. Extraaxial Spaces: No subdural or epidural collections identified. Ventricles: Normal in size and position. Sinuses and Orbits: Imaged paranasal sinuses, orbits, and mastoids show no significant abnormality. Bones: No evidence of fracture or calvarial defect. Other: None. IMPRESSION: 1. Negative for intracranial acute hemorrhage, localizing edema or mass-effect. 2. Mild nonfocal white matter disease unchanged. 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 RADIA
[2019-03-14 14:15] LABS: BILIRUBIN,URINE NEGATIVE (NEGATIVE); GLUCOSE, URINE (UA) NEGATIVE (NEGATIVE); KETONES,URINE (UA) NEGATIVE (NEGATIVE); LEUKOCYTE ESTERASE, URINE MODERATE (NEGATIVE); NITRITE,URINE POSITIVE (NEGATIVE); OCCULT BLOOD,URINE NEGATIVE (NEGATIVE); PH,URINE 6.5 PH (5.0-7.5); PROTEIN,URINE NEGATIVE (NEGATIVE); UROBILINOGEN,URINE 0.2 (NORMAL) E.U./dL (NORMAL)
[2019-03-14 14:16] LABS: CLARITY,URINE CLOUDY (CLEAR)
[2019-03-14 14:27] LABS: BACTERIA,URINE Many /HPF (None Seen); RBC,URINE 0-5 /HPF (0-5); SQUAMOUS EPITHELIAL CELL,UR MANY Squamous (<= Few)
[2019-03-14 14:34] VITALS: BP 111/86
== END 2019-03-14 15:47 | disposition home or self-care (01) ==
LOC: EDUNIT# → ED 11:45
DX: R53.1 Weakness (principal); R20.0 Anesthesia of skin; N30.00 Acute cystitis without hematuria; R79.1 Abnormal coagulation profile; Z79.01 Long term (current) use of anticoagulants; I48.91 Unspecified atrial fibrillation; Z86.718 Personal history of other venous thrombosis and embolism; I10 Essential (primary) hypertension
CPT/HCPCS: 36415; 70450; 80053; 81001; 81003; 83690; 85025; 85610; 87086; 99283; 99284

== ENCOUNTER 2019-03-20 08:00 | Outpatient (CLI) | payer MEDICARE, OTHER | END 2019-03-20 23:59 | disposition home or self-care (01) | LOC: LAB.WCP 08:00 | PROVIDERS: ATTEND Physician Assistant Medical | DX: Z79.01 Long term (current) use of anticoagulants (principal); I48.91 Unspecified atrial fibrillation ==

== ENCOUNTER 2019-03-27 08:00 | Outpatient (CLI) | payer MEDICARE, OTHER | END 2019-03-27 23:59 | disposition home or self-care (01) | LOC: LAB.WCP 08:00 | PROVIDERS: ATTEND Physician Assistant Medical | DX: Z79.01 Long term (current) use of anticoagulants (principal); I48.91 Unspecified atrial fibrillation ==

== ENCOUNTER 2019-04-03 08:00 | Outpatient (CLI) | payer MEDICARE, OTHER | END 2019-04-03 23:59 | disposition home or self-care (01) | LOC: LAB.WCP 08:00 | PROVIDERS: ATTEND Physician Assistant Medical | DX: Z79.01 Long term (current) use of anticoagulants (principal); I48.91 Unspecified atrial fibrillation ==

== ENCOUNTER 2019-04-17 08:00 | Outpatient (CLI) | payer MEDICARE, OTHER | END 2019-04-17 23:59 | disposition home or self-care (01) | LOC: LAB.WCP 08:00 | PROVIDERS: ATTEND Physician Assistant Medical | DX: Z79.01 Long term (current) use of anticoagulants (principal); I48.91 Unspecified atrial fibrillation ==

== ENCOUNTER 2019-05-22 15:08 | Outpatient (CLI) | payer MEDICARE, OTHER ==
[2019-05-22 16:19] VITALS: BP 148/80
--- NOTE | 2019-05-22 16:19 | SLEEP CARE CONSULTATION ---
Information from patient questionnaire entered by Maude Zarco. I have reviewed and concur with the information entered by Maude Zarco. This document represents the service I personally performed and the decisions made by me, Leyla Lockett, RN, MSN, DRIVER LICENSE AGENT. History of Present Illness Previous diagnosis: Mild, Obstructive Sleep Apnea-Hypopnea Syndrome AHI: 13.9 Reason for follow up: first compliance Equipment type: CPAP Equipment obtained from: [facility] Mask style: Nasal (Dreamwear with chinstrap) Mask brand: Respironics Backup mask available: No Last cushion change: none since set up HPI additional information: Patient originally to be set up with [facility] but was not completed due to unknown problem unable to set up. She called here and staff interceded and finally after several calls got her set up with [facility] as stated by patient and noted in progress notes. Thus there was an extended delay in set up of CPAP from date of order. Set up finally completed 02-21-19. CPAP Compliance Data - Data Reviewed with Patient Average duration of nightly device use: 2.9 Compliance rate %: 23.3 (Patient struggling to use CPAP. ) Current pressure setting (cmH2O): 4-15 Humidity settin Heated hose settin Average residual AHI: 9.7 Central apnea: 0.1 Obstructive apnea: 1.6 Hypopnea: 8.0 Average large leak: 52 min 33 sec Subjective Patient concerns: reports: mask discomfort (too tight of mask body.j), dry mouth, nose, throat (chinstrap helped reduce dry mouth), other (does not wake to mask off face but the compliance report shows mask off face). denies: aerophagia, air blowing in eyes, mask leak noise, condensation in mask/hose, nasal congestion, epistaxis Observed to snore while using device: No (sleeps separately) Current pressure setting perceived as: too high (later in night) On therapy, patient: reports: awakening more refreshed, being more awake and alert during the day, more rested overall. denies: sleeping better Initial [place] Sleepiness Scale score: 3 Current [place] Sleepiness Scale score: 6 Allergies and Home Medications Known drug allergies: Yes (see list - multiple) Home medication list reviewed: Yes (stopped shampoo, no other changes) Review of Systems Review of systems same as previous: No (new medication reaction / treated in ER/ Also sensitivity to anesthetic) Physical Exam Blood Pressure: 148/80 Cuff size: long Heart Rate: 72 (apical) O2 Saturation: 98 Weight: 172 lb Weight change since last visit: lost 13 pounds Impression and Plan 1. Obstructive Sleep Apnea-Hypopnea Syndrome, mild, with poor treatment compliance and elevated residual AHI. Despite poor compliance and not optimal apnea control, the patient reports that on CPAP therapy, she has better sleep quality and is more rested overall. To improve comfort of CPAP pressure, I will adjust pressure to 4-6 cmH20. She is to contact me if pressure change still uncomfortable. For her oral dryness which seems to be one of the reasons she will pull off mask after only a few hours of use due to discomfort, I showed her how to adjust the humidity higher on sample device. Printed instructions given. She stated she was unsure if she could complete so I will have changes completed online. For mask discomfort from feeling too tight, she is advised to adjust chinstrap or mask to comfort. A mask refitting was also ordered. I again reviewed compliance goals. Since she may not meet compliance goals in time allotted, I explained she may have to re-qualify with a new home sleep study and restart compliance process. She would like to proceed if needed as feels she is benefitting from treatment. Patient's apnea severity and rationale for treatment to reduce apnea, improve sleep quality and reduce cardiovascular and cerebrovascular events was reviewed. I also reviewed the benefit of consistent device use of CPAP for hypertension, arrhythmia, depression/anxiety. * * Change CPAP pressure to 4-5 cmH2O * Adjust humidity / heated hose * Adjust mask * Mask refitting * Use CPAP with all sleep * Notify me if snoring with mask or feeling that the pressure is too much or too little * Attempt to lose weight * Call this office if any problems using CPAP * Return for follow up in 1-2 months, or sooner if concerns arise * * Addendum: the patient changed to new PCP off loraine. She is unsure of name spelling of the provider -Bernabe. Thus I will have staff clarify with patient so report sent appropriately. Time Spent with Patient (minutes): 35 I spent 100% of this visit face to face with the patient with greater than 50% of this was spent time counseling the patient and coordination of care.
== END 2019-05-22 15:09 | disposition home or self-care (01) ==
LOC: SC 15:08
PROVIDERS: ATTEND Nurse Practitioner Family
DX: G47.33 Obstructive sleep apnea (adult) (pediatric) (principal)
CPT/HCPCS: 99214; G0463; 99212

== ENCOUNTER 2019-06-18 08:57 | Outpatient (CLI) | payer MEDICARE, OTHER ==
[2019-06-18 10:22] VITALS: BP 112/66
--- NOTE | 2019-06-18 10:22 | SLEEP CARE CONSULTATION ---
Information from patient questionnaire entered by Zainab Mckeon. I have reviewed and concur with the information entered by Zainab Mckeon. This document represents the service I personally performed and the decisions made by me, Leyla Lockett, RN, MSN, EXHIBITION DESIGNER. History of Present Illness Previous diagnosis: Mild (now getting supplies), Obstructive Sleep Apnea- Hypopnea Syndrome AHI: 13.9 Reason for follow up: first compliance Equipment type: CPAP Equipment obtained from: [facility] Mask style: Nasal Mask brand: Respironics Backup mask available: No Last cushion change: none since set up Prior sleep studies: Yes HPI additional information: The mask is fitting better and more comfortable with the chinstrap as not breathing out through mouth but taking off after a few hours due to discomfort of hose on top of head. She is using CPAP better but not with all sleep as still difficulty to use through the night and reports frustration trying to get mask back on after use of bathroom. Her sleep is also interrupted by spouse who is not well.. He sleeps in another room . They have a cell phone at bedside of each so he can call her. The new CPAP pressure is much more comfortable. CPAP Compliance Data - Data Reviewed with Patient Average duration of nightly device use: 2H 50M Compliance rate %: 23.3 Current pressure setting (cmH2O): 4-6 Humidity settin Heated hose settin Average residual AHI: 9.2 Central apnea: 0.2 Obstructive apnea: 2.1 Hypopnea: 6.9 Average large leak: 40m 5s Subjective Patient concerns: reports: mask discomfort (the hose on top of head is bothering her and comes forward on face. ), dry mouth, nose, throat (dry nose mainly with CPAP use. ). denies: aerophagia, air blowing in eyes, mask leak noise, condensation in mask/hose, nasal congestion, epistaxis Observed to snore while using device: No Current pressure setting perceived as: comfortable On therapy, patient: reports: sleeping better, awakening more refreshed, being more awake and alert during the day, more rested overall (moderately more rested with CPAP. ). denies: drowsiness while driving Initial [place] Sleepiness Scale score: 3 Current [place] Sleepiness Scale score: 2 Allergies and Home Medications Known drug allergies: Yes (see list ) Home medication list reviewed: Yes (please note changes ) Allergy and home medication list: Medication Name (generic/name brand) Strength & Dosage Coumadin 5mg tab as directed Lipitor 40mg tab one daily multivitamin daily Allergy List Sulfa Angiotensin Converting Enzyme Inhibitor Cipro Esomeprazole Magnesium Clopidogrel Bisulfate Atropen NSAIDS Statins Niacin Flecainide Acetate Metoprolol Cephalexin Cefpodoxime Proxetil Review of Systems Review of systems same as previous: Yes Physical Exam Blood Pressure: 112/66 Heart Rate: 87 O2 Saturation: 98 Height: 5 ft 3 in Weight: 172 lb 6.4 oz Body Mass Index: 30.5 BMI Classification: Obesity Class 1 Impression and Plan 1. Obstructive Sleep Apnea-Hypopnea Syndrome, mild, with better treatment compliance and better apnea control. She has improved compliance about 9% to 23.3%. On CPAP therapy, the patient has better sleep quality and is more rested overall and would like to continue use of CPAP. The lower pressure is more comfortable to use. But despite this and patient trying to use CPAP more, she is still not meeting compliance goals as she thought. The residual AHI is reduced some but not at goal. It appears the residual is more elevated with mask leaks. She has not yet obtained any new supplies from [facility]. Thus an order to update supplies was written and patient encouraged to call. To improve use of CPAP and reduce frustration of trying to put on mask in middle of night, she is advised to unhook the hose from the CPAP device for ease of use. She states her current mask is more comfortable with adjustment but after a few hours she wants to take off due to discomfort. It appears the hose on top of head is really bothering her.She has seen other masks on TV and wonders if a different mask would be more comfortable. So I showed her other mask styles with hose in front and fitted her with a sample Tosha View medium mask sample I had. I showed her how to disconnect the hose from the machine hose or disconnect completely from the CPAP for ease of using bathroom in during the night. A prescription for mask written so can get proper updated supplies. She tries to get about 7 hours of sleep but last few hours is not with CPAP. I reviewed compliance goals for insurance. If she does not meet compliance goals, she may have to repeat the sleep study for re-evaluation determined by her insurance so can restart compliance process. It is hoped that above changes will increase her CPAP use. The control of mask leaks should also reduce dryness symptoms. Currently she is at maximum humidity. I again reviewed the rationale for using CPAP with all sleep for maximum benefit of treatment. Patient's apnea severity and rationale for treatment to reduce apnea, improve sleep quality and reduce cardiovascular and cerebrovascular events was reviewed. I also reviewed the benefit of consistent device use of CPAP for arrhythmia,depression/anxiety. * Continue CPAP pressure at 4-6cmH2O * try Tosha View mask- medium * Use CPAP with all sleep * Disconnect mask from hose as shown * Notify me if snoring with mask or feeling that the pressure is too much or too little * Attempt to lose weight * Call this office if any problems using CPAP * Return for follow up in 1-2 months, or sooner if concerns arise Time Spent with Patient (minutes): 43 I spent 100% of this visit face to face with the patient with greater than 50% of this was spent time counseling the patient and coordination of care.
== END 2019-06-18 08:58 | disposition home or self-care (01) ==
LOC: SC 08:57
PROVIDERS: ATTEND Nurse Practitioner Family
DX: G47.33 Obstructive sleep apnea (adult) (pediatric) (principal); E66.9 Obesity, unspecified; Z68.30 Body mass index [BMI] 30.0-30.9, adult
CPT/HCPCS: 99215; G0463; 99212

== ENCOUNTER 2019-07-09 08:18 | Outpatient (CLI) | payer MEDICARE, OTHER ==
[2019-07-09 09:44] VITALS: BP 130/70
--- NOTE | 2019-07-09 09:44 | SLEEP CARE CONSULTATION ---
Information from patient questionnaire entered by Zainab Mckeon. I have reviewed and concur with the information entered by Zainab Mckeon. This document represents the service I personally performed and the decisions made by me, Leyla Lockett, RN, MSN, QUALITY ASSURANCE INSPECTOR. History of Present Illness Previous diagnosis: Mild, Obstructive Sleep Apnea-Hypopnea Syndrome AHI: 13.9 Reason for follow up: one month (needs to requalify) Equipment type: CPAP Equipment obtained from: [facility] Prior sleep studies: Yes HPI additional information: Taking off hose instead of mask to go to the bathroom. Also she does not like to be wearing the mask to assist her spouse. The new mask however was easier to get on and off better. She also feels the device aircraft cleaner helped her use of CPAP. CPAP Compliance Data - Data Reviewed with Patient Average duration of nightly device use: 1h 10m Compliance rate %: 0 (Patient logged her hours of use and this was generally 4-5 hours which corresponds to machine device on ) Current pressure setting (cmH2O): 4-6 Humidity settin Heated hose settin Average residual AHI: 9.2 Average large leak: 24m 6s Subjective Missed days of use due to: reports: illness (had flu unable to use CPAP), other (eye infection - evaluated and treatment in process. ) Patient concerns: reports: air blowing in eyes (most nights right eye and usuallly sleeps supine), nasal congestion (mild daily), dry mouth, nose, throat. denies: aerophagia, mask discomfort, mask leak noise, condensation in mask/hose (mild dryness of nose) Observed to snore while using device: No (sleep separately) Current pressure setting perceived as: comfortable On therapy, patient: reports: awakening more refreshed, more rested overall. denies: drowsiness while driving Initial [place] Sleepiness Scale score: 3 Current [place] Sleepiness Scale score: 3 Allergies and Home Medications Known drug allergies: Yes (see list ) Home medication list reviewed: Yes (Patient to bring list to clarify if changes ) Allergy and home medication list: Medication List Medication Name (generic/name brand) Strength & Dosage Coumadin 5mg tab as directed Lipitor 40mg tab one daily Ketoconazole 2% external shampoo Apply to scalp three times daily Zantac (Ranitidine HCL) 150mg tab daily as needed Allergy List Sulfa Angiotensin Converting Enzyme Inhibitor Cipro Esomeprazole Magnesium Clopidogrel Bisulfate Atropen NSAIDS Statins Niacin Flecainide Acetate Metoprolol Cephalexin Cefpodoxime Proxetil Review of Systems Review of systems same as previous: No (ER last weekend shortness of breath and eye irritation- medication given ) Physical Exam Blood Pressure: 130/70 Cuff size: long Heart Rate: 82 O2 Saturation: 98 Height: 5 ft 3.5 in Weight: 170 lb Weight change since last visit: lost 2 pounds Body Mass Index: 29.6 BMI Classification: Overweight Impression and Plan 1. Obstructive Sleep Apnea-Hypopnea Syndrome, mild, with poor treatment compliance and slightly elevated residual AHI. Compliance fell due to viral illness , eye infection and the device showing mask off face due to large mask leaks. It showed she used CPAP more than 4 hours 11 days. Despite reduced use, on CPAP therapy, the patient reports better sleep quality and is more rested overall. To reduce eye irritation from mask leaks, she is to get an eye cover. She is also advised to tighten headgear slightly. I will also order a mask refitting. Nasal congestion and nasal dryness can be reduced with increasing the CPAP humidity as shown on sample device. The heated hose can be adjusted higher if condensation with higher humidity setting. Saline nasal spray sample was also given to use prior to CPAP to clear nasal secretions and wash off any nasal allergens to facilitate nasal breathing. In addition, a steamy shower before bed will often assist nasal drainage. Printed instructions given on how to change humidity and heated hose settings with rationale explaining why to change. Since she has not yet met compliance and feels better with use, she would like to continued treatment. Thus a HST will be ordered. She is also reporting she has a hard time sleeping with CPAP still as she is sleeping supine to reduce mask leaks and prefers to sleep on her side. Thus patient advised that mask leaks from predominately from when patient sleeps on their side can be reduced by using a CPAP pillow. A CPAP pillow sample was shown. This and other styles can be bought online for about $60. The patients pressure will be changed to autoCPAP 6-8 cmH20 For elevation of residual AHI. Patient advised to contact me if pressure change is uncomfortable so that it can be adjusted. Goals for apnea control discussed. Patient's apnea severity and rationale for treatment to reduce apnea, improve sleep quality and reduce cardiovascular and cerebrovascular events was reviewed. I also reviewed the benefit of consistent device use of CPAP for arrhythmia. * * Change CPAP pressure to 6-8 cmH2O * Notify me if snoring with mask or feeling that the pressure is too much or too little * Use CPAP with all sleep * Consider CPAP pillow. * Call this office if any problems using CPAP * HST to requalify for CPAP use. * Return for follow up in 1- 2 months , or sooner if concerns arise Addendum: I called patient and informed her not to use CPAP the night before her HST due to benefit of CPAP use can extend beyond 24 hours so that optimal test results are obtained. She agreed with plan. Time Spent with Patient (minutes): 35 I spent 100% of this visit face to face with the patient with greater than 50% of this was spent time counseling the patient and coordination of care.
== END 2019-07-09 08:19 | disposition home or self-care (01) ==
LOC: SC 08:18
PROVIDERS: ATTEND Nurse Practitioner Family
DX: G47.33 Obstructive sleep apnea (adult) (pediatric) (principal); E66.3 Overweight; Z68.29 Body mass index [BMI] 29.0-29.9, adult
CPT/HCPCS: 99214; G0463; 99212

== ENCOUNTER 2019-08-05 14:02 | Outpatient (CLI) | payer MEDICARE, OTHER | END 2019-08-05 14:03 | disposition critical access hospital (66) | LOC: EMS 14:02 | PROVIDERS: ATTEND Surgery | DX: S01.111A Laceration without foreign body of right eyelid and periocular area, initial encounter (principal); M25.571 Pain in right ankle and joints of right foot; W01.0XXA Fall on same level from slipping, tripping and stumbling without subsequent striking against object, initial encounter; Y93.01 Activity, walking, marching and hiking; Y92.512 Supermarket, store or market as the place of occurrence of the external cause | CPT/HCPCS: A0425; A0429 ==

== ENCOUNTER 2019-08-05 14:19 | Emergency (ER) | payer MEDICARE, OTHER ==
--- NOTE | 2019-08-05 14:24 | ED Physician Documentation ---
PD HPI Fall - Stated complaint Stated Complaint: FALL - History obtained from History obtained from: Patient, EMS - History of Present Illness Mechanism of injury: Tripped (she says she tripped and fell, striking right face. Denies injury to chest/abd. No noted neck pain. Some tenderness anterior knees but good ROM. 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 No: Intoxicated Similar symptoms before: Has not had sx before Review of Systems Constitutional: denies: Fever, Chills Nose: denies: Rhinorrhea / runny nose, Congestion Throat: denies: Sore throat Cardiac: denies: Chest pain / pressure, Palpitations Respiratory: denies: Dyspnea, Cough GI: denies: Abdominal Pain, Vomiting, Diarrhea Skin: reports: Laceration (s) (right eyebrow). denies: Rash, Lesions Musculoskeletal: denies: Neck pain, Back pain Neurologic: denies: Generalized weakness, Focal weakness, Numbness, Near syncope, Altered mental status, Headache PD PAST MEDICAL HISTORY - Past Medical History Cardiovascular: Hypertension, High cholesterol, Deep vein thrombosis, Atrial fibrillation, Other Respiratory: Pneumonia Neuro: None Endocrine/Autoimmune: HyPOthyroidism GI: GERD, Hiatal hernia, Colon polyps, Chronic constipation FIRST AID TRAINER: None : Chronic bladder infection, Kidney stones, Other HEENT: Chronic vision loss Psych: Depression, Anxiety Musculoskeletal: Osteoarthritis, Fatigue, Other Derm: Herpes zoster - Past Surgical History Past Surgical History: Yes General: Colonoscopy, EGD Ortho: Hip replacement /FIRST AID TRAINER: Dilation and currettage Cardiovascular: Pacemaker, Other HEENT: Tonsil/Adenoidectomy, Tracheostomy, Other - Present Medications Home Medications: Ambulatory Orders Medication Instructions Recorded Confirmed Amoxicillin 500 mg PO DAILY 10/22/18 10/22/18 Ascorbic Acid [Vitamin C] 1,000 mg PO DAILY 10/22/18 10/22/18 Atorvastatin Calcium 40 mg PO QPM 10/22/18 10/22/18 Cholecalciferol (Vitamin D3) 10,000 unit PO DAILY 10/22/18 10/22/18 [Vitamin D3] Sertraline [Zoloft] 50 mg PO DAILY 10/22/18 10/22/18 Warfarin [Coumadin] 2.5 mg PO TUTHSA 10/22/18 10/22/18 Warfarin [Coumadin] 5 mg PO SUMOWEFR 10/22/18 10/22/18 raNITIdine [Zantac] 75 mg PO DAILY 10/22/18 10/22/18 Nitrofurantoin Monohyd/M-Cryst 100 mg PO BID 7 Days capsule 12/10/18 [Macrobid 100 mg Capsule] Nitrofurantoin Monohyd/M-Cryst 100 mg PO BID #20 capsule 12/20/18 [Macrobid 100 mg Capsule] Phenazopyridine HCl [Pyridium] 200 mg PO TID PRN #6 tablet 12/20/18 Nitrofurantoin Monohyd/M-Cryst 100 mg PO BID #20 capsule 03/14/19 [Macrobid 100 mg Capsule] - Allergies Allergies/Adverse Reactions: Allergies Allergy/AdvReac Type Severity Reaction Status Date / Time BISHOP Inhibitors Allergy Unknown Verified 08/05/19 14:22 atropine Allergy Unknown Verified 08/05/19 14:22 cefpodoxime Allergy Unknown Verified 08/05/19 14:22 ciprofloxacin [From Cipro] Allergy Unknown Verified 08/05/19 14:22 clopidogrel Allergy Unknown Verified 08/05/19 14:22 esomeprazole Allergy Unknown Verified 08/05/19 14:22 flecainide Allergy Unknown Verified 08/05/19 14:22 metoprolol Allergy Unknown Verified 08/05/19 14:22 niacin Allergy Unknown Verified 08/05/19 14:22 NSAIDS (Non-Steroidal Allergy Unknown Verified 08/05/19 14:22 Anti-Inflamma Nqxsvdv-Yxx-Qaw Reductase Allergy Unknown Verified 03/14/19 11:51 Inhibitor Sulfa (Sulfonamide Allergy Unknown Verified 03/14/19 11:51 Antibiotics) aspirin AdvReac Unknown Verified 03/14/19 11:51 - Social History Does the pt smoke?: No Smoking Status: Never smoker Does the pt drink ETOH?: No Does the pt have substance abuse?: No - Immunizations Immunizations are current?: Yes - POLST Patient has POLST: No POLST Status: Full Code PD ED PE NORMAL - Vitals Vital signs reviewed: Yes - General General: Alert and oriented X 3, No acute distress, Well developed/nourished - HEENT HEENT: PERRL, EOMI, Pharynx benign, Dentition benign, Other (right eyebrow area laterally with swelling and laceration 1.5 cm. Mild bleeding. Some tender there and at cheekbone. ) - Neck Neck: Supple, no meningeal sign, No adenopathy, Other (mildly tender lower right neck area. ) - Cardiac Cardiac: RRR, No murmur - Respiratory Respiratory: Clear bilaterally, Other (no chestwall tenderness) - Abdomen Abdomen: Soft, Non tender - Back Back: No CVA TTP - Derm Derm: Normal color, Warm and dry - Extremities Extremities: Normal ROM s pain, No edema, No calf tenderness / cord, Other (mild tenderness without deformity both infrapatellar areas. ) - Neuro Neuro: Alert and oriented X 3, human relations teacher 2-12 intact, No motor deficit, No sensory deficit, Normal speech Eye Opening: Spontaneous Motor: Obeys Commands Verbal: Oriented GCS Score: 15 Results - Vitals Vitals: Vital Signs - 24 hr 08/05/19 08/05/19 14:22 16:07 Temperature 36.2 C L 36.6 C Heart Rate 60 86 Respiratory 14 12 Rate Blood Pressure 161/86 H 156/96 H O2 Saturation 97 98 Oxygen O2 Source Room air - Labs Labs: Laboratory Tests 08/05/19 08/05/19 08/05/19 14:25 14:25 14:25 WBC 5.3 RBC 4.35 Hgb 13.9 Hct 42.5 MCV 97.7 MCH 32.0 H MCHC 32.7 RDW 14.8 Plt Count 196 MPV 10.4 Neut # (Auto) 3.5 Lymph # (Auto) 1.3 L [place] # (Auto) 0.4 Eos # (Auto) 0.0 Baso # (Auto) 0.0 Absolute Nucleated RBC 0.00 Nucleated RBC % 0.0 PT 42.8 H INR 4.1 H Sodium 139 Potassium 4.2 Chloride 105 Carbon Dioxide 25 Anion Gap 9.0 BUN 24 H Creatinine 0.7 Estimated GFR (MDRD) 79 L Glucose 109 H Calcium 9.7 Total Bilirubin 1.3 H AST 23 ALT 18 Alkaline Phosphatase 49 Total Protein 7.2 Albumin 4.0 Globulin 3.2 Albumin/Globulin Ratio 1.3 Lipase 20 L - Rads (name of study) head CT Radiology: Prelim report reviewed (no ICH nor acute process), See rad report cervical CT Radiology: Prelim report reviewed (no acute fractures. ), See rad report Procedures - Laceration (location) right eyebrow Length in cm: 1.5 Wound type: Linear, Into subcut fat, Clean Neurovascular status: Sensory intact Anesthesia: LET Wound Preparation: Irrigated copiously NS, Wound explored, To the base. No: FB identified Skin layer closure: Nylon, Running, Size #-0 - enter number (6), Sutures - enter # (8) Other: Patient tolerated well, No complications, Neurovascular intact, Tetanus UTD PD MEDICAL DECISION MAKING - ED course Complexity details: considered differential (seems accidental fall. No concussie symptoms. Normal head and neck CT. On Coumadin but no bleed at all on CT and normal neuro. ), d/w patient Departure - Departure Disposition: 01 Home, Self Care Clinical Impression: Supratherapeutic INR, Anticoagulant long-term use Fall from slip, trip, or stumble Qualifiers: Encounter type: initial encounter Qualified Code(s): W01.0XXA - Fall on same level from slipping, tripping and stumbling without subsequent striking against object, initial encounter Facial contusion Qualifiers: Encounter type: initial encounter Qualified Code(s): S00.83XA - Contusion of other part of head, initial encounter Eyebrow laceration Qualifiers: Encounter type: initial encounter Laterality: right Qualified Code(s): S01.111A - Laceration without foreign body of right eyelid and periocular area, initial encounter Condition: Stable Record reviewed to determine appropriate education?: Yes Instructions: ED Contusion Face, ED Laceration Facial Sutr Tape Follow-Up: Izabel Crowder PA-C [Primary Care Provider] - Comments: Tylenol 500 mg 4 times a day for the next few days for pains. Ice and cool towels to the swollen area in the face to reduce swelling. It is okay to wash and shower. Clean off the wound twice a day with soap and water, or peroxide and water. Apply some antibiotic ointment to it to keep it moist. Also to watch for signs of infection such as purulence, redness or increasing pain. Return to your primary care or the ER at the specified time for suture removal. Suture removal 7 or 8 days. Your INR was above therapeutic level at 4.1. Hold your Coumadin level to dose tonight and only take a half dose tomorrow night and then have your INR rechecked on Tuesday or Tuesday. Discharge Date/Time: 08/05/19 16:08
[2019-08-05] MEDS ORDERED: ACETAMINOPHEN 325 MG TABLET PO STA (14:32)
[2019-08-05] MEDS ORDERED: MECLIZINE 12.5 MG TABLET PO STA (14:32)
[2019-08-05 14:41] LABS: BASOPHILS % (AUTO) 0.6 %; EOSINOPHILS % (AUTO) 0.8 %; HGB - HEMOGLOBIN 13.9 g/dL (12.0-16.0); LYMPHOCYTES # (AUTO) 1.3 10^3/uL (1.5-3.5); LYMPHOCYTES % (AUTO) 25.2 %; MEAN CORPUSCULAR HGB CONC 32.7 g/dL (32.0-36.0); MEAN CORPUSCULAR VOLUME 97.7 fL (81.0-99.0); MEAN PLATELET VOLUME 10.4 fL (7.9-10.8); MONOCYTES # (AUTO) 0.4 10^3/uL (0.0-1.0); MONOCYTES % (AUTO) 7.4 %; NEUTROPHILS # (AUTO) 3.5 10^3/uL (1.5-6.6); NEUTROPHILS % (AUTO) 65.6 %; PLT - PLATELET COUNT 196 10^3/uL (130-450); RED BLOOD COUNT 4.35 10^6/uL (4.20-5.40); RED CELL DISTRIBUTION WIDTH 14.8 % (12.0-15.0); WHITE BLOOD COUNT 5.3 x10^3/uL (4.8-10.8)
[2019-08-05] MEDS ORDERED: LIDOCAINE-EPINEPH-TETRACAINE 3 ML SYRINGE TOP STA (14:45)
[2019-08-05 14:50] LABS: ALBUMIN/GLOBULIN RATIO 1.3 (1.0-2.2); BILIRUBIN,TOTAL 1.3 mg/dL (0.2-1.0); CALCIUM 9.7 mg/dL (8.5-10.3); CREATININE 0.7 mg/dL (0.4-1.0); TOTAL PROTEIN 7.2 g/dL (6.7-8.2)
[2019-08-05 14:51] LABS: INR 4.1 (0.8-1.2); PT - PROTHROMBIN TIME 42.8 secs (9.9-12.6)
--- NOTE | 2019-08-05 15:20 | CT Report ---
Reason: fall, struck head; on coumadin Procedure Date: 08/05/2019 Accession Number: [id number] / [id number] Procedure: CT - HEAD WO CPT Code: Final Report FULL RESULT: EXAM: CT HEAD EXAM DATE: 08/05/2019 03:01 PM. CLINICAL HISTORY: 88-year-old on Coumadin with fall and head trauma presenting with headache and confusion. Evaluate for intracranial pathology. COMPARISON: HEAD W/O 03/14/2019 12:49 PM. TECHNIQUE: Multiaxial CT images were obtained from the foramen magnum to the vertex. Reformats: Sagittal and coronal. IV contrast: None. In accordance with CT protocol optimization, one or more of the following dose reduction techniques were utilized for this exam: automated exposure control, adjustment of mA and/or KV based on patient size, or use of iterative reconstructive technique. FINDINGS: Parenchyma: No acute parenchymal hemorrhage, mass, or midline shift. There is mild to moderate bilateral areas of white matter hypoattenuation seen that appears similar CT head 03/14/2019. There is no convincing CT evidence of acute infarct. Mild to moderate cortical volume loss. Extraaxial Spaces: Sulci and cistern appear prominent but appropriate for the extent of volume loss. No subdural or epidural collections identified. Ventricles: Normal in size and position. Sinuses and Orbits: Imaged paranasal sinuses, orbits, and mastoids show no significant abnormality. Bones: No evidence of fracture or calvarial defect. Changes of hyperostosis frontalis internus. Mild to moderate bilateral TMJ arthropathy. Other: Vascular calcifications of the cavernous ICA segments. There is soft tissue stranding seen within the right lateral cheek likely representing contusion. IMPRESSION: 1. No definite acute intracranial pathology seen; specifically, no acute infarct, acute intracranial hemorrhage, mass, hydrocephalus, or midline shift. 2. Small right lateral cheek contusion seen. No definite calvarial fracture. 3. Mild to moderate white matter changes seen that appear similar to CT head 03/14/2019 that may represent sequela of chronic small vessel ischemic disease. 4. Mild to moderate bilateral change or arthropathy. RADIA
--- NOTE | 2019-08-05 15:34 | CT Report ---
Reason: fall, neck pain Procedure Date: 08/05/2019 Accession Number: [id number] / [id number] Procedure: CT - CERVICAL SPINE WO CPT Code: Final Report FULL RESULT: EXAM: CT CERVICAL SPINE WITHOUT CONTRAST DATE: 08/05/2019 03:01 PM. HISTORY: Fall, neck pain. COMPARISONS: HEAD W/O 03/14/2019 12:49 PM. TECHNIQUE: Thin-section axial images were acquired of the cervical spine without contrast. Post-processing: Coronal and sagittal reformats. Other: None. In accordance with CT protocol optimization, one or more of the following dose reduction techniques were utilized for this exam: automated exposure control, adjustment of mA and/or KV based on patient size, or use of iterative reconstructive technique. FINDINGS: Alignment: No subluxation or scoliosis. Bones: There is multilevel chronic degenerative disk disease and facet disease. Negative for an acute fracture. No focal lytic or blastic bone lesion. Interspace Levels/Facets: C1-C2: There is joint space narrowing and spurring at the anterior C1 and C2 articulation. C2-C3: Disk height is maintained. Mild disk osteophyte spurring. C3-C4: Mild to moderate disk height loss with disk osteophyte spurring and mild central spinal canal narrowing. C4-C5: Mild to moderate disk height loss with disk osteophyte spurring and mild central spinal canal narrowing. C5-C6: Mild to moderate disk height loss with disk osteophyte spurring without significant stenosis. C6-C7: Mild disk height loss with disk osteophyte spurring and facet joint space narrowing. C7-T1: Bilateral facet joint space narrowing. Musculature: Symmetric and unremarkable. Other: Trachea is midline. No apical pneumothorax. IMPRESSION: 1. Negative for acute fracture and subluxation of the cervical spine. 2. Multilevel chronic degenerative disk and facet disease. RADIA
[2019-08-05 16:07] VITALS: BP 156/96
== END 2019-08-05 16:08 | disposition home or self-care (01) ==
LOC: EDUNIT# → ED 14:19
DX: S01.111A Laceration without foreign body of right eyelid and periocular area, initial encounter (principal); W01.10XA Fall on same level from slipping, tripping and stumbling with subsequent striking against unspecified object, initial encounter; Y92.410 Unspecified street and highway as the place of occurrence of the external cause; M54.2 Cervicalgia; M25.562 Pain in left knee; M25.561 Pain in right knee; R79.1 Abnormal coagulation profile; I10 Essential (primary) hypertension; Z79.01 Long term (current) use of anticoagulants; G47.33 Obstructive sleep apnea (adult) (pediatric)
CPT/HCPCS: 12011; 36415; 70450; 72125; 80053; 83690; 85025; 85610; 99284; A9270; G0399; 95806

== ENCOUNTER 2019-08-05 19:30 | Outpatient (CLI) | payer MEDICARE, OTHER | END 2019-08-05 23:59 | LOC: SC 19:30 | PROVIDERS: ATTEND Internal Medicine Pulmonary Disease | DX: G47.33 Obstructive sleep apnea (adult) (pediatric) (principal) | CPT/HCPCS: G0399 ×2; 95806 ==

== ENCOUNTER 2019-08-12 09:43 | Emergency (ER) | payer MEDICARE, OTHER ==
--- NOTE | 2019-08-12 09:53 | ED Physician Documentation ---
History of Present Illness - Stated complaint Stated Complaint: STITCH REMOVAL - History obtained from History obtained from: Patient - Additonal information Additional information: Patient had sutures placed in her right eyebrow after a fall approximately 5 days ago. She said things are doing well. She is had minimal bruising or swelling. No visual changes. No concerns of infection. PD PAST MEDICAL HISTORY - Past Medical History Cardiovascular: Hypertension, High cholesterol, Deep vein thrombosis, Atrial fibrillation, Other Respiratory: Pneumonia Neuro: None Endocrine/Autoimmune: HyPOthyroidism GI: GERD, Hiatal hernia, Colon polyps, Chronic constipation CLIMATOLOGIST: None : Chronic bladder infection, Kidney stones, Other HEENT: Chronic vision loss Psych: Depression, Anxiety Musculoskeletal: Osteoarthritis, Fatigue, Other Derm: Herpes zoster - Past Surgical History Past Surgical History: Yes General: Colonoscopy, EGD Ortho: Hip replacement /CLIMATOLOGIST: Dilation and currettage Cardiovascular: Pacemaker, Other HEENT: Tonsil/Adenoidectomy, Tracheostomy, Other - Present Medications Home Medications: Ambulatory Orders Medication Instructions Recorded Confirmed Amoxicillin 500 mg PO DAILY 10/22/18 10/22/18 Ascorbic Acid [Vitamin C] 1,000 mg PO DAILY 10/22/18 10/22/18 Atorvastatin Calcium 40 mg PO QPM 10/22/18 10/22/18 Cholecalciferol (Vitamin D3) 10,000 unit PO DAILY 10/22/18 10/22/18 [Vitamin D3] Sertraline [Zoloft] 50 mg PO DAILY 10/22/18 10/22/18 Warfarin [Coumadin] 2.5 mg PO TUTHSA 10/22/18 10/22/18 Warfarin [Coumadin] 5 mg PO SUMOWEFR 10/22/18 10/22/18 raNITIdine [Zantac] 75 mg PO DAILY 10/22/18 10/22/18 Nitrofurantoin Monohyd/M-Cryst 100 mg PO BID 7 Days capsule 12/10/18 [Macrobid 100 mg Capsule] Nitrofurantoin Monohyd/M-Cryst 100 mg PO BID #20 capsule 12/20/18 [Macrobid 100 mg Capsule] Phenazopyridine HCl [Pyridium] 200 mg PO TID PRN #6 tablet 12/20/18 Nitrofurantoin Monohyd/M-Cryst 100 mg PO BID #20 capsule 03/14/19 [Macrobid 100 mg Capsule] - Allergies Allergies/Adverse Reactions: Allergies Allergy/AdvReac Type Severity Reaction Status Date / Time BISHOP Inhibitors Allergy Unknown Verified 08/12/19 09:51 atropine Allergy Unknown Verified 08/12/19 09:51 cefpodoxime Allergy Unknown Verified 08/12/19 09:51 ciprofloxacin [From Cipro] Allergy Unknown Verified 08/12/19 09:51 clopidogrel Allergy Unknown Verified 08/12/19 09:51 esomeprazole Allergy Unknown Verified 08/12/19 09:51 flecainide Allergy Unknown Verified 08/12/19 09:51 metoprolol Allergy Unknown Verified 08/12/19 09:51 niacin Allergy Unknown Verified 08/12/19 09:51 NSAIDS (Non-Steroidal Allergy Unknown Verified 08/12/19 09:51 Anti-Inflamma Ejkmdcn-Cjg-Moj Reductase Allergy Unknown Verified 03/14/19 11:51 Inhibitor Sulfa (Sulfonamide Allergy Unknown Verified 03/14/19 11:51 Antibiotics) aspirin AdvReac Unknown Verified 03/14/19 11:51 - Social History Does the pt smoke?: No Smoking Status: Never smoker Does the pt drink ETOH?: No Does the pt have substance abuse?: No - Immunizations Immunizations are current?: Yes - POLST Patient has POLST: No POLST Status: Full Code PD ED PE NORMAL - Vitals Vital signs reviewed: Yes - General General: Alert and oriented X 3, No acute distress, Well developed/nourished - HEENT HEENT: Other (Scab healed laceration through the right eyebrow with stitches in place. No bruising or swelling is noted. Extraocular muscles are intact. No subconjunctival hemorrhage.) Results - Vitals Vitals: Vital Signs - 24 hr 08/12/19 09:51 Temperature 36.4 C L Heart Rate 84 Respiratory 16 Rate Blood Pressure 157/90 H O2 Saturation 98 Oxygen O2 Source Room air PD MEDICAL DECISION MAKING - ED course ED course: Sutures removed by nursing staff. Patient was instructed on wound care. Follow-up if needed. Departure - Departure Disposition: 01 Home, Self Care Clinical Impression: Visit for suture removal Condition: Good Follow-Up: Izabel Crowder PA-C [Primary Care Provider] - Comments: Continue to keep wound clean with mild soap and water. Follow-up if any signs of infection to include spreading redness, purulent drainage or fever.
[2019-08-12 09:54] VITALS: BP 157/90
== END 2019-08-12 10:17 | disposition home or self-care (01) ==
LOC: ED 09:43
DX: S01.111D Laceration without foreign body of right eyelid and periocular area, subsequent encounter (principal); Z48.02 Encounter for removal of sutures; I10 Essential (primary) hypertension
CPT/HCPCS: 99281

== ENCOUNTER 2019-10-08 16:58 | Outpatient (CLI) | payer MEDICARE, OTHER ==
--- NOTE | 2019-10-08 16:01 | SLEEP CARE CONSULTATION ---
Information from patient questionnaire entered by Maude Zarco. I have reviewed and concur with the information entered by Maude Zarco. This document represents the service I personally performed and the decisions made by me, Leyla Lockett, RN, MSN, HAIRSPRING TRUING INSPECTOR. History of Present Illness Service Date and Time: 10/08/20191657 Initial [place] Sleepiness Scale score: 3 (in 2017) Additional HPI information: KEY INGRAM returns for a telehealth visit to discuss the results of the recently performed home sleep study. I explained the pathophysiology behind obstructive sleep apnea. Patient completed the HST to re qualify for CPAP use. She feels that she sleeps better and is more rested overall with CPAP use. She feels she used it longer than data showed on the CPAP device and logged her use which corresponded to device time on per last visit note. Perhaps the device did not show actual patient use due to large mask leaks. Patient also states the mask used was uncomfortable after a while due to tightness around judaism area so would need to take off for comfort. HOwever, she states she used a minimum of 4-5 hours before doing so. In addition, she states that since her fall and the mask was uncomfortable as it rested on her facial scar. She has researched masks and would like to use onethat sits lower on her nose. Because apnea is primarily in supine position, patient advised to avoid supine sleeping using pillow positioning. She states she usually sleeps on her side. HOwever, I explained that in her sleep study she slept almost half the time on her back and this could be in the middle of the night when she is unaware of her sleeping position while asleep. She agreed to try pillow positioning. I will reorder Nasal autoCPAP set at 6-8 cmH20 as noted in her last visit note recommendations. A manual titration study will be ordered if unable to find optimal pressure with office adjustments. I Sleep Study - Results Polysomnography/Home Sleep Study results: The patient underwent one night of type 3 home sleep study. The data was recorded internally to memory built into the SleepView unit and uploaded to [email or web address] for scoring and interpretation. All raw data, graphically depicting all recorded channels, was utilized for scoring and detailed interpretive review. The standards put forth by the [place] [employer] were followed for the complete scoring by a Registered Sales Associate Key Holder and interpretation by a Board Certified Sleep Medicine Physician. SLEEP TIME AND EFFICIENCY: The sleep study recording began at 08:21:38 PM and ended at 06:45:29 AM. Total recording time was 623.9 minutes. The total sleep time was 524.5 minutes. The sleep efficiency was 84.1 percent. The patient spent 247.8 minutes supine, and spent 276.8 minutes non-supine. The patients own estimate of sleep time was 8.00 hours. RESPIRATORY DATA: The AHI in this report is indexed to sleep time based on actigraphy. The AASM defines this as JESUS. The AHI on this type 3 Home Sleep Study may understate the AHI determined on a type 1 or 2 study, since EEG is not monitored resulting in the inability to score non-desaturating hypopneas. Based on 4% Calculation: The AHI4% calculation of 5.1 per hour of recording time was based on a total of 40 scored apneas and 5 scored hypopneas with 4% desaturations. Supine AHI4%: 9.7 per hour. Non-supine AHI4%: 1.1 per hour. Oxygen Summary: Patient's baseline O2 saturation was 96.8 %. The patient spent 0.3 minutes at an oxygen saturation less than 90%, and 0.0 minutes less than 85%. The desaturation index was 2.6 events per hour sleep time. The lowest saturation was 82.1 %. SNORING: The percent of the study time spent snoring was 0.1 %. The Snoring Count was 11 . The Snoring Index was Patient Name: Key Ingram Study Date: 08/05/2019 : 1930 Page 2 of 6 1.3 . PULSE RATE REVIEW: The mean heart rate was 62 beats per minute. The rate ranged from a low of 33 to a high of 115 beats per minute. DIAGNOSIS CODE: Obstructive Sleep Apnea G47.33, mild, occurring almost exclusively during supine sleep. Hypoxia was minimal. Physical Exam Height: 5 ft 3 in Impression and Plan 1. Obstructive Sleep Apnea-Hypopnea Syndrome, mild, with lowest oxygen saturation of 82%. As noted above, this study was performed to requalify patient to restart CPAP as she did not meet compliance for her first device. Due to mask concerns, I will order a mask that sits lower on nose so not to rest on her facial scar. The patient will be started on nasal autoCPAP therapy with pressure set at 6-8 cmH2O. A manual titration study will be completed if unable to find optimal treatment pressure with office adjustments. Compliance guidelines also reviewed. A copy of compliance guidelines will be sent to patient. Because the apnea is more severe supine, I instructed to avoid sleeping supine using pillow positioning until able to start CPAP use. * Restart Nasal auto CPAP therapy, pressure at 4-6 cm H2O. * Avoid supine sleep until using CPAP. * The patient is again cautioned about driving until sleepiness completely resolves. * Return one month after CPAP obtained. I will assess response to therapy and compliance at that time.
== END 2019-10-08 16:59 | disposition home or self-care (01) ==
LOC: SC 16:58
PROVIDERS: ATTEND Nurse Practitioner Family
DX: G47.33 Obstructive sleep apnea (adult) (pediatric) (principal)

== ENCOUNTER 2020-01-16 19:38 | Outpatient (CLI) | payer MEDICARE, OTHER | END 2020-01-16 19:39 | disposition home or self-care (01) | LOC: SC 19:38 | PROVIDERS: ATTEND Internal Medicine Pulmonary Disease | DX: G47.61 Periodic limb movement disorder (principal) | CPT/HCPCS: 95810 ==

== ENCOUNTER 2020-02-14 14:47 | Outpatient (CLI) | payer MEDICARE, OTHER ==
--- NOTE | 2020-02-14 15:31 | SLEEP CARE CONSULTATION ---
Information from patient questionnaire entered by Adia Soto. I have reviewed and concur with the information entered by Adia Soto. This document represents the service I personally performed and the decisions made by , Cora Hawkins ARNP. History of Present Illness Service Date and Time: 02/14/2020 1447 Initial [place] Sleepiness Scale score: 3 (in 2017) Current [place] Sleepiness Scale score: 4 Additional HPI information: RANDY GRULLON returns for follow up and results of the recently performed polysomnography. The patient was informed of the following findings: no significant sleep disordered breathing with an AHI of 2.7 but she does have an elevated supine AHI at 19.2 and severe periodic leg movements noted in her study. I explained the pathophysiology behind obstructive sleep apnea. Patient does not have sleep apnea and was advised how weight gain could increase the risk of developing sleep apnea in the future. I strongly encouraged the patient to lose weight. Patient does not have significant sleep disordered breathing but has elevated AHI in supine position so advised positional therapy. Methods to achieve positional management therapy were discussed; such as, positioning with pillows, wearing a T-shirt with tennis balls sewn into the back, Rematee shirt, Zzomba belt and Slumberbump belt. Pamphlets provided on how to obtain the commercially available products. Patient has loud occasional snoring. Snoring can be reduced by weight loss. Weight loss is best achieved with diet consult. Patient instructed to contact PCP for referral. Snoring can also be treated with an oral appliance from a de ntist. Advised to check insurance coverage. In addition, an ENT evaluation can be do to see if other treatment is indicated. Patient does not drink alcohol. Patient was cautioned about risks of drowsy driving until sleepiness symptoms resolve. Sleep Study - Results Type of Sleep Study: Polysomnography Prior sleep studies: Yes Polysomnography/Home Sleep Study results: IMPRESSION: The quality of the study is good. The patient had reduced sleep efficiency due to sleep onset insomnia and a prolonged awakening in the middle of the night. The sleep architecture was otherwise normal. Respiratory monitoring showed no significant sleep disordered breathing (AHI = 2.7) or hypoxia (ophelia oxygen saturation of 91%). The few respiratory events occurred almost exclusively during supine sleep (supine AHI = 19.2; non-supine = 1.69). Snore was loud but only at the end of the night. There was severe periodic leg movement of sleep not associated with sleep fragmentation. Cardiac rhythm was paced. No abnormal behavior (parasomnia) observed during the night. Allergies and Home Medications Drug allergies reviewed: Yes (several, see history) Home medication list reviewed: Yes (no changes) Review of Systems Review of systems same as previous: Yes Physical Exam Heart Rate: 63 O2 Saturation: 95 Height: 5 ft 3 in Weight: 174 lb Body Mass Index: 30.8 BMI Classification: Obese Impression and Plan 1. Snoring but no significant sleep disordered breathing. Patient advised that often weight loss will reduce snoring as well as apnea risk. An ENT consult can also be helpful to determine if any other treatment is an option. Since patients apnea is primarily in supine position, patient advised to try positional therapy and she agreed with plan. She is also advised to lose weight as this will reduce snoring and apnea risk. Patient does not sleep on her back and was only on her back 5.5% of time during study on 01-16-20. I think she can easily do the positional therapy management to control her apnea. I also cautioned her to inform any surgeon or anesthesiologist for procedures that she does have moderate sleep apnea with a supine AHI 19.2 on her back to reduce possible complications from anesthesia. Follow up is scheduled for one month to check effectiveness and if further evaluation indicated such a repeat study in supine position only to see if additional treatment indicated. Patient has gained weight. Currently patients BMI is 29.2. Obesity increases the risk of apnea, CPAP pressure requirements and overall health risks especially cardiovascular and diabetes. Thus patient is advised to continue to try to lose weight. A diet consultation can be helpful in achieving optimal weight loss goals. The BMI chart was reviewed. Patient encouraged to discuss their weight loss goals with their PCP and consider a referral to a compliance field technician. 2. Periodic limb movement, severe, that did not fragment patients sleep. Periodic limb movement of sleep (PLMS) is characterized by episodes of repetitive limb movements that occur during sleep and usually involve the lower limbs. The etiology is unknown but can be associated with restless leg syndrome (RLS), neuropathy, spinal cord diseases, kidney disease, rheumatological disorders, narcolepsy, obstructive sleep apnea, and REM sleep behavior disorder. Other factors that can increase PLMS and/or RLS are heredity and iron deficiency as reflected by a low serum ferritin level below 50 to 75mcg / L. Several medications can precipitate or aggravate PLMS such as selective serotonin re- uptake inhibitor antidepressants, tricyclic antidepressants, lithium, and dopamine receptor antagonists with the exception of bupropion. Caffeine can also aggravate PLMS and should be avoided. Sleep hygiene methods can also improve sleep as well as lifestyle changes such as regular exercise. Patient was advised that no treatment is needed at this time. If symptoms increase, then further evaluation is indicated. * Positional management therapy * Follow up with PCP on severe periodic limb movement * Continue to try to lose weight * The patient is cautioned about driving until sleepiness is completely resolved. * Return in 2 months for follow up. I will evaluate her response at that time. Visit Type: In Office Time Spent with Patient (minutes): 20 Provider Statement: I spent 100% of the Face to Face Visit with the patient with greater than 50% spent counseling the patient and coordination of care.
== END 2020-02-14 14:48 | disposition home or self-care (01) ==
LOC: SC 14:47
PROVIDERS: ATTEND Nurse Practitioner Family
DX: R06.83 Snoring (principal); G47.61 Periodic limb movement disorder; E66.9 Obesity, unspecified; Z68.30 Body mass index [BMI] 30.0-30.9, adult
CPT/HCPCS: 99213; G0463; 99212

== ENCOUNTER 2020-03-28 11:15 | Emergency (ER) | payer MEDICARE, OTHER ==
[2020-03-28 11:53] LABS: BASOPHILS % (AUTO) 0.7 %; EOSINOPHILS % (AUTO) 0.9 %; HGB - HEMOGLOBIN 14.8 g/dL (12.0-16.0); LYMPHOCYTES # (AUTO) 1.1 10^3/uL (1.5-3.5); MEAN CORPUSCULAR HGB CONC 33.5 g/dL (32.0-36.0); MEAN CORPUSCULAR VOLUME 95.7 fL (81.0-99.0); MEAN PLATELET VOLUME 10.2 fL (7.9-10.8); MONOCYTES # (AUTO) 0.3 10^3/uL (0.0-1.0); MONOCYTES % (AUTO) 6.9 %; NEUTROPHILS # (AUTO) 2.8 10^3/uL (1.5-6.6); NEUTROPHILS % (AUTO) 65.3 %; PLT - PLATELET COUNT 184 10^3/uL (130-450); RED BLOOD COUNT 4.62 10^6/uL (4.20-5.40); RED CELL DISTRIBUTION WIDTH 14.4 % (12.0-15.0); WHITE BLOOD COUNT 4.2 x10^3/uL (4.8-10.8)
[2020-03-28 12:11] LABS: ALBUMIN 4.3 g/dL (3.2-5.5); ALBUMIN/GLOBULIN RATIO 1.2 (1.0-2.2); BILIRUBIN,TOTAL 1.6 mg/dL (0.2-1.0); CALCIUM 9.8 mg/dL (8.5-10.3); CREATININE 0.6 mg/dL (0.4-1.0); TOTAL PROTEIN 7.9 g/dL (6.7-8.2)
--- NOTE | 2020-03-28 12:12 | XRAY Report ---
PROCEDURE: Chest 1 View X-Ray INDICATIONS: Chest pain TECHNIQUE: One view of the chest was acquired. COMPARISON: Chest radiograph dated 12/10/2018 FINDINGS: Surgical changes and devices: A cardiac pacemaker is seen with pulse generator in the left chest.. Lungs and pleura: No pleural effusions or pneumothorax. Lungs are clear. Mediastinum: Mediastinal contours appear normal. Heart size is stable. Bones and chest wall: No suspicious bony lesions. Overlying soft tissues appear unremarkable. IMPRESSION: No acute cardiopulmonary abnormality. Reviewed by: Juancarlos Lindsay MD on 03/28/2020 12:11 PM PST Approved by: Juancarlos Lindsay MD on 03/28/2020 12:11 PM PST Station ID: [id number]
--- NOTE | 2020-03-28 12:14 | ED Physician Documentation ---
PD HPI FOCAL NEURO - Stated complaint Stated Complaint: EPSTEIN, DIZZY - Chief complaint Chief Complaint: Neuro - History obtained from History obtained from: Patient - Additional information Additional information: This is an 89-year-old woman with history of hypertension hypercholesterolemia, A. fib. She was driving down the road today in her usual state of health when she felt lightheaded for about 5 seconds. She also felt odd at the back of her neck. Not painful. Did not lateralize. Just felt like the area below the occiput was asleep. It all worried her that she might be having a stroke. There is no weakness, numbness, tingling, headache. No chest pain or trouble breathing. She feels better now but is anxious that she might of had a stroke. Review of Systems Constitutional: denies: Fever, Chills, Fatigue Nose: denies: Rhinorrhea / runny nose Cardiac: denies: Chest pain / pressure, Palpitations Respiratory: denies: Dyspnea, Cough PD PAST MEDICAL HISTORY - Past Medical History Past Medical History: Yes Cardiovascular: Hypertension, High cholesterol, Deep vein thrombosis, Atrial fibrillation, Other Respiratory: Pneumonia Neuro: None Endocrine/Autoimmune: HyPOthyroidism GI: GERD, Hiatal hernia, Colon polyps, Chronic constipation BATTERY ASSEMBLER: None : Chronic bladder infection, Kidney stones, Other HEENT: Chronic vision loss Psych: Depression, Anxiety Musculoskeletal: Osteoarthritis, Fatigue, Other Derm: Herpes zoster - Past Surgical History Past Surgical History: Yes General: Colonoscopy, EGD Ortho: Hip replacement /BATTERY ASSEMBLER: Dilation and currettage Cardiovascular: Pacemaker, Other HEENT: Tonsil/Adenoidectomy, Tracheostomy, Other - Present Medications Home Medications: Ambulatory Orders Medication Instructions Recorded Confirmed Amoxicillin 500 mg PO DAILY 10/22/18 10/22/18 Ascorbic Acid [Vitamin C] 1,000 mg PO DAILY 10/22/18 10/22/18 Atorvastatin Calcium 40 mg PO QPM 10/22/18 10/22/18 Cholecalciferol (Vitamin D3) 10,000 unit PO DAILY 10/22/18 10/22/18 [Vitamin D3] Sertraline [Zoloft] 50 mg PO DAILY 10/22/18 10/22/18 Warfarin [Coumadin] 2.5 mg PO TUTHSA 10/22/18 10/22/18 Warfarin [Coumadin] 5 mg PO SUMOWEFR 10/22/18 10/22/18 raNITIdine [Zantac] 75 mg PO DAILY 10/22/18 10/22/18 Nitrofurantoin Monohyd/M-Cryst 100 mg PO BID 7 Days capsule 12/10/18 [Macrobid 100 mg Capsule] Nitrofurantoin Monohyd/M-Cryst 100 mg PO BID #20 capsule 12/20/18 [Macrobid 100 mg Capsule] Phenazopyridine HCl [Pyridium] 200 mg PO TID PRN #6 tablet 12/20/18 Nitrofurantoin Monohyd/M-Cryst 100 mg PO BID #20 capsule 03/14/19 [Macrobid 100 mg Capsule] - Allergies Allergies/Adverse Reactions: Allergies Allergy/AdvReac Type Severity Reaction Status Date / Time BISHOP Inhibitors Allergy Unknown Verified 08/12/19 09:51 atropine Allergy Unknown Verified 08/12/19 09:51 cefpodoxime Allergy Unknown Verified 08/12/19 09:51 ciprofloxacin [From Cipro] Allergy Unknown Verified 08/12/19 09:51 clopidogrel Allergy Unknown Verified 08/12/19 09:51 esomeprazole Allergy Unknown Verified 08/12/19 09:51 flecainide Allergy Unknown Verified 08/12/19 09:51 metoprolol Allergy Unknown Verified 08/12/19 09:51 niacin Allergy Unknown Verified 08/12/19 09:51 NSAIDS (Non-Steroidal Allergy Unknown Verified 08/12/19 09:51 Anti-Inflamma Nehmqxw-Qlq-Wdv Reductase Allergy Unknown Verified 03/14/19 11:51 Inhibitor Sulfa (Sulfonamide Allergy Unknown Verified 03/14/19 11:51 Antibiotics) aspirin AdvReac Unknown Verified 03/14/19 11:51 - Social History Does the pt smoke?: No Smoking Status: Never smoker Does the pt drink ETOH?: No Does the pt have substance abuse?: No - Immunizations Immunizations are current?: Yes - POLST Patient has POLST: No POLST Status: Full Code PD ED PE NORMAL - Vitals Vital signs reviewed: Yes - General General: Alert and oriented X 3, No acute distress - HEENT HEENT: PERRL, EOMI - Neck Neck: Supple, no meningeal sign, No bony TTP - Cardiac Cardiac: Other (irreg) - Respiratory Respiratory: No respiratory distress, Clear bilaterally - Abdomen Abdomen: Non tender - Extremities Extremities: No edema, No calf tenderness / cord - Neuro Neuro: Alert and oriented X 3, No motor deficit, No sensory deficit, Normal speech NIHSS - Time Time: 12:05 - Level of Consciousness Level of consciousness: (0) Alert, Keenly responsive LOC Questions: (0) Answers both Q's correct LOC Commands: (0) Performs both correctly - Gaze Best Gaze: (0) Normal - Visual Visual: (0) No loss - Facial Palsy Facial Palsy: (0) Normal, symmetrical movement - Motor Arms (both separate) Motor Arm (right): (0) No drift Motor Arm (left): (0) No drift - Motor Legs (both separate) Motor Leg (right): (0) No drift Motor Leg (left): (0) No drift - Limb Ataxia Limb Ataxia: (0) Absent - Sensory Sensory: (0) Normal - Best Language Best Language: (0) No aphasia - Dysarthria Dysarthria: (0) Normal - Extinction and Inattention (formally neg Extinction and inattention: (0) No abnormality - Total Score/Results Total Score/Result: 0 Results - Vitals Vitals: Vital Signs - 24 hr 03/28/20 03/28/20 03/28/20 11:22 11:26 13:17 Temperature 36.5 C 36.7 C Heart Rate 65 64 66 Respiratory 22 27 H 20 Rate Blood Pressure 180/79 H 174/85 H 147/86 H O2 Saturation 98 97 97 Oxygen O2 Source Room air - EKG (time done) 1126 Rate: Rate (enter#) (64) Rhythm: Atrial fibrillation [place]: Normal Intervals: LBBB - Labs Labs: Laboratory Tests 03/28/20 03/28/20 03/28/20 11:45 11:45 11:45 WBC 4.2 L RBC 4.62 Hgb 14.8 Hct 44.2 MCV 95.7 MCH 32.0 H MCHC 33.5 RDW 14.4 Plt Count 184 MPV 10.2 Neut # (Auto) 2.8 Lymph # (Auto) 1.1 L [place] # (Auto) 0.3 Eos # (Auto) 0.0 Baso # (Auto) 0.0 Absolute Nucleated RBC 0.00 Nucleated RBC % 0.0 PT INR Sodium 142 Potassium 4.1 Chloride 103 Carbon Dioxide 25 Anion Gap 14.0 H BUN 22 H Creatinine 0.6 Estimated GFR (MDRD) 94 Glucose 111 H Calcium 9.8 Total Bilirubin 1.6 H AST 22 ALT 17 Alkaline Phosphatase 51 Troponin I High Sens 4.6 Total Protein 7.9 Albumin 4.3 Globulin 3.6 Albumin/Globulin Ratio 1.2 Lipase 20 L 03/28/20 11:45 WBC RBC Hgb Hct MCV MCH MCHC RDW Plt Count MPV Neut # (Auto) Lymph # (Auto) [place] # (Auto) Eos # (Auto) Baso # (Auto) Absolute Nucleated RBC Nucleated RBC % PT 15.9 H INR 1.5 H Sodium Potassium Chloride Carbon Dioxide Anion Gap BUN Creatinine Estimated GFR (MDRD) Glucose Calcium Total Bilirubin AST ALT Alkaline Phosphatase Troponin I High Sens Total Protein Albumin Globulin Albumin/Globulin Ratio Lipase PD MEDICAL DECISION MAKING - ED course ED course: 89-year-old woman with a brief dizzy spell not associated with other neurologic symptoms. She was worried about stroke but there is no clinical or radiographic evidence of this. Departure - Departure Disposition: 01 Home, Self Care Clinical Impression: Atrial fibrillation and flutter, Stroke-like symptoms, Dizziness, Sub therapeutic international normalized ratio (INR) Condition: Good Record reviewed to determine appropriate education?: Yes Instructions: ED Dizziness UKO Comments: The cause of your symptoms today is unclear, that said there is no evidence of stroke or active cardiac disease today other than your chronic atrial fibrillation. Of note your INR is a little thick at 1.5, consider taking an extra dose of warfarin and recheck next week. Return for new or worsening symptoms. Follow-up with your doctor next week for recheck.
[2020-03-28 12:28] LABS: INR 1.5 (0.8-1.2); PT - PROTHROMBIN TIME 15.9 secs (9.9-12.6)
--- NOTE | 2020-03-28 13:07 | CT Report ---
PROCEDURE: HEAD WO INDICATIONS: dizzy TECHNIQUE: Noncontrast 4.5 mm thick angled axial sections acquired from the foramen magnum to the vertex. For r adiation dose reduction, the following was used: automated exposure control, adjustment of mA and/or kV according to patient size. COMPARISON: 12/19/2019. FINDINGS: Image quality: Diagnostic, with note made of streak artifact through the skull base. CSF spaces: Basal cisterns are patent. No extra-axial fluid collections. Ventricles are normal in size and shape. Brain: No midline shift. No intracranial masses or hemorrhage. Carrion-white matter interface is norm al. Skull and face: Calvarium and visualized facial bones are intact, without suspicious lesions. 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 Sinuses: Visualized sinuses and mastoids are clear. IMPRESSION: Unremarkable intracranial study for age, without an imaging expiration found for the patient's presen ting symptoms. Reviewed by: Roland Ziegler MD on 03/28/2020 12:06 PM [facility] Approved by: Roland Ziegler MD on 03/28/2020 12:06 PM [facility] Station ID: [id number]
[2020-03-28 14:51] VITALS: BP 139/79
== END 2020-03-28 13:39 | disposition home or self-care (01) ==
LOC: ED 11:15
DX: I48.20 Chronic atrial fibrillation, unspecified (principal); I48.92 Unspecified atrial flutter; Z79.01 Long term (current) use of anticoagulants; I49.3 Ventricular premature depolarization; I44.7 Left bundle-branch block, unspecified; R42 Dizziness and giddiness; R79.1 Abnormal coagulation profile; I10 Essential (primary) hypertension; E78.00 Pure hypercholesterolemia, unspecified
CPT/HCPCS: 36415; 70450; 71045; 80053; 83690; 84484; 85025; 85610; 93005; 99284

== ENCOUNTER 2020-04-03 14:05 | Outpatient (CLI) | payer MEDICARE, OTHER ==
--- NOTE | 2020-04-03 18:24 | Ultrasound Report ---
PROCEDURE: Carotid Doppler Complete INDICATIONS: GOITER, AMNESIA, DIZZINESS AND GIDDINESS TECHNIQUE: Color and pulse Doppler interrogation was performed of both carotid systems, with image documentation and velocity measurements. COMPARISON: None. FINDINGS: Right side: Common carotid artery peak systolic velocity: 47 cm/sec. Internal carotid artery peak systolic velocity: 51 cm/sec. Internal carotid artery end diastolic velocity: 9 cm/sec. External carotid artery peak systolic velocity: 76 cm/sec. ICA/CCA peak systolic ratio: 1.1 . Carrion scale imaging description: Mild plaque at the bifurcation. Percent internal carotid artery stenosis: No significant stenosis . Vertebral artery: Flow direction is antegrade. Left side: Common carotid artery peak systolic velocity: 54 cm/sec. Internal carotid artery peak systolic velocity: 63 cm/sec. Internal carotid artery end diastolic velocity: 15 cm/sec. External carotid artery peak systolic velocity: 63 cm/sec. ICA/CCA peak systolic ratio: 1.2 . Carrion scale imaging description: Mild plaque at the bifurcation. Percent internal carotid artery stenosis: No significant stenosis. Vertebral artery: Flow direction is antegrade. IMPRESSION: 1. No significant stenosis by imaging or velocity/ratio criteria. 2. Antegrade flow in the vertebral arteries bilaterally. 3. No significant change compared to 11/10/2016. The estimate of stenosis included in the report of the imaging study was calculated using the NASCET method Reviewed by: Matthew Milton on 04/03/2020 6:23 PM PST Approved by: Matthew Milton on 04/03/2020 6:23 PM PST Station ID: [id number]
--- NOTE | 2020-04-04 08:55 | Ultrasound Report ---
PROCEDURE: Head or Neck Soft Tissue INDICATIONS: GOITER, AMNESIA, DIZZINESS AND GIDDINESS TECHNIQUE: Real time scanning was performed of the neck region of interest, with image documentation . COMPARISON: CT cervical spine 08/05/2019 FINDINGS: The right thyroid lobe measures 2.3 x 2.9 x 4.4 cm, normal. The left thyroid lobe measures 1.5 x 2.4 x 5.1 cm, normal. The isthmus is normal in thickness measuring 1 mm. There are multiple subcentimeter colloid cysts in both the right and left thyroid lobes. There is no evidence of a solid thyroid nodule/mass. Cervical lymph nodes at the level of the thyroid gland have a normal appearance with no evidence of t hreshold enlargement or cortical thickening. IMPRESSION: Normal size of the thyroid gland with no evidence of solid nodule or mass. Reviewed by: Memo Eastman MD on 04/04/2020 8:54 AM PST Approved by: Memo Eastman MD on 04/04/2020 8:54 AM PST Station ID: [id number]
== END 2020-04-03 14:06 | disposition home or self-care (01) ==
LOC: DI 14:05
PROVIDERS: ATTEND Physician Assistant
DX: E04.9 Nontoxic goiter, unspecified (principal); R41.3 Other amnesia; R42 Dizziness and giddiness
CPT/HCPCS: 76536; 93880

== ENCOUNTER 2020-04-15 11:03 | Outpatient (CLI) | payer MEDICARE, OTHER ==
--- NOTE | 2020-04-15 11:44 | SLEEP CARE CONSULTATION ---
Information from patient questionnaire entered by Maude Zarco. I have reviewed and concur with the information entered by Maude Zarco. This document represents the service I personally performed and the decisions made by me, Cora Hawkins ARNP. History of Present Illness Service Date and Time: 04/15/2020 1103 Previous diagnosis: Mild, Obstructive Sleep Apnea-Hypopnea Syndrome AHI: 6.1 (in 2019)(13.9 in 2019) Reason for follow up: other (2 month, positional therapy) Prior sleep studies: Yes Year and Where: 2018 and 2019 - [facility] Type of Sleep Study: Home sleep study HPI additional information: RANDY GRULLON was diagnosed to have mild, AHI 6.1, obstructive sleep apnea- hypopnea syndrome and returned today for positional management therapy two month follow-up. CPAP Compliance Data Compliance data discussion: She has been not having any problem with sleeping on her side and feels she is sleeping better. She is concerned that she is still being charged for CPAP machine or supplies by the last DME in [place]. She has turned the machine back in already and is still being told she owes money back to them because she did not use the machine enough. Subjective On therapy, patient: reports: sleeping better, awakening more refreshed, more rested overall. denies: drowsiness while driving Initial [place] Sleepiness Scale score: 3 (in 2017) Current [place] Sleepiness Scale score: 3 Allergies and Home Medications Drug allergies reviewed: Yes (see list in chart) Home medication list reviewed: Yes (no changes) Allergy and home medication list: multivitamin Calcium Warfarin Review of Systems Review of systems same as previous: Yes (no changes) Physical Exam Heart Rate: 66 O2 Saturation: 96 Height: 5 ft 3 in Weight: 169 lb Body Mass Index: 29.9 BMI Classification: Overweight Impression and Plan 1. Obstructive Sleep Apnea-Hypopnea Syndrome, mild. On positional management therapy, the patient has better sleep quality and is more rested overall. She has no problem staying on her side and does change sides during the night. She is more concerned that [facility] is trying to get her to pay monies related to the CPAP machine that she has already turned in to them. I will have our customer support coordinator discuss this with her and see if there is anything we can do to help resolve the issue. Patient's apnea severity and rationale for treatment to reduce apnea, improve sleep quality and reduce cardiovascular and cerebrovascular events was reviewed. * Continue positional therapy * Attempt to lose weight * Avoid alcohol consumption near bedtime * The patient is cautioned about driving until sleepiness is completely resolved. She is not driving very often. * Return in 1 year for follow up. Counseling Topics: Sleeping position, Weight loss health impact Visit Type: In Office Time Spent with Patient (minutes): 16 Provider Statement: I spent 100% of the Face to Face Visit with the patient with greater than 50% spent counseling the patient and coordination of care.
== END 2020-04-15 11:04 | disposition home or self-care (01) ==
LOC: SC 11:03
PROVIDERS: ATTEND Nurse Practitioner Family
DX: G47.33 Obstructive sleep apnea (adult) (pediatric) (principal); E66.3 Overweight; Z68.29 Body mass index [BMI] 29.0-29.9, adult
CPT/HCPCS: 99213; G0463; 99212

== ENCOUNTER 2020-04-20 12:01 | Emergency (ER) | payer MEDICARE, OTHER ==
--- NOTE | 2020-04-20 13:01 | ED Physician Documentation ---
History of Present Illness - Stated complaint Stated Complaint: RAPID HEART BEAT, TIRED - Chief complaint Chief Complaint: Critical Care - History obtained from History obtained from: Patient - History of Present Illness Timing: How many hours ago (5) Pain level max: 0 Pain level now: 0 - Additonal information Additional information: 89-year-old female presents to the emergency department stating that she "just did not feel well" this morning. She states she felt tired when she got up. She started checking her blood pressure and was checking it about every 5 minutes for 2 hours and noticed that it kept going higher. She did not have an elevated heart rate. No shortness of breath. No chest pain. She states "I just did not feel well". She feels fine now. Asymptomatic currently. Nothing makes it better or worse. No fevers. No chills. No cough. Review of Systems Ten Systems: 10 systems reviewed and negative Constitutional: denies: Fever, Chills Respiratory: denies: Cough GI: denies: Vomiting, Diarrhea Skin: denies: Rash Musculoskeletal: denies: Neck pain, Back pain Neurologic: denies: Headache PD PAST MEDICAL HISTORY - Past Medical History Past Medical History: Yes Cardiovascular: Hypertension, High cholesterol, Deep vein thrombosis, Atrial fibrillation, Other Respiratory: Pneumonia Neuro: None Endocrine/Autoimmune: HyPOthyroidism GI: GERD, Hiatal hernia, Colon polyps, Chronic constipation PLASTER MOLDER: None : Chronic bladder infection, Kidney stones, Other HEENT: Chronic vision loss Psych: Depression, Anxiety Musculoskeletal: Osteoarthritis, Fatigue, Other Derm: Herpes zoster - Past Surgical History Past Surgical History: Yes General: Colonoscopy, EGD Ortho: Hip replacement /PLASTER MOLDER: Dilation and currettage Cardiovascular: Pacemaker, Other HEENT: Tonsil/Adenoidectomy, Tracheostomy, Other - Present Medications Home Medications: Ambulatory Orders Medication Instructions Recorded Confirmed Amoxicillin 500 mg PO DAILY 10/22/18 10/22/18 Ascorbic Acid [Vitamin C] 1,000 mg PO DAILY 10/22/18 10/22/18 Atorvastatin Calcium 40 mg PO QPM 10/22/18 10/22/18 Cholecalciferol (Vitamin D3) 10,000 unit PO DAILY 10/22/18 10/22/18 [Vitamin D3] Sertraline [Zoloft] 50 mg PO DAILY 10/22/18 10/22/18 Warfarin [Coumadin] 2.5 mg PO TUTHSA 10/22/18 10/22/18 Warfarin [Coumadin] 5 mg PO SUMOWEFR 10/22/18 10/22/18 raNITIdine [Zantac] 75 mg PO DAILY 10/22/18 10/22/18 Nitrofurantoin Monohyd/M-Cryst 100 mg PO BID 7 Days capsule 12/10/18 [Macrobid 100 mg Capsule] Nitrofurantoin Monohyd/M-Cryst 100 mg PO BID #20 capsule 12/20/18 [Macrobid 100 mg Capsule] Phenazopyridine HCl [Pyridium] 200 mg PO TID PRN #6 tablet 12/20/18 Nitrofurantoin Monohyd/M-Cryst 100 mg PO BID #20 capsule 03/14/19 [Macrobid 100 mg Capsule] - Allergies Allergies/Adverse Reactions: Allergies Allergy/AdvReac Type Severity Reaction Status Date / Time BISHOP Inhibitors Allergy Unknown Verified 08/12/19 09:51 atropine Allergy Unknown Verified 08/12/19 09:51 cefpodoxime Allergy Unknown Verified 08/12/19 09:51 ciprofloxacin [From Cipro] Allergy Unknown Verified 08/12/19 09:51 clopidogrel Allergy Unknown Verified 08/12/19 09:51 esomeprazole Allergy Unknown Verified 08/12/19 09:51 flecainide Allergy Unknown Verified 08/12/19 09:51 metoprolol Allergy Unknown Verified 08/12/19 09:51 niacin Allergy Unknown Verified 08/12/19 09:51 NSAIDS (Non-Steroidal Allergy Unknown Verified 08/12/19 09:51 Anti-Inflamma Fflcega-Fsn-Yyk Reductase Allergy Unknown Verified 03/14/19 11:51 Inhibitor Sulfa (Sulfonamide Allergy Unknown Verified 03/14/19 11:51 Antibiotics) aspirin AdvReac Unknown Verified 03/14/19 11:51 - Social History Does the pt smoke?: No Smoking Status: Never smoker Does the pt drink ETOH?: No Does the pt have substance abuse?: No - Immunizations Immunizations are current?: Yes - POLST Patient has POLST: No POLST Status: Full Code PD ED PE NORMAL - Vitals Vital signs reviewed: Yes - General General: Alert and oriented X 3, No acute distress, Well developed/nourished - HEENT HEENT: PERRL, Moist mucous membranes - Neck Neck: Supple, no meningeal sign - Cardiac Cardiac: No murmur, Strong equal pulses, Other (Irregular) - Respiratory Respiratory: No respiratory distress, Clear bilaterally - Abdomen Abdomen: Soft, Non tender, Non distended - Derm Derm: Warm and dry, No rash - Extremities Extremities: No calf tenderness / cord - Neuro Neuro: Alert and oriented X 3 - Psych Psych: Normal mood, Normal affect Results - Vitals Vitals: Vital Signs - 24 hr 04/20/20 04/20/20 12:07 13:44 Temperature 36.5 C Heart Rate 66 67 Respiratory 16 25 H Rate Blood Pressure 150/100 H 160/88 H O2 Saturation 97 96 Oxygen O2 Source Room air - EKG (time done) 1206 Rate: Rate (enter#) (66) Rhythm: Atrial fibrillation [place]: Normal Intervals: Normal [place], Wide QRS Ischemia: Non specific changes Compare to prior EKG: Unchanged from prior EKG - Labs Labs: Laboratory Tests 04/20/20 04/20/20 04/20/20 12:50 12:50 12:50 WBC 4.3 L RBC 4.36 Hgb 13.8 Hct 41.4 MCV 95.0 MCH 31.7 H MCHC 33.3 RDW 14.5 Plt Count 185 MPV 10.8 Neut # (Auto) 3.0 Lymph # (Auto) 0.9 L [place] # (Auto) 0.3 Eos # (Auto) 0.0 Baso # (Auto) 0.1 Absolute Nucleated RBC 0.00 Nucleated RBC % 0.0 Sodium 140 Potassium 4.1 Chloride 104 Carbon Dioxide 25 Anion Gap 11.0 BUN 18 Creatinine 0.6 Estimated GFR (MDRD) 94 Glucose 113 H Calcium 9.4 Total Bilirubin 1.3 H AST 22 ALT 21 Alkaline Phosphatase 44 Troponin I High Sens 5.0 Total Protein 7.2 Albumin 3.9 Globulin 3.3 Albumin/Globulin Ratio 1.2 Lipase 22 - Rads (name of study) cxr Radiology: Prelim report reviewed, EMP read contemporaneously, See rad report PD MEDICAL DECISION MAKING - ED course Complexity details: reviewed results, re-evaluated patient, considered differential, d/w patient ED course: Patient with generalized feeling of unwellness this morning. No acute findings here. Asymptomatic here. No new changes on EKG. She has chronic atrial fibrillation. We will have her follow-up with her doctor for further care. Patient counseled regarding signs and symptoms for which I believe and urgent re-evaluation would be necessary. Patient with good understanding of and agreement to plan and is comfortable going home at this time This document was made in part using voice recognition software. While efforts are made to proofread this document, sound alike and grammatical errors may occur. Departure - Departure Disposition: Home, Self Care Clinical Impression: Hypertension Qualifiers: Hypertension type: unspecified Qualified Code(s): I10 - Essential (primary) hypertension Atrial fibrillation Qualifiers: Atrial fibrillation type: unspecified Qualified Code(s): I48.91 - Unspecified atrial fibrillation Condition: Good Instructions: ED Afib Follow-Up: Pauline Harrington PA [Primary Care Provider] - Comments: Your testing does not show any acute abnormalities today. Follow-up with your doctor for further care. Return if you worsen.
[2020-04-20 13:11] LABS: BASOPHILS # (AUTO) 0.1 10^3/uL (0.0-0.1); BASOPHILS % (AUTO) 1.2 %; EOSINOPHILS % (AUTO) 0.7 %; HGB - HEMOGLOBIN 13.8 g/dL (12.0-16.0); LYMPHOCYTES # (AUTO) 0.9 10^3/uL (1.5-3.5); LYMPHOCYTES % (AUTO) 21.6 %; MEAN CORPUSCULAR HEMOGLOBIN 31.7 pg (27.0-31.0); MEAN CORPUSCULAR HGB CONC 33.3 g/dL (32.0-36.0); MEAN PLATELET VOLUME 10.8 fL (7.9-10.8); MONOCYTES # (AUTO) 0.3 10^3/uL (0.0-1.0); NEUTROPHILS % (AUTO) 69.3 %; PLT - PLATELET COUNT 185 10^3/uL (130-450); RED BLOOD COUNT 4.36 10^6/uL (4.20-5.40); RED CELL DISTRIBUTION WIDTH 14.5 % (12.0-15.0); WHITE BLOOD COUNT 4.3 x10^3/uL (4.8-10.8)
[2020-04-20 13:22] LABS: ALBUMIN 3.9 g/dL (3.2-5.5); ALBUMIN/GLOBULIN RATIO 1.2 (1.0-2.2); BILIRUBIN,TOTAL 1.3 mg/dL (0.2-1.0); CALCIUM 9.4 mg/dL (8.5-10.3); CREATININE 0.6 mg/dL (0.4-1.0); TOTAL PROTEIN 7.2 g/dL (6.7-8.2)
--- NOTE | 2020-04-20 13:42 | XRAY Report ---
PROCEDURE: Chest 1 View X-Ray INDICATIONS: Chest Pain TECHNIQUE: One view of the chest was acquired. COMPARISON: CXR 03/28/2020, 12/10/2018. CT abdomen and pelvis without contrast 11/10/2018. FINDINGS: Surgical changes and devices: Left pacemaker with left ventricular lead. Lungs and pleura: No pleural effusions or pneumothorax. Lungs are clear. Emphysematous change. Mediastinum: Mediastinal contours appear unchanged. Hiatal hernia seen on prior CT is not well visua lized. Heart size is prominent. Bones and chest wall: No suspicious bony lesions. Shoulder DJD. Overlying soft tissues appear unrem arkable. IMPRESSION: No acute cardiopulmonary abnormality. Emphysematous change. Cardiomegaly. Reviewed by: Jose Curry MD on 04/20/2020 1:41 PM [facility] Approved by: Jose Curry MD on 04/20/2020 1:41 PM [facility] Station ID: [id number]
[2020-04-20 13:45] VITALS: BP 160/88
== END 2020-04-20 14:20 | disposition home or self-care (01) ==
LOC: ED 12:01
DX: I10 Essential (primary) hypertension (principal); I48.20 Chronic atrial fibrillation, unspecified; Z79.01 Long term (current) use of anticoagulants; I82.409 Acute embolism and thrombosis of unspecified deep veins of unspecified lower extremity; Z95.0 Presence of cardiac pacemaker
CPT/HCPCS: 36415; 80053; 83690; 84484; 85025; 93005; 99283; 99284

== ENCOUNTER 2020-08-06 13:19 | Outpatient (CLI) | payer MEDICARE, OTHER | END 2020-08-06 13:20 | disposition critical access hospital (66) | LOC: EMS 13:19 | PROVIDERS: ATTEND Registered Nurse | DX: R20.0 Anesthesia of skin (principal) | CPT/HCPCS: A0425; A0429 ==

== ENCOUNTER 2020-08-06 13:34 | Emergency (ER) | payer MEDICARE, OTHER ==
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
[2020-08-06] MEDS ORDERED: IOVERSOL 320 100 ML VIAL IVP ONE ×2 (13:58→15:01)
[2020-08-06 14:05] LABS: BASOPHILS % (AUTO) 0.7 %; EOSINOPHILS % (AUTO) 0.5 %; HCT - HEMATOCRIT 41.3 % (37.0-47.0); HGB - HEMOGLOBIN 13.9 g/dL (12.0-16.0); LYMPHOCYTES % (AUTO) 18.2 %; MEAN CORPUSCULAR HEMOGLOBIN 32.6 pg (27.0-31.0); MEAN CORPUSCULAR HGB CONC 33.7 g/dL (32.0-36.0); MEAN CORPUSCULAR VOLUME 96.9 fL (81.0-99.0); MEAN PLATELET VOLUME 10.6 fL (7.9-10.8); MONOCYTES # (AUTO) 0.4 10^3/uL (0.0-1.0); MONOCYTES % (AUTO) 6.4 %; NEUTROPHILS # (AUTO) 4.1 10^3/uL (1.5-6.6); PLT - PLATELET COUNT 188 10^3/uL (130-450); RED BLOOD COUNT 4.26 10^6/uL (4.20-5.40); RED CELL DISTRIBUTION WIDTH 14.5 % (12.0-15.0); WHITE BLOOD COUNT 5.5 x10^3/uL (4.8-10.8)
[2020-08-06 14:18] LABS: ALBUMIN 3.8 g/dL (3.2-5.5); ALBUMIN/GLOBULIN RATIO 1.1 (1.0-2.2); BILIRUBIN,TOTAL 1.2 mg/dL (0.2-1.0); CALCIUM 9.8 mg/dL (8.5-10.3); CREATININE 0.6 mg/dL (0.4-1.0); TOTAL PROTEIN 7.2 g/dL (6.7-8.2)
--- NOTE | 2020-08-06 15:11 | CT Report ---
PROCEDURE: ANGIO HEAD W/WO INDICATIONS: L sided facial droop CONTRAST: IV CONTRAST: Optiray 320 ml: 80 PO CONTRAST: *NO PO CONTRAST TECHNIQUE: Precontrast 4.5 mm thick angled axial sections acquired from the foramen magnum to the vertex. Afte r the administration of intravenous contrast, 1 mm thick sections acquired through the [place] of Will is. Postcontrast 4.5 mm thick sections then re-acquired from the foramen magnum to the vertex. 3-di mensional grlktkn-pyxhecxiq-mjnlwlketx (MIP) and/or volume rendering reformats were acquired of the c entral intracranial vasculature. For radiation dose reduction, the following was used: automated ex posure control, adjustment of mA and/or kV according to patient size. COMPARISON: 10/22/2018 and 01/31/2017 FINDINGS: Image quality: Excellent. Anterior circulation: Intracranial internal carotid arteries are normal in size and flow. The flow within the paired anterior cerebral arteries is normal and symmetric. The flow within the middle cer ebral arteries is normal and symmetric. The anterior communicating artery is seen. No aneurysms are seen. Posterior circulation: Visualized portions of the vertebral arteries demonstrate normal caliber, and join to form a normal appearing basilar artery. Flow within the posterior cerebral arteries is norm al and symmetric. The posterior cerebral arteries have origins bilaterally. No aneurysms are s een. CSF spaces: Ventricles are normal in size and shape. Basal cisterns are patent. No extra-axial flu id collections. Brain: No midline shift. No intracranial bleeds or masses. [place]-white matter interface appears int act. Skull and face: Calvarium and facial bones appear intact, without suspicious lesions. Sinuses: Visualized sinuses and mastoids are clear. IMPRESSION: 1. No acute intracranial disease process. 2. No large vessel occlusion, hemodynamically significant vascular stenosis, vascular dissection or a neurysm. Reviewed by: Radha Scott MD, PhD on 08/06/2020 3:10 PM PDT Approved by: Radha Scott MD, PhD on 08/06/2020 3:10 PM PDT Station ID: [id number]
--- NOTE | 2020-08-06 15:17 | CT Report ---
PROCEDURE: ANGIO NECK W INDICATIONS: L sided facial droop, L neck pain CONTRAST: IV CONTRAST: Optiray 320 ml: 80 PO CONTRAST: *NO PO CONTRAST TECHNIQUE: After the administration of intravenous contrast, 1.5 mm axial sections acquired from the aortic arch to the [place]. Coronal 3-D maximum intensity projection (MIP) and/or volume rendering ref ormats were then performed. For radiation dose reduction, the following was used: automated exposur e control, adjustment of mA and/or kV according to patient size. COMPARISON: 10/22/2018 and 01/31/2017. FINDINGS: Image quality: Excellent. Carotid system: The great vessels demonstrate a conventional anatomy as they arise from the aortic a rch. The origins of the common carotid arteries appear patent. The common carotid arteries demonstr ate normal calibers and courses. Atherosclerotic calcifications noted in the origins of the internal carotid arteries bilaterally causes less than 50% stenosis of the vessels. Posterior circulation: The origins of the vertebral arteries appear patent. The more superior porti ons of the vertebral arteries demonstrate normal course and caliber. They join to form a normal appe aring basilar artery. Soft tissues: Visualized neck soft tissues demonstrate no suspicious abnormalities. The thyroid gla nd is normal in size. Bones: No suspicious bony lesions. Spine degenerative disc disease and facet arthropathy are noted. Visualized cervical spine appears normally aligned. IMPRESSION: 1. No large vessel occlusion, hemodynamically significant vascular stenosis or vascular dissection. 2. Less than 50% stenosis of the origins of the internal carotid arteries. 3. Vertebral arteries are fully patent. The estimate of stenosis included in the report of the imaging study was calculated using the NASCET method Reviewed by: Radha Scott MD, PhD on 08/06/2020 3:16 PM PDT Approved by: Radha Scott MD, PhD on 08/06/2020 3:16 PM PDT Station ID: [id number]
[2020-08-06 16:30] VITALS: BP 174/100
== END 2020-08-06 16:40 | disposition home or self-care (01) ==
LOC: EDUNIT# → ED 13:34
DX: R20.0 Anesthesia of skin (principal); I48.91 Unspecified atrial fibrillation; Z79.01 Long term (current) use of anticoagulants; I10 Essential (primary) hypertension; Z86.718 Personal history of other venous thrombosis and embolism; Z95.0 Presence of cardiac pacemaker; Z63.79 Other stressful life events affecting family and household
CPT/HCPCS: 36415; 70496; 70498; 80053; 83690; 85025; 85610; 93005; 99284; Q9967

== ENCOUNTER 2020-08-18 08:14 | Outpatient (CLI) | payer MEDICARE, OTHER | END 2020-08-18 08:15 | disposition critical access hospital (66) | LOC: EMS 08:14 | PROVIDERS: ATTEND Emergency Medicine | DX: R51.9 Headache, unspecified (principal); R20.0 Anesthesia of skin; R03.0 Elevated blood-pressure reading, without diagnosis of hypertension | CPT/HCPCS: A0425; A0429 ==

== ENCOUNTER 2020-08-18 08:31 | Emergency (ER) | payer MEDICARE, OTHER ==
[2020-08-18] MEDS ORDERED: ACETAMINOPHEN 325 MG TABLET PO STA (08:51)
[2020-08-18 09:17] LABS: BASOPHILS # (AUTO) 0.1 10^3/uL (0.0-0.1); EOSINOPHILS # (AUTO) 0.1 10^3/uL (0.0-0.7); HCT - HEMATOCRIT 43.6 % (37.0-47.0); HGB - HEMOGLOBIN 14.4 g/dL (12.0-16.0); LYMPHOCYTES # (AUTO) 1.2 10^3/uL (1.5-3.5); LYMPHOCYTES % (AUTO) 23.8 %; MEAN CORPUSCULAR HEMOGLOBIN 32.1 pg (27.0-31.0); MEAN CORPUSCULAR VOLUME 97.3 fL (81.0-99.0); MEAN PLATELET VOLUME 10.1 fL (7.9-10.8); MONOCYTES # (AUTO) 0.3 10^3/uL (0.0-1.0); NEUTROPHILS # (AUTO) 3.3 10^3/uL (1.5-6.6); PLT - PLATELET COUNT 184 10^3/uL (130-450); RED BLOOD COUNT 4.48 10^6/uL (4.20-5.40); RED CELL DISTRIBUTION WIDTH 14.3 % (12.0-15.0); WHITE BLOOD COUNT 4.9 x10^3/uL (4.8-10.8)
[2020-08-18 09:31] LABS: ALBUMIN 4.2 g/dL (3.2-5.5); ALBUMIN/GLOBULIN RATIO 1.3 (1.0-2.2); BILIRUBIN,TOTAL 1.4 mg/dL (0.2-1.0); CALCIUM 9.3 mg/dL (8.5-10.3); CREATININE 0.6 mg/dL (0.4-1.0); POTASSIUM 3.7 mmol/L (3.5-5.0); TOTAL PROTEIN 7.4 g/dL (6.7-8.2)
--- NOTE | 2020-08-18 09:33 | XRAY Report ---
PROCEDURE: Chest 1 View X-Ray INDICATIONS: Chest Pain TECHNIQUE: One view of the chest was acquired. COMPARISON: Chest x-ray 04/20/2020 FINDINGS: Surgical changes and devices: Pacemaker. Lungs and pleura: No pleural effusions or pneumothorax. Lungs are clear. Mediastinum: Mediastinal contours appear normal. Heart size is enlarged. Bones and chest wall: No suspicious bony lesions. Overlying soft tissues appear unremarkable. IMPRESSION: No acute pulmonary process. The above findings are concordant with preliminary report. Reviewed by: Daphne Dunne MD on 08/18/2020 9:32 AM PDT Approved by: Daphne Dunne MD on 08/18/2020 9:32 AM PDT Station ID: [id number]
--- NOTE | 2020-08-18 10:11 | ED Physician Documentation ---
History of Present Illness - Stated complaint Stated Complaint: HEADACHE - Chief complaint Chief Complaint: Neuro - History obtained from History obtained from: Patient - Additonal information Additional information: 89-year-old woman presents with High blood pressure. She states that she woke up "feeling strange" . She takes her blood pressure every morning and then she took it this morning, finding it to be higher than usual at around 170 systolic. She took it again 5 minutes later and it was still elevated and so she asked her to call 911. She states that she did not feel any symptoms at that time. She does say that she does now have a mild frontal nonradiating aching tension type headache that started on the way here, gradual in onset. She also states that her fingers and toes are cold and tingling. Otherwise she says that she feels normal. Note that the patient is currently under treatment with Macrobid for bacteriuria. She was seen by her primary Dr. Harrington and diagnosed with a UTI a couple days ago. She says that she never had any symptoms and did not know she had a UTI. Review of Systems Ten Systems: 10 systems reviewed and negative Constitutional: denies: Fever, Chills Cardiac: denies: Chest pain / pressure, Palpitations Respiratory: denies: Dyspnea, Cough GI: denies: Abdominal Pain, Nausea, Vomiting : denies: Dysuria, Frequency Musculoskeletal: denies: Back pain Neurologic: denies: Focal weakness, Numbness PD PAST MEDICAL HISTORY - Past Medical History Cardiovascular: Hypertension, High cholesterol, Deep vein thrombosis, Atrial fibrillation, Other Respiratory: Pneumonia Neuro: None Endocrine/Autoimmune: HyPOthyroidism GI: GERD, Hiatal hernia, Colon polyps, Chronic constipation SLURRY TANK TENDER: None : Chronic bladder infection, Kidney stones, Other HEENT: Chronic vision loss Psych: Depression, Anxiety Musculoskeletal: Osteoarthritis, Fatigue, Other Derm: Herpes zoster - Past Surgical History Past Surgical History: Yes General: Colonoscopy, EGD Ortho: Hip replacement /SLURRY TANK TENDER: Dilation and currettage Cardiovascular: Pacemaker, Other HEENT: Tonsil/Adenoidectomy, Tracheostomy, Other - Present Medications Home Medications: Ambulatory Orders Medication Instructions Recorded Confirmed Cholecalciferol (Vitamin D3) 10,000 unit PO DAILY 10/22/18 08/18/20 [Vitamin D3] Warfarin [Coumadin] 2.5 mg PO TUTHSA 10/22/18 08/18/20 Warfarin [Coumadin] 5 mg PO SUMOWEFR 10/22/18 08/18/20 Phenazopyridine HCl [Pyridium] 200 mg PO TID PRN #6 tablet 12/20/18 08/18/20 Nitrofurantoin Monohyd/M-Cryst 100 mg PO BID #20 capsule 03/14/19 08/18/20 [Macrobid 100 mg Capsule] - Allergies Allergies/Adverse Reactions: Allergies Allergy/AdvReac Type Severity Reaction Status Date / Time BISHOP Inhibitors Allergy Unknown Verified 08/18/20 08:47 atropine Allergy Unknown Verified 08/18/20 08:47 cefpodoxime Allergy Unknown Verified 08/18/20 08:47 ciprofloxacin [From Cipro] Allergy Unknown Verified 08/18/20 08:47 clopidogrel Allergy Unknown Verified 08/18/20 08:47 esomeprazole Allergy Unknown Verified 08/18/20 08:47 flecainide Allergy Unknown Verified 08/18/20 08:47 metoprolol Allergy Unknown Verified 08/18/20 08:47 niacin Allergy Unknown Verified 08/18/20 08:47 NSAIDS (Non-Steroidal Allergy Unknown Verified 08/18/20 08:47 Anti-Inflamma Hpjzztx-Nag-Amd Reductase Allergy Unknown Verified 08/18/20 08:47 Inhibitor Sulfa (Sulfonamide Allergy Unknown Verified 08/18/20 08:47 Antibiotics) aspirin AdvReac Unknown Verified 08/18/20 08:47 - Social History Does the pt smoke?: No Smoking Status: Never smoker Does the pt drink ETOH?: No Does the pt have substance abuse?: No - Immunizations Immunizations are current?: Yes - POLST Patient has POLST: No POLST Status: Full Code PD ED PE NORMAL - Vitals Vital signs reviewed: Yes - General General: Alert and oriented X 3, No acute distress, Well developed/nourished - HEENT HEENT: Atraumatic, PERRL, EOMI - Neck Neck: Supple, no meningeal sign - Cardiac Cardiac: RRR - Respiratory Respiratory: No respiratory distress, Clear bilaterally - Abdomen Abdomen: Non tender, Non distended - Back Back: No spinal TTP - Derm Derm: Normal color, Warm and dry - Extremities Extremities: No deformity - Neuro Neuro: Alert and oriented X 3 - Psych Psych: Normal mood, Normal affect Results - Vitals Vitals: Vital Signs - 24 hr 08/18/20 08/18/20 08:33 10:15 Temperature 36.9 C Heart Rate 74 66 Respiratory 24 20 Rate Blood Pressure 160/101 H O2 Saturation 97 Oxygen O2 Source Room air - EKG (time done) 0918 Rate: Rate (enter#) (60) Rhythm: NSR Compare to prior EKG: Unchanged from prior EKG (prior ekg 08/06/20) - Labs Labs: Laboratory Tests 08/18/20 08/18/20 09:13 09:13 WBC 4.9 RBC 4.48 Hgb 14.4 Hct 43.6 MCV 97.3 MCH 32.1 H MCHC 33.0 RDW 14.3 Plt Count 184 MPV 10.1 Neut # (Auto) 3.3 Lymph # (Auto) 1.2 L [place] # (Auto) 0.3 Eos # (Auto) 0.1 Baso # (Auto) 0.1 Absolute Nucleated RBC 0.00 Nucleated RBC % 0.0 Sodium 140 Potassium 3.7 Chloride 104 Carbon Dioxide 26 Anion Gap 10.0 BUN 21 H Creatinine 0.6 Estimated GFR (MDRD) 94 Glucose 111 H Calcium 9.3 Total Bilirubin 1.4 H AST 22 ALT 21 Alkaline Phosphatase 48 Total Protein 7.4 Albumin 4.2 Globulin 3.2 Albumin/Globulin Ratio 1.3 Lipase 19 L PD MEDICAL DECISION MAKING - ED course ED course: 89-year-old woman presents with high blood pressure from home. She otherwise says that she feels normal but when pressed states that she does have a mild headache and tingling in her fingers and toes that she attributes to the cold. Lab work, EKG and chest x-ray noncontributory. Patient will follow up with Dr. Harrington this week. Strict return precautions given. Departure - Departure Disposition: Home, Self Care Clinical Impression: Asymptomatic hypertension Condition: Good Instructions: Hypertension Control, DASH Plan Eat Heart Healthy Food, ED Headache Tension Comments: You are seen in the emergency department for high blood pressure. You should try to eat a healthy diet and avoid processed foods like pizza. Follow-up with Dr. Harrington this week and have your blood pressure retaken. If it is still elevated then you may need to go on medication to help lower. Return to the emergency department if you have any new or worsening symptoms or other concerns.
[2020-08-18 10:36] VITALS: BP 159/86
== END 2020-08-18 10:35 | disposition home or self-care (01) ==
LOC: EDUNIT# → ED 08:31
DX: I10 Essential (primary) hypertension (principal); R51.9 Headache, unspecified; Z95.0 Presence of cardiac pacemaker
CPT/HCPCS: 36415; 80053; 83690; 85025; 93005; 99284

== ENCOUNTER 2020-09-17 04:28 | Outpatient (CLI) | payer MEDICARE, OTHER | END 2020-09-17 04:29 | disposition critical access hospital (66) | LOC: EMS 04:28 | DX: R20.0 Anesthesia of skin (principal) | CPT/HCPCS: A0425; A0429 ==

== ENCOUNTER 2020-09-17 05:00 | Emergency (ER) | payer MEDICARE, OTHER ==
[2020-09-17 05:31] LABS: BASOPHILS % (AUTO) 0.7 %; EOSINOPHILS # (AUTO) 0.1 10^3/uL (0.0-0.7); EOSINOPHILS % (AUTO) 1.1 %; HCT - HEMATOCRIT 39.7 % (37.0-47.0); HGB - HEMOGLOBIN 13.1 g/dL (12.0-16.0); LYMPHOCYTES # (AUTO) 0.7 10^3/uL (1.5-3.5); LYMPHOCYTES % (AUTO) 13.2 %; MEAN CORPUSCULAR HEMOGLOBIN 31.8 pg (27.0-31.0); MEAN CORPUSCULAR VOLUME 96.4 fL (81.0-99.0); MEAN PLATELET VOLUME 10.5 fL (7.9-10.8); MONOCYTES # (AUTO) 0.4 10^3/uL (0.0-1.0); MONOCYTES % (AUTO) 6.8 %; NEUTROPHILS # (AUTO) 4.4 10^3/uL (1.5-6.6); NEUTROPHILS % (AUTO) 77.8 %; PLT - PLATELET COUNT 174 10^3/uL (130-450); RED BLOOD COUNT 4.12 10^6/uL (4.20-5.40); RED CELL DISTRIBUTION WIDTH 14.3 % (12.0-15.0); WHITE BLOOD COUNT 5.6 x10^3/uL (4.8-10.8)
[2020-09-17 05:39] LABS: CREATININE 0.6 mg/dL (0.4-1.0); POTASSIUM 3.8 mmol/L (3.5-5.0)
[2020-09-17 05:41] LABS: INR 3.6 (0.8-1.2)
[2020-09-17 05:48] LABS: PARTIAL THROMBOPLASTIN TIME 33.3 secs (24.9-33.3)
--- NOTE | 2020-09-17 06:38 | ED Physician Documentation ---
History of Present Illness - Stated complaint Stated Complaint: HIGH BP - Chief complaint Chief Complaint: Cardiac - History obtained from History obtained from: Patient - Additonal information Additional information: 89-year-old woman with history of hypertension, atrial fibrillation on warfarin, she had a busy day yesterday. She saw the eye doctor and had a dilated eye exam, also had a routine cardiology visit where she was told everything was fine. She woke up at 3 AM feeling odd. Tingly and just weird. There was no particular headache, chest pain, shortness of breath with it. She checked her blood pressure and she was quite hypertensive in the range of 200 systolic. Now feeling back to normal. Review of Systems Constitutional: reports: Chills, Myalgias, Fatigue. denies: Fever Throat: denies: Sore throat Cardiac: denies: Chest pain / pressure, Palpitations Respiratory: denies: Dyspnea, Cough PD PAST MEDICAL HISTORY - Past Medical History Past Medical History: Yes Cardiovascular: Hypertension, High cholesterol, Deep vein thrombosis, Atrial fibrillation, Other Respiratory: Pneumonia Neuro: None Endocrine/Autoimmune: HyPOthyroidism GI: GERD, Hiatal hernia, Colon polyps, Chronic constipation COMPLIANCE TECHNICIAN: None : Chronic bladder infection, Kidney stones, Other HEENT: Chronic vision loss Psych: Depression, Anxiety Musculoskeletal: Osteoarthritis, Fatigue, Other Derm: Herpes zoster Other Past Medical History: USES A CANE W/ MOBILITY.. - Past Surgical History Past Surgical History: Yes General: Colonoscopy, EGD Ortho: Hip replacement /COMPLIANCE TECHNICIAN: Dilation and currettage Cardiovascular: Pacemaker, Other HEENT: Tonsil/Adenoidectomy, Tracheostomy, Other - Present Medications Home Medications: Ambulatory Orders Medication Instructions Recorded Confirmed Warfarin [Coumadin] 2.5 mg PO TUTHSA 10/22/18 09/17/20 Warfarin [Coumadin] 5 mg PO SUMOWEFR 10/22/18 09/17/20 Atorvastatin [Lipitor] 40 mg PO DAILY 09/17/20 09/17/20 - Allergies Allergies/Adverse Reactions: Allergies Allergy/AdvReac Type Severity Reaction Status Date / Time BISHOP Inhibitors Allergy Unknown Verified 09/17/20 05:12 atropine Allergy Unknown Verified 09/17/20 05:12 cefpodoxime Allergy Unknown Verified 09/17/20 05:12 ciprofloxacin [From Cipro] Allergy Unknown Verified 09/17/20 05:12 clopidogrel Allergy Unknown Verified 09/17/20 05:12 esomeprazole Allergy Unknown Verified 09/17/20 05:12 flecainide Allergy Unknown Verified 09/17/20 05:12 metoprolol Allergy Unknown Verified 09/17/20 05:12 niacin Allergy Unknown Verified 09/17/20 05:12 NSAIDS (Non-Steroidal Allergy Unknown Verified 09/17/20 05:12 Anti-Inflamma Euyttvz-Xes-Irc Reductase Allergy Unknown Verified 08/18/20 08:47 Inhibitor Sulfa (Sulfonamide Allergy Unknown Verified 08/18/20 08:47 Antibiotics) aspirin AdvReac Unknown Verified 08/18/20 08:47 - Social History Does the pt smoke?: No Smoking Status: Never smoker Does the pt drink ETOH?: No Does the pt have substance abuse?: No - Immunizations Immunizations are current?: Yes - POLST Patient has POLST: No POLST Status: Full Code PD ED PE NORMAL - Vitals Vital signs reviewed: Yes - General General: Alert and oriented X 3, No acute distress - HEENT HEENT: PERRL, EOMI - Neck Neck: Supple, no meningeal sign, No bony TTP - Cardiac Cardiac: No murmur - Respiratory Respiratory: No respiratory distress, Clear bilaterally - Abdomen Abdomen: Non tender - Derm Derm: Normal color, Warm and dry - Neuro Neuro: Alert and oriented X 3, No sensory deficit, Normal speech, Other (NIH stroke scale of 0) Results - Vitals Vitals: Vital Signs - 24 hr 09/17/20 09/17/20 09/17/20 04:59 05:24 05:44 Temperature 36.5 C Heart Rate 63 Respiratory 18 15 18 Rate Blood Pressure 154/76 H 141/63 H O2 Saturation 97 96 Oxygen O2 Source Room air - Labs Labs: Laboratory Tests 09/17/20 09/17/20 09/17/20 05:28 05:28 05:28 WBC 5.6 RBC 4.12 L Hgb 13.1 Hct 39.7 MCV 96.4 MCH 31.8 H MCHC 33.0 RDW 14.3 Plt Count 174 MPV 10.5 Neut # (Auto) 4.4 Lymph # (Auto) 0.7 L [place] # (Auto) 0.4 Eos # (Auto) 0.1 Baso # (Auto) 0.0 Absolute Nucleated RBC 0.00 Nucleated RBC % 0.0 PT 37.0 H INR 3.6 H APTT 33.3 Sodium 141 Potassium 3.8 Chloride 107 Carbon Dioxide 26 Anion Gap 8.0 BUN 26 H Creatinine 0.6 Estimated GFR (MDRD) 94 Glucose 108 H Calcium 9.0 PD MEDICAL DECISION MAKING - ED course ED course: 89-year-old woman with resolved atypical/nonspecific symptoms. No evidence of stroke or other serious illness. Departure - Departure Disposition: Home, Self Care Clinical Impression: Supratherapeutic INR, Paresthesia, Transient hypertension Condition: Stable Record reviewed to determine appropriate education?: Yes Instructions: ED HTN Established Comments: Take it easy today, no driving or heavy work. Return if worsening or if new symptoms develop. Follow-up with your primary care physician. Your INR today is 3.6, take a half dose of warfarin today, recheck INR Tuesday.
[2020-09-17 06:51] VITALS: BP 156/76
== END 2020-09-17 07:38 | disposition home or self-care (01) ==
LOC: ED 05:00
DX: I10 Essential (primary) hypertension (principal); I48.91 Unspecified atrial fibrillation; Z79.01 Long term (current) use of anticoagulants; R79.1 Abnormal coagulation profile; R20.2 Paresthesia of skin
CPT/HCPCS: 36415; 80048; 85025; 85610; 85730; 99283; 99284

== ENCOUNTER 2020-10-07 12:17 | Outpatient (CLI) | payer MEDICARE, OTHER | END 2020-10-07 12:18 | disposition critical access hospital (66) | LOC: EMS 12:17 | DX: R20.0 Anesthesia of skin (principal) | CPT/HCPCS: A0425; A0429 ==

== ENCOUNTER 2020-10-07 12:36 | Emergency (ER) | payer MEDICARE, OTHER ==
--- NOTE | 2020-10-07 13:06 | ED Physician Documentation ---
History of Present Illness - Stated complaint Stated Complaint: HEAD PX - Chief complaint Chief Complaint: Neuro - History obtained from History obtained from: Patient, EMS - History of Present Illness Timing: Today (A rex 89-year-old woman with history of atrial fibrillation on warfarin, pacemaker in place. She did not sleep well last night. She is not sure why. And this morning she had about a 20-minute episode of right-sided headache, neck pain, and body pain. Symptoms are all resolved now.) Review of Systems Constitutional: reports: Fatigue. denies: Fever, Chills Cardiac: denies: Chest pain / pressure, Palpitations Respiratory: denies: Dyspnea, Cough PD PAST MEDICAL HISTORY - Past Medical History Cardiovascular: Hypertension, High cholesterol, Deep vein thrombosis, Atrial fibrillation, Other Respiratory: Pneumonia Neuro: None Endocrine/Autoimmune: HyPOthyroidism GI: GERD, Hiatal hernia, Colon polyps, Chronic constipation NOTCH GRINDER: None : Chronic bladder infection, Kidney stones, Other HEENT: Chronic vision loss Psych: Depression, Anxiety Musculoskeletal: Osteoarthritis, Fatigue, Other Derm: Herpes zoster - Past Surgical History Past Surgical History: Yes General: Colonoscopy, EGD Ortho: Hip replacement /NOTCH GRINDER: Dilation and currettage Cardiovascular: Pacemaker, Other HEENT: Tonsil/Adenoidectomy, Tracheostomy, Other - Present Medications Home Medications: Ambulatory Orders Medication Instructions Recorded Confirmed Warfarin [Coumadin] 2.5 mg PO TUTHSA 10/22/18 10/07/20 Warfarin [Coumadin] 5 mg PO SUMOWEFR 10/22/18 10/07/20 Atorvastatin [Lipitor] 40 mg PO DAILY 09/17/20 10/07/20 - Allergies Allergies/Adverse Reactions: Allergies Allergy/AdvReac Type Severity Reaction Status Date / Time BISHOP Inhibitors Allergy Unknown Verified 10/07/20 12:42 atropine Allergy Unknown Verified 10/07/20 12:42 cefpodoxime Allergy Unknown Verified 10/07/20 12:42 ciprofloxacin [From Cipro] Allergy Unknown Verified 10/07/20 12:42 clopidogrel Allergy Unknown Verified 10/07/20 12:42 esomeprazole Allergy Unknown Verified 10/07/20 12:42 flecainide Allergy Unknown Verified 10/07/20 12:42 metoprolol Allergy Unknown Verified 10/07/20 12:42 niacin Allergy Unknown Verified 10/07/20 12:42 NSAIDS (Non-Steroidal Allergy Unknown Verified 10/07/20 12:42 Anti-Inflamma Vugflya-Yzs-Tqw Reductase Allergy Unknown Verified 10/07/20 12:42 Inhibitor Sulfa (Sulfonamide Allergy Unknown Verified 10/07/20 12:42 Antibiotics) aspirin AdvReac Unknown Verified 10/07/20 12:42 - Social History Does the pt smoke?: No Smoking Status: Never smoker Does the pt drink ETOH?: No Does the pt have substance abuse?: No - Immunizations Immunizations are current?: Yes - POLST Patient has POLST: No POLST Status: Full Code PD ED PE NORMAL - Vitals Vital signs reviewed: Yes - General General: Alert and oriented X 3, No acute distress - HEENT HEENT: PERRL, EOMI - Neck Neck: Supple, no meningeal sign, No bony TTP - Cardiac Cardiac: RRR, No murmur - Respiratory Respiratory: No respiratory distress, Clear bilaterally - Abdomen Abdomen: Non tender - Extremities Extremities: No edema, No calf tenderness / cord - Neuro Neuro: Alert and oriented X 3, No motor deficit, No sensory deficit, Normal speech Results - Vitals Vitals: Vital Signs - 24 hr 10/07/20 12:42 Temperature 36.3 C L Heart Rate 66 Respiratory 16 Rate Blood Pressure 149/85 H O2 Saturation 97 Oxygen O2 Source Room air - EKG (time done) 1317 Rate: Rate (enter#) (65) Rhythm: NSR [place]: Normal Intervals: Other (IVCD) Ischemia: Non specific changes Compare to prior EKG: Unchanged from prior EKG (no chg from 08/18/20) Computer interpretation: Agree with computer - Labs Labs: Laboratory Tests 10/07/20 10/07/20 10/07/20 13:55 13:55 13:55 WBC 4.9 RBC 4.23 Hgb 13.4 Hct 40.0 MCV 94.6 MCH 31.7 H MCHC 33.5 RDW 14.4 Plt Count 175 MPV 10.5 Neut # (Auto) 3.5 Lymph # (Auto) 1.0 L [place] # (Auto) 0.4 Eos # (Auto) 0.0 Baso # (Auto) 0.0 Absolute Nucleated RBC 0.00 Nucleated RBC % 0.0 PT 15.4 H INR 1.4 H Sodium 140 Potassium 3.9 Chloride 105 Carbon Dioxide 26 Anion Gap 9.0 BUN 23 H Creatinine 0.6 Estimated GFR (MDRD) 94 Glucose 106 H Calcium 9.4 PD MEDICAL DECISION MAKING - ED course ED course: 89-year-old woman on warfarin and with history of A. fib and pacemaker in place presents with resolved symptoms of headache, right-sided neck, and hemicorporal pain. Unremarkable exam here. CT of the head interpreted contemporaneously by me shows chronic microvascular and atrophy type changes. Only pertinent positive finding on labs was low INR. This was discussed with her. She has been eating a lot of salad sampler's and was advised to moderate her vitamin K intake. Departure - Departure Disposition: Home, Self Care Clinical Impression: Atrial fibrillation and flutter, Neck pain Headache Qualifiers: Headache type: other headache syndrome Qualified Code(s): G44.89 - Other headache syndrome Condition: Good Record reviewed to determine appropriate education?: Yes Instructions: ED Cephalgia Unspecified Comments: As discussed, the only pertinent positive finding today was your INR is low at 1.4. Take an extra warfarin dose tonight and cut back on leafy green vegetables a bit. Follow-up with your primary care physician, return for new or worsening symptoms. Thankfully though no evidence of severe illness, stroke, bleeding in your brain, or active heart issue.
--- NOTE | 2020-10-07 13:49 | CT Report ---
PROCEDURE: HEAD WO INDICATIONS: headache anticoagulated TECHNIQUE: Noncontrast 4.5 mm thick angled axial sections acquired from the foramen magnum to the vertex. For r adiation dose reduction, the following was used: automated exposure control, adjustment of mA and/or kV according to patient size. COMPARISON: CTA head/neck , CT head 03/28/2020 FINDINGS: Image quality: Excellent. The ventricular system and cortical sulci demonstrate atrophy, consistent for patient's stated age. There are areas of hypodensity in the periventricular and subcortical white matter. There is no acut e intra or extra-axial fluid collection. No acute hemorrhage, mass lesion or midline shift. Brainst em is unremarkable. Globes are symmetrical. Sinuses are aerated. Osseous structures are intact. IMPRESSION: 1. No acute intracranial process. 2. Moderate atrophy and chronic microvascular ischemic changes. Reviewed by: Daphne Dunne MD on 10/07/2020 1:48 PM PDT Approved by: Daphne Dunne MD on 10/07/2020 1:48 PM PDT Station ID: [id number]
[2020-10-07 14:04] LABS: BASOPHILS % (AUTO) 0.8 %; EOSINOPHILS % (AUTO) 0.6 %; HGB - HEMOGLOBIN 13.4 g/dL (12.0-16.0); LYMPHOCYTES % (AUTO) 19.7 %; MEAN CORPUSCULAR HEMOGLOBIN 31.7 pg (27.0-31.0); MEAN CORPUSCULAR HGB CONC 33.5 g/dL (32.0-36.0); MEAN CORPUSCULAR VOLUME 94.6 fL (81.0-99.0); MEAN PLATELET VOLUME 10.5 fL (7.9-10.8); MONOCYTES # (AUTO) 0.4 10^3/uL (0.0-1.0); MONOCYTES % (AUTO) 8.1 %; NEUTROPHILS # (AUTO) 3.5 10^3/uL (1.5-6.6); NEUTROPHILS % (AUTO) 70.6 %; PLT - PLATELET COUNT 175 10^3/uL (130-450); RED BLOOD COUNT 4.23 10^6/uL (4.20-5.40); RED CELL DISTRIBUTION WIDTH 14.4 % (12.0-15.0); WHITE BLOOD COUNT 4.9 x10^3/uL (4.8-10.8)
[2020-10-07 14:10] LABS: INR 1.4 (0.8-1.2); PT - PROTHROMBIN TIME 15.4 secs (9.9-12.6)
[2020-10-07 14:15] LABS: CALCIUM 9.4 mg/dL (8.5-10.3); CREATININE 0.6 mg/dL (0.4-1.0); POTASSIUM 3.9 mmol/L (3.5-5.0)
[2020-10-07 14:43] VITALS: BP 155/67
== END 2020-10-07 14:47 | disposition home or self-care (01) ==
LOC: EDUNIT# → ED 12:36
DX: G44.89 Other headache syndrome (principal); I10 Essential (primary) hypertension; I48.91 Unspecified atrial fibrillation; I48.92 Unspecified atrial flutter; Z79.01 Long term (current) use of anticoagulants; Z95.0 Presence of cardiac pacemaker
CPT/HCPCS: 36415; 80048; 85025; 85610; 93005; 99283; 99284

== ENCOUNTER 2020-11-13 13:14 | Emergency (ER) | payer MEDICARE, OTHER ==
--- NOTE | 2020-11-13 13:30 | ED Physician Documentation ---
PD HPI CHEST PAIN - Stated complaint Stated Complaint: PACEMAKER CONCERN - Chief complaint Chief Complaint: Cardiac - History obtained from History obtained from: Patient - History of Present Illness Timing - onset: Last night (she states she has had some feeling of general malaise/weakness. She is concerned her pacemaker is working okay. She has "park naturalist" that she believes recharges her pacemaker while she is sleeping. I think it is likely an interrogator that reads the day rhythm, but she is firm that it recharges it.), Other (what she believes is her charging device for the pacemaker was not working last night, so she is concerned that the PM is not working right today.) Timing - details: Gradual onset, Waxing and waning Quality: Other (just feeling of general weakness). No: Pressure, Tightness Associated symptoms: General Weakness. No: Shortness of air, Diaphoresis, Nausea, Palpitations Similar symptoms before: Diagnosis (feeling similar to before she had the pacemaker with rhythm problems.) Review of Systems Constitutional: denies: Fever Nose: denies: Rhinorrhea / runny nose, Congestion Throat: denies: Sore throat Respiratory: denies: Cough GI: denies: Vomiting, Diarrhea : denies: Dysuria PD PAST MEDICAL HISTORY - Past Medical History Cardiovascular: Hypertension, High cholesterol, Deep vein thrombosis, Atrial fibrillation, Other Respiratory: Pneumonia Neuro: None Endocrine/Autoimmune: HyPOthyroidism GI: GERD, Hiatal hernia, Colon polyps, Chronic constipation CUSTOM FRAMING SPECIALIST: None : Chronic bladder infection, Kidney stones, Other HEENT: Chronic vision loss Psych: Depression, Anxiety Musculoskeletal: Osteoarthritis, Fatigue, Other Derm: Herpes zoster - Past Surgical History Past Surgical History: Yes General: Colonoscopy, EGD Ortho: Hip replacement /CUSTOM FRAMING SPECIALIST: Dilation and currettage Cardiovascular: Pacemaker, Other HEENT: Tonsil/Adenoidectomy, Tracheostomy, Other - Present Medications Home Medications: Ambulatory Orders Medication Instructions Recorded Confirmed Warfarin [Coumadin] 2.5 mg PO TU 10/22/18 11/13/20 Warfarin [Coumadin] 5 mg PO SUMOWETHFRSA 10/22/18 11/13/20 Atorvastatin [Lipitor] 40 mg PO DAILY 09/17/20 11/13/20 - Allergies Allergies/Adverse Reactions: Allergies Allergy/AdvReac Type Severity Reaction Status Date / Time BISHOP Inhibitors Allergy Unknown Verified 11/13/20 13:18 atropine Allergy Unknown Verified 11/13/20 13:18 cefpodoxime Allergy Unknown Verified 11/13/20 13:18 ciprofloxacin [From Cipro] Allergy Unknown Verified 11/13/20 13:18 clopidogrel Allergy Unknown Verified 11/13/20 13:18 esomeprazole Allergy Unknown Verified 11/13/20 13:18 flecainide Allergy Unknown Verified 11/13/20 13:18 metoprolol Allergy Unknown Verified 11/13/20 13:18 niacin Allergy Unknown Verified 11/13/20 13:18 NSAIDS (Non-Steroidal Allergy Unknown Verified 11/13/20 13:18 Anti-Inflamma Mcxngor-Wcm-Fjk Reductase Allergy Unknown Verified 11/13/20 13:18 Inhibitor Sulfa (Sulfonamide Allergy Unknown Verified 11/13/20 13:18 Antibiotics) aspirin AdvReac Unknown Verified 11/13/20 13:18 - Social History Does the pt smoke?: No Smoking Status: Never smoker Does the pt drink ETOH?: No Does the pt have substance abuse?: No - Immunizations Immunizations are current?: Yes - POLST Patient has POLST: No POLST Status: Full Code PD ED PE NORMAL - Vitals Vital signs reviewed: Yes - General General: Alert and oriented X 3, No acute distress, Well developed/nourished - Neck Neck: Supple, no meningeal sign, No adenopathy - Cardiac Cardiac: RRR, No murmur - Respiratory Respiratory: Clear bilaterally - Abdomen Abdomen: Soft, Non tender - Back Back: No CVA TTP - Derm Derm: Normal color, Warm and dry - Extremities Extremities: No edema, No calf tenderness / cord - Neuro Neuro: Alert and oriented X 3, No motor deficit, Normal speech Results - Vitals Vitals: Vital Signs - 24 hr 11/13/20 11/13/20 13:19 15:25 Temperature 36.5 C Heart Rate 97 71 Respiratory 16 16 Rate Blood Pressure 179/86 H 168/80 H O2 Saturation 96 Oxygen O2 Source Room air - Labs Labs: Laboratory Tests 11/13/20 11/13/20 14:11 14:11 WBC 5.0 RBC 4.29 Hgb 13.4 Hct 41.5 MCV 96.7 MCH 31.2 H MCHC 32.3 RDW 14.9 Plt Count 191 MPV 10.5 Neut # (Auto) 3.5 Lymph # (Auto) 1.1 L [place] # (Auto) 0.3 Eos # (Auto) 0.0 Baso # (Auto) 0.0 Absolute Nucleated RBC 0.00 Nucleated RBC % 0.0 Sodium 143 Potassium 4.0 Chloride 108 Carbon Dioxide 27 Anion Gap 8.0 BUN 27 H Creatinine 0.7 Estimated GFR (MDRD) 79 L Glucose 107 H Calcium 9.3 Magnesium 2.1 Total Bilirubin 1.2 H AST 18 ALT 15 Alkaline Phosphatase 48 Total Protein 7.4 Albumin 4.1 Globulin 3.3 Albumin/Globulin Ratio 1.2 Lipase 23 PD MEDICAL DECISION MAKING - ED course Complexity details: reviewed results (pacemaker interrogation showed normal function. ), considered differential, d/w patient, other (call placed to manager monitoring Cardiology to give update. They were in procedure and had not called back by time of my end of shift. ) Departure - Departure Disposition: 01 Home, Self Care Clinical Impression: General weakness, Pacemaker reprogramming/check Condition: Stable Record reviewed to determine appropriate education?: Yes Follow-Up: Pauline Harrington PA [Primary Care Provider] - Carlota Barrow MD [Physician No Access] - Comments: Your basic blood tests appear normal. Your interrogation of the pacemaker shows its working well. It has its own internal battery with still good battery life for another 11 years. I will talk with the on-call fiberglass roller when he is out from the procedure and have the office call you presumably tomorrow to troubleshoot the machine that you have bedside. Your pacemaker is working fine and no acute intervention is needed. I do not have reason necessarily for your feeling of general weakness. See how you do over the next few days. Stay well-hydrated. Discharge Date/Time: 11/13/20 15:42
[2020-11-13 14:19] LABS: BASOPHILS % (AUTO) 0.8 %; EOSINOPHILS % (AUTO) 0.2 %; HCT - HEMATOCRIT 41.5 % (37.0-47.0); HGB - HEMOGLOBIN 13.4 g/dL (12.0-16.0); LYMPHOCYTES # (AUTO) 1.1 10^3/uL (1.5-3.5); LYMPHOCYTES % (AUTO) 22.8 %; MEAN CORPUSCULAR HEMOGLOBIN 31.2 pg (27.0-31.0); MEAN CORPUSCULAR HGB CONC 32.3 g/dL (32.0-36.0); MEAN CORPUSCULAR VOLUME 96.7 fL (81.0-99.0); MEAN PLATELET VOLUME 10.5 fL (7.9-10.8); MONOCYTES # (AUTO) 0.3 10^3/uL (0.0-1.0); MONOCYTES % (AUTO) 5.7 %; NEUTROPHILS # (AUTO) 3.5 10^3/uL (1.5-6.6); NEUTROPHILS % (AUTO) 70.3 %; PLT - PLATELET COUNT 191 10^3/uL (130-450); RED BLOOD COUNT 4.29 10^6/uL (4.20-5.40); RED CELL DISTRIBUTION WIDTH 14.9 % (12.0-15.0)
--- NOTE | 2020-11-13 14:21 | XRAY Report ---
PROCEDURE: Chest 1 View X-Ray INDICATIONS: chest pain TECHNIQUE: One view of the chest was acquired. COMPARISON: 08/18/2020 FINDINGS: Surgical changes and devices: Left chest wall pacemaker lead is seen in the region of right ventricle . Lungs and pleura: No pleural effusions or pneumothorax. Lungs are clear. Mediastinum: Mediastinal contours appear normal. Heart size is enlarged. Bones and chest wall: No suspicious bony lesions. Overlying soft tissues appear unremarkable. IMPRESSION: No acute cardiopulmonary pathology. Reviewed by: Frank Kapadia MD on 11/13/2020 2:20 PM PDT Approved by: Frank Kapadia MD on 11/13/2020 2:20 PM PDT Station ID: [id number]
[2020-11-13 14:29] LABS: ALBUMIN 4.1 g/dL (3.2-5.5); ALBUMIN/GLOBULIN RATIO 1.2 (1.0-2.2); BILIRUBIN,TOTAL 1.2 mg/dL (0.2-1.0); CALCIUM 9.3 mg/dL (8.5-10.3); CREATININE 0.7 mg/dL (0.4-1.0); MAGNESIUM 2.1 mg/dL (1.7-2.8); TOTAL PROTEIN 7.4 g/dL (6.7-8.2)
[2020-11-13 20:12] VITALS: BP 168/80
== END 2020-11-13 15:42 | disposition home or self-care (01) ==
LOC: ED 13:14
DX: R53.1 Weakness (principal); Z45.018 Encounter for adjustment and management of other part of cardiac pacemaker; I10 Essential (primary) hypertension; I48.91 Unspecified atrial fibrillation; Z86.718 Personal history of other venous thrombosis and embolism; Z79.01 Long term (current) use of anticoagulants
CPT/HCPCS: 36415; 80053; 83690; 83735; 85025; 93005; 99284